=== PATIENT | female | born 1950 | race Caucasian/White ===

== ENCOUNTER → 2022-01-14 15:05 | Outpatient (BNVA) | payer MEDICARE, SELFPAY | PROVIDERS: PCP Pediatrics; Visit Provider Internal Medicine Pulmonary Disease | DX: J44.9 Chronic obstructive pulmonary disease, unspecified (principal); I10 Essential (primary) hypertension; J96.12 Chronic respiratory failure with hypercapnia; I50.89 Other heart failure; M06.9 Rheumatoid arthritis, unspecified; Z12.2 Encounter for screening for malignant neoplasm of respiratory organs; Z79.891 Long term (current) use of opiate analgesic; Z99.81 Dependence on supplemental oxygen; Z87.891 Personal history of nicotine dependence | CPT/HCPCS: 36415; 80053; 82103; 82785; 83735; 83880; 85025; 85651; 86003; 86140; 86200; 86225; 86235; 99204 ==

== ENCOUNTER → 2022-02-04 13:05 | Outpatient (BNVA) | payer MEDICARE, SELFPAY | PROVIDERS: PCP Pediatrics; Visit Provider Internal Medicine | DX: I50.9 Heart failure, unspecified (principal); R06.09 Other forms of dyspnea; Z87.891 Personal history of nicotine dependence | CPT/HCPCS: 99204 ==

== ENCOUNTER 2022-03-22 06:00 | Outpatient (RCR) | payer MEDICARE, OTHER, SELFPAY | END 2022-04-05 23:59 | disposition home or self-care (01) | LOC: TPT 06:00 | PROVIDERS: PCP Pediatrics; Visit Provider Internal Medicine Pulmonary Disease | DX: R53.1 Weakness (principal); R06.09 Other forms of dyspnea | CPT/HCPCS: 97110; 97163 ==

== ENCOUNTER 2022-04-20 12:24 | Outpatient (CLI) | payer MEDICARE, OTHER, SELFPAY | END 2022-04-20 12:25 | disposition home or self-care (01) | PROVIDERS: PCP Pediatrics; Visit Provider Internal Medicine Pulmonary Disease | DX: R53.1 Weakness (principal); R06.09 Other forms of dyspnea | CPT/HCPCS: 94060; 94618; 94726 ==

== ENCOUNTER 2022-04-20 12:30 | Outpatient (CLI) | payer MEDICARE, OTHER, SELFPAY ==
--- NOTE | 2022-04-20 14:15 | USCV_ITS ---
Mary Fitch Age: 71 Gender: F : 1950 Exam Date: 04/20/2022 14:17 Ordering Phys: Aaron Patrick M.D ([email or web address]) Technologist: Brigido Sandoval [place]am [place] [facility] [place] Indication: LV dysfunction BP: 120 / 64 HR: 74 Rhythm: Sinus Technical Quality: Adequate MEASUREMENTS (Male / Female) Normal Values 2D ECHO LV Diastolic Diameter PLAX 4.5 cm 4.2 - 5.9 / 3.9 - 5.3 cm LV Systolic Diameter PLAX 2.8 cm IVS Diastolic Thickness 0.8 cm 0.6 - 1.0 / 0.6 - 0.9 cm IVS Systolic Thickness 1.2 cm LVPW Diastolic Thickness 0.9 cm 0.6 - 1.0 / 0.6 - 0.9 cm LVPW Systolic Thickness 1.2 cm LVOT Diameter 2.0 cm LV Ejection Fraction 2D Teich 68.3 % LV Ejection Fraction MOD 2C 51.3 % LV Ejection Fraction 2C AL 51.3 % LA Diameter 3.0 cm LA Width 3.1 cm LA Height 4.1 cm RA Width 2.9 cm RA Height 4.4 cm Aorta at Sinotubular Diameter 2.3 cm IVC Diameter 1.8 cm M-MODE Aortic Annulus Diameter 2.8 cm LA Ao Ratio MM 1.1 MV E Point Septal Separation 1.1 cm DOPPLER AV Peak Velocity 149.7 cm/s LVOT Peak Velocity 101.0 cm/s AV Area Cont Eq vti 2.2 cm squared AV Area Cont Eq pk 2.1 cm squared MV Peak Velocity 108.0 cm/s MV Area PHT 5.1 cm squared Mitral E to A Ratio 0.7 MV E' Velocity 34.0 cm/s Mitral E to MV E' Ratio 7.6 Mitral E to LV E' Lateral Ratio 6.8 Mitral E to LV E' Septal Ratio 8.7 Right Atrial Pressure 3.0 mmHg PV Peak Velocity 114.0 cm/s RV Acceleration Time 0.1 s RV Ejection Time 0.3 s RV AcT/ET 0.2 FINDINGS Left Ventricle Left ventricle is normal in size. LV systolic function is mildly reduced with EF of 45 to 50%. Mild global hypokinesis is seen. Grade 1 diastolic dysfunction Right Ventricle Normal in size and function Right Atrium Normal in size Left Atrium Normal in size Mitral Valve Structurally normal mitral valve. Trace mitral regurgitation Aortic Valve Structurally normal aortic valve. No significant aortic stenosis. Tricuspid Valve Trace tricuspid regurgitation. Insufficient TR jet to calculate RVSP Pulmonic Valve Not well-visualized Pericardium Normal Aorta Normal in size IVC Appears to be normal CONCLUSIONS LV systolic function is mildly reduced with EF 45 to 50%. Mild global hypokinesis seen. Grade 1 diastolic dysfunction Trace mitral regurgitation Trace tricuspid regurgitation No comparison studies are available Aaron Patrick MD (Electronically Signed) Final Date: 29 April 2022 13:57 S
== END 2022-04-20 12:31 | disposition home or self-care (01) ==
PROVIDERS: PCP Pediatrics; Visit Provider Internal Medicine
DX: I08.1 Rheumatic disorders of both mitral and tricuspid valves (principal)
CPT/HCPCS: 93306

== ENCOUNTER 2022-08-18 09:44 | Outpatient (CLI) | payer MEDICARE, OTHER, SELFPAY ==
--- NOTE | 2022-08-18 10:00 | CT_ITS ---
WS: [id number] LDCT LUNG CANCER SCREENING TECHNIQUE: Noncontrast CT of the chest with coronal and sagittal reformatted images. CLINICAL INFORMATION: M06.9 - Rheumatoid arthritis, unspecified COMPARISON: None. DLP: 73.11 mGy.cm DIvol: Mean CTDIvol: 1.60 (mGy) All CT scans at [facility] use at least one of these dose optimization techniques: automat ed exposure control; mA and/or kV adjustment per patient size (includes targeted exams where dose is matched to clinical indication); or iterative reconstruction. FINDINGS: Advanced chronic emphysematous changes. No acute pulmonary infiltrates. No focal pneumonia or pleural fluid. No suspicious parenchymal abnormalities. Aortic calcification. No mediastinal or hilar lymphadenopathy. No axillary lymphadenopathy. Adrenal glands are normal. Normal GE junction. Hepatomegaly. Mild thoracic curve. Disc space narrowing in the mid thoracic spine. CT/CT lung screening [id number] IMPRESSION: LUNG-RADS: 1-Negative FOLLOW UP: 12 Month: Continue annual screening with LDCT
== END 2022-08-18 09:45 | disposition home or self-care (01) ==
LOC: RAD 09:47
PROVIDERS: PCP Pediatrics; Visit Provider Internal Medicine Pulmonary Disease
DX: M06.9 Rheumatoid arthritis, unspecified (principal)
CPT/HCPCS: 71271

== ENCOUNTER → 2022-12-02 12:24 | Outpatient (BNVA) | payer MEDICARE, OTHER, SELFPAY | PROVIDERS: PCP Pediatrics; Visit Provider Internal Medicine | DX: I50.9 Heart failure, unspecified (principal); R06.09 Other forms of dyspnea; Z87.891 Personal history of nicotine dependence | CPT/HCPCS: 99214 ==

== ENCOUNTER 2023-06-13 12:41 | Emergency (ER) | payer MEDICARE, OTHER, SELFPAY ==
--- NOTE | 2023-06-13 12:48 | ECG_ITS ---
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 Measurements Intervals [place] Rate: 80 P: 62 MT: 134 QRS: 48 QRSD: 90 T: 85 QT: 347 QTc: 400 Interpretive Statements SINUS RHYTHM No previous ECG available for comparison Electronically Signed On 06-13-2023 15:28:07 TELEGRAPH OFFICE ROUTE AIDE by Aaron Patrick M.D. [id number]
--- NOTE | 2023-06-13 12:49 | XRR_ITS ---
PROCEDURE INFORMATION: Exam: XR Chest Exam date and time: 06/13/2023 2:04 PM Age: 72 years old Clinical indication: Pain; Angina pectoris; Additional info: Cp TECHNIQUE: Imaging protocol: Radiologic exam of the chest. Views: 1 view. COMPARISON: CT lung screening [id number] 08/18/2022 10:24 AM FINDINGS: Lungs: There is no consolidation. Pleural spaces: There is no pleural effusion or pneumothorax. Heart/Mediastinum: Cardiomediastinal contours are unremarkable. Bones/joints: Bones are unremarkable. XR/XR chest 1V portable [id number] IMPRESSION: No acute findings.
[2023-06-13 12:51] VITALS: BP 142/82; PULSE 84; RESP 14; TEMP 36.7; O2SAT 95; BMI 32.3
[2023-06-13 13:29] LABS: Basophils % 0.3 %; Eosinophils # 0.1 10^3/uL (0.0-0.8); Eosinophils % 0.7 %; Hematocrit 44.3 % (36-47); Lymphocytes # 1.6 10^3/uL (0.8-4.8); Lymphocytes % 17.7 %; Mean Corpuscular HGB Conc 31.2 g/dL (30-55); Mean Corpuscular Hemoglobin 28.4 pg (27-33); Mean Corpuscular Volume 91.2 fl (85-98); Mean Platelet Volume 9.5 fL (7.4-10.4); Monocytes # 0.5 10^3/uL (0.2-0.9); Monocytes % 5.1 %; Neutrophils # 6.73 10^3/uL (1.8-7.7); Nucleated Red Blood Cells % 0 %; Platelet Count 311 10^3/cmm (157-399); Red Blood Count 4.86 10^6/uL (3.85-5.65); Red Cell Distribution Width 13.1 % (12.1-15.1); White Blood Count 8.86 10^3/uL (3.29-11.43)
[2023-06-13 13:38] LABS: INR 0.96 (0.8-1.2)
[2023-06-13 13:52] LABS: Troponin(5th) Baseline 7 ng/L (0-10)
[2023-06-13 14:01] LABS: Alanine Aminotransferase 51 U/L (0-33); Albumin Level 4.2 g/dL (3.5-5.2); Alkaline Phosphatase 182 U/L (35-105); Anion Gap 14.8 (5-19); Aspartate Amino Transferase 36 U/L (0-32); Blood Urea Nitrogen 13 mg/dL (8-23); Calcium 9.5 mg/dL (8.5-10.5); Carbon Dioxide 30 mmol/L (22-29); Chloride 100 mmol/L (98-107); Globulin 2.7 g/dL (1.3-4.6); Glucose 130 mg/dL (65-115); NT Pro B Type Natriuretic Pept < 36 pg/mL (0-125); Osmolality Calculated 292 mOsm/kg (285-295); Potassium 4.8 mmol/L (3.5-5.1); Sodium 140 mmol/L (136-145); Total Bilirubin 0.7 mg/dL (0.15-1.2); Total Protein 6.9 g/dL (6.6-8.7)
--- NOTE | 2023-06-13 14:10 | CTR_ITS ---
PROCEDURE INFORMATION: Exam: CT Abdomen And Pelvis With Contrast Exam date and time: 06/13/2023 3:09 PM Age: 72 years old Clinical indication: Abdominal pain; Epigastric; Additional info: Abd pain TECHNIQUE: Imaging protocol: Computed tomography of the abdomen and pelvis with contrast. Radiation optimization: All CT scans at this facility use at least one of these dose optimization techniques: automated exposure control; mA and/or kV adjustment per patient size (includes targeted exams where dose is matched to clinical indication); or iterative reconstruction. Contrast material: OMNI 350; Contrast volume: 100 ml; Contrast route: INTRAVENOUS (IV); COMPARISON: CT lung screening [id number] 08/18/2022 10:24 AM RADIATION DOSE METRICS: Total DLP (mGy-cm): 913 FINDINGS: Lungs: Imaged portions of the lung bases demonstrate minimal scarring and/or atelectasis. Liver: Unremarkable. Gallbladder and bile ducts: . A 6 x 9 mm soft tissue density is present at the gallbladder fundus, possibly representing a gallbladder polyp. There are no obvious calcified stones. The gallbladder is mildly distended but without obvious adjacent inflammatory changes. The extrahepatic bile duct measures 5 mm diameter. Pancreas: Unremarkable. Spleen: There are several small hypodensities associated with the spleen not fully characterized but potentially small cysts. The largest of these measures 1.2 cm in a subcapsular location. Adrenal glands: Not enlarged. Kidneys and ureters: No hydronephrosis. Stomach and bowel: No bowel obstruction identified. No bowel wall thickening noted, within the limits of the examination. Moderate diverticulosis involves the colon without secondary evidence of acute diverticulitis. Appendix: No acute inflammatory change of the appendix is identified. Intraperitoneal space: A minimal amount of free fluid is present in the lower pelvis. Vasculature: Circumaortic left renal vein noted as a developmental variant. atherosclerosis present in major vasculature without abdominal aortic aneurysm. Lymph nodes: No adenopathy noted. There are several ileocolic mesenteric nodes measuring up to 8 mm short axis. These are nonspecific. Urinary bladder: Unremarkable as visualized. Reproductive: Unremarkable as visualized. The uterus is atrophic as anticipated. Bones/joints: Unremarkable for age. Findings of degenerative disc disease noted at L3-L4 through L5-S1. Soft tissues: No acute subcutaneous abnormality identified. CT/CT abdomen pelvis w con* [id number] IMPRESSION: 1. Findings consistent with a polypoid 6 x 9 mm mass of the gallbladder fundus. Differential diagnosis would include a adherent gallstone, but typically not seen along the nondependent wall. Further evaluation is recommended initially with gallbladder ultrasound, and recommend Doppler assessment of this finding. 2. Scattered small splenic hypodensities too small to fully characterize but possibly small cysts. 3. Moderate diverticulosis without secondary evidence of acute diverticulitis. 4. Prominent ileocolic mesenteric nodes are nonspecific. These may relate to current or previous episode of adenitis. Other etiology of adenopathy not excluded. Would recommend a colonoscopy if the patient is not up-to-date on colonic screening.
--- NOTE | 2023-06-13 14:29 | W.ED.WEAKNES ---
HPI - Weakness General: Chief complaint: Weakness Stated complaint: CP Time Seen by Provider: 06/13/23 14:02 Source: patient Mode of arrival: ambulatory Limitations: no limitations History of Present Illness: 72-year-old female states that states over the last week she has been having chest pain along with severe epigastric abdominal pain that seems to radiate into her shoulder she is also having some back pain as well. States the pain is sharp in nature denies any worsening improving factors. Rates it an 8 out of 10 currently she has had vomiting denies any diarrhea denies any fevers. Associated symptoms: Reports chest pain, nausea and vomiting; Denies chills, dysuria, fever(s) or headache(s) Review of Systems Const: Denies: fever(s), chills, body aches or change in appetite Eyes: Denies: blurry vision or eye discomfort ENMT: Denies: throat pain or dental pain Card: Reports: chest pain Resp: Denies: dyspnea GI: Reports: abdominal pain, nausea and vomiting; Denies: diarrhea : Denies: dysuria Musc: Denies: neck pain or back pain Skin/Breast: Denies: rash Neuro: Denies: headache(s) PFSH ED PFSH: Medical History CHF (congestive heart failure) Family History Mother Cancer lung Heart disease Father Heart disease Hypertension Sister Diabetes Daughter Diabetes Hypertension High cholesterol Social History Smoking and tobacco/nicotine status: former use of tobacco/nicotine Physical Exam Const: COMMON NORMALS: no acute distress, patient oriented x3 and healthy appearing HENMT: COMMON NORMALS: normocephalic and atraumatic HEAD & SCALP: normocephalic and atraumatic Eye: COMMON NORMALS: Equal, round and reactive pupils present and EOMs intact bilaterally PUPIL: Yes Equal, round and reactive pupils present Neck/C-Spine: COMMON NORMALS: full ROM and supple Chest: COMMONS NORMALS: normal inspection of the chest and normal palpation of entire chest wall Resp: COMMON NORMALS: normal respiratory effort, No retractions, No use of accessory muscles and clear to auscultation bilaterally AUSCULTATION: clear to auscultation bilaterally Cardio: COMMON NORMALS: regular rate, regular rhythm and No murmurs present (Cardio) RATE: regular rate RHYTHM: regular rhythm GI: COMMON NORMALS: Normal to inspection, nondistended, normoactive bowel sounds present, Soft to palpation, non-tender and no masses PALPATION: Yes Soft to palpation Extremity: COMMON NORMALS: normal to inspection and full ROM Neuro: COMMON NORMALS: patient oriented x3, moves all extremities and no focal motor deficits Psych: COMMON NORMALS: mental status grossly normal, Normal thought process present and cooperative THOUGHT PROCESS: Normal thought process present Skin: COMMON NORMALS: no rashes or lesions noted and no wounds GENERAL SKIN EXAM: no rashes or lesions noted Course Vital Signs: Vital signs: Vital Signs Temperature 98.0 F 06/13/23 12:51 Pulse Rate 81 06/13/23 16:49 Respiratory Rate 16 06/13/23 16:49 Blood Pressure 105/59 06/13/23 16:49 Pulse Oximetry 100 06/13/23 16:49 Oxygen Delivery Me thod Nasal Cannula 06/13/23 12:51 Oxygen Flow Rate 3 06/13/23 12:51 MDM - Weakness Medical Decision Making Patient presents here with abdominal pain did have a a polyp on her gallbladder no signs of cholecystitis blood work is normal her pain is much improved I did speak to surgeon who she is to follow-up with Dr. Park return if worsening she understands agrees to plan. Medical Records I reviewed the patient's medical records. Lab Data I reviewed the patient's lab results. 06/13/23 13:04 06/13/23 13:04 Radiology Impressions Chest X-Ray 06/13/23 12:49 IMPRESSION: No acute findings. Abdomen/Pelvis CT 06/13/23 14:10 IMPRESSION: 1. Findings consistent with a polypoid 6 x 9 mm mass of the gallbladder fundus. Differential diagnosis would include a adherent gallstone, but typically not seen along the nondependent wall. Further evaluation is recommended initially with gallbladder ultrasound, and recommend Doppler assessment of this finding. 2. Scattered small splenic hypodensities too small to fully characterize but possibly small cysts. 3. Moderate diverticulosis without secondary evidence of acute diverticulitis. 4. Prominent ileocolic mesenteric nodes are nonspecific. These may relate to current or previous episode of adenitis. Other etiology of adenopathy not excluded. Would recommend a colonoscopy if the patient is not up-to-date on colonic screening. Gallbladder Ultrasound 06/13/23 15:45 IMPRESSION: The 6 x 9 mm polypoid mass suspected on CT was not identified by ultrasound. The CT appearance does remain concerning for a gallbladder polyp, and close follow-up evaluation is recommended. Recommend follow-up CT imaging in 6 months, sooner if warranted clinically. Laboratory Results WBC 8.86 10^3/uL (3.29-11.43) 06/13/23 13:04 RBC 4.86 10^6/uL (3.85-5.65) 06/13/23 13:04 Hgb 13.80 g/dL (11.27-16.99) 06/13/23 13:04 Hct 44.3 % (36-47) 06/13/23 13:04 MCV 91.2 fl (85-98) 06/13/23 13:04 MCH 28.4 pg (27-33) 06/13/23 13:04 MCHC 31.2 g/dL (30-55) 06/13/23 13:04 RDW 13.1 % (12.1-15.1) 06/13/23 13:04 Plt Count 311 10^3/cmm (157-399) 06/13/23 13:04 MPV 9.5 fL (7.4-10.4) 06/13/23 13:04 Neut % (Auto) 76.0 % 06/13/23 13:04 Lymph % (Auto) 17.7 % 06/13/23 13:04 [place] % (Auto) 5.1 % 06/13/23 13:04 Eos % (Auto) 0.7 % 06/13/23 13:04 Baso % (Auto) 0.3 % 06/13/23 13:04 Neut # (Auto) 6.73 10^3/uL (1.8-7.7) 06/13/23 13:04 Lymph # (Auto) 1.6 10^3/uL (0.8-4.8) 06/13/23 13:04 [place] # (Auto) 0.5 10^3/uL (0.2-0.9) 06/13/23 13:04 Eos # (Auto) 0.1 10^3/uL (0.0-0.8) 06/13/23 13:04 Baso # (Auto) 0.0 10^3/uL (0.0-0.1) 06/13/23 13:04 Nucleated RBC % (auto) 0 % 06/13/23 13:04 Nucleated RBCs # 0.0 /100WBC 06/13/23 13:04 PT 13.10 SECONDS (12.1-14.9) 06/13/23 13:04 INR 0.96 (0.8-1.2) 06/13/23 13:04 Sodium 140 mmol/L (136-145) 06/13/23 13:04 Potassium 4.8 mmol/L (3.5-5.1) 06/13/23 13:04 Chloride 100 mmol/L (98-107) 06/13/23 13:04 Carbon Dioxide 30 mmol/L (22-29) H 06/13/23 13:04 Anion Gap 14.8 (5-19) 06/13/23 13:04 BUN 13 mg/dL (8-23) 06/13/23 13:04 Creatinine 0.6 mg/dL (0.5-0.9) 06/13/23 13:04 GFR Calculation Not Reportable 06/13/23 13:04 Glucose 130 mg/dL (65-115) H 06/13/23 13:04 Calculated Osmolality 292 mOsm/kg (285-295) 06/13/23 13:04 Calcium 9.5 mg/dL (8.5-10.5) 06/13/23 13:04 Total Bilirubin 0.7 mg/dL (0.15-1.2) 06/13/23 13:04 AST 36 U/L (0-32) H 06/13/23 13:04 ALT 51 U/L (0-33) H 06/13/23 13:04 Alkaline Phosphatase 182 U/L (35-105) H 06/13/23 13:04 Troponin T Baseline 7 ng/L (0-10) 06/13/23 13:04 Troponin T 120 Minute 7.56 ng/L (0-10) 06/13/23 15:24 Delta Troponin T 0.56 ABS# (0-10) 06/13/23 15:24 NT-Pro-B Natriuret Pep < 36 pg/mL (0-125) 06/13/23 13:04 Total Protein 6.9 g/dL (6.6-8.7) 06/13/23 13:04 Albumin 4.2 g/dL (3.5-5.2) 06/13/23 13:04 Globulin 2.7 g/dL (1.3-4.6) 06/13/23 13:04 All radiology interpretation(s) finalized by discharge EKG Data EKG 1: I personally reviewed and interpreted this EKG as follows: EKG interpretation date: 06/13/23 EKG interpretation time: 12:48 Interpretation: nsr hr [address] or t wave abnormalities qrs 90 qtc 382 EKG 2: I personally reviewed and interpreted this EKG as follows: EKG interpretation date: 06/13/23 EKG interpretation time: 14:51 Interpretation: nsr hr [address] or twave abnormalities qrs 91 qtc 387 Discharge Plan Discharge Patient Disposition: Home Clinical Impression: Abdominal pain Qualifiers: Abdominal location: generalized Qualified Code(s): R10.84 - Generalized abdominal pain Condition: Stable Prescriptions: New hydrocodone-acetaminophen 5-325 mg tablet 1 tab PO Q6H PRN (Reason: pain) Qty: 14 0RF ondansetron 4 mg tablet,disintegrating 4 mg PO Q6H PRN (Reason: nausea and vomiting) Qty: 14 0RF No Action lisinopril 10 mg tablet 10 mg PO DAILY oxycodone-acetaminophen [Percocet] 10-325 mg tablet 1 tab PO Q6H PRN (Reason: Pain) pramipexole 0.75 mg tablet See Rx Instructions PO DAILY Rx Instructions: 1 tablet by mouth in AM, 2 tablets by mouth in PM budesonide 0.5 mg/2 mL suspension for nebulization 0.5 mg inhalation BID Qty: 60 11RF formoterol fumarate 20 mcg/2 mL solution for nebulization 2 ml inhalation BID Qty: 120 11RF albuterol sulfate 90 mcg/actuation HFA aerosol inhaler 2 puff inhalation Q6H PRN (Reason: shortness of breath or wheezing) Qty: 8.5 5RF ibuprofen 800 mg Tablet 800 mg PO Q6H PRN (Reason: Headache) Discharge Orders: Discharge ED (Routine); Ordered 06/13/23 Ordered By: Korby Sarah Beth Referrals: Elliott Park DO [Physician] - 1-3 days Bea ODOM,Ekaterina Díaz MD [Primary Care Provider] - Discharge Diet: Advance as tolerated Discharge Activity: Resume usual activity Patient Instructions: Abdominal Pain (ED), Opioid Safety, Pain Management Coding Level of Care Code ED Call Or Contact Centre Team Leader for Arnulfo Christopher
[2023-06-13] MEDS: ondansetron 2 mg/ML SDV 2 mL 4 MG IVP (14:35)
[2023-06-13] MEDS: morphine 4 mg/mL SDV 1 mL IVP (14:36)
--- NOTE | 2023-06-13 14:51 | ECG_ITS ---
[facility] Test Date: 2023-06-13 Pat Name: Mary Fitch Department: Room: Gender: Female Range Aide: : 1950 Requested By: Zeina Burleson Order Number: [id number] Santamaria MD: Aaron Patrick M.D. Measurements Intervals [place] Rate: 74 P: 66 [place]: 129 QRS: 59 QRSD: 91 T: 87 QT: 360 QTc: 400 Interpretive Statements SINUS RHYTHM Compared to ECG 06/13/2023 12:48:52 No significant changes Electronically Signed On 06-13-2023 15:28:55 OPERATING SYSTEM PROGRAMMER by Aaron Patrick M.D. [id number]
[2023-06-13] MEDS: iohexol 350 mg/mL 500 mL Btl (per mL) IV (15:12)
--- NOTE | 2023-06-13 15:45 | USR_ITS ---
PROCEDURE INFORMATION: Exam: US Abdomen, Limited; Right Upper Quadrant Exam date and time: 06/13/2023 3:55 PM Age: 72 years old Clinical indication: Abdominal pain; Additional info: Abd pain TECHNIQUE: Imaging protocol: Real time ultrasound of the abdomen with image documentation. Limited exam focused on the right upper quadrant. COMPARISON: CT abdomen pelvis w con* [id number] 06/13/2023 3:09 PM FINDINGS: Liver: The visualized liver is homogeneous. Gallbladder: The gallbladder is distended. The 6 x 9 mm polypoid mass suspected on CT was not demonstrated by ultrasound. There is no gallbladder wall thickening or pericholecystic fluid identified. Patient had reportedly received pain medication. Biliary ducts: The extrahepatic bile duct measures 3 mm diameter which is not significantly dilated where seen. Pancreas: Visualized pancreas is unremarkable. Right kidney: No hydronephrosis of the right kidney. Portal venous: Blood flow is directed appropriately towards the liver in the main portal vein. US/US gall bladder [id number] IMPRESSION: The 6 x 9 mm polypoid mass suspected on CT was not identified by ultrasound. The CT appearance does remain concerning for a gallbladder polyp, and close follow-up evaluation is recommended. Recommend follow-up CT imaging in 6 months, sooner if warranted clinically.
[2023-06-13 15:54] LABS: Troponin 5 2HR 7.56 ng/L (0-10); Troponin 5 2HR Delta 0.56 ABS# (0-10)
[2023-06-13 16:49] VITALS: BP 105/59; PULSE 81; RESP 16; O2SAT 100
--- NOTE | 2023-06-14 08:41 | DCPLANNER ---
Message sent to Gen Surg for follow up.
== END 2023-06-13 18:09 | disposition home or self-care (01) ==
PROVIDERS: Emergency Provider Emergency Medicine; PCP Pediatrics
DX: R10.84 Generalized abdominal pain (principal); K57.90 Diverticulosis of intestine, part unspecified, without perforation or abscess without bleeding; Z87.891 Personal history of nicotine dependence; I50.9 Heart failure, unspecified
CPT/HCPCS: 36415; 71045; 74177; 76705; 80053; 83880; 84484; 85025; 85610; 93005; 96374; 96375; 99285; J2270; J2405; Q9967

== ENCOUNTER → 2023-08-11 10:38 | Outpatient (BNVA) | payer MEDICARE, OTHER, SELFPAY | PROVIDERS: PCP Pediatrics; Visit Provider Internal Medicine | DX: I50.9 Heart failure, unspecified (principal); R06.09 Other forms of dyspnea; Z87.891 Personal history of nicotine dependence | CPT/HCPCS: 99214 ==

== ENCOUNTER 2023-08-22 10:10 | Outpatient (CLI) | payer MEDICARE, OTHER, SELFPAY ==
--- NOTE | 2023-08-22 11:00 | CT_ITS ---
WS: [id number] LDCT LUNG CANCER SCREENING HISTORY: Cancer Screen TECHNIQUE: Axial imaging performed from the apices to 1 cm below the costophrenic angles. Coronal and sagittal reformats are submitted with axial MIP series. All CT scans at [facility] use at least one of these dose optimization techniques: automated exposure control; mA and/or kV adjustment per patient size (includes targeted exams where dose is matched to clinical indication); or iterativ e reconstruction. DLP: 81.89 mGy.cm DIvol: Mean CTDIvol: 1.90 (mGy) COMPARISON: 08/18/2022 Diagnostic quality: Satisfactory Lungs: Moderate centrilobular and paraseptal emphysema. New irregular lesion in the anterior LEFT upp er lobe measures 2.1 x 0.9 cm. Additional groundglass and nodular consolidation in the LEFT upper lob e, image 114 of series 4. New 1.0 cm nodule with adjacent subsolid component posterior to the RIGHT m ain bronchus. Heart: Normal size heart with no pericardial effusion.. Other findings: Mild atherosclerosis aorta. Normal size pulmonary artery. Small hiatal hernia. No adr enal mass. IMPRESSION: CT/CT lung screening [id number] LUNG-RADS: 4A-Probably Suspicious FOLLOW UP: 3 Month LDCT OTHER FINDINGS (S MODIFIER): None. Bilateral upper lobe new opacifications. Suspect these are all related to pneum onitis or inflammatory lung disease. These are new since 08/18/2022. Recommend s hort-term chest CT follow-up. Alternatively PET/CT may be of benefit.
== END 2023-08-22 10:11 | disposition home or self-care (01) ==
LOC: RAD 10:11
PROVIDERS: PCP Pediatrics; Visit Provider Internal Medicine Pulmonary Disease
DX: Z12.2 Encounter for screening for malignant neoplasm of respiratory organs (principal); Z87.891 Personal history of nicotine dependence; J43.2 Centrilobular emphysema; R91.8 Other nonspecific abnormal finding of lung field
CPT/HCPCS: 71271

== ENCOUNTER 2023-09-20 08:11 | Outpatient (CLI) | payer MEDICARE, OTHER, SELFPAY ==
--- NOTE | 2023-09-20 09:00 | PETR_ITS ---
PROCEDURE INFORMATION: Exam: PET/CT Skull Base to Mid-thigh Exam date and time: 09/20/2023 9:22 AM Age: 72 years old Clinical indication: Abnormal findings; Bilateral upper lobe new opacifications. Suspect these are all related to pneumonitis or. Inflammatory lung disease. These are new since 08/18/2022. Recommend short-term chest CT follow-up. Alternatively pet/ct May be of benefit; Additional info: New 1.0 cm nodule LABS AND CLINICAL REPORTS: Glucose: 110 mg/dl Treatment strategy for malignancy (PET staging): Initial Staging (PI) TECHNIQUE: Imaging protocol: Following at least four-hour fasting and following the injection of radiopharmaceutical, low dose CT images were obtained. Then, PET images were obtained. Attenuation corrected images were constructed using the CT scan. Fused images of PET and CT were reviewed. The standardized uptake values (SUV) reported below are maximum values within a region of interest, expressed in gm/ml. Exam includes orbital meatal line to mid-thigh. Radiopharmaceutical: 12.43 mCi F-18 FDG (Fluorodeoxyglucose), IV. Time of imaging post radiopharmaceutical administration: 1 hour Injection site: Left AC COMPARISON: 1. CT abdomen pelvis w con* [id number] 06/13/2023 3:[address] lung screening [id number] 08/22/2023 10:58 AM FINDINGS: Brain: Visualized brain has normal physiologic uptake. Pharynx: No abnormal uptake. Larynx: No abnormal uptake. Lungs, pleura and trachea: Decreased conspicuity of previously noted pulmonary opacities. Heart: Normal physiologic uptake. Mediastinal space: No abnormal uptake. Liver: No abnormal uptake. Gallbladder and bile ducts: No abnormal uptake. Pancreas: No abnormal uptake. Spleen: No abnormal uptake. Adrenal glands: No abnormal uptake. Kidneys and ureters: Normal physiologic uptake. Stomach and bowel: Colonic diverticulosis without evidence of diverticulitis. No bowel obstruction. Intraperitoneal and retroperitoneal spaces: Trace free fluid in the pelvis. Vasculature: No abnormal uptake. Lymph nodes: No abnormal uptake. No lymphadenopathy in the head, neck, chest, abdomen, pelvis, and extremities. Bones/joints: No abnormal uptake in the visualized axial and appendicular skeleton. Soft tissues: No abnormal uptake in the visualized head, neck, chest, abdomen, pelvis, and extremities. PET/PET skulltothigh SUBSEQ [id number] IMPRESSION: No FDG avid disease is identified. Decreased conspicuity of previously noted pulmonary opacities.
== END 2023-09-20 08:12 | disposition home or self-care (01) ==
LOC: RAD 08:11
PROVIDERS: PCP Pediatrics; Visit Provider Internal Medicine Pulmonary Disease
DX: R91.1 Solitary pulmonary nodule (principal)
CPT/HCPCS: 78815; A9552

== ENCOUNTER 2023-11-21 10:45 | Emergency (ER) | payer OTHER, SELFPAY ==
[2023-11-21 10:48] VITALS: BP 111/53; PULSE 47; RESP 20; TEMP 36.4; O2SAT 98; BMI 32.3
--- NOTE | 2023-11-21 10:48 | ECG_ITS ---
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 Measurements Intervals [place] Rate: 41 P: 51 NM: 131 QRS: 41 QRSD: 89 T: 87 QT: 465 QTc: 384 Interpretive Statements SINUS BRADYCARDIA Compared to ECG 06/13/2023 14:51:51 Sinus rhythm no longer present Electronically Signed On 11-21-2023 12:53:31 CDT by Aaron Patrick M.D. [id number]
--- NOTE | 2023-11-21 10:54 | XRR_ITS ---
PROCEDURE INFORMATION: Exam: XR Chest Exam date and time: 11/21/2023 11:10 AM Age: 73 years old Clinical indication: Pain; Angina pectoris; Additional info: Chest pain TECHNIQUE: Imaging protocol: Radiologic exam of the chest. Views: 1 view. COMPARISON: CT lung screening [id number] 08/22/2023 10:58 AM FINDINGS: Lungs: The lung parenchyma is clear. Pleural spaces: No pneumothorax. No large pleural effusion. Heart/Mediastinum: The cardiomediastinal silhouette is within normal limits. Bones/joints: Unremarkable. XR/XR chest 1V portable [id number] IMPRESSION: No acute cardiopulmonary abnormality.
--- NOTE | 2023-11-21 11:14 | W.ED.CHESTPA ---
HPI - Chest Pain General: Chief Complaint: Chest Pain Stated Complaint: CP Time Seen by Provider: 11/21/23 11:11 History of Present Illness: 73-year-old female with chronic pain syndrome on chronic narcotic therapy, COPD and former tobacco dependence, and hypertension who presents to the emergency room with nausea vomiting and epigastric pain that started about 4 days ago. Has been worsening and so she finally came to the emergency room. She is doubled over in pain. She says she has been vomiting. No known fevers. No altered mental status. No focal motor deficits. No cough. She does think she has been having fevers at home. She is hypotensive initially on presentation. Review of Systems Narrative: Constitutional symptoms: Negative except as documented in HPI. Skin symptoms: Negative except as documented in HPI. Eye symptoms: Negative except as documented in HPI. ENMT symptoms: Negative except as documented in HPI. Respiratory symptoms: Negative except as documented in HPI. Cardiovascular symptoms: Negative except as documented in HPI. Gastrointestinal symptoms: Negative except as documented in HPI. Genitourinary symptoms: Negative except as documented in HPI. Musculoskeletal symptoms: Negative except as documented in HPI. Neurologic symptoms: Negative except as documented in HPI. Psychiatric symptoms: Negative except as documented in HPI. Endocrine symptoms: Negative except as documented in HPI. FORMERLY [facility] ED PFSH: Medical History CHF (congestive heart failure) Family History Mother Cancer lung Heart disease Father Heart disease Hypertension Sister Diabetes Daughter Diabetes Hypertension High cholesterol Social History Smoking and tobacco/nicotine status: former use of tobacco/nicotine Physical Exam Narrative: EXAM NARRATIVE: General: Alert, patient is writhing in pain in the bed Skin: Warm, dry. Head: Normocephalic, atraumatic. Neck: Supple, trachea midline. Eye: Extraocular movements are intact. Ears, nose, mouth and throat: Dry oral mucosa. Cardiovascular: Regular, Normal peripheral perfusion. Respiratory: Lungs are clear to auscultation, respirations are non-labored, breath sounds are equal, Symmetrical chest wall expansion. Gastrointestinal: Soft, patient is very tender in her epigastric region and guards., Non distended, Normal bowel sounds. Musculoskeletal: Normal ROM, no deformity. Neurological: Alert and oriented, No focal neurological deficit observed. Psychiatric: Cooperative, appropriate mood & affect. Course Vital Signs: Vital signs: Vital Signs Temperature 97.5 F L 11/21/23 10:48 Pulse Rate 88 11/21/23 13:04 Respiratory Rate 18 11/21/23 13:04 Blood Pressure 153/94 11/21/23 13:04 Pulse Oximetry 100 11/21/23 13:04 Oxygen Delivery Me thod Room Air 11/21/23 13:04 Oxygen Flow Rate 3 11/21/23 11:40 MDM - Chest Pain Medical Decision Making Differential diagnosis for patient presenting with right upper quadrant abdominal pain including but not limited to and based on the above HPI, review of systems and physical exam: Cholelithiasis or cholecystitis. Hepatitis. Diverticulitis. Constipation. Ureterolithiasis. Urinary tract infection. Appendicitis. colitis. small bowel obstruction. crohn's flare. pancreatitis. gastritis. peptic ulcer. Aortic disection. Workup including imaging and lab work replaced based on the above differential, history and exam to evaluate differential diagnosis EK:48 AM. Rate 41 sinus bradycardia, No ST-T changes, no ectopy, normal [place] & QRS intervals, This was reviewed and interpreted by myself the ER physician at 1050 Lab Review: Laboratory results were reviewed and interpreted by myself the emergency room physician. Patient has leukocytosis with a white count 15,000. Hemoglobin is stable at 13. BUN and creatinine are normal at 15 and 0.8. She has mild elevation in her bilirubin at 1.7. LFTs are slightly elevated as well. Ultrasound gallbladder: Hydropic gallbladder. No pericholecystic fluid. No stones. Bile duct is normal in size. This was reviewed and interpreted by myself the emergency room physician. I also reviewed the radiology report. I reviewed the patient's medical record. Reexamination: Patient was still having quite a bit of pain. She is been given more Dilaudid. No altered mental status. No focal motor deficits. No increased work of breathing. CT of the abdomen and pelvis: Ultrasound findings were not consistent with lab findings so I ordered a CT scan with contrast: CT scan shows dilated bile duct at 11 mm and dilated biliary tree. This was reviewed and interpreted by myself the emergency room physician. I also reviewed the radiology report. I spoke directly with the radiologist on-call about the findings. I consulted with hospitalist and general surgery here, but with the new findings of the CT I have canceled the admission here. Consultation: I spoke with Dr. Kumar Miller at [facility]. He agrees with transfer for direct admission. Assessment and plan: Ascending cholangitis Dehydration Chronic pain syndrome -IV Zosyn. Has required 4 mg morphine, 4 mg of Dilaudid so far. 2 L normal saline bolus. IV Zofran. ?Starting maintenance IV fluids. -I discussed the patient with the hospitalist on-call who is admitting the patient. - Discussed findings and plan with patient. Answered any questions. - All laboratory values were reviewed and interpreted personally by myself, the ER physician - All imaging was reviewed and interpreted personally by myself, the ER physician. - Evaluation and treatment of this problem were appropriate in the emergency setting -I spent a total of >35 minutes of critical care time managing the patient, independent of any other practitioner. -The time involved in the performance of separately reportable procedures was not counted towards critical care time. Lab Data 11/21/23 11:30 11/21/23 11:30 Radiology Impressions Chest X-Ray 11/21/23 10:54 IMPRESSION: No acute cardiopulmonary abnormality. Gallbladder Ultrasound 11/21/23 11:39 IMPRESSION: 1. Hydropic gallbladder with sludge. No stones. No pericholecystic fluid. Similar findings noted on the prior ultrasound from 06/13/2023. 2. No bile duct dilatation. Abdomen/Pelvis CT 11/21/23 12:58 IMPRESSION: 1. Since 06/13/2023 CT, interval intrahepatic and extrahepatic bile duct dilatation. 2. Dilated common bile duct has increased in diameter at the pancreatic head from 6 mm to 11 mm. There is wall enhancement and increased attenuation within the CBD lumen suggesting ascending cholangitis. No calcification identified. 3. Gallbladder is mildly hydropic but there is very minimal inflammation surrounding the gallbladder. The inflammation is predominately centered around the common bile duct and the second portion of the duodenum. Consider ascending cholangitis. Patient may benefit from MRCP or ERCP evaluation. 4. Moderate distal colon diverticular burden. No acute diverticulitis. Notified Ching Ramsey MD at 11/21/2023 1:52 PM. Laboratory Results WBC 15.52 10^3/uL (3.29-11.43) H 06/17/24 11:30 RBC 4.69 10^6/uL (3.85-5.65) 11/21/23 11:30 Hgb 13.00 g/dL (11.27-16.99) 11/21/23 11:30 Hct 43.1 % (36-47) 11/21/23 11:30 MCV 91.9 fl (85-98) 11/21/23 11:30 MCH 27.7 pg (27-33) 11/21/23 11:30 MCHC 30.2 g/dL (30-55) 11/21/23 11:30 RDW 13.3 % (12.1-15.1) 11/21/23 11:30 Plt Count 340 10^3/cmm (157-399) 11/21/23 11:30 MPV 9.6 fL (7.4-10.4) 11/21/23 11:30 Neut % (Auto) 82.8 % 11/21/23 11:30 Lymph % (Auto) 9.7 % 11/21/23 11:30 Johnson % (Auto) 6.5 % 11/21/23 11:30 Eos % (Auto) 0.4 % 11/21/23 11:30 Baso % (Auto) 0.3 % 11/21/23 11:30 Neut # (Auto) 12.85 10^3/uL (1.8-7.7) H 11/21/23 11:30 Lymph # (Auto) 1.5 10^3/uL (0.8-4.8) 11/21/23 11:30 Johnson # (Auto) 1.0 10^3/uL (0.2-0.9) H 11/21/23 11:30 Eos # (Auto) 0.1 10^3/uL (0.0-0.8) 11/21/23 11:30 Baso # (Auto) 0.0 10^3/uL (0.0-0.1) 11/21/23 11:30 Nucleated RBC % (auto) 0 % 11/21/23 11:30 Nucleated RBCs # 0.0 /100WBC 11/21/23 11:30 Sodium 143 mmol/L (136-145) 11/21/23 11:30 Potassium 4.2 mmol/L (3.5-5.1) 11/21/23 11:30 Chloride 103 mmol/L (98-107) 11/21/23 11:30 Carbon Dioxide 29 mmol/L (22-29) 11/21/23 11:30 Anion Gap 15.2 (5-19) 11/21/23 11:30 BUN 15 mg/dL (8-23) 11/21/23 11:30 Creatinine 0.8 mg/dL (0.5-0.9) 11/21/23 11:30 GFR Calculation Not Reportable 11/21/23 11:30 Glucose 129 mg/dL (65-115) H 11/21/23 11:30 Calculated Osmolality 299 mOsm/kg (285-295) H 11/21/23 11:30 Lactic Acid 1.8 mmol/L (0.5-2.2) 11/21/23 11:30 Calcium 9.4 mg/dL (8.5-10.5) 11/21/23 11:30 Total Bilirubin 1.7 mg/dL (0.15-1.2) H 11/21/23 11:30 AST 97 U/L (0-32) H 11/21/23 11:30 ALT 124 U/L (0-33) H 11/21/23 11:30 Alkaline Phosphatase 269 U/L (35-105) H 11/21/23 11:30 Troponin T Baseline 8 ng/L (0-10) 11/21/23 11:30 Troponin T 120 Minute 7.74 ng/L (0-10) 11/21/23 13:15 Delta Troponin T -0.26 ABS# (0-10) L 11/21/23 13:15 Troponin T Hi Sens 6Hr Cancelled 11/21/23 11:30 Troponin T Hi Sens 6Hr Delta Cancelled 11/21/23 11:30 C-Reactive Protein Cancelled 11/21/23 13:15 Total Protein 7.4 g/dL (6.6-8.7) 11/21/23 11:30 Albumin 4.0 g/dL (3.5-5.2) 11/21/23 11:30 Globulin 3.4 g/dL (1.3-4.6) 11/21/23 11:30 All radiology interpretation(s) finalized by discharge Discharge Plan Discharge Patient Disposition: Admitted As Inpatient Clinical Impression: Ascending cholangitis, Dehydration, Chronic pain syndrome Condition: Stable Coding Level of Care Code ED Siderographist for Arnulfo Christopher
[2023-11-21] MEDS: sodium chloride 0.9% 1,000 ML 999 ML IV ×2 (11:36→12:35)
[2023-11-21] MEDS: morphine 4 mg/mL SDV 1 mL IVP (11:37)
[2023-11-21] MEDS: ondansetron 2 mg/ML SDV 2 mL 8 MG IVP (11:37)
--- NOTE | 2023-11-21 11:39 | US_ITS ---
WS: [id number] RIGHT UPPER QUADRANT ULTRASOUND HISTORY: Right upper quadrant pain, concern for cholecystitis COMPARISON: 06/13/2023 Liver: 14.9 cm in length. Normal size liver with hepatic steatosis. The entire liver is poorly visual ized due to body habitus. It would be difficult to exclude a mass. Portal Vein: Normal hepatopetal flow with monophasic waveform. Gallbladder: Hydropic gallbladder with sludge. No stones identified or polyp. Transverse diameter of the gallbladder is 5.0 cm. No pericholecystic fluid. CBD: 0.5 cm Pancreas: Obscured by bowel gas. Right kidney: 9.7 cm in length. Limited visualization of the kidney. No obstruction. Aorta and IVC: Poorly visualized. No ascites. US/US gall bladder [id number] IMPRESSION: 1. Hydropic gallbladder with sludge. No stones. No pericholecystic fluid. Ashley lar findings noted on the prior ultrasound from 06/13/2023. 2. No bile duct dilatation.
[2023-11-21 11:40] VITALS: PULSE 81; RESP 18; O2SAT 96
[2023-11-21 11:47] LABS: Basophils % 0.3 %; Eosinophils # 0.1 10^3/uL (0.0-0.8); Eosinophils % 0.4 %; Hematocrit 43.1 % (36-47); Lymphocytes # 1.5 10^3/uL (0.8-4.8); Lymphocytes % 9.7 %; Mean Corpuscular HGB Conc 30.2 g/dL (30-55); Mean Corpuscular Hemoglobin 27.7 pg (27-33); Mean Corpuscular Volume 91.9 fl (85-98); Mean Platelet Volume 9.6 fL (7.4-10.4); Monocytes % 6.5 %; Neutrophils # 12.85 10^3/uL (1.8-7.7); Neutrophils % 82.8 %; Nucleated Red Blood Cells % 0 %; Platelet Count 340 10^3/cmm (157-399); Red Blood Count 4.69 10^6/uL (3.85-5.65); Red Cell Distribution Width 13.3 % (12.1-15.1); White Blood Count 15.52 10^3/uL (3.29-11.43)
[2023-11-21 12:04] LABS: Alanine Aminotransferase 124 U/L (0-33); Alkaline Phosphatase 269 U/L (35-105); Anion Gap 15.2 (5-19); Aspartate Amino Transferase 97 U/L (0-32); Blood Urea Nitrogen 15 mg/dL (8-23); C Reactive Protein 53.7 mg/L (0.0-4.9); Calcium 9.4 mg/dL (8.5-10.5); Carbon Dioxide 29 mmol/L (22-29); Chloride 103 mmol/L (98-107); Creatinine Clr Calc Pharmacy 69.9957; Globulin 3.4 g/dL (1.3-4.6); Glucose 129 mg/dL (65-115); Osmolality Calculated 299 mOsm/kg (285-295); Potassium 4.2 mmol/L (3.5-5.1); Sodium 143 mmol/L (136-145); Total Bilirubin 1.7 mg/dL (0.15-1.2); Total Protein 7.4 g/dL (6.6-8.7)
[2023-11-21 12:05] LABS: Lactic Sepsis W/Reflex 1.8 mmol/L (0.5-2.2)
[2023-11-21 12:06] LABS: Troponin(5th) Baseline 8 ng/L (0-10)
--- NOTE | 2023-11-21 12:54 | ECG_ITS ---
[facility] Test Date: 2023-11-21 Pat Name: Mary Fitch Department: Room: Gender: Female [employer]: : 1950 Requested By: Ching Walker Order Number: [id number] Santamaria MD: Aaron Patrick M.D. Measurements Intervals [place] Rate: 89 P: 66 TN: 131 QRS: 47 QRSD: 93 T: 73 QT: 308 QTc: 376 Interpretive Statements SINUS RHYTHM WITH MARKED SINUS ARRHYTHMIA Compared to ECG 11/21/2023 10:48:24 Sinus bradycardia no longer present Electronically Signed On 11-21-2023 13:12:36 CDT by Aaron Patrick M.D. [email or web address] [email or web address]/[id number]
[2023-11-21] MEDS: HYDROmorphone 1 mg/mL INJ 1 mL 2 MG IVP ×3 (12:57→17:28)
--- NOTE | 2023-11-21 12:58 | CT_ITS ---
WS: [id number] CT ABDOMEN AND PELVIS WITH CONTRAST HISTORY: Abdominal pain TECHNIQUE: Imaging performed of the abdomen and pelvis with IV contrast. Single phase imaging of the abdomen. Coronal and sagittal reformats are submitted. All CT scans at [facility] use at [address] one of these dose optimization techniques: automated exposure control; mA and/or kV adjustment per patient size (includes targeted exams where dose is matched to clinical indication); or iterative re construction. IV CONTRAST: Omnipaque 350; 100 mL IV. Oral contrast: No DLP: 1001.60 mGy.cm COMPARISON: 06/13/2023 Lower thorax: Lung bases are clear. Heart is normal size. Small hiatal hernia. Liver/biliary system: Normal size liver. New intrahepatic duct dilatation since 06/13/2023. No mass or abscess. Common bile duct is not dilated with wall thickening and enhancement. Common bile duct of pa ncreatic head is 11 mm as compared to 6 mm on 06/13/2023. No filling defect. There is increased debris attenuation within the common bile duct. Gallbladder: Gallbladder is distended. Reidentified is a small 6 mm nodule in the wall of the gallbla dder which is not definitely identified by ultrasound. Although the gallbladder is dilated there is n ot a lot of inflammation surrounding the gallbladder. The gallbladder wall is normal. Pancreas: Normal size pancreas. No pancreatic duct dilatation. Spleen: Normal spleen with a few scattered areas of decreased attenuation which may be cysts. Adrenal glands: Normal. Right kidney: Normal. Left kidney: Normal. Aorta: Atherosclerosis aorta. Circumaortic LEFT renal vein. Lymphadenopathy: None. Free fluid: None. GI tract: No obstruction. There is mild inflammation and hyperemia second portion of the duodenum wit h no obstruction. Moderate distal colonic diverticular burden. No obstruction or acute diverticulitis . Abdominal wall: Unremarkable abdominal wall. No hernia. Pelvis: No free fluid or adenopathy within the pelvis. Normal urinary bladder. Atrophic uterus. Bones: Unremarkable. CT/CT abdomen pelvis w con* [id number] IMPRESSION: 1. Since 06/13/2023 CT, interval intrahepatic and extrahepatic bile duct dilata tion. 2. Dilated common bile duct has increased in diameter at the pancreatic head f rom 6 mm to 11 mm. There is wall enhancement and increased attenuation within t he CBD lumen suggesting ascending cholangitis. No calcification identified. 3. Gallbladder is mildly hydropic but there is very minimal inflammation surro unding the gallbladder. The inflammation is predominately centered around the c ommon bile duct and the second portion of the duodenum. Consider ascending chol angitis. Patient may benefit from MRCP or ERCP evaluation. 4. Moderate distal colon diverticular burden. No acute diverticulitis. Notified Ching Ramsey MD at 11/21/2023 1:52 PM.
[2023-11-21] MEDS: piperacillin-tazobactam 4.5 GM in sodium chloride 0.9% (plus) 50 ML IV (13:01)
[2023-11-21 13:04] VITALS: BP 153/94; PULSE 88; RESP 18; O2SAT 100
[2023-11-21 13:41] LABS: Troponin 5 2HR 7.74 ng/L (0-10)
[2023-11-21 13:42] LABS: Troponin 5 2HR Delta -0.26 ABS# (0-10)
[2023-11-21] MEDS: sodium chloride 0.9% 1,000 ML 125 ML IV (14:37)
[2023-11-21 14:52] VITALS: BP 117/69; PULSE 97; RESP 11; O2SAT 94
[2023-11-21 15:10] LABS: Bilirubin Urine Neg (Negative); Blood Urine 2+ (Negative); Glucose Urine UA Norm (Normal); Ketones Urine 1+ (Negative); Leukocyte Esterase Urine Negative (Negative); Nitrate Urine Negative (Negative); Protein Urine Neg (Negative); Specific Gravity, Urine 1.005 (1.005-1.030); Urine Appearance Clear (CLEAR); Urine Color Yellow (Yellow); Urobilinogen Urine 4 mg/dL (Negative); pH Urine 5 (5-7)
[2023-11-21 15:11] LABS: Bacteria Urine 1+ /hpf; RBC Urine 0-4 /hpf (0-2); Squamous Epithelial Cell Urine 15-25 /hpf (0-5); WBC Urine 0-4 /hpf (0-5)
[2023-11-21 15:12] LABS: Add Urine Culture? No
[2023-11-21 15:13] LABS: Lipase 5289 U/L (13-60)
[2023-11-21] MEDS: morphine 4 mg/mL SDV 1 mL 10 MG IVP (16:03)
[2023-11-21 16:21] VITALS: PULSE 126; RESP 26; O2SAT 95
--- NOTE | 2023-11-21 16:56 | ECG_ITS ---
[facility] Test Date: 2023-11-21 Pat Name: Mary Fitch Department: Room: Gender: Female Eyeletter: : 1950 Requested By: Ching Walker Order Number: [id number] Santamaria MD: Michael Yu M.D. Measurements Intervals [place] Rate: 110 P: 64 NE: 120 QRS: 65 QRSD: 92 T: 83 QT: 291 QTc: 394 Interpretive Statements SINUS TACHYCARDIA ABNORMAL RHYTHM ECG Compared to ECG 11/21/2023 13:03:19 Sinus rhythm no longer present Sinus arrhythmia no longer present Electronically Signed On 11-25-2023 13:46:01 CDT by Michael Yu M.D. [id number]
--- NOTE | 2023-11-22 03:08 | PC.NURSE ---
Blood culture results communicated to RN at [facility]. RN verbalized understanding of results
[2023-11-22 04:29] LABS: Acinetobacter baumannii Not Detected (NOT DETECT); Bacteroides fragilis Not Detected (NOT DETECT); CTX-M Not Detected (NOT DETECT); Citrobacter Not Detected (NOT DETECT); Cronobacter sakazakii Not Detected (NOT DETECT); Enterobacter cloacae complex Not Detected (NOT DETECT); Enterobacter non cloacae Not Detected (NOT DETECT); Fusobacterium necrophorum Not Detected (NOT DETECT); Fusobacterium nucleatum Not Detected (NOT DETECT); Haemophilus influenzae Not Detected (NOT DETECT); IMP Resistance Gene Not Detected (NOT DETECT); KPC Resistance Gene Not Detected (NOT DETECT); Klebsiella pneumoniae group Not Detected (NOT DETECT); Morganella morganii Not Detected (NOT DETECT); NDM Resistance Gene Not Detected (NOT DETECT); Neisseria meningitidis Not Detected (NOT DETECT); OXA Resistance Gene Not Detected (NOT DETECT); Pan Candida Not Detected (NOT DETECT); Pan Gram-Positive Not Detected (NOT DETECT); Proteus mirabilis Not Detected (NOT DETECT); Pseudomonas aeruginosa Not Detected (NOT DETECT); Salmonella Not Detected (NOT DETECT); Serratia Not Detected (NOT DETECT); Serratia marcescens Not Detected (NOT DETECT); Stenotrophomonas maltophilia Not Detected (NOT DETECT); VIM Resistance Gene Not Detected (NOT DETECT)
== END 2023-11-21 17:52 | disposition admitted as inpatient to this hospital (09) ==
PROVIDERS: Emergency Provider Emergency Medicine; PCP Pediatrics
DX: G89.4 Chronic pain syndrome (principal); K83.09 Other cholangitis; E86.0 Dehydration; R00.1 Bradycardia, unspecified; Z87.891 Personal history of nicotine dependence; I11.0 Hypertensive heart disease with heart failure; I50.9 Heart failure, unspecified; J44.9 Chronic obstructive pulmonary disease, unspecified; J96.11 Chronic respiratory failure with hypoxia; Z99.81 Dependence on supplemental oxygen; K85.90 Acute pancreatitis without necrosis or infection, unspecified
CPT/HCPCS: 36415; 71045; 74177; 76705; 80053; 81001; 83605; 83690; 84484; 85025; 86140; 87040; 87077; 87150; 87186; 87205; 93005; 96365; 96366; 96375; 96376; 99285; J1170; J2270; J2405; J2543; J7030; Q9967

== ENCOUNTER 2024-01-11 15:58 | Outpatient (CLI) | payer MEDICARE, SELFPAY ==
[2024-01-11 16:23] LABS: Charge for UA Resulting for Rev
[2024-01-11 16:33] LABS: Bilirubin Urine Negative (Negative); Blood Urine Non-haemolysed trace (Negative); Glucose Urine UA Negative (Normal); Ketones Urine Negative (Negative); Leukocyte Esterase Urine 3+ (Negative); Nitrate Urine Positive (Negative); Protein Urine Trace (Negative); Specific Gravity, Urine 1.014 (1.005-1.030); Urine Appearance Turbid (CLEAR); Urine Color Yellow (Yellow); pH Urine 6.5 (5-7)
[2024-01-11 16:39] LABS: Bacteria Urine EXCEEDS /hpf; Hyaline Casts Urine 2.46 /lpf; RBC Urine 0-2 /hpf (0-2); WBC Urine >100 /hpf (0-5)
[2024-01-11 17:04] LABS: Transitional Epi Cells Urine 0-4 /hpf
[2024-01-11 17:05] LABS: Add Urine Culture? Yes
== END 2024-01-11 15:59 | disposition home or self-care (01) ==
LOC: LAB 16:21
PROVIDERS: PCP Pediatrics; Visit Provider Family Medicine
DX: K85.10 Biliary acute pancreatitis without necrosis or infection (principal)
CPT/HCPCS: 81003; 81015; 87077; 87086; 87186

== ENCOUNTER 2024-01-21 06:51 | Inpatient (IN) | payer MEDICARE, SELFPAY ==
[2024-01-21] VITALS (81 sets, daily range): BP systolic 75–151; BP diastolic 41–92; PULSE 49–133; RESP 12–34; TEMP 36.5–37.7; O2SAT 94–100; BMI 30.2; BMI 31.8
--- NOTE | 2024-01-21 07:10 | CTR_ITS ---
PROCEDURE INFORMATION: Exam: CT Abdomen And Pelvis With Contrast Exam date and time: 01/21/2024 8:21 AM Age: 73 years old Clinical indication: Nausea and vomiting; Abdominal pain; Generalized; Additional info: Abdomen pain, n/v, chills TECHNIQUE: Imaging protocol: Computed tomography of the abdomen and pelvis with contrast. Radiation optimization: All CT scans at this facility use at least one of these dose optimization techniques: automated exposure control; mA and/or kV adjustment per patient size (includes targeted exams where dose is matched to clinical indication); or iterative reconstruction. Contrast material: OMNIPAQUE 350; Contrast volume: 100 ml; Contrast route: INTRAVENOUS (IV); COMPARISON: CT abdomen pelvis w con* [id number] 11/21/2023 1:27 PM RADIATION DOSE METRICS: Total DLP (mGy-cm): 905 FINDINGS: Lungs: Lung bases are clear as visualized. Liver: There is mild fatty infiltration of the liver. There is mild ductal dilatation primarily involving the left lobe of the liver. Gallbladder and biliary ducts: No gallstones are seen within the gallbladder. There is a multi cystic type mass involving the fundus of the gallbladder measuring 14 mm in size. This appears to be larger on today's exam when compared to prior exam. The gallbladder is not particularly distended. No pericholecystic inflammatory changes noted. No dilatation of the common bile duct is appreciated. Pancreas: Normal. No ductal dilation. Spleen: Normal. No splenomegaly. Adrenal glands: Normal. No mass. Kidneys and ureters: Normal. No hydronephrosis. Stomach and bowel: There are scattered colonic diverticula. No large bowel wall thickening is appreciated. There are a few air-fluid levels involving nondilated loops of small bowel. No small bowel wall thickening is noted. Appendix: No evidence of appendicitis. Intraperitoneal space: Unremarkable. No free air. No significant fluid collection. Vasculature: The aorta is normal in caliber. There is calcified plaque involving the aorta and its branch vessels. Lymph nodes: There are multiple small mesenteric and periportal lymph nodes. No enlarged nodes are appreciated. Urinary bladder: Unremarkable as visualized. Reproductive: Unremarkable as visualized. Bones/joints: Unremarkable. No acute fracture. Soft tissues: Unremarkable. CT/CT abdomen pelvis w con* [id number] IMPRESSION: 1. Persistent ductal dilatation involving the bile ducts of the left lobe of the liver. The common bile duct has return to a more normal caliber. Exact etiology is uncertain. A biliary stricture involving the more proximal left hepatic duct is possible. ERCP/MRCP may add additional information if desired. 2. Enlarging mass involving the fundus of the gallbladder. Gallbladder malignancy cannot be excluded. 3. Diverticulosis. 4. Air-fluid levels involving nondilated loops of small bowel. This is a nonspecific finding but can be seen with an ileus.
--- NOTE | 2024-01-21 07:14 | ED_ITS ---
HPI - Abdominal Pain 2 General: Chief Complaint: Abdominal Pain Stated Complaint: Abd Pain Time Seen by Provider: 01/21/24 06:52 Source: patient Mode of arrival: ambulatory Limitations: no limitations History of Present Illness: 73-year-old female who had a history of ascending cholangitis in November she had an ERCP states that I will try to schedule to get her gallbladder out but has not yet states she has been having increasing diffuse abdominal pain starting last night. She has had some nausea along with generalized weakness she denies any fevers denies any diarrhea. Denies any worse improved factors Associated Symptoms: Reports nausea and vomiting; Denies chills, diarrhea, dysuria and fever(s) Related Data Home Medications Medication Instructions Recorded Confirmed lisinopril 10 mg tablet 10 mg PO DAILY 01/14/22 11/21/23 oxycodone-acetaminophen 10 mg-325 1 tab PO Q6H PRN Pain 01/14/22 11/21/23 mg tablet (Percocet) pramipexole 0.75 mg tablet See Rx Instructions PO DAILY 01/14/22 11/21/23 ibuprofen 800 mg tablet 800 mg PO Q6H PRN Headache 06/13/23 11/21/23 cetirizine 10 mg tablet 10 mg PO DAILY PRN Itching 11/21/23 11/21/23 Previous Rx's Medication Instructions Recorded budesonide 0.5 mg/2 mL suspension 0.5 mg (2 mL) inhalation BID #60 mL 01/14/22 for nebulization formoterol fumarate 20 mcg/2 mL 2 ml inhalation BID #120 mL 01/14/22 solution for nebulization albuterol sulfate 90 mcg/actuation 2 puff inhalation Q6H PRN 03/22/22 aerosol inhaler shortness of breath or wheezing #8.5 grams ondansetron 4 mg disintegrating 4 mg PO Q6H PRN nausea and 06/13/23 tablet vomiting #14 tabs azithromycin 250 mg tablet 250 mg PO .3 X WEEK #36 tabs 09/27/23 Allergies Allergy/AdvReac Type Severity Reaction Status Date / Time No Known Allergies Allergy Verified 01/21/24 07:18 Review of Systems 2 Const: Denies: fever(s), chills, body aches or change in appetite ENMT: Denies: throat pain or dental pain Card: Denies: chest pain Resp: Denies: dyspnea GI: Reports: abdominal pain, nausea and vomiting; Denies: diarrhea : Denies: dysuria Musc: Denies: neck pain or back pain Skin/Breast: Denies: rash Neuro: Denies: headache(s) PFSH ED 2 PFSH: Medical History CHF (congestive heart failure) Family History Mother Cancer lung Heart disease Father Heart disease Hypertension Sister Diabetes Daughter Diabetes Hypertension High cholesterol Social History Smoking and tobacco/nicotine status: former use of tobacco/nicotine Physical Exam 2 Const: COMMON NORMALS: patient oriented x3 HENMT: COMMON NORMALS: normocephalic and atraumatic HEAD & SCALP: n ormocephalic and atraumatic Eye: COMMON NORMALS: conjunctivae normal CONJUNCTIVA: Yes conjunctivae normal Neck/C-Spine: COMMON NORMALS: full ROM and supple Chest: COMMONS NORMALS: normal inspection of the chest Resp: COMMON NORMALS: normal respiratory effort, No retractions, No use of accessory muscles and clear to auscultation bilaterally AUSCULTATION: clear to auscultation bilaterally Cardio: COMMON NORMALS: regular rhythm and No murmurs present (Cardio) R ATE: tachycardic RHYTHM: regular rhythm GI: COMMON NORMALS: Normal to inspection, nondistended, normoactive bowel sounds present, Soft to palpation and no masses PALPATION: Yes Soft to palpation OTHER: diffuse tenderness Extremity: COMMON NORMALS: normal to inspection and full ROM Neuro: COMMON NORMALS: patient oriented x3, moves all extremities and no focal motor deficits Psych: COMMON NORMALS: mental status grossly normal, Normal thought process present and cooperative THOUGHT PROCESS: Normal thought process present Skin: COMMON NORMALS: no rashes or lesions noted and no wounds GENERAL SKIN EXAM: no rashes or lesions noted Procedures Central Line Placement Right IJ: Time Out Performed: Yes Patient Placed on Monitor/Pulse Ox: Yes Prep: mask, gown and gloves Central Line Prep: Chlorhexidine scrub Local Anesthetic: lidocaine 1% Amount of anesthesia used (mL): 3 Ultrasound Used for Placement: Yes Central Line Lumen Inserted: triple Post Procedure: sutured in place, good blood return, all ports aspirated, flushed, capped and sterile dressing applied Post Procedure X-Ray: tip of catheter in good position and no pneumothorax seen Patient Tolerated Procedure: well Complications: none Course 2 Vital Signs: Vital signs: Vital Signs Temperature 98.7 F 01/21/24 16:25 Pulse Rate 75 01/21/24 15:35 Respiratory Rate 15 01/21/24 15:35 Blood Pressure 127/74 01/21/24 15:35 Pulse Oximetry 100 01/21/24 15:35 Oxygen Delivery Me thod Room Air 01/21/24 07:06 MDM - Abdominal Pain Medical Decision Making Patient presents with abdominal pain she did have a low-grade fever developed hypotension that required Levophed she had a history of cholangitis in the past. Patient given 2 L of fluids here did not give her full sepsis bolus that she has a history of congestive heart failure did not want to fluid overload her. Her blood pressures responded well here. Did give her IV antibiotics patient been seen by the hospitalist along with surgeon patient's bili along with liver enzymes and white count were normal here along with a normal lactate. MRCP showed no choledocholithiasis or still some concerns about possible cholangitis and they had recommended that she need to be transferred to somewhere GI. I did attempt to transfer to [place] where she is previously been they do not have GI capabilities also called [facility] they do not have GI capabilities I did call [facility] as well they do not have any bed availability I spoke to patient and they do not want to go further than [facility] did not want a be transferred to [place] or [place] I spoke to the hospitalist here again Dr. Gentile will admit at this time on IV antibiotics and recheck labs in the morning. Medical Records I reviewed the patient's medical records. Lab Data I reviewed the patient's lab results. 01/21/24 07:39 01/21/24 07:39 Labs/Radiology: Radiology Impressions Abdomen/Pelvis CT 01/21/24 07:10 IMPRESSION: 1. Persistent ductal dilatation involving the bile ducts of the left lobe of the liver. The common bile duct has return to a more normal caliber. Exact etiology is uncertain. A biliary stricture involving the more proximal left hepatic duct is possible. ERCP/MRCP may add additional information if desired. 2. Enlarging mass involving the fundus of the gallbladder. Gallbladder malignancy cannot be excluded. 3. Diverticulosis. 4. Air-fluid levels involving nondilated loops of small bowel. This is a nonspecific finding but can be seen with an ileus. Gallbladder Ultrasound 01/21/24 08:31 IMPRESSION: 1. Small echogenic focus within the gallbladder which does not shadow. This could represent a small focus of tumefactive sludge or nonshadowing stone. 2. Focal gallbladder wall thickening may reflect lesion seen on CT. Please note however that the lesion is much more prominent on CT than on ultrasound. 3. Fatty infiltration of the liver with mild prominence of the bile ducts involving the left lobe of the liver. Again this is also more notable on CT than on ultrasound. Chest CTA 01/21/24 11:22 IMPRESSION: 1. Mild bilateral dependent atelectasis. No large focal consolidation to suggest overlying pneumonia. 2. No evidence of pulmonary artery thromboembolism. COMMENTS: The presence of pulmonary emphysema on CT is an independent risk factor for lung cancer. In the absence of a history or active diagnosis of lung cancer, it is recommended that this patient with emphysema be evaluated for enrollment in a low dose CT lung cancer screening program. Chest X-Ray 01/21/24 11:53 IMPRESSION: 1. Successful placement of central venous catheter on the right. 2. Minimal patchy infiltrate or atelectasis right lung base. Cholangiopancreatography MRI 01/21/24 13:28 IMPRESSION: 1. Nodular masslike thickening of the tip of the gallbladder fundus measuring up to 1.9 cm with internal cystic spaces. Imaging characteristics suggest focal fundal adenomyomatosis, although examination is limited due to lack of IV contrast. Please note, however, a gallbladder neoplasm may present similarly. Consider further assessment with contrast-enhanced MRI with diffusion weighted imaging. 2. Nonspecific enlarged precaval lymph node. 3. Mild left intrahepatic and extrahepatic biliary ductal dilatation. No evidence of choledocholithiasis or intra biliary lesion. Findings may be related to a periampullary duodenal diverticulum. Laboratory Results WBC 7.93 10^3/uL (3.29-11.43) 01/21/24 07:39 RBC 3.98 10^6/uL (3.85-5.65) 01/21/24 07:39 Hgb 11.30 g/dL (11.27-16.99) 01/21/24 07:39 Hct 36.3 % (36-47) 01/21/24 07:39 MCV 91.2 fl (85-98) 01/21/24 07:39 MCH 28.4 pg (27-33) 01/21/24 07:39 MCHC 31.1 g/dL (30-55) 01/21/24 07:39 RDW 13.9 % (12.1-15.1) 01/21/24 07:39 Plt Count 252 10^3/cmm (157-399) 01/21/24 07:39 MPV 9.0 fL (7.4-10.4) 01/21/24 07:39 Neut % (Auto) 90.9 % 01/21/24 07:39 Lymph % (Auto) 7.6 % 01/21/24 07:39 Amelia % (Auto) 1.0 % 01/21/24 07:39 Eos % (Auto) 0.1 % 01/21/24 07:39 Baso % (Auto) 0.1 % 01/21/24 07:39 Neut # (Auto) 7.21 10^3/uL (1.8-7.7) 01/21/24 07:39 Lymph # (Auto) 0.6 10^3/uL (0.8-4.8) L 01/21/24 07:39 Amelia # (Auto) 0.1 10^3/uL (0.2-0.9) L 01/21/24 07:39 Eos # (Auto) 0.0 10^3/uL (0.0-0.8) 01/21/24 07:39 Baso # (Auto) 0.0 10^3/uL (0.0-0.1) 01/21/24 07:39 Nucleated RBC % (auto) 0 % 01/21/24 07:39 Nucleated RBCs # 0.0 /100WBC 01/21/24 07:39 Sodium 138 mmol/L (136-145) 01/21/24 07:39 Potassium 4.8 mmol/L (3.5-5.1) 01/21/24 07:39 Chloride 99 mmol/L (98-107) 01/21/24 07:39 Carbon Dioxide 28 mmol/L (22-29) 01/21/24 07:39 Anion Gap 15.8 (5-19) 01/21/24 07:39 BUN 15 mg/dL (8-23) 01/21/24 07:39 Creatinine 0.9 mg/dL (0.5-0.9) 01/21/24 07:39 GFR Calculation Not Reportable 01/21/24 07:39 Glucose 145 mg/dL (65-115) H 01/21/24 07:39 Calculated Osmolality 289 mOsm/kg (285-295) 01/21/24 07:39 Lactic Acid 1.9 mmol/L (0.5-2.2) 01/21/24 07:39 Calcium 8.8 mg/dL (8.5-10.5) 01/21/24 07:39 Total Bilirubin 0.9 mg/dL (0.15-1.2) 01/21/24 07:39 AST 39 U/L (0-32) H 01/21/24 07:39 ALT 24 U/L (0-33) 01/21/24 07:39 Alkaline Phosphatase 225 U/L (35-105) H 01/21/24 07:39 Troponin T Baseline 34 ng/L (0-10) H 01/21/24 10:56 Troponin T 120 Minute 32.69 ng/L (0-10) H 01/21/24 12:46 Delta Troponin T -1.31 ABS# (0-10) L 01/21/24 12:46 Total Protein 6.9 g/dL (6.6-8.7) 01/21/24 07:39 Albumin 3.7 g/dL (3.5-5.2) 01/21/24 07:39 Globulin 3.2 g/dL (1.3-4.6) 01/21/24 07:39 Lipase 37 U/L (13-60) 01/21/24 07:39 Urine Color Yellow (Yellow) 01/21/24 07:51 Urine Appearance Clear (CLEAR) 01/21/24 07:51 Urine pH 6.0 (5-7) 01/21/24 07:51 Ur Specific [place] 1.013 (1.005-1.030) 01/21/24 07:51 Urine Protein Negative (Negative) 01/21/24 07:51 Urine Glucose (UA) Negative (Normal) 01/21/24 07:51 Urine Ketones Trace (Negative) 01/21/24 07:51 Urine Blood Negative (Negative) 01/21/24 07:51 Urine Nitrate Negative (Negative) 01/21/24 07:51 Urine Bilirubin Negative (Negative) 01/21/24 07:51 Urine Urobilinogen 1.0 mg/dL (Negative) 01/21/24 07:51 Ur Leukocyte Esterase Negative (Negative) 01/21/24 07:51 Urine RBC 0-2 /hpf (0-2) 01/21/24 07:51 Urine WBC 0-5 /hpf (0-5) 01/21/24 07:51 Ur Squamous Epith Cells 0-5 /hpf (0-5) 01/21/24 07:51 Amorphous Sediment Not Reportable 01/21/24 07:51 Urine Bacteria None seen /hpf (NONE) 01/21/24 07:51 Hyaline Casts 2.46 /lpf 01/21/24 07:51 All radiology interpretation(s) finalized by discharge EKG Data EKG 1: I personally reviewed and interpreted this EKG as follows: EKG interpretation date: 01/21/24 EKG interpretation time: 07:58 Interpretation: sinus tach hr [address] or t wave abnormalities qrs 88 qtc 377 Critical Care Time 2 Critical Care Time: Critical Care Time: Yes Total Critical Care Time: 55 Attestation: The high probability of a clinically significant, sudden or life threatening deterioration of the patient's gi system(s) required my full and direct attention, intervention and personal management. The critical care time is as shown. This time is in addition to time spent performing any reported procedures but includes the following: [x] Data and vital sign review and interpretation [x] Patient assessment, examination and intervention [x] Documentation [x] Medication orders and management Discharge Plan Discharge Patient Disposition: Admitted As Inpatient Clinical Impression: Abdominal pain, Hypotension Condition: Stable Prescriptions: No Action lisinopril 10 mg tablet 10 mg PO DAILY oxycodone-acetaminophen [Percocet] 10-325 mg tablet 1 tab PO Q6H PRN (Reason: Pain) pramipexole 0.75 mg tablet See Rx Instructions PO DAILY Rx Instructions: 1 tablet by mouth in AM, 2 tablets by mouth in PM budesonide 0.5 mg/2 mL suspension for nebulization 0.5 mg inhalation BID Qty: 60 11RF formoterol fumarate 20 mcg/2 mL solution for nebulization 2 ml inhalation BID Qty: 120 11RF azithromycin 250 mg tablet 250 mg PO .3 X WEEK Qty: 36 4RF Rx Instructions: 250 mg tab on Mondays, Wednesdays, and Fridays albuterol sulfate 90 mcg/actuation HFA aerosol inhaler 2 puff inhalation Q6H PRN (Reason: shortness of breath or wheezing) Qty: 8.5 5RF ibuprofen 800 mg Tablet 800 mg PO Q6H PRN (Reason: Headache) ondansetron 4 mg tablet,disintegrating 4 mg PO Q6H PRN (Reason: nausea and vomiting) Qty: 14 0RF cetirizine 10 mg tablet 10 mg PO DAILY PRN (Reason: Itching) Referrals: Ekaterina Roman MD [Primary Care Provider] - Coding Level of Care Code ED Block [facility]yer for Arnulfo Christopher
[2024-01-21] MEDS: sodium chloride 0.9% 1,000 ML 999 ML IV ×2 (07:42→10:50)
[2024-01-21 07:44] LABS: Basophils % 0.1 %; Eosinophils % 0.1 %; Hematocrit 36.3 % (36-47); Lymphocytes # 0.6 10^3/uL (0.8-4.8); Lymphocytes % 7.6 %; Mean Corpuscular HGB Conc 31.1 g/dL (30-55); Mean Corpuscular Hemoglobin 28.4 pg (27-33); Mean Corpuscular Volume 91.2 fl (85-98); Monocytes # 0.1 10^3/uL (0.2-0.9); Neutrophils # 7.21 10^3/uL (1.8-7.7); Neutrophils % 90.9 %; Nucleated Red Blood Cells % 0 %; Platelet Count 252 10^3/cmm (157-399); Red Blood Count 3.98 10^6/uL (3.85-5.65); Red Cell Distribution Width 13.9 % (12.1-15.1); White Blood Count 7.93 10^3/uL (3.29-11.43)
--- NOTE | 2024-01-21 07:58 | ECG_ITS ---
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
[2024-01-21 08:03] LABS: Lactic Sepsis W/Reflex 1.9 mmol/L (0.5-2.2)
[2024-01-21 08:04] LABS: Alanine Aminotransferase 24 U/L (0-33); Albumin Level 3.7 g/dL (3.5-5.2); Alkaline Phosphatase 225 U/L (35-105); Anion Gap 15.8 (5-19); Aspartate Amino Transferase 39 U/L (0-32); Blood Urea Nitrogen 15 mg/dL (8-23); Calcium 8.8 mg/dL (8.5-10.5); Carbon Dioxide 28 mmol/L (22-29); Chloride 99 mmol/L (98-107); Creatinine Clr Calc Pharmacy 60.1766; Globulin 3.2 g/dL (1.3-4.6); Glucose 145 mg/dL (65-115); Lipase 37 U/L (13-60); Osmolality Calculated 289 mOsm/kg (285-295); Potassium 4.8 mmol/L (3.5-5.1); Sodium 138 mmol/L (136-145); Total Bilirubin 0.9 mg/dL (0.15-1.2); Total Protein 6.9 g/dL (6.6-8.7)
[2024-01-21 08:10] LABS: Charge for UA Resulting for Rev
[2024-01-21 08:14] LABS: Bilirubin Urine Negative (Negative); Blood Urine Negative (Negative); Glucose Urine UA Negative (Normal); Ketones Urine Trace (Negative); Leukocyte Esterase Urine Negative (Negative); Nitrate Urine Negative (Negative); Protein Urine Negative (Negative); Specific Gravity, Urine 1.013 (1.005-1.030); Urine Appearance Clear (CLEAR); Urine Color Yellow (Yellow)
[2024-01-21 08:19] LABS: Bacteria Urine None Seen /hpf; Hyaline Casts Urine 2.46 /lpf; RBC Urine 0-2 /hpf (0-2); Squamous Epithelial Cell Urine 0-5 /hpf (0-5); WBC Urine 0-5 /hpf (0-5)
[2024-01-21] MEDS: iohexol 350 mg/mL 500 mL Btl (per mL) IV ×2 (08:25→12:38)
--- NOTE | 2024-01-21 08:31 | USR_ITS ---
PROCEDURE INFORMATION: Exam: US Abdomen, Limited; Right Upper Quadrant Exam date and time: 01/21/2024 8:49 AM Age: 73 years old Clinical indication: Abdominal pain; Localized; Right upper quadrant (ruq); Prior surgery; Surgery date: <1 month; Surgery type: Unsure of dates. Patient said she just had surgery to have stones removed from gb; Additional info: Ruq pain TECHNIQUE: Imaging protocol: Real time ultrasound of the abdomen with image documentation. Limited exam focused on the right upper quadrant. COMPARISON: US gall bladder [id number] 11/21/2023 11:55 AM FINDINGS: Liver: Mild prominence of the bile ducts of the left lobe of the liver are better seen on CT. The liver is slightly echogenic compatible with fatty infiltration. No focal liver masses identified. Gallbladder: Nonshadowing echogenic focus noted within the gallbladder may represent a stone or tumefactive sludge. There is focal wall thickening involving the wall of the gallbladder measuring up to 7 mm in size. This may represent partial imaging of the lesion seen on CT from same day. Please note that the lesion is better seen on CT than ultrasound. No pericholecystic fluid is identified. No wall thickening is otherwise noted involving the gallbladder. Biliary ducts: Normal. No stones. No dilation. The common bile duct measures 4 mm in size. Pancreas: Visualized pancreas is unremarkable. Right kidney: Normal. No mass. No hydronephrosis. The right kidney measures 9.9 cm in length and is normal in echotexture. US/US gall bladder [id number] IMPRESSION: 1. Small echogenic focus within the gallbladder which does not shadow. This could represent a small focus of tumefactive sludge or nonshadowing stone. 2. Focal gallbladder wall thickening may reflect lesion seen on CT. Please note however that the lesion is much more prominent on CT than on ultrasound. 3. Fatty infiltration of the liver with mild prominence of the bile ducts involving the left lobe of the liver. Again this is also more notable on CT than on ultrasound.
[2024-01-21] MEDS: acetaminophen 500 mg Tablet 1000 MG PO (09:23)
--- NOTE | 2024-01-21 10:40 | XRR_ITS ---
PROCEDURE INFORMATION: Exam: XR Chest Exam date and time: 01/21/2024 10:57 AM Age: 73 years old Clinical indication: Fever TECHNIQUE: Imaging protocol: Radiologic exam of the chest. Views: 1 view. COMPARISON: CR XR chest 1V portable [id number] 11/21/2023 11:10 AM FINDINGS: Lungs: Unremarkable. No consolidation. Pleural spaces: Unremarkable. No pleural effusion. No pneumothorax. Heart/Mediastinum: Unremarkable. No cardiomegaly. Bones/joints: Unremarkable. XR/XR chest 1V portable [id number] IMPRESSION: No acute findings.
[2024-01-21] MEDS: lidocaine 2% viscous 15 ML, aluminum-mag hydrox-simethicon 30 ML, sucralfate oral liq 1 GM PO (10:58)
[2024-01-21] MEDS: piperacillin-tazobactam 3.375 GM in sodium chloride 0.9% (plus) 50 ML IV ×2 (10:58→18:13)
[2024-01-21 11:22] LABS: Troponin(5th) Baseline 34 ng/L (0-10)
--- NOTE | 2024-01-21 11:22 | CTR_ITS ---
PROCEDURE INFORMATION: Exam: CTA Chest With Contrast Exam date and time: 01/21/2024 12:28 PM Age: 73 years old Clinical indication: Shortness of breath; Patient HX: SOB; Previously ip for sepsis TECHNIQUE: Imaging protocol: Computed tomographic angiography of the chest with contrast. Exam focused on the arteries. 3D rendering (Not supervised by radiologist): MIP and/or 3D reconstructed images were created by the technologist. Radiation optimization: All CT scans at this facility use at least one of these dose optimization techniques: automated exposure control; mA and/or kV adjustment per patient size (includes targeted exams where dose is matched to clinical indication); or iterative reconstruction. Contrast material: OMNIPAQUE 350; Contrast volume: 70 ml; Contrast route: INTRAVENOUS (IV); COMPARISON: PT PET skull to thigh SUBS [id number] 09/20/2023 9:22 AM RADIATION DOSE METRICS: Total DLP (mGy-cm): 361.8 FINDINGS: Tubes, catheters and devices: Right IJ approach central venous catheter terminates within the SVC. Pulmonary arteries: No evidence of pulmonary artery thromboembolism. Aorta: Mild scattered calcific disease of the thoracic aorta. No evidence of aortic aneurysm. Lungs: Mild bilateral dependent atelectasis. Centrilobular emphysematous changes of the upper lungs. No large focal consolidation to suggest overlying pneumonia. Pleural spaces: No significant pleural effusion. No pneumothorax. Heart: Heart is normal in size. No pericardial effusion. Lymph nodes: No distinct pathologically enlarged lymphadenopathy. Bones/joints: No acute osseous findings. Soft tissues: Visualized superficial soft tissues are within normal limits. CT/CT angio chest PE protcl [id number] IMPRESSION: 1. Mild bilateral dependent atelectasis. No large focal consolidation to suggest overlying pneumonia. 2. No evidence of pulmonary artery thromboembolism. COMMENTS: The presence of pulmonary emphysema on CT is an independent risk factor for lung cancer. In the absence of a history or active diagnosis of lung cancer, it is recommended that this patient with emphysema be evaluated for enrollment in a low dose CT lung cancer screening program.
[2024-01-21] MEDS: norepinephrine 4 MG/250 ML BAG 30 MG IV (11:34)
--- NOTE | 2024-01-21 11:53 | XRR_ITS ---
PROCEDURE INFORMATION: Exam: XR Chest Exam date and time: 01/21/2024 11:54 AM Age: 73 years old Clinical indication: Other vascular access device placement or adjustment; Central line, non-tunnelled; Patient HX: Central line placement; Hypotension TECHNIQUE: Imaging protocol: Radiologic exam of the chest. Views: 1 view. COMPARISON: CR (CHEST, ) 01/21/2024 10:57 AM FINDINGS: Tubes, catheters and devices: Central venous catheter seen on the right with its tip overlying the SVC. Lungs: There may be minimal patchy infiltrate or atelectasis at the right lung base. This was not definitely present on prior exam. Lungs are otherwise clear. Pleural spaces: Unremarkable. No pleural effusion. No pneumothorax. Heart/Mediastinum: Unremarkable. No cardiomegaly. Bones/joints: Unremarkable. XR/XR chest 1V portable [id number] IMPRESSION: 1. Successful placement of central venous catheter on the right. 2. Minimal patchy infiltrate or atelectasis right lung base.
--- NOTE | 2024-01-21 12:14 | ECG_ITS ---
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
[2024-01-21] MEDS: morphine 4 mg/mL SDV 1 mL IVP (12:50)
[2024-01-21] MEDS: ondansetron 2 mg/ML SDV 2 mL 4 MG IVP (12:50)
--- NOTE | 2024-01-21 12:50 | ECG_ITS ---
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
[2024-01-21] MEDS: vancomycin 1,000 MG in sodium chloride 0.9% 250 ML 250 MG IV (12:51)
[2024-01-21 13:07] LABS: Troponin 5 2HR 32.69 ng/L (0-10)
--- NOTE | 2024-01-21 13:28 | MRR_ITS ---
PROCEDURE INFORMATION: Exam: MR Abdomen Without Contrast, Biliary System Exam date and time: 01/21/2024 2:02 PM Age: 73 years old Clinical indication: Abdominal pain; Localized; Right upper quadrant (ruq); Additional info: Abd pain TECHNIQUE: Imaging protocol: MR of the abdomen without contrast. Exam focused on the biliary system and pancreatic ducts. Routine 3D-MRCP images were acquired and processed without radiologist supervision. COMPARISON: CT abdomen pelvis w con* [id number] 01/21/2024 8:21 AM FINDINGS: Lungs: The visualized portions of the lungs are normal. Liver: The liver is normal. Gallbladder and biliary ducts: There is a 1.3 x 1.9 x 1.7 cm masslike nodular thickening of the tip of the gallbladder fundus which exhibits heterogeneous high T2 signal with multiple peripheral cystic spaces (series 401, image 26). Mildly dilated common bile duct, measuring up to 8 mm in caliber. Mild intrahepatic biliary ductal dilatation, most pronounced centrally and within the left hepatic lobe. No evidence of filling defect within the common bile duct. Pancreas: The pancreas is normal. Spleen: multiple splenic cysts measuring up to 1.5 cm. Kidneys and ureters: The kidneys are normal. Stomach and bowel: Colonic diverticulosis without evidence of diverticulitis. 2.1 cm periampullary duodenal diverticulum. Intraperitoneal space: No fluid collection. Lymph nodes: Nonspecific prominent precaval lymph node measuring 1.2 cm in short axis. Otherwise scattered prominent, but nonenlarged mesenteric lymph nodes. Soft tissues: Soft tissues are unremarkable as visualized. MR/MR MRCP [id number] IMPRESSION: 1. Nodular masslike thickening of the tip of the gallbladder fundus measuring up to 1.9 cm with internal cystic spaces. Imaging characteristics suggest focal fundal adenomyomatosis, although examination is limited due to lack of IV contrast. Please note, however, a gallbladder neoplasm may present similarly. Consider further assessment with contrast-enhanced MRI with diffusion weighted imaging. 2. Nonspecific enlarged precaval lymph node. 3. Mild left intrahepatic and extrahepatic biliary ductal dilatation. No evidence of choledocholithiasis or intra biliary lesion. Findings may be related to a periampullary duodenal diverticulum.
[2024-01-21 13:36] LABS: Troponin 5 2HR Delta -1.31 ABS# (0-10)
[2024-01-21] MEDS: ketorolac 30 mg/mL INJ 15 MG IVP (15:01)
--- NOTE | 2024-01-21 16:45 | ECG_ITS ---
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
--- NOTE | 2024-01-21 16:55 | PM.HP ---
Providers/Chief Complaint Primary Care Provider: Ekaterina ODOM MD Chief Complaint: Abd Pain History of Present Illness Mary Fitch is a 73 year old female with past medical history of ascending cholangitis diagnosed recently in November status post ERCP with removal of 3 stones and pus from biliary tree at [facility] who was recommended a cholecystectomy after clearance from cardiology and pulmonology presented to the hospital today with abdominal pain that has been going on for the last 1 week and has acutely worsened this morning. Associated with nausea and vomiting since last night. Patient states she is unable to keep anything down. Denies a fever. Denies chest pain, shortness of breath. Does carry a history of end-stage COPD, rheumatoid arthritis, hypertension, chronic back pain for which she takes opioids. Patient on Pulmicort, lisinopril, Percocet, pramipexole at home. Apparently also has a diagnosis of systolic heart failure and states she had a MUGA scan done recently however does not have the results of it at this time. She saw cardiology in August and EF previously was 45 to 50%. Patient is accompanied by 2 family members. She is on 3 L nasal cannula at home. She states that when she had ascending cholangitis episode in November she had similar presentation without a fever however the pain was much more intense. Says she may be constipated and last bowel movement was 3 days ago. She normally goes every 3 to 4 days. Recently was diagnosed with UTI and took Macrobid x 1 week with last dose yesterday. Workup in ER as follows today. CBC: Unremarkable CMP: Glucose 145, creatinine 0.9, AST 39, alkalized phosphatase 225 previously 289 Troponin: 34, 32.69, 6-hour Trope pending Urinalysis: Unremarkable, not suggestive of infection. Imaging studies: Abdomen/pelvis CT:1. Persistent ductal dilatation involving the bile ducts of the left lobe of the liver. The common bile duct has return to a more normal caliber. Exact etiology is uncertain. A biliary stricture involving the more proximal left hepatic duct is possible. ERCP/MRCP may add additional information if desired. 2. Enlarging mass involving the fundus of the gallbladder. Gallbladder malignancy cannot be excluded. 3. Diverticulosis. 4. Air-fluid levels involving nondilated loops of small bowel. This is a nonspecific finding but can be seen with an ileus. Gallbladder ultrasound:1. Small echogenic focus within the gallbladder which does not shadow. This could represent a small focus of tumefactive sludge or nonshadowing stone. 2. Focal gallbladder wall thickening may reflect lesion seen on CT. Please note however that the lesion is much more prominent on CT than on ultrasound. 3. Fatty infiltration of the liver with mild prominence of the bile ducts involving the left lobe of the liver. Again this is also more notable on CT than on ultrasound. CTA chest 1. Mild bilateral dependent atelectasis. No large focal consolidation to suggest overlying pneumonia. 2. No evidence of pulmonary artery thromboembolism. MRCP:1. Nodular masslike thickening of the tip of the gallbladder fundus measuring up to 1.9 cm with internal cystic spaces. Imaging characteristics suggest focal fundal adenomyomatosis, although examination is limited due to lack of IV contrast. Please note, however, a gallbladder neoplasm may present similarly. Consider further assessment with contrast-enhanced MRI with diffusion weighted imaging. 2. Nonspecific enlarged precaval lymph node. 3. Mild left intrahepatic and extrahepatic biliary ductal dilatation. No evidence of choledocholithiasis or intra biliary lesion. Findings may be related to a periampullary duodenal diverticulum. General surgery was consulted in ER. Dr. Vazquez evaluated the patient at bedside. Dr. Vazquez has recommended patient transfer for potential ERCP secondary to possibility of a stricture that was on CT abdomen pelvis versus percutaneous drain for gallbladder via IR. Discussed this with family in detail. They have considered getting transferred to [facility] however gastroenterology services are not available there at this time. [facility] and [facility] have been called as well however no beds are available at [facility] and there is no GI specialist available at [facility]. Family is not interested in getting transferred past to [place] to [place] or other [facility] at this time. They have decided to stay and see how patient does in the next 24 to 48 hours. At this time patient's liver enzymes are normal and white count is normal, if patient worsens clinically or liver enzymes started to trend up patient will need transfer to higher level of care. Patient will be admitted to for IV antibiotics at this time and repeat labs will be done in the morning. Medications/Allergies Home Medications Medication Instructions Recorded Confirmed Last Taken Type budesonide 0.5 mg/2 mL suspension 0.5 mg (2 mL) inhalation BID #60 mL 01/14/22 11/21/23 06/13/23 Rx for nebulization formoterol fumarate 20 mcg/2 mL 2 ml inhalation BID #120 mL 01/14/22 11/21/23 06/13/23 Rx solution for nebulization lisinopril 10 mg tablet 10 mg PO DAILY 01/14/22 11/21/23 11/21/23 History oxycodone-acetaminophen 10 mg-325 1 tab PO Q6H PRN Pain 01/14/22 11/21/23 06/13/23 History mg tablet (Percocet) pramipexole 0.75 mg tablet See Rx Instructions PO DAILY 01/14/22 11/21/23 11/21/23 History albuterol sulfate 90 mcg/actuation 2 puff inhalation Q6H PRN 03/22/22 11/21/23 Unknown Rx aerosol inhaler shortness of breath or wheezing #8.5 grams ibuprofen 800 mg tablet 800 mg PO Q6H PRN Headache 06/13/23 11/21/23 Unknown History ondansetron 4 mg disintegrating 4 mg PO Q6H PRN nausea and 06/13/23 11/21/23 Unknown Rx tablet vomiting #14 tabs azithromycin 250 mg tablet 250 mg PO .3 X WEEK #36 tabs 09/27/23 11/21/23 Unknown Rx cetirizine 10 mg tablet 10 mg PO DAILY PRN Itching 11/21/23 11/21/23 Unknown History Allergies Allergy/AdvReac Type Severity Reaction Status Date / Time No Known Allergies Allergy Verified 01/21/24 07:18 PFSH Acute PFSH: Medical History CHF (congestive heart failure) Family History Mother Cancer lung Heart disease Father Heart disease Hypertension Sister Diabetes Daughter Diabetes Hypertension High cholesterol Social History Smoking and tobacco/nicotine status: former use of tobacco/nicotine Vitals/I&O/Wt Last Vital Signs Temp 98.7 F 01/21/24 16:25 Pulse 75 01/21/24 15:35 Resp 15 01/21/24 15:35 BP 127/74 01/21/24 15:35 Pulse Ox 100 01/21/24 15:35 O2 Del Method Room Air 01/21/24 07:06 01/21/24 01/21/24 01/21/24 06:59 14:59 22:59 Intake Total 1845.8 / 1845.8 113.125 / 1957.925 Balance 1845.8 / 1845.8 113.125 / 1957.925 Weight last 48 hrs Weight 84.822 kg Physical Exam Narrative: General: Alert oriented x3, patient seen laying in bed appearing comfortable at this time. No acute distress. HEENT: Normocephalic, atraumatic, EOMI, breathing room air laying flat in bed. Cardio: Regular rate rhythm, normal S1-S2 Respiratory: Good bilateral air entry, no wheezes no rhonchi appreciated GI: Abdomen soft, very mild tenderness to palpation in epigastric area and slight right upper quadrant, bowel sounds positive Behavior: Appropriate and cooperative Extremities: No edema bilateral lower extremities Data 01/21/24 07:39 01/21/24 07:39 Micro: Microbiology 01/21/24 10:56 Blood Culture - Preliminary Blood SPECIMEN COLLECTED 01/21/24 10:53 Blood Culture - Preliminary Blood SPECIMEN COLLECTED A&P Assessment and plan (1) Hypotension: (2) CHF (congestive heart failure): (3) Abdominal pain: (4) Asthma-COPD overlap syndrome: (5) Biliary stricture: (6) Sludge in gallbladder: (7) Shock: (8) Ileus: (9) COPD (chronic obstructive pulmonary disease): Plan #Nausea vomiting abdominal pain #Shock #Possible biliary stricture #History of ascending cholangitis #COPD, on 3 L nasal cannula [id number] #Chronic systolic heart failure EF 45 to 50% #Possible ileus ? CT scan reveals possibility of stricture and hepatic duct, CBD is 4 mm. MRCP completed please see results above. General surgery has recommended transfer to higher level of care for potential of ERCP versus percutaneous drain in gallbladder via IR however no beds are available at this time. Family would like to go to [facility] or [place] however they do not have GI capability at this time or no beds are available. We will admit patient here for now for IV antibiotics. ? Check blood cultures, urine culture, ?Await 6-hour troponin ? EKG not suggestive of any acute ischemia at this time ? Placed on vancomycin and Zosyn. Previous ERCP revealed pus in biliary tree ? Eventually patient needs to have a cholecystectomy. She is already scheduled for that at [facility] after cardiac and pulmonary clearance. ? Monitor clinically in the hospital and wean off Levophed as able ? Should patient clinically worsen or labs worsen she will need transfer to a facility with GI, family aware and understands. ? I would keep patient n.p.o. at this time except ice chips secondary to possibility of ileus as well. ? Check echo ? Patient requiring Levophed at this time, wean off as able. Full code dvt prophylaxis: Heparin SQ twice daily Attestations Medical Necessity Statement*: Observation status at this time for repeat labs and clinical monitoring. Patient may require transfer to higher level of care. Diagnoses Hypotension I95.9 CHF (congestive heart failure) I50.9 Abdominal pain R10.9 Asthma-COPD overlap syndrome J44.9 Biliary stricture K83.1 Sludge in gallbladder K82.8 Shock R57.9 Ileus K56.7 COPD (chronic obstructive pulmonary disease) J44.9
[2024-01-21 17:10] LABS: Troponin 5 6HR 27.37 ng/L (0-10)
[2024-01-21 17:13] LABS: Troponin 5 6HR Delta -6.63 ng/L (0-12)
[2024-01-21 17:31] LABS: C Reactive Protein 71.7 mg/L (0.0-4.9)
[2024-01-21 17:38] LABS: Procalcitonin 63.42 ng/mL (0-0.5)
[2024-01-21] MEDS: heparin 5,000 unit/mL INJ 1 mL 5000 UNIT SUBCUT (18:12)
[2024-01-21] MEDS: sodium chloride 0.9% 1,000 ML 100 ML IV (18:14)
[2024-01-21] MEDS: morphine 4 mg/mL SDV 1 mL 2 MG IVP (18:43)
--- NOTE | 2024-01-21 19:12 | PC.NURSE ---
Patient arrived to ICU 7 at 1758, 3L NC, AOX4. See charted vitals. See MAR for Levophed titration. Patient complains of 7/10 pain, See MAR for morphine admin.
--- NOTE | 2024-01-21 20:54 | P.CONIM_ITS ---
Providers/Reason For Consult 2 Consulting Physician/Specialty*: Curt Phelan MD general surgery Reason for Consult*: Evaluate abdominal pain Requesting Physician: MD Ami hospitalist Attending Physician: Tran Mueller MD Primary Care Provider: Ekaterina ODOM MD History of Present Illness History of Present Illness Mary Fitch is a 73 year old female who about a month ago had ascending cholangitis with elevated bilirubin to 1.7 and elevated alk phos in 200 rangeand elevated lipase She was hypotensive requiring vasopressors and abmoninal pain in RUQ and epigastric area with nausea. SHe had ERCP and sphincterotomy with extraction of at least two CBD stones and purulence in CBD. No apparent stent was place. Plan was for local general surgeon to removed gallbladder after he lungs were cleared because of history of COPD and also her heart but no history of KS or CVA in past. She now comes in with about a day history of similar pain and symptoms when she had cholangitis. Her WBC is normal and alk phos in [address] of abdomen shows possible dilated intrahepatic ducts and possible stricture of distal CBD. MRCP shows no definite stone in CBD and possible adnenomyosis of gallbladder and no definite mention of stricture in CBD which is about 8 mm in size. Her crm architect is not available and other nearby hospitals do not have GI available until Tuesday. Family does not want to travel to [place]. She recently finished antibiotics for UTI and UA here was negative. Review of Systems 2 Narrative: Constitutional: denies rigors, singnificant weight gain, increased appetite HEENT: denies chronic cough, blurry vision, excessive tearing, eye pain, flashing lights, odynophagia, painful mastication, change in voice, change in taste, chronic sore throat, hypersalivation Heart: denies racing heart, palpitations, othropnea, PND Lungs: denies hemoptysis, pain with deep inspiration, chronic bronchitis GI: denies hematemesis, hematochezia, dysphagia, tenesmus : denies polyuria, hematuria, painful micturation Musculoskeletal: denies hemarthrosis, Muscle wasting, change in amubation Neuro: denies new onset syncope, dysesthesia, dysequilibrium, ptosis eyelid or face SKin: denies new onset hyperalgia, new rash new cyanosis Endocrine: denies new polyuria, polydipsia, polyphagia, heat intolerance, excessive energy Hem/Onc: denies new petechiae, swollen glands, new excessive epstaxis Psych: denies racing thought Medications/Allergies Home Medications Medication Instructions Recorded Confirmed Last Taken Type budesonide 0.5 mg/2 mL suspension 0.5 mg (2 mL) inhalation BID #60 mL 01/14/22 01/21/24 06/13/23 Rx for nebulization formoterol fumarate 20 mcg/2 mL 2 ml inhalation BID #120 mL 01/14/22 01/21/24 06/13/23 Rx solution for nebulization lisinopril 10 mg tablet 10 mg PO DAILY 01/14/22 01/21/24 11/21/23 History oxycodone-acetaminophen 10 mg-325 1 tab PO Q6H PRN Pain 01/14/22 01/21/24 06/13/23 History mg tablet (Percocet) pramipexole 0.75 mg tablet See Rx Instructions PO DAILY 01/14/22 01/21/24 11/21/23 History albuterol sulfate 90 mcg/actuation 2 puff inhalation Q6H PRN 03/22/22 01/21/24 Unknown Rx aerosol inhaler shortness of breath or wheezing #8.5 grams ibuprofen 800 mg tablet 800 mg PO Q6H PRN Headache 06/13/23 01/21/24 Unknown History ondansetron 4 mg disintegrating 4 mg PO Q6H PRN nausea and 06/13/23 01/21/24 Unknown Rx tablet vomiting #14 tabs azithromycin 250 mg tablet 250 mg PO .3 X WEEK #36 tabs 09/27/23 01/21/24 Unknown Rx cetirizine 10 mg tablet 10 mg PO DAILY PRN Itching 11/21/23 01/21/24 Unknown History apixaban 5 mg tablet (Eliquis) mg 01/21/24 Unknown History famotidine 20 mg tablet mg 01/21/24 Unknown History ferrous sulfate 325 mg (65 mg mg 01/21/24 Unknown History iron) tablet Allergies Allergy/AdvReac Type Severity Reaction Status Date / Time No Known Allergies Allergy Verified 01/21/24 07:18 Current Medications Generic Name Dose Route Start Last Admin Trade Name Freq PRN Reason Stop Dose Admin Heparin Sodium (Porcine) 5,000 unit 01/21/24 17:15 01/21/24 18:12 Heparin 5,000 Unit/Ml Inj 1 Ml SUBCUT 5,000 unit Q12H LORRAINE Administration Norepinephrine Bitartrate 4 mg in 250 mls @ 0 mls/hr 01/21/24 11:30 01/21/24 19:39 Levophed IV 2 mcg/min .Q0M LORRAINE 7.5 mls/hr Titration Protocol Per Protocol Piperacillin Sod/Tazobactam 50 mls @ 12.5 mls/hr 01/21/24 19:00 01/21/24 18:13 Sod 3.375 gm/ Sodium Chloride IV 12.5 mls/hr Q8H LORRAINE Administration Protocol Sodium Chloride 1,000 mls @ 100 mls/hr 01/21/24 17:15 01/21/24 18:14 Sodium Chloride 0.9% IV 100 mls/hr .Q10H LORRAINE Administration Morphine Sulfate 2 mg 01/21/24 17:06 01/21/24 18:43 Morphine 4 Mg/Ml Sdv 1 Ml IVP 2 mg Q4H PRN Administration SEVERE PAIN PFSH Acute 2 PFSH: Medical History CHF (congestive heart failure) Family History Mother Cancer lung Heart disease Father Heart disease Hypertension Sister Diabetes Daughter Diabetes Hypertension High cholesterol Social History Smoking and tobacco/nicotine status: former use of tobacco/nicotine Vitals/I&O/Wt Last Vital Signs Temp 98.7 F 01/21/24 18:20 Pulse 65 01/21/24 19:54 Resp 20 H 01/21/24 19:54 BP 92/48 01/21/24 18:15 Pulse Ox 99 01/21/24 19:54 O2 Del Method Nasal Cannula 01/21/24 19:54 O2 Flow Rate 3 01/21/24 19:54 01/21/24 01/21/24 01/21/24 06:59 14:59 22:59 Intake Total 1845.8 / 1845.8 228.875 / 2074.675 Balance 1845.8 / 1845.8 228.875 / 2074.675 Weight last 48 hrs Weight 197 lb 3 oz Weight 187 lb Physical Exam 2 Narrative: Patient is a well developed well nourished and in NAD and is afebrile with vitals stable and is answering questions appropriately with a normal affect and is alert and oriented x3 HEENT: normocephalic with normal external ears and nonicteric, oral mucosa moist and dentition normal for age, trachea midline with no large masses visualized Heart: RRR, no gallops murmurs or rubs, normal PMI with no thrills Lungs: normal excursions, no loud audible wheezing, no subcutaneous emphysema Abdomen: nondistended, no gross hepatosplenomegaly, no masses, no rigidity or rebound, no loud borborygmi, slightly tender in RUQ Neuro: nonfocal, WICK, grossly normal sensation Musculoskeletal: good muscle tone, no fasciculations, normal gait Skin: pink warm and dry with no rashes or ecchymosis Vascular: good radial pulses, no ulceration, less than 2 second capillary refill in hand : deferred Urinary Catheter Management: [place]: Cath Placed During This Visit: yes Reason for Continuing Indwelling Catheter: Accurate Measurement of Urinary Output in Critically Ill Patients Urinary Catheter Date of Insertion: 01/21/24 Urinary Catheter Time of Insertion: 18:18 Data 01/21/24 07:39 01/21/24 07:39 Micro: Microbiology 01/21/24 10:56 Blood Culture - Preliminary Blood SPECIMEN COLLECTED 01/21/24 10:53 Blood Culture - Preliminary Blood SPECIMEN COLLECTED A&P Assessment and plan (1) Abdominal pain: Plan Patient with possible early ascending cholangitis. I doubt acute cholecystitis. Her GI doctor who did ERCP for cholangitis and removal of CBD stones in not available and no nearby GI doctors are application operations engineer. Plan to start on antibiotics. If patient becomes septic would plan on transfer for possible ERCP and treatment of possible CBD stone, ascending cholangitis and possible stricture. HIDA scan is not available here until tuesday to rule out acute cholecystitis. She will be on antibiotics for ascending cholangitis which should cover her for acute cholecystitis. No definite stone seen in GB but possible sludge. Consider US to look for gallstones. Other close hospitals should have GI coverage this Tuesday. Coding Level of Care Code 30203 Diagnoses Abdominal pain R10.9
[2024-01-21 21:06] LABS: Alanine Aminotransferase 24 U/L (0-33); Alkaline Phosphatase 170 U/L (35-105); Anion Gap 12.7 (5-19); Aspartate Amino Transferase 33 U/L (0-32); Blood Urea Nitrogen 15 mg/dL (8-23); Calcium 7.7 mg/dL (8.5-10.5); Carbon Dioxide 26 mmol/L (22-29); Chloride 103 mmol/L (98-107); Creatinine Clr Calc Pharmacy 61.7768; Globulin 2.4 g/dL (1.3-4.6); Glucose 113 mg/dL (65-115); Osmolality Calculated 286 mOsm/kg (285-295); Potassium 4.7 mmol/L (3.5-5.1); Sodium 137 mmol/L (136-145); Total Bilirubin 0.5 mg/dL (0.15-1.2); Total Protein 5.4 g/dL (6.6-8.7)
[2024-01-21] MEDS: norepinephrine 4 MG/250 ML BAG 7.5 MG IV (21:17)
[2024-01-22] VITALS (108 sets, daily range): BP systolic 81–146; BP diastolic 42–75; PULSE 49–72; RESP 10–23; TEMP 36.4–37; O2SAT 97–100
[2024-01-22] MEDS: vancomycin 1,250 MG/250 ML PIGGYBACK 166.67 MG IV (00:55)
[2024-01-22] MEDS: morphine 4 mg/mL SDV 1 mL 2 MG IVP ×5 (01:04→21:23)
[2024-01-22 02:42] LABS: Acinetobacter baumannii Not Detected (NOT DETECT); Bacteroides fragilis Not Detected (NOT DETECT); CTX-M Not Detected (NOT DETECT); Citrobacter Not Detected (NOT DETECT); Cronobacter sakazakii Not Detected (NOT DETECT); Enterobacter cloacae complex Not Detected (NOT DETECT); Enterobacter non cloacae Not Detected (NOT DETECT); Fusobacterium necrophorum Not Detected (NOT DETECT); Fusobacterium nucleatum Not Detected (NOT DETECT); Haemophilus influenzae Not Detected (NOT DETECT); IMP Resistance Gene Not Detected (NOT DETECT); KPC Resistance Gene Not Detected (NOT DETECT); Klebsiella pneumoniae group Not Detected (NOT DETECT); Morganella morganii Not Detected (NOT DETECT); NDM Resistance Gene Not Detected (NOT DETECT); Neisseria meningitidis Not Detected (NOT DETECT); OXA Resistance Gene Not Detected (NOT DETECT); Pan Candida Not Detected (NOT DETECT); Pan Gram-Positive Not Detected (NOT DETECT); Proteus mirabilis Not Detected (NOT DETECT); Pseudomonas aeruginosa Not Detected (NOT DETECT); Salmonella Not Detected (NOT DETECT); Serratia Not Detected (NOT DETECT); Serratia marcescens Not Detected (NOT DETECT); Stenotrophomonas maltophilia Not Detected (NOT DETECT); VIM Resistance Gene Not Detected (NOT DETECT)
[2024-01-22] MEDS: piperacillin-tazobactam 3.375 GM in sodium chloride 0.9% (plus) 50 ML IV ×3 (03:11→18:05)
[2024-01-22] MEDS: sodium chloride 0.9% 1,000 ML 100 ML IV ×2 (03:16→13:13)
[2024-01-22 04:05] LABS: Basophils # 0.1 10^3/uL (0.0-0.1); Basophils % 0.3 %; Eosinophils # 0.1 10^3/uL (0.0-0.8); Eosinophils % 0.4 %; Hematocrit 30.7 % (36-47); Lymphocytes # 1.5 10^3/uL (0.8-4.8); Lymphocytes % 8.1 %; Mean Corpuscular Hemoglobin 28.5 pg (27-33); Mean Platelet Volume 9.9 fL (7.4-10.4); Monocytes % 5.4 %; Neutrophils % 85.2 %; Nucleated Red Blood Cells % 0 %; Platelet Count 251 10^3/cmm (157-399); Red Blood Count 3.23 10^6/uL (3.85-5.65); Red Cell Distribution Width 14.4 % (12.1-15.1); White Blood Count 18.07 10^3/uL (3.29-11.43)
[2024-01-22] MEDS: ketorolac 30 mg/mL INJ 15 MG IVP (04:07)
[2024-01-22 04:15] LABS: INR 1.47 (0.8-1.2)
[2024-01-22] MEDS: heparin 5,000 unit/mL INJ 1 mL 5000 UNIT SUBCUT ×2 (04:15→17:07)
[2024-01-22 04:28] LABS: Alanine Aminotransferase 22 U/L (0-33); Albumin Level 2.9 g/dL (3.5-5.2); Alkaline Phosphatase 183 U/L (35-105); Anion Gap 12.6 (5-19); Aspartate Amino Transferase 32 U/L (0-32); Blood Urea Nitrogen 16 mg/dL (8-23); Carbon Dioxide 26 mmol/L (22-29); Chloride 106 mmol/L (98-107); Creatinine Clr Calc Pharmacy 69.4989; Globulin 2.5 g/dL (1.3-4.6); Glucose 93 mg/dL (65-115); Osmolality Calculated 291 mOsm/kg (285-295); Potassium 4.6 mmol/L (3.5-5.1); Sodium 140 mmol/L (136-145); Total Bilirubin 0.5 mg/dL (0.15-1.2); Total Protein 5.4 g/dL (6.6-8.7)
--- NOTE | 2024-01-22 06:00 | USCV_ITS ---
Mary Fitch Age: 73 Gender: F : 1950 Exam Date: 01/22/2024 06:29 Ordering Phys: Tran Mueller MD Technologist: Brigido Sandoval Exam Location: [facility] [place] Indication: shock BP: 130 / 77 HR: 57 Rhythm: Sinus Technical Quality: Adequate MEASUREMENTS (Male / Female) Normal Values 2D ECHO LV Diastolic Diameter PLAX 3.8 cm 4.2 - 5.9 / 3.9 - 5.3 cm IVS Diastolic Thickness 1.4 cm 0.6 - 1.0 / 0.6 - 0.9 cm IVS Systolic Thickness 1.5 cm LVPW Diastolic Thickness 2.1 cm 0.6 - 1.0 / 0.6 - 0.9 cm LVPW Systolic Thickness 2.4 cm LVOT Diameter 2.0 cm LV Ejection Fraction 2D Teich 67.3 % LV Ejection Fraction MOD 4C 65.6 % LV Ejection Fraction MOD 2C 64.4 % LV Ejection Fraction 2C AL 64.7 % LA Diameter 3.5 cm RA Systolic Volume 4C AL 41.1 ml RA Systolic Volume 4C MOD 40.9 ml LA Sys Volume AL 56.1 cm cubed LA Sys Volume Index AL 27.9 cm cubed/m squared Aorta at Sinotubular Diameter 2.3 cm IVC Diameter 2.0 cm M-MODE LA Ao Ratio MM 1.8 AV Cusp Separation MM 1.7 cm DOPPLER AV Peak Velocity 159.0 cm/s LVOT Peak Velocity 96.0 cm/s AV Area Cont Eq vti 2.4 cm squared AV Area Cont Eq pk 1.9 cm squared MV Peak Velocity 127.0 cm/s MV Area PHT 3.9 cm squared Mitral E to A Ratio 1.0 TV Peak Velocity 273.7 cm/s TR Peak Velocity 406.0 cm/s TR Peak Gradient 65.9 mmHg TR Mean Velocity 293.0 cm/s TR Mean Gradient 39.4 mmHg TR Velocity Time Integral 111.5 cm PV Peak Velocity 104.0 cm/s RV Ejection Time 0.3 s FINDINGS Left Ventricle Normal left ventricular size and systolic function, EF 64%.mild left ventricular hypertrophy. Grade I/IV diastolic dysfunction (abnormal relaxation filling pattern), normal to mildly elevated filling pressures. Right Ventricle The right ventricle is normal in size and function. Right Atrium The right atrium is normal in size. Left Atrium The left atrium is normal in size. Mitral Valve Trace mitral valve regurgitation. Aortic Valve No gross abnormalities Tricuspid Valve Trace to mild tricuspid valve regurgitation. Pulmonic Valve No gross abnormalities Pericardium Normal pericardium without effusion. Aorta Normal ascending aorta dimension. IVC Normal inferior vena cava. CONCLUSIONS Normal left ventricular size and systolic function, EF 64%.mild left ventricular hypertrophy. Grade I/IV diastolic dysfunction (abnormal relaxation filling pattern), normal to mildly elevated filling pressures. Trace mitral valve regurgitation. Trace to mild tricuspid valve regurgitation. There is no pericardial effusion. There are no intracardiac masses. Compared to the study from 04/20/2022, there is significant improvement of the LV ejection fraction Dr Obed Segal MD FACC (Electronically Signed) Final Date: 31 January 2024 22:35 S
[2024-01-22] MEDS: calcium gluconate 0.9% NaCL 1 GM/50 ML PREMIX IV (07:11)
[2024-01-22] MEDS: hydrocortisone 100 mg/2 mL SDV IVP ×2 (07:12→18:04)
[2024-01-22] MEDS: pantoprazole 40 mg SDV IVP (08:19)
--- NOTE | 2024-01-22 09:33 | P.PN_ITS ---
Subjective 2 Subjective: Patient has been off Levophed since 5 Wanting to eat I will start clear liquid diet Mild epigastric pain No active nausea vomiting No fever Liver enzymes are normal Alkaline phosphatase 183 1. Nodular masslike thickening of the tip of the gallbladder fundus measuring up to 1.9 cm with internal cystic spaces. Imaging characteristics suggest focal fundal adenomyomatosis, although examination is limited due to lack of IV contrast. Please note, however, a gallbladder neoplasm may present similarly. Consider further assessment with contrast-enhanced MRI with diffusion weighted imaging. 2. Nonspecific enlarged precaval lymph node. 3. Mild left intrahepatic and extrahep atic biliary ductal dilatation. No evidence of choledocholithiasis or intra biliary lesion. Findings may be related to a periampullary duodenal diverticulum. Vitals/I&O/Wt Last Vital Signs Temp 97.6 F 01/22/24 08:15 Pulse 61 01/22/24 08:23 Resp 18 01/22/24 08:23 BP 121/56 01/22/24 08:15 Pulse Ox 98 01/22/24 08:23 O2 Del Method Nasal Cannula 01/22/24 08:23 O2 Flow Rate 3 01/22/24 08:23 01/21/24 01/22/24 01/22/24 22:59 06:59 14:59 Intake Total 287.000 / 2132.800 1211.208 / 3344.008 220 / 220 Output Total 450 / 450 Balance 287.000 / 2132.800 761.208 / 2894.008 220 / 220 Weight last 48 hrs Weight 90.991 kg Weight 90.991 kg Weight 89.443 kg Weight 84.822 kg Physical Exam 2 Narrative: Patient is awake and alert Confusion Mild epigastric pain Right upper quadrant pain as well Pleasant and cooperative Nonfocal neuroexam Clinically dehydrated S1, S2 Blood pressure stable Currently on 3 L nasal cannula Urinary Catheter Management: [place]: Cath Placed During This Visit: yes Reason for Continuing Indwelling Catheter: Accurate Measurement of Urinary Output in Critically Ill Patients Urinary Catheter Date of Insertion: 01/21/24 Urinary Catheter Time of Insertion: 18:18 Data 01/22/24 03:12 01/22/24 03:12 Micro: Microbiology 01/22/24 04:32 Blood Culture - Preliminary Blood SPECIMEN COLLECTED 01/22/24 04:16 Blood Culture - Preliminary Blood SPECIMEN COLLECTED 01/21/24 10:56 Blood Culture - Preliminary Blood 01/21/24 10:53 Blood Culture - Preliminary Blood SPECIMEN COLLECTED A&P Assessment and plan (1) Biliary stricture: (2) Sludge in gallbladder: (3) Abdominal pain: (4) COPD (chronic obstructive pulmonary disease): (5) Encounter for screening for lung cancer: (6) Hypotension: (7) CHF (congestive heart failure): (8) Shock: (9) Exertional dyspnea: (10) Septic shock: Plan Will touch base with [facility] taker down tomorrow Patient is not spiking fever Off Levophed this morning However she met sepsis criteria with tachypnea tachycardia leukocytosis, she is bacteremic with gram-negative kristie Continue vancomycin and Zosyn This is most likely related to recent GI intervention Appreciate general surgery recommendations Start clear liquid diet No active nausea vomiting Off Levophed this morning Continue IV fluids DVT prophylaxis heparin Chronic hypoxia required 3 L no significant exacerbation Attestations 2 Medical Necessity Statement*: Likely transfer to [place] by tomorrow Diagnoses Biliary stricture K83.1 Sludge in gallbladder K82.8 Abdominal pain R10.9 COPD (chronic obstructive pulmonary disease) J44.9 Encounter for screening for lung cancer Z12.2 Hypotension I95.9 CHF (congestive heart failure) I50.9 Shock R57.9 Exertional dyspnea R06.09 Septic shock A41.9; R65.21
--- NOTE | 2024-01-22 10:32 | PM.PN ---
Subjective Subjective: Still having abdominal pain Vitals/I&O/Wt Last Vital Signs Temp 97.6 F 01/22/24 08:15 Pulse 59 L 01/22/24 10:00 Resp 16 01/22/24 10:00 BP 130/65 01/22/24 10:00 Pulse Ox 100 01/22/24 10:00 O2 Del Method Nasal Cannula 01/22/24 10:00 O2 Flow Rate 3 01/22/24 10:00 01/21/24 01/22/24 01/22/24 22:59 06:59 14:59 Intake Total 287.000 / 2132.800 1211.208 / 3344.008 220 / 220 Output Total 450 / 450 Balance 287.000 / 2132.800 761.208 / 2894.008 220 / 220 Weight last 48 hrs Weight 200 lb 9.6 oz Weight 200 lb 9.6 oz Weight 197 lb 3 oz Weight 187 lb Physical Exam Narrative: Patient is a well developed well nourished and in NAD and is afebrile with vitals stable and is answering questions appropriately with a normal affect and is alert and oriented x3 HEENT: normocephalic with normal external ears and nonicteric, oral mucosa moist and dentition normal for age, trachea midline with no large masses visualized Heart: RRR, no gallops murmurs or rubs, normal PMI with no thrills Lungs: normal excursions, no loud audible wheezing, no subcutaneous emphysema Abdomen: nondistended, no gross hepatosplenomegaly, no masses, no rigidity or rebound, no loud borborygmi, slight tenderness RUQ Neuro: nonfocal, WICK, grossly normal sensation Musculoskeletal: good muscle tone, no fasciculations, normal gait Skin: pink warm and dry with no rashes or ecchymosis Vascular: good radial pulses, no ulceration, less than 2 second capillary refill in hand : deferred Urinary Catheter Management: [place]: Cath Placed During This Visit: yes Reason for Continuing Indwelling Catheter: Accurate Measurement of Urinary Output in Critically Ill Patients Urinary Catheter Date of Insertion: 01/21/24 Urinary Catheter Time of Insertion: 18:18 Data 01/22/24 03:12 01/22/24 03:12 Micro: Microbiology 01/22/24 04:32 Blood Culture - Preliminary Blood SPECIMEN COLLECTED 01/22/24 04:16 Blood Culture - Preliminary Blood SPECIMEN COLLECTED 01/21/24 10:56 Blood Culture - Preliminary Blood 01/21/24 10:53 Blood Culture - Preliminary Blood SPECIMEN COLLECTED A&P Assessment and plan (1) Biliary stricture: Plan Patient has GNR in blood culture. She likely has biliary stricture with sludge or possible small stone in CBD with recurrent ascending cholangitis. We could not find nearby GI specialist and the one who did her last ERCP is not available. There may be GI specialist head strength and conditioning coach this tuesday willing to take patient. Her WBC is up now to 18k but weaning her off levophed. I talked to Dr. Valadez and he is aware of trying to transfer patient on Tuesday. I will not be here on Tuesday and general surgery will be aware of patient but not much our service can offer at this point. Attestations Medical Necessity Statement*: See attendings note Coding Level of Care Code 77489 Diagnoses Biliary stricture K83.1
[2024-01-22] MEDS: oxyCODONE-APAP 10-325 mg Tablet 1 TAB PO ×2 (11:58→18:14)
--- OUTSIDE RECORDS SUMMARY | 2024-01-22 14:43 | XMS_ITS ---
Author Name Vasyl Parker Address [address] [place] [id number] Organization Unknown Address [address] [place] [id number] ALLERGIES AND ADVERSE REACTIONS No information ASSESSMENT No information CHIEF COMPLAINT No information MEDICATIONS No information OBJECTIVE DATA No information PHYSICAL EXAMINATION No information TREATMENT PLAN Planned Care Start Date Provider Encounter for Check-up [id number] [facility] PROBLEMS No information RESULTS No information REVIEW OF SYSTEMS No information SUBJECTIVE DATA No information VITAL SIGNS No information
--- OUTSIDE RECORDS SUMMARY | 2024-01-22 14:43 | XMS_ITS ---
Author Name Unknown Organization [facility] ALLERGIES AND ADVERSE REACTIONS No information ASSESSMENT No information CHIEF COMPLAINT No information Medications Date Medication Startdate Stopdate Stopreason Active Dosequantit y Refills Ndccode Drugcode Pharmacyid Isprescription Srcstatus 03/16 13:33 :47 Mirapex 0.75 mg tablet null 16:43:27 Changed 0 null null [id number] 190 [id number] 90 null False Inactive 06/07 08:35 :56 lisinopril 10 mg tablet null 00:00:00 Other 0 null null [id number] 701 673318726 01 null False Inactive 03/16 16:43 :26 Mirapex 0.75 mg tablet null null null 1 90 tablets 5 [id number] 190 [id number] 90 317 False Active 08/09 09:03 :34 ondansetron 4 mg disintegrat ing tablet null null null 1 null null 18000345 293 116801845 93 null False Active 06/07 08:35 :55 lisinopril 10 mg tablet 06/07/2023 00:00:00 null null 1 90 tablet 3 80266572 701 812515649 01 317 False Active 12/08 00:00 :00 cetirizine 10 mg tablet 12/08/2022 00:00:00 3 00:00:00 Other 0 null null [id number] 301 328283274 01 null False Inactive 12/08 08:31 :13 cetirizine 10 mg tablet 12/08/2022 00:00:00 3 00:00:00 Removed 0 30 tablet 3 [id number] 301 697414134 01 317 False Inactive 12/08 08:30 :35 triamcinolo ne acetonide 0.5% cream 12/08/2022 00:00:00 null null 1 15 gram 1 [id number] 535 470432942 35 317 False Active 12/30 08:45 :53 cetirizine 10 mg tablet 12/30/2022 00:00:00 00:00:00 Removed 0 90 tablet 2 [id number] 301 976071050 01 317 False Inactive 12/30 00:00 :00 cetirizine 10 mg tablet 12/30/2022 00:00:00 00:00:00 Other 0 null null [id number] 301 [id number] 01 null False Inactive 03/30 10:40 :34 cetirizine 10 mg tablet 03/30/2023 00:00:00 null null 1 90 tablet 3 57612375 301 457244064 01 317 False Active OBJECTIVE DATA No information PHYSICAL EXAMINATION No information TREATMENT PLAN No information PROBLEMS No information RESULTS No information REVIEW OF SYSTEMS No information SUBJECTIVE DATA No information VITAL SIGNS No information
--- NOTE | 2024-01-22 17:34 | PHA.VACGOAL ---
Vancomycin Goal - Goal Vancomycin Goal:: 10-15 mg/L Vancomycin Indication:: Other - Therapy Current therapy:: Pip/Tazo Day of therpy:: Day [1]of [] . Actual body weight (kg): 200 lb 9.6 oz - Data Labs: WBC 18.07 10^3/uL (3.29-11.43) H 01/22/24 03:12 RBC 3.23 10^6/uL (3.85-5.65) L 01/22/24 03:12 Hgb 9.20 g/dL (11.27-16.99) L 01/22/24 03:12 Hct 30.7 % (36-47) L 01/22/24 03:12 MCV 95.0 fl (85-98) 01/22/24 03:12 MCH 28.5 pg (27-33) 01/22/24 03:12 MCHC 30.0 g/dL (30-55) 01/22/24 03:12 RDW 14.4 % (12.1-15.1) 01/22/24 03:12 Sodium 140 mmol/L (136-145) 01/22/24 03:12 Potassium 4.6 mmol/L (3.5-5.1) 01/22/24 03:12 Chloride 106 mmol/L (98-107) 01/22/24 03:12 Carbon Dioxide 26 mmol/L (22-29) 01/22/24 03:12 Anion Gap 12.6 (5-19) 01/22/24 03:12 BUN 16 mg/dL (8-23) 01/22/24 03:12 Creatinine 0.8 mg/dL (0.5-0.9) 01/22/24 03:12 GFR Calculation Not Reportable 01/22/24 03:12 Last dialysis session:: N/A Treatment plan:: new consult Regimen:: 1250 MG Q 18H Pharmacokinetic dosing service Objective: Patient: Floor: Age: 73 yo Serum creatinine: 0.9 mg/dL Height: 66.1 Inches Weight (kg): 91 Assessment: IBW (kg): 59.53 Dosing wt(kg): 91 Estimated Creatinine clearance (ml/min): 62.4 CRCL method: Cockcroft and Gault using adjusted body weight Drug selected: Vancomycin Loading dose (mg): Vd (liters): 63.7 (factor used: 0.7 L/kg) Paul (hr-1): 0.056 Half life (hrs): 12.38 CLvanco=?? 3.567 L/hr Recommended dose: 1250 mg Interval: 18 hrs Infusion time (hrs): 1 Predicted peak (mcg/mL): 30.1 Predicted trough (mcg/mL): 11.62 Total body weight is being used for vancomycin dosing. Recommendations: Give Vancomycin 1250 mg q 18 hrs with an expected Cpeak of 30.1 mcg/ml and an expected Ctrough of 11.62 mcg/ml AUC 0-24 /THAD Data: THAD 0.5 mcg/mL:?? AUC/THAD:? 934.5 THAD 1.0 mcg/mL:?? AUC/THAD:? 467.2 --------- THAD 1.5 mcg/mL:?? AUC/THAD:? 311.5 THAD 2.0 mcg/mL:?? AUC/THAD:? 233.6 Thank you for the consult, will continue to follow.
[2024-01-22] MEDS: vancomycin 1,250 MG/250 ML PIGGYBACK 166 MG IV (18:05)
--- NOTE | 2024-01-22 18:52 | PC.NURSE ---
Over all uneventful shift, See documented vitals, See MAR for administrations. Pain management priority this shift. Pending transfer.
--- NOTE | 2024-01-22 20:08 | ECG_ITS ---
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 Measurements Intervals [place] Rate: 52 P: -74 VA: 130 QRS: 268 QRSD: 101 T: -88 QT: 471 QTc: 441 Interpretive Statements SINUS BRADYCARDIA BRADYCARDIA RIGHT AXIS DEVIATION [QRS AXIS > 100] LOW QRS VOLTAGE IN EXTREMITY LEADS [QRS DEFLECTION < 0.5 mV IN LIMB LEADS] ST DEVIATION AND MODERATE T-WAVE ABNORMALITY, CONSIDER INFERIOR ISCHEMIA [-0.1+ mV T-WAVE IN II/aVF] Compared to ECG 01/21/2024 17:20:28 Right-axis deviation now present Low QRS voltage now present T-wave abnormality now present Possible ischemia now present Electronically Signed On 01-22-2024 20:09:36 CDT by Aaron Patrick M.D. [id number]
--- NOTE | 2024-01-22 20:22 | PC.NURSE ---
CP: Pt hit call light to notify RN of chest pain, reporting 03/15 pain. Pt began crying, red faced, clutching chest. EKG obtained, image sent to Dr. Lara via [employer]. CP began to resolve, pt now reporting 08/13 CP @2012. Dr. Lara called @2013 and updated on current vital signs and situation, new order for PRN sub lingual nitro, to give if CP returns. Pt reports 0/10 CP @2022.
[2024-01-22] MEDS: efferdent effervescent 1 EACH DENTAL (21:50)
[2024-01-23] VITALS (39 sets, daily range): BP systolic 109–163; BP diastolic 51–76; PULSE 43–63; RESP 9–21; TEMP 36.3–36.6; O2SAT 97–100
[2024-01-23] MEDS: oxyCODONE-APAP 10-325 mg Tablet 1 TAB PO ×4 (00:04→19:32)
[2024-01-23] MEDS: sodium chloride 0.9% 1,000 ML 100 ML IV ×2 (00:08→11:54)
[2024-01-23] MEDS: ipratropium-albuterol 3 mL Neb INHALATION ×2 (00:47→22:28)
[2024-01-23] MEDS: morphine 4 mg/mL SDV 1 mL 2 MG IVP ×6 (01:24→22:22)
[2024-01-23] MEDS: piperacillin-tazobactam 3.375 GM in sodium chloride 0.9% (plus) 50 ML IV ×2 (02:46→18:17)
--- NOTE | 2024-01-23 03:21 | PC.NURSE ---
Addendum entered by Shonda Noble RN 01/23/24 03:28: New order to draw morning labs now and to check magnesium level. Original Note: Low HR: HR in the low to mid 40's, occasionally dropping to high 30's. Pt denies CP and states she is restless. Current vitals: HR 45, BP 127/64 , SpO2 100% 3L NC, RR 12. Dr. Lara notified @0320, no new orders at this time.
[2024-01-23 04:25] LABS: Basophils % 0.1 %; Hematocrit 30.5 % (36-47); Lymphocytes % 8.7 %; Mean Corpuscular HGB Conc 29.8 g/dL (30-55); Mean Corpuscular Hemoglobin 28.1 pg (27-33); Mean Corpuscular Volume 94.1 fl (85-98); Mean Platelet Volume 10.1 fL (7.4-10.4); Monocytes # 0.3 10^3/uL (0.2-0.9); Monocytes % 2.9 %; Neutrophils # 9.85 10^3/uL (1.8-7.7); Neutrophils % 87.9 %; Nucleated Red Blood Cells % 0 %; Platelet Count 227 10^3/cmm (157-399); Red Blood Count 3.24 10^6/uL (3.85-5.65); White Blood Count 11.21 10^3/uL (3.29-11.43)
[2024-01-23 04:50] LABS: Alanine Aminotransferase 24 U/L (0-33); Albumin Level 2.9 g/dL (3.5-5.2); Alkaline Phosphatase 152 U/L (35-105); Anion Gap 13.6 (5-19); Aspartate Amino Transferase 28 U/L (0-32); Blood Urea Nitrogen 13 mg/dL (8-23); Calcium 8.3 mg/dL (8.5-10.5); Carbon Dioxide 24 mmol/L (22-29); Chloride 109 mmol/L (98-107); Globulin 2.6 g/dL (1.3-4.6); Glucose 149 mg/dL (65-115); Magnesium 2.1 mg/dL (1.7-2.3); Osmolality Calculated 297 mOsm/kg (285-295); Potassium 4.6 mmol/L (3.5-5.1); Sodium 142 mmol/L (136-145); Total Bilirubin 0.3 mg/dL (0.15-1.2); Total Protein 5.5 g/dL (6.6-8.7)
[2024-01-23] MEDS: heparin 5,000 unit/mL INJ 1 mL 5000 UNIT SUBCUT (05:11)
[2024-01-23] MEDS: hydrocortisone 100 mg/2 mL SDV IVP (06:05)
[2024-01-23] MEDS: pantoprazole 40 mg SDV IVP (08:46)
--- NOTE | 2024-01-23 10:30 | PC.SOCIAL ---
IMM Updated Updated pt on IMM. No questions voiced. Provided pt a copy. Initialed, dated, & timed a copy & placed in chart.
--- NOTE | 2024-01-23 12:02 | P.PN_ITS ---
Subjective 2 Subjective: No fever or jaundice, patient still having right upper quadrant pain All liquid diet Leukocytosis improved Liver enzymes are normal Alkaline phosphatase getting better Vitals/I&O/Wt Last Vital Signs Temp 97.6 F 01/23/24 03:39 Pulse 55 L 01/23/24 08:10 Resp 16 01/23/24 08:10 BP 129/60 01/23/24 08:00 Pulse Ox 97 01/23/24 08:10 O2 Del Method Nasal Cannula 01/23/24 08:10 O2 Flow Rate 3 01/23/24 08:10 01/22/24 01/23/24 01/23/24 22:59 06:59 14:59 Intake Total 1735.0 / 3350.0 1318.333 / 4668.333 726.667 / 726.667 Output Total 750 / 750 750 / 1500 Balance 985.0 / 2600.0 568.333 / 3168.333 726.667 / 726.667 Weight last 48 hrs Weight 93.44 kg Weight 93.576 kg Weight 90.991 kg Weight 90.991 kg Weight 89.443 kg Physical Exam 2 Narrative: Patient is awake and alert Euvolemic Right upper quadrant pain Hemodynamically stable Bradycardia Currently on 3 L Signs of dehydration improving Family at the bedside Awake and alert Nonfocal neuroexam Urinary Catheter Management: [place]: Cath Placed During This Visit: yes Reason for Continuing Indwelling Catheter: Accurate Measurement of Urinary Output in Critically Ill Patients Urinary Catheter Date of Insertion: 01/21/24 Urinary Catheter Time of Insertion: 18:18 Data 01/23/24 03:46 01/23/24 03:46 Micro: Microbiology 01/21/24 10:56 Blood Culture - Preliminary Blood Escherichia coli 01/21/24 18:53 Urine Culture - Final Urine Catheterized 01/22/24 04:32 Blood Culture - Preliminary Blood NEGATIVE TO DATE 01/22/24 04:16 Blood Culture - Preliminary Blood NEGATIVE TO DATE 01/21/24 10:53 Blood Culture - Preliminary Blood NEGATIVE TO DATE A&P Assessment and plan (1) Hypotension: (2) Shock: (3) Sludge in gallbladder: (4) Abdominal pain: (5) Septic shock: (6) Asthma-COPD overlap syndrome: (7) COPD (chronic obstructive pulmonary disease): Plan Septic shock Off stress dose steroids Leukocytosis improved No fever Cultures pending Prelim report showing gram-negative kristie Likely source is previous ERCP Gallbladder mass Patient will need cholecystectomy Dr. Park will evaluate the patient today to devise further plan Patient is stating that she was intubated for about 7 days and it was hard to extubate she is stating that she has advanced COPD and uses 3 L at baseline, echo report is still pending, patient will need cardiac clearance Continue IV antibiotics Clear liquid diet n.p.o. after midnight Hold off on heparin tonight Off Levophed No signs of cholangitis at this point Patient is agreeable to stay if her surgeon is able to operate on her Full code Spoke with the surgeon, previously there was no plan to intervene because of recent ERCP, Dr. Park might be able to operate as per my conversation with him, we will follow-up with general surgery recommendations Spoke with the family Patient was examined multiple times today Attestations 2 Medical Necessity Statement*: Continue medical management Diagnoses Hypotension I95.9 Shock R57.9 Sludge in gallbladder K82.8 Abdominal pain R10.9 Septic shock A41.9; R65.21 Asthma-COPD overlap syndrome J44.9 COPD (chronic obstructive pulmonary disease) J44.9
--- NOTE | 2024-01-23 12:11 | ECG_ITS ---
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 Interpretive Statements NAME OF STUDY: DOBUTAMINE SESTAMIBI STRESS TEST INDICATION: PRE OP CLEARANCE, PROCEDURE: At the baseline, the blood pressure was with a heart rate of. The electrocardiogram showed sinus bradycardia with a rate of 54 bpm.. The dobutamine was infused over a period of 7 minutes and 52 seconds.. The maximum heart rate obtained was 140 (95% of the maximum predicted heart rate). The blood pressure at that time was 132/71 mmHg. The patient did not have any chest pain or any significant electrocardiogram changes with the dobutamine infusion. No significant changes the physical examination remained unchanged. No arrhythmias were seen on the monitor. The sestamibi was gated to the peak heart rate. During the recovery phase, the patient did not have any specific symptoms. The blood pressure at the end of the recovery phase was 84 with a heart rate of 130 89/85 per minute. CONCLUSION: 1. Normal EKG response to dobutamine fusion. 2. No dobutamine induced chest pain or cardiac arrhythmia. 3. Normal heart rate and blood pressure response to the dobutamine fusion 4. Sestamibi/Sestamibi perfusion scan pending; see separate report. Electronically Signed On 01-27-2024 8:53:22 CDT by Obed Segal M.D. [id number]
[2024-01-23 12:22] LABS: Vancomycin Trough 11.9 ug/mL (10-15)
--- NOTE | 2024-01-23 12:45 | P.CONIM_ITS ---
Providers/Reason For Consult 2 Consulting Physician/Specialty*: Dr. Elliott Park, DO/General Surgery Reason for Consult*: History of acute calculus cholecystitis with choledocholithiasis and ascending cholangitis status post ERCP with sphincterotomy and stone extraction Attending Physician: Carl Valadez MD Primary Care Provider: Ekaterina ODOM MD History of Present Illness History of Present Illness Mary Fitch is a 73 year old female who presented to the hospital in septic shock. She was found to have E. coli bacteremia. She recently underwent sphincterotomy and stone extraction for choledocholithiasis with ascending cholangitis at an outside hospital. Her postprocedure course was somewhat complicated by a prolonged of 1 week. The had difficulty getting her off of the ventilator. Due to her severe illness at that time, they elected to hold off on cholecystectomy to our hospital with right upper quadrant abdominal pain lower back along with nausea. She is found to have E. coli bacteremia for which she has been treated with Zosyn and vancomycin. Gallbladder ultrasound shows adenomyomatosis of the fundus of the gallbladder. Review of Systems 2 General: Reports: 10 or more systems reviewed and unremarkable except in HPI and below Medications/Allergies Home Medications Medication Instructions Recorded Confirmed Last Taken Type budesonide 0.5 mg/2 mL suspension 0.5 mg (2 mL) inhalation BID #60 mL 01/14/22 01/21/24 06/13/23 Rx for nebulization formoterol fumarate 20 mcg/2 mL 2 ml inhalation BID #120 mL 01/14/22 01/21/24 06/13/23 Rx solution for nebulization lisinopril 10 mg tablet 10 mg PO DAILY 01/14/22 01/21/24 11/21/23 History oxycodone-acetaminophen 10 mg-325 1 tab PO Q6H PRN Pain 01/14/22 01/21/24 06/13/23 History mg tablet (Percocet) pramipexole 0.75 mg tablet See Rx Instructions PO DAILY 01/14/22 01/21/24 11/21/23 History ibuprofen 800 mg tablet 800 mg PO Q6H PRN Headache 06/13/23 01/21/24 Unknown History ondansetron 4 mg disintegrating 4 mg PO Q6H PRN nausea and 06/13/23 01/21/24 Unknown Rx tablet vomiting #14 tabs azithromycin 250 mg tablet 250 mg PO .3 X WEEK #36 tabs 09/27/23 01/21/24 Unknown Rx cetirizine 10 mg tablet 10 mg PO DAILY PRN Itching 11/21/23 01/21/24 Unknown History apixaban 5 mg tablet (Eliquis) 5 mg PO BID 01/21/24 01/23/24 01/20/24 History famotidine 20 mg tablet 40 mg PO BID 01/21/24 01/23/24 Unknown History ferrous sulfate 325 mg (65 mg 325 mg PO DAILY 01/21/24 01/23/24 01/20/24 History iron) tablet Allergies Allergy/AdvReac Type Severity Reaction Status Date / Time No Known Allergies Allergy Verified 01/21/24 07:18 Current Medications Generic Name Dose Route Start Last Admin Trade Name Freq PRN Reason Stop Dose Admin Albuterol/Ipratropium 3 ml 01/21/24 17:06 01/23/24 22:28 Ipratropium-Albuterol 3 Ml Neb INHALATION 3 ml Q6H PRN Administration SHORTNESS OF BREATH Atropine Sulfate 0.5 mg 01/24/24 06:23 01/24/24 07:41 Atropine 0.1 Mg/Ml Syr 10 Ml IVP 01/25/24 06:22 0.5 mg PRN PRN Administration SEE BELOW Denture Adhesive 1 each 01/22/24 21:35 01/22/24 21:50 Efferdent Effervescent DENTAL 1 each PRN PRN Administration Dentures Heparin Sodium (Porcine) 5,000 unit 01/21/24 17:15 01/23/24 05:11 Heparin 5,000 Unit/Ml Inj 1 Ml SUBCUT 5,000 unit Q12H LORRAINE Administration Norepinephrine Bitartrate 4 mg in 250 mls @ 0 mls/hr 01/21/24 11:30 01/23/24 19:00 Levophed IV Infused .Q0M LORRAINE Titration Protocol Per Protocol Piperacillin Sod/Tazobactam 50 mls @ 12.5 mls/hr 01/21/24 19:00 01/24/24 06:33 Sod 3.375 gm/ Sodium Chloride IV 0 mls/hr Q8H LORRAINE Infusion Protocol Vancomycin HCl 1,250 mg in 250 mls @ 166.667 mls/hr 01/22/24 01:00 01/24/24 06:33 Vancocin IV 0 mls/hr Q18H LORRAINE Infusion Dobutamine HCl 200 mg/ Sodium 50 mls @ 0 mls/hr 01/24/24 06:23 01/24/24 07:36 Chloride IV 30 mcg/kg/min .Q0M PRN 43.65 mls/hr per protocol Titration Protocol Per Protocol Metoprolol Tartrate 5 mg 01/24/24 06:23 01/24/24 07:43 Metoprolol Tartrate 1 Mg/1 Ml Sdv 5 Ml IV 5 mg PRN PRN Administration SEE BELOW Morphine Sulfate 2 mg 01/21/24 17:06 01/24/24 06:02 Morphine 4 Mg/Ml Sdv 1 Ml IVP 2 mg Q4H PRN Administration SEVERE PAIN Oxycodone/Acetaminophen 1 tab 01/22/24 07:30 01/24/24 01:28 Oxycodone-Apap 10-325 Mg Tablet PO 1 tab Q6H PRN Administration MODERATE PAIN Pantoprazole Sodium 40 mg 01/22/24 09:00 01/23/24 08:46 Pantoprazole 40 Mg Sdv IVP 40 mg DAILY LORRAINE Administration PFSH Acute 2 PFSH: Medical History CHF (congestive heart failure) Family History Mother Cancer lung Heart disease Father Heart disease Hypertension Sister Diabetes Daughter Diabetes Hypertension High cholesterol Social History Smoking and tobacco/nicotine status: former use of tobacco/nicotine Vitals/I&O/Wt Last Vital Signs Temp 97.6 F 01/24/24 05:04 Pulse 85 01/24/24 08:02 Resp 14 01/24/24 06:00 BP 139/85 01/24/24 08:02 Pulse Ox 100 01/24/24 06:00 O2 Del Method Nasal Cannula 01/24/24 06:00 O2 Flow Rate 3 01/24/24 06:00 01/23/24 01/24/24 01/24/24 22:59 06:59 14:59 Intake Total 1130 / 2548.334 359.862 / 2908.196 2.183 / 2.183 Output Total 900 / 900 700 / 1600 Balance 230 / 1648.334 -340.138 / 1308.196 2.183 / 2.183 Weight last 48 hrs Weight 213 lb 13.574 oz Weight 206 lb Weight 206 lb 4.8 oz Physical Exam 2 Narrative: General : Patient is well developed , no acute distress, oriented x3 Head : Normal cephalic, a-traumatic. Ears : Pinnae and external canal are normal. Hearing is normal. Eyes : PERRLA, Sclera and injection are normal. No conjunctival discharge. Nose : Mucous membranes are without erythema. Throat : buccal mucosa is normal, gums are without significant recession or hypertrophy. Lungs : Equal chest rise bilaterally, no use of accessory muscles, trachea is midline. Cor : Rate and rhythm are normal. Abdomen : Soft, ND, tender to palpation right upper quadrant, positive Gómez's, no g/r/m Extremities : No edema, no cyanosis or clubbing, dorsalis pedis pulses are present bilaterally, non-tender to palpation of calves. Upper extremities are normal bilaterally. Back : non-tender to palpation, no CVA tenderness. Neuro : CN II - XII intact, Upper and lower extremities have equal and full strength Urinary Catheter Management: [place]: Cath Placed During This Visit: yes Reason for Continuing Indwelling Catheter: Accurate Measurement of Urinary Output in Critically Ill Patients Urinary Catheter Date of Insertion: 01/21/24 Urinary Catheter Time of Insertion: 18:18 Data 01/24/24 03:44 01/24/24 03:44 Micro: Microbiology 01/21/24 10:56 Blood Culture - Preliminary Blood Escherichia coli 01/21/24 18:53 Urine Culture - Final Urine Catheterized 01/22/24 04:32 Blood Culture - Preliminary Blood NEGATIVE TO DATE 01/22/24 04:16 Blood Culture - Preliminary Blood NEGATIVE TO DATE A&P Assessment and plan (1) Cholecystitis: (2) Abdominal pain: Qualifiers: Abdominal location: right upper quadrant Qualified Code(s): R10.11 - Right upper quadrant pain (3) Sludge in gallbladder: (4) Bacteremia: Plan Most recent blood cultures negative Getting cardiac clearance for Laparoscopic cholecystectomy with intraoperative cholangiogram The risks and benefits of the procedure, including but not limited to, bleeding, infection, scar, numbness, pain, damage to surrounding structures, damage to common bile duct requiring additional surgery, conversion to an open procedure, were explained to the patient. He is understanding of the risks and wishes to proceed. Medical management per hospitalist Coding Level of Care Code 98753 Diagnoses Cholecystitis K81.9 Right upper quadrant abdominal pain R10.11 Abdominal location: right upper quadrant Sludge in gallbladder K82.8 Bacteremia R78.81
[2024-01-23] MEDS: vancomycin 1,250 MG/250 ML PIGGYBACK 166 MG IV (13:21)
--- NOTE | 2024-01-23 19:25 | P.CONIM_ITS ---
Providers/Reason For Consult 2 Consulting Physician/Specialty*: DAYANA Segal MD/cardiology Reason for Consult*: Patient with history of congestive heart failure/LV dysfunction, presenting with hypotension and features of sepsis Requesting Physician: Dr. Valadez Attending Physician: Carl Valadez MD Primary Care Provider: Ekaterina ODOM MD History of Present Illness History of Present Illness Mayr Fitch is a 73 year old female, is admitted to the hospital with features of possible ascending cholangitis and hypotension. History of congestive heart failure and LV dysfunction by echocardiogram. Cardiology consult is requested for a preop cardiac evaluation and recommendations. This patient apparently had a recent prolonged hospital stay at the [facility] in [place] where she presented with a features of acute cholecystitis. She had biliary stones removed. She is admitted to hospital currently with abdominal pain. She has features of possible ascending cholangitis. Symptomatically she is slowly improving. Last night the patient had an episode of chest pain lasting for 10 minutes or so. The pain was pressure-like in nature, lower substernal, radiating across the chest. No other associated symptoms. No radiation of pain. Intensity was moderate to severe. Patient is known to have severe COPD/reactive airway disease. She was found to have LV systolic dysfunction while being in [place]. Apparently she had a Myocardial perfusion imaging in 2020 and was found to have no evidence of ischemia at that time. She never had a cardiac catheterization. She has no significant family history for atherosclerotic heart disease. She had a episodes of asymptomatic bradycardia on telemetry. No history for any high degree AV block. Her current EKG showed T inversions in the inferior leads suggesting inferior wall ischemia. This seems to be a new finding Review of Systems 2 Narrative: CONSTITUTIONAL: Has been having low-grade fever. EYES: No blurring of vision or other visual disturbances lately. ENT: No hoarseness of voice, auditory disturbances or sore throat. CARDIOVASCULAR: As mentioned above. Also had hypotension initially at the time of admission. RESPIRATORY: Severe COPD/reactive airway disease GASTROINTESTINAL: Abdominal pain/nausea. GENITOURINARY: No dysuria or hematuria. INTEGUMENTARY: No skin rashes or history of skin cancer. NEURO: No transient ischemic attacks or amaurosis. PSYCHIATRIC: No history of psychosis or major depression. HEMATOLOGIC: No bleeding disorders or significant anemia. ENDOCRINE: No history of polyuria or polydipsia. MUSCULOSKELETAL: No recent joint pain or swelling. ALLERGY/IMMUNOLOGY: As mentioned above. Medications/Allergies Home Medications Medication Instructions Recorded Confirmed Last Taken Type budesonide 0.5 mg/2 mL suspension 0.5 mg (2 mL) inhalation BID #60 mL 01/14/22 01/21/24 06/13/23 Rx for nebulization formoterol fumarate 20 mcg/2 mL 2 ml inhalation BID #120 mL 01/14/22 01/21/24 06/13/23 Rx solution for nebulization lisinopril 10 mg tablet 10 mg PO DAILY 01/14/22 01/21/24 11/21/23 History oxycodone-acetaminophen 10 mg-325 1 tab PO Q6H PRN Pain 01/14/22 01/21/24 06/13/23 History mg tablet (Percocet) pramipexole 0.75 mg tablet See Rx Instructions PO DAILY 01/14/22 01/21/24 11/21/23 History ibuprofen 800 mg tablet 800 mg PO Q6H PRN Headache 06/13/23 01/21/24 Unknown History ondansetron 4 mg disintegrating 4 mg PO Q6H PRN nausea and 06/13/23 01/21/24 Unknown Rx tablet vomiting #14 tabs azithromycin 250 mg tablet 250 mg PO .3 X WEEK #36 tabs 09/27/23 01/21/24 Unknown Rx cetirizine 10 mg tablet 10 mg PO DAILY PRN Itching 11/21/23 01/21/24 Unknown History apixaban 5 mg tablet (Eliquis) 5 mg PO BID 01/21/24 01/23/24 01/20/24 History famotidine 20 mg tablet 40 mg PO BID 01/21/24 01/23/24 Unknown History ferrous sulfate 325 mg (65 mg 325 mg PO DAILY 01/21/24 01/23/24 01/20/24 History iron) tablet Allergies Allergy/AdvReac Type Severity Reaction Status Date / Time No Known Allergies Allergy Verified 01/21/24 07:18 Current Medications Generic Name Dose Route Start Last Admin Trade Name Freq PRN Reason Stop Dose Admin Albuterol/Ipratropium 3 ml 01/21/24 17:06 01/23/24 00:47 Ipratropium-Albuterol 3 Ml Neb INHALATION 3 ml Q6H PRN Administration SHORTNESS OF BREATH Denture Adhesive 1 each 01/22/24 21:35 01/22/24 21:50 Efferdent Effervescent DENTAL 1 each PRN PRN Administration Dentures Heparin Sodium (Porcine) 5,000 unit 01/21/24 17:15 01/23/24 05:11 Heparin 5,000 Unit/Ml Inj 1 Ml SUBCUT 5,000 unit Q12H LORRAINE Administration Norepinephrine Bitartrate 4 mg in 250 mls @ 0 mls/hr 01/21/24 11:30 01/22/24 05:00 Levophed IV 0 mcg/min .Q0M LORRAINE 0 mls/hr Titration Protocol Per Protocol Piperacillin Sod/Tazobactam 50 mls @ 12.5 mls/hr 01/21/24 19:00 01/23/24 18:17 Sod 3.375 gm/ Sodium Chloride IV 12.5 mls/hr Q8H LORRAINE Administration Protocol Vancomycin HCl 1,250 mg in 250 mls @ 166.667 mls/hr 01/22/24 01:00 01/23/24 14:57 Vancocin IV Infused Q18H LORRAINE Infusion Morphine Sulfate 2 mg 01/21/24 17:06 01/23/24 18:30 Morphine 4 Mg/Ml Sdv 1 Ml IVP 2 mg Q4H PRN Administration SEVERE PAIN Oxycodone/Acetaminophen 1 tab 01/22/24 07:30 01/23/24 13:34 Oxycodone-Apap 10-325 Mg Tablet PO 1 tab Q6H PRN Administration MODERATE PAIN Pantoprazole Sodium 40 mg 01/22/24 09:00 01/23/24 08:46 Pantoprazole 40 Mg Sdv IVP 40 mg DAILY LORRAINE Administration PFSH Acute 2 PFSH: Medical History CHF (congestive heart failure) Family History Mother Cancer lung Heart disease Father Heart disease Hypertension Sister Diabetes Daughter Diabetes Hypertension High cholesterol Social History Smoking and tobacco/nicotine status: former use of tobacco/nicotine Vitals/I&O/Wt Last Vital Signs Temp 97.6 F 01/23/24 03:39 Pulse 53 L 01/23/24 18:00 Resp 15 01/23/24 18:00 BP 163/74 01/23/24 18:00 Pulse Ox 100 01/23/24 18:00 O2 Del Method Nasal Cannula 01/23/24 08:10 O2 Flow Rate 3 01/23/24 08:10 01/23/24 01/23/24 01/23/24 06:59 14:59 22:59 Intake Total 1318.333 / 4668.333 1418.334 / 1418.334 360 / 1778.334 Output Total 750 / 1500 900 / 900 Balance 568.333 / 3168.333 1418.334 / 1418.334 -540 / 878.334 Weight last 48 hrs Weight 206 lb Weight 206 lb 4.8 oz Weight 200 lb 9.6 oz Weight 200 lb 9.6 oz Physical Exam 2 Narrative: GENERAL: The patient is alert and oriented times three. Not in any acute distress. HEENT: No significant pallor, icterus or lymphadenopathy.Oral cavity: There are no mucous membrane lesions. NECK: Trachea appears to be central. No masses noted. No JVD or thyromegaly appreciated. RESPIRATORY: Chest is symmetrical. No intercostals muscle retraction or any accessory muscle activation. There is no chest wall tenderness. Breath sounds are heard bilaterally. Diminished intensity of breath sounds at the bases. Scattered expiratory wheezing. BREASTS: Deferred. HEART: The heart sounds are normal. No S3 or S4. No significant murmurs. No pericardial rub ABDOMEN: Minimal to moderate tenderness in the epigastric region. Bowel sounds are normally heard. : Deferred. RECTAL: Deferred. LYMPHATIC: No lymphadenopathy noted in the neck. EXTREMITIES: No edema or cyanosis. No clubbing. MUSCULOSKELETAL: No acute joint deformities or swelling SKIN: There are no significant rashes or ecchymosis NEUROPSYCHIATRIC: The patient is alert and oriented x3. Appears to be in a good mood. No tremors or rigidity noted. Urinary Catheter Management: [place]: Cath Placed During This Visit: yes Reason for Continuing Indwelling Catheter: Accurate Measurement of Urinary Output in Critically Ill Patients Urinary Catheter Date of Insertion: 01/21/24 Urinary Catheter Time of Insertion: 18:18 Data 01/23/24 03:46 01/23/24 03:46 Other Labs: Laboratory Last Values WBC 11.21 10^3/uL (3.29-11.43) 01/23/24 03:46 Corrected WBC Cancelled 01/23/24 03:33 RBC 3.24 10^6/uL (3.85-5.65) L 01/23/24 03:46 Hgb 9.10 g/dL (11.27-16.99) L 01/23/24 03:46 Hct 30.5 % (36-47) L 01/23/24 03:46 MCV 94.1 fl (85-98) 01/23/24 03:46 MCH 28.1 pg (27-33) 01/23/24 03:46 MCHC 29.8 g/dL (30-55) L 01/23/24 03:46 RDW 14.0 % (12.1-15.1) 01/23/24 03:46 Plt Count 227 10^3/cmm (157-399) 01/23/24 03:46 MPV 10.1 fL (7.4-10.4) 01/23/24 03:46 Gran % Cancelled 01/23/24 03:33 Neut % (Auto) 87.9 % 01/23/24 03:46 Lymph % (Auto) 8.7 % 01/23/24 03:46 [place] % (Auto) 2.9 % 01/23/24 03:46 Eos % (Auto) 0.0 % 01/23/24 03:46 Baso % (Auto) 0.1 % 01/23/24 03:46 Neut # (Auto) 9.85 10^3/uL (1.8-7.7) H 01/23/24 03:46 Lymph # (Auto) 1.0 10^3/uL (0.8-4.8) 01/23/24 03:46 [place] # (Auto) 0.3 10^3/uL (0.2-0.9) 01/23/24 03:46 Eos # (Auto) 0.0 10^3/uL (0.0-0.8) 01/23/24 03:46 Baso # (Auto) 0.0 10^3/uL (0.0-0.1) 01/23/24 03:46 Absolute Gran (auto) Cancelled 01/23/24 03:33 Nucleated RBC % (auto) 0 % 01/23/24 03:46 Nucleated RBCs # 0.0 /100WBC 01/23/24 03:46 PT 18.40 SECONDS (12.1-14.9) H 01/22/24 03:12 INR 1.47 (0.8-1.2) H 01/22/24 03:12 Sodium 142 mmol/L (136-145) 01/23/24 03:46 Potassium 4.6 mmol/L (3.5-5.1) 01/23/24 03:46 Chloride 109 mmol/L (98-107) H 01/23/24 03:46 Carbon Dioxide 24 mmol/L (22-29) 01/23/24 03:46 Anion Gap 13.6 (5-19) 01/23/24 03:46 BUN 13 mg/dL (8-23) 01/23/24 03:46 Creatinine 0.8 mg/dL (0.5-0.9) 01/23/24 03:46 GFR Calculation Not Reportable 01/23/24 03:46 Glucose 149 mg/dL (65-115) H 01/23/24 03:46 Calculated Osmolality 297 mOsm/kg (285-295) H 01/23/24 03:46 Lactic Acid 1.9 mmol/L (0.5-2.2) 01/21/24 07:39 Calcium 8.3 mg/dL (8.5-10.5) L 01/23/24 03:46 Magnesium 2.1 mg/dL (1.7-2.3) 01/23/24 03:46 Total Bilirubin 0.3 mg/dL (0.15-1.2) 01/23/24 03:46 AST 28 U/L (0-32) 01/23/24 03:46 ALT 24 U/L (0-33) 01/23/24 03:46 Alkaline Phosphatase 152 U/L (35-105) H 01/23/24 03:46 Troponin T Baseline 34 ng/L (0-10) H 01/21/24 10:56 Troponin T 120 Minute 32.69 ng/L (0-10) H 01/21/24 12:46 Delta Troponin T -1.31 ABS# (0-10) L 01/21/24 12:46 Troponin T Hi Sens 6Hr 27.37 ng/L (0-10) H 01/21/24 16:46 Troponin T Hi Sens 6Hr Delta -6.63 ng/L (0-12) L 01/21/24 16:46 C-Reactive Protein 71.7 mg/L (0.0-4.9) H 01/21/24 16:46 Total Protein 5.5 g/dL (6.6-8.7) L 01/23/24 03:46 Albumin 2.9 g/dL (3.5-5.2) L 01/23/24 03:46 Globulin 2.6 g/dL (1.3-4.6) 01/23/24 03:46 Lipase 37 U/L (13-60) 01/21/24 07:39 Procalcitonin 63.42 ng/mL (0-0.5) H 01/21/24 16:46 Urine Color Yellow (Yellow) 01/21/24 07:51 Urine Appearance Clear (CLEAR) 01/21/24 07:51 Urine pH 6.0 (5-7) 01/21/24 07:51 Ur Specific [place] 1.013 (1.005-1.030) 01/21/24 07:51 Urine Protein Negative (Negative) 01/21/24 07:51 Urine Glucose (UA) Negative (Normal) 01/21/24 07:51 Urine Ketones Trace (Negative) 01/21/24 07:51 Urine Blood Negative (Negative) 01/21/24 07:51 Urine Nitrate Negative (Negative) 01/21/24 07:51 Urine Bilirubin Negative (Negative) 01/21/24 07:51 Urine Urobilinogen 1.0 mg/dL (Negative) 01/21/24 07:51 Ur Leukocyte Esterase Negative (Negative) 01/21/24 07:51 Urine RBC 0-2 /hpf (0-2) 01/21/24 07:51 Urine WBC 0-5 /hpf (0-5) 01/21/24 07:51 Ur Squamous Epith Cells 0-5 /hpf (0-5) 01/21/24 07:51 Amorphous Sediment Not Reportable 01/21/24 07:51 Urine Bacteria None seen /hpf (NONE) 01/21/24 07:51 Hyaline Casts 2.46 /lpf 01/21/24 07:51 Vancomycin Trough 11.9 ug/mL (10-15) 01/23/24 11:56 Micro: Microbiology 01/21/24 10:56 Blood Culture - Preliminary Blood Escherichia coli 01/21/24 18:53 Urine Culture - Final Urine Catheterized 01/22/24 04:32 Blood Culture - Preliminary Blood NEGATIVE TO DATE 01/22/24 04:16 Blood Culture - Preliminary Blood NEGATIVE TO DATE EKG 1: My Interpretation: The EKG from 01/22/2024 revealed sinus bradycardia with a rate of 52 bpm. Right axis deviation. T inversions in the inferior leads suggesting inferior wall ischemia. Other data: Chest CTA IMPRESSION: 1. Mild bilateral dependent atelectasis. No large focal consolidation to suggest overlying pneumonia. 2. No evidence of pulmonary artery thromboembolism. A&P Assessment and plan (1) Chest pain: The patient is episode of chest pain associated with new EKG changes, may suggest underlying coronary ischemia. Currently she is pain-free. This needs to be further evaluated. Qualifiers: Chest pain type: precordial pain Qualified Code(s): R07.2 - Precordial pain (2) CHF (congestive heart failure): Clinically there is no evidence of cardiac decompensation. I may go ahead and do a BNP to further evaluate. Qualifiers: Heart failure type: systolic Heart failure chronicity: unspecified Qualified Code(s): I50.20 - Unspecified systolic (congestive) heart failure (3) Hypotension: History of hypertension, currently normotensive . Could have been from the sepsis. Currently she is seems to be stable hemodynamically. Qualifiers: Hypotension type: other hypotension type Qualified Code(s): I95.89 - Other hypotension (4) Exertional dyspnea: This could be from the COPD/reactive airway disease. (5) Abdominal pain: Possibly from the cholangitis. Patient is currently undergoing treatment. Qualifiers: Abdominal location: right upper quadrant Qualified Code(s): R10.11 - Right upper quadrant pain (6) Asthma-COPD overlap syndrome: Patient has expiratory wheezing. Getting bronchodilator treatment. Plan In view of the patient's reactive airway disease and history of bradycardia, I may change the stress testing to dobutamine/sestamibi/sestamibi stress test. She may be kept on the current medication for the time being. Based on the results of the test, further recommendations will be made. Thank you for the opportunity eval this patient and make these recommendations Consult Attestations 2 Medical Necessity Statement: Patient requires continued hospital stay for close monitoring and further management Coding Level of Care Code Acute Code for Chg Fwd Diagnoses Precordial pain R07.2 Chest pain type: precordial pain Systolic congestive heart failure, unspecified HF chronicity I50.20 Heart failure type: systolic Heart failure chronicity: unspecified Other specified hypotension I95.89 Hypotension type: other hypotension type Exertional dyspnea R06.09 Right upper quadrant abdominal pain R10.11 Abdominal location: right upper quadrant Asthma-COPD overlap syndrome J44.9
--- NOTE | 2024-01-23 19:33 | USCV_ITS ---
Mary Fitch Age: 73 Gender: F : 1950 Exam Date: 01/23/2024 19:48 Ordering Phys: Obed Segal MD ([email or web address]) Technologist: WEST Exam Location: [facility] [place] Indication: hypotension, abnormal EKG, history of cardiomyopathy. No history of cardiac intervention. BP: 163 / 74 HR: 54 Rhythm: Sinus bradycardia Technical Quality: Adequate MEASUREMENTS (Male / Female) Normal Values 2D ECHO LV Diastolic Diameter PLAX 4.9 cm 4.2 - 5.9 / 3.9 - 5.3 cm IVS Diastolic Thickness 1.1 cm 0.6 - 1.0 / 0.6 - 0.9 cm IVS Systolic Thickness 1.5 cm LVPW Diastolic Thickness 1.2 cm 0.6 - 1.0 / 0.6 - 0.9 cm LVPW Systolic Thickness 1.4 cm LVOT Diameter 1.6 cm LV Ejection Fraction 2D Teich 47.2 % LV Ejection Fraction MOD 4C 59.1 % LV Ejection Fraction MOD 2C 51.9 % LV Ejection Fraction 2C AL 51.3 % LA Diameter 3.8 cm LA Sys Volume AL 51.3 cm cubed LA Sys Volume Index AL 19.1 cm cubed/m squared Aorta at Sinotubular Diameter 2.5 cm IVC Diameter 2.0 cm M-MODE LA Ao Ratio MM 1.4 AV Cusp Separation MM 1.6 cm DOPPLER AV Peak Velocity 133.0 cm/s LVOT Peak Velocity 76.0 cm/s AV Area Cont Eq vti 1.2 cm squared AV Area Cont Eq pk 1.2 cm squared MV Peak Velocity 136.0 cm/s MV Area PHT 2.6 cm squared Mitral E to A Ratio 1.9 TR Peak Velocity 286.0 cm/s TR Peak Gradient 32.7 mmHg TV Peak E Velocity 46.0 cm/s Right Atrial Pressure 3.0 mmHg Pulmonary Artery Systolic Pressu 35.7 mmHg PV Peak Velocity 81.0 cm/s FINDINGS Left Ventricle Diffuse hypokinesia of the left ventricular with an ejection fraction of 40 to 45%, visual.Grade III/IV diastolic dysfunction (restrictive filling pattern), severely elevated filling pressures. Right Ventricle Normal right ventricular size and systolic function. Right Atrium Mildly increased right atrial size. Left Atrium Mildly increased left atrial size. Mitral Valve Moderate mitral valve regurgitation. Aortic Valve Thickened aortic valve. Tricuspid Valve Trace tricuspid valve regurgitation. Estimated pulmonary artery peak systolic pressure 43 mmHg Pulmonic Valve No gross abnormalities noted Pericardium No pericardial effusion. Aorta Normal aortic annulus size. IVC Normal IVC dimension with <50% respiratory change of the inferior vena cava. CONCLUSIONS Diffuse hypokinesia of the left ventricular with an ejection fraction of 40 to 45%, visual.Grade III/IV diastolic dysfunction (restrictive filling pattern), severely elevated filling pressures. Mild biatrial enlargement. Moderate mitral valve regurgitation. Trace tricuspid valve regurgitation. Estimated pulmonary artery peak systolic pressure 43 mmHg. There is no pericardial effusion. There are no intracardiac masses. Compared to the study from 04/20/2022, there is slight drop in the LV ejection fraction Dr Obed Segal MD FACC (Electronically Signed) Final Date: 24 January 2024 18:20 S
--- NOTE | 2024-01-23 20:49 | PC.NURSE ---
Notified evelyn Mayberryovernight houseperson of orders for stress test per Dr. Segal.
[2024-01-23 21:17] LABS: NT Pro B Type Natriuretic Pept 5633 pg/mL (0-125)
[2024-01-24] VITALS (52 sets, daily range): BP systolic 115–158; BP diastolic 59–85; PULSE 42–85; RESP 8–24; TEMP 36.2–36.4; O2SAT 89–100; BMI 34.4
[2024-01-24] MEDS: oxyCODONE-APAP 10-325 mg Tablet 1 TAB PO ×4 (01:28→21:03)
[2024-01-24] MEDS: piperacillin-tazobactam 3.375 GM in sodium chloride 0.9% (plus) 50 ML IV ×3 (03:11→18:01)
[2024-01-24 04:06] LABS: Basophils % 0.2 %; Eosinophils # 0.1 10^3/uL (0.0-0.8); Eosinophils % 0.5 %; Hematocrit 29.4 % (36-47); Lymphocytes # 1.8 10^3/uL (0.8-4.8); Lymphocytes % 19.1 %; Mean Corpuscular HGB Conc 29.9 g/dL (30-55); Mean Corpuscular Hemoglobin 28.5 pg (27-33); Mean Corpuscular Volume 95.1 fl (85-98); Mean Platelet Volume 9.7 fL (7.4-10.4); Monocytes # 0.5 10^3/uL (0.2-0.9); Monocytes % 5.5 %; Neutrophils # 6.94 10^3/uL (1.8-7.7); Neutrophils % 74.3 %; Nucleated Red Blood Cells % 0 %; Platelet Count 260 10^3/cmm (157-399); Red Blood Count 3.09 10^6/uL (3.85-5.65); Red Cell Distribution Width 14.3 % (12.1-15.1); White Blood Count 9.34 10^3/uL (3.29-11.43)
[2024-01-24 04:29] LABS: Alanine Aminotransferase 22 U/L (0-33); Albumin Level 2.7 g/dL (3.5-5.2); Alkaline Phosphatase 133 U/L (35-105); Anion Gap 12.1 (5-19); Aspartate Amino Transferase 20 U/L (0-32); Blood Urea Nitrogen 11 mg/dL (8-23); Calcium 7.7 mg/dL (8.5-10.5); Carbon Dioxide 22 mmol/L (22-29); Chloride 115 mmol/L (98-107); Creatinine Clr Calc Pharmacy 71.0561; Globulin 2.4 g/dL (1.3-4.6); Glucose 81 mg/dL (65-115); Osmolality Calculated 298 mOsm/kg (285-295); Potassium 4.1 mmol/L (3.5-5.1); Sodium 145 mmol/L (136-145); Total Bilirubin 0.2 mg/dL (0.15-1.2); Total Protein 5.1 g/dL (6.6-8.7)
[2024-01-24] MEDS: morphine 4 mg/mL SDV 1 mL 2 MG IVP ×5 (06:02→23:45)
[2024-01-24] MEDS: vancomycin 1,250 MG/250 ML PIGGYBACK 166.67 MG IV (06:05)
--- NOTE | 2024-01-24 06:34 | PC.NURSE ---
Abx Paused: Dio paused for stress test @2555.
[2024-01-24] MEDS: DOBUTtamine 200 MG in sodium chloride 0.9% 34 ML 14.55 MG IV (07:30)
[2024-01-24] MEDS: atropine 0.1 mg/mL Syr 10 mL 0.5 MG IVP (07:41)
[2024-01-24] MEDS: metoprolol tartrate 1 mg/1 mL SDV 5 mL 5 MG IV (07:43)
--- NOTE | 2024-01-24 08:16 | PM.PN ---
Subjective Subjective: Patient denies chest pain. Planned for stress test today. Vitals/I&O/Wt Last Vital Signs Temp 97.6 F 01/24/24 05:04 Pulse 85 01/24/24 08:02 Resp 14 01/24/24 06:00 BP 139/85 01/24/24 08:02 Pulse Ox 100 01/24/24 06:00 O2 Del Method Nasal Cannula 01/24/24 06:00 O2 Flow Rate 3 01/24/24 06:00 01/23/24 01/24/24 01/24/24 22:59 06:59 14:59 Intake Total 1130 / 2548.334 359.862 / 2908.196 2.183 / 2.183 Output Total 900 / 900 700 / 1600 Balance 230 / 1648.334 -340.138 / 1308.196 2.183 / 2.183 Weight last 48 hrs Weight 213 lb 13.574 oz Weight 206 lb Weight 206 lb 4.8 oz Physical Exam Narrative: GENERAL: Patient is alert, awake and oriented x3. [] NECK: No jugular vein distension. [] HEENT: No cyanosis. No icterus. No pallor. [] HEART: Regular S1 and S2. No murmur, rub or gallop. [] LUNGS: Clear to auscultate bilaterally. [] CENTRAL NERVOUS SYSTEM: Grossly nonfocal. [] EXTREMITIES: Lower extremities with 1+ edema bilaterally. Pulses palpable in the lower extremities, both dorsalis pedis and posterior tibial. [] Urinary Catheter Management: Seg[place]: Cath Placed During This Visit: yes Reason for Continuing Indwelling Catheter: Accurate Measurement of Urinary Output in Critically Ill Patients Urinary Catheter Date of Insertion: 01/21/24 Urinary Catheter Time of Insertion: 18:18 Data 01/25/24 04:56 01/25/24 04:56 Micro: Microbiology 01/21/24 10:56 Blood Culture - Preliminary Blood Escherichia coli 01/21/24 18:53 Urine Culture - Final Urine Catheterized 01/22/24 04:32 Blood Culture - Preliminary Blood NEGATIVE TO DATE 01/22/24 04:16 Blood Culture - Preliminary Blood NEGATIVE TO DATE A&P Assessment and plan (1) Chest pain: Qualifiers: Chest pain type: precordial pain Qualified Code(s): R07.2 - Precordial pain (2) CHF (congestive heart failure): Qualifiers: Heart failure type: systolic Heart failure chronicity: unspecified Qualified Code(s): I50.20 - Unspecified systolic (congestive) heart failure (3) Hypotension: Qualifiers: Hypotension type: other hypotension type Qualified Code(s): I95.89 - Other hypotension (4) Exertional dyspnea: (5) Abdominal pain: Qualifiers: Abdominal location: right upper quadrant Qualified Code(s): R10.11 - Right upper quadrant pain (6) Asthma-COPD overlap syndrome: Plan Patient planned to have stress test today. If it does not show significant ischemia, can proceed with surgery. Continue current medications. Thank you for involving us with care of this patient. Will continue to follow. Please call with questions. Attestations Medical Necessity Statement*: Care expected to cross 2 midnights. Coding Level of Care Code Acute Code for [facility] Fwd Diagnoses Precordial pain R07.2 Chest pain type: precordial pain Systolic congestive heart failure, unspecified HF chronicity I50.20 Heart failure type: systolic Heart failure chronicity: unspecified Other specified hypotension I95.89 Hypotension type: other hypotension type Exertional dyspnea R06.09 Right upper quadrant abdominal pain R10.11 Abdominal location: right upper quadrant Asthma-COPD overlap syndrome J44.9
[2024-01-24] MEDS: ipratropium-albuterol 3 mL Neb INHALATION (08:29)
[2024-01-24] MEDS: pantoprazole 40 mg SDV IVP (08:37)
--- NOTE | 2024-01-24 09:15 | P.PN_ITS ---
Subjective 2 Subjective: No significant overnight events Patient went for stress test today Her hypoxia has not worsened on 3 L nasal cannula Blood pressure remained stable After we obtain cardiac clearance will notify general surgery Vitals/I&O/Wt Last Vital Signs Temp 97.6 F 01/24/24 05:04 Pulse 60 01/24/24 08:29 Resp 16 01/24/24 08:29 BP 139/85 01/24/24 08:02 Pulse Ox 98 01/24/24 08:29 O2 Del Method Nasal Cannula 01/24/24 08:29 O2 Flow Rate 3 01/24/24 08:29 01/23/24 01/24/24 01/24/24 22:59 06:59 14:59 Intake Total 1130 / 2548.334 359.862 / 2908.196 80.000 / 80.000 Output Total 900 / 900 700 / 1600 Balance 230 / 1648.334 -340.138 / 1308.196 80.000 / 80.000 Weight last 48 hrs Weight 97 kg Weight 93.44 kg Weight 93.576 kg Physical Exam 2 Narrative: Hemodynamically stable Currently on 3 L Right upper quadrant pain Awake and alert No sign of fluid overload Pleasant cooperative Segovia catheter in place GCS 15 Nonfocal neuroexam S1, S2 Urinary Catheter Management: [place]: Cath Placed During This Visit: yes Reason for Continuing Indwelling Catheter: Accurate Measurement of Urinary Output in Critically Ill Patients Urinary Catheter Date of Insertion: 01/21/24 Urinary Catheter Time of Insertion: 18:18 Data 01/24/24 03:44 01/24/24 03:44 Micro: Microbiology 01/21/24 10:56 Blood Culture - Preliminary Blood Escherichia coli 01/21/24 18:53 Urine Culture - Final Urine Catheterized 01/22/24 04:32 Blood Culture - Preliminary Blood NEGATIVE TO DATE 01/22/24 04:16 Blood Culture - Preliminary Blood NEGATIVE TO DATE A&P Assessment and plan (1) Chest pain: Qualifiers: Chest pain type: precordial pain Qualified Code(s): R07.2 - Precordial pain (2) Exertional dyspnea: (3) Shock: (4) Biliary stricture: (5) Sludge in gallbladder: (6) Cholecystitis: (7) Abdominal pain: Qualifiers: Abdominal location: right upper quadrant Qualified Code(s): R10.11 - Right upper quadrant pain (8) Septic shock: (9) Bacteremia: (10) Asthma-COPD overlap syndrome: (11) COPD (chronic obstructive pulmonary disease): Plan Today we are obtaining cardiac clearance with stress test Appreciate cardiology recommendations Patient is n.p.o. Will notify general surgery once we obtain report of cardiac stress test No overnight events Hemodynamic stable Doing well on 3 L nasal cannula Patient will need cholecystectomy Blood culture negative done on 01/21 Blood culture done on 01/20 showed E. coli 01/10 urine culture also positive for E. coli Patient may be able to go home on oral antibiotics if repeat cultures stay negative and we do not see any signs of ESBL Discontinue vancomycin Will like to monitor her in ICU for now She is full code, n.p.o. Patient is stating that she carries history of end-stage COPD requires 3 L of oxygen and last time required prolonged intubation at [facility] ?Revised Cardiac Index = 2 Interpretation:?This score belongs to?Class III?of risk for perioperative cardiac events with a?risk percentage of 6.6%. Attestations 2 Medical Necessity Statement*: Continue ICU management Diagnoses Precordial pain R07.2 Chest pain type: precordial pain Exertional dyspnea R06.09 Shock R57.9 Biliary stricture K83.1 Sludge in gallbladder K82.8 Cholecystitis K81.9 Right upper quadrant abdominal pain R10.11 Abdominal location: right upper quadrant Septic shock A41.9; R65.21 Bacteremia R78.81 Asthma-COPD overlap syndrome J44.9 COPD (chronic obstructive pulmonary disease) J44.9
[2024-01-24] MEDS: dextrose 5%-lactated ringers 1,000 ML 30 ML IV (10:37)
--- NOTE | 2024-01-24 10:37 | P.PN_ITS ---
Vitals/I&O/Wt Last Vital Signs Temp 97.1 F L 01/24/24 09:00 Pulse 60 01/24/24 10:00 Resp 15 01/24/24 10:00 BP 144/77 01/24/24 10:00 Pulse Ox 95 01/24/24 10:00 O2 Del Method Nasal Cannula 01/24/24 08:29 O2 Flow Rate 3 01/24/24 08:29 01/23/24 01/24/24 01/24/24 22:59 06:59 14:59 Intake Total 1130 / 2548.334 359.862 / 2908.196 80.000 / 80.000 Output Total 900 / 900 700 / 1600 Balance 230 / 1648.334 -340.138 / 1308.196 80.000 / 80.000 Weight last 48 hrs Weight 213 lb 13.574 oz Weight 206 lb Weight 206 lb 4.8 oz Physical Exam 2 Urinary Catheter Management: [place]: Cath Placed During This Visit: yes Reason for Continuing Indwelling Catheter: Accurate Measurement of Urinary Output in Critically Ill Patients Urinary Catheter Date of Insertion: 01/21/24 Urinary Catheter Time of Insertion: 18:18 Data 01/24/24 03:44 01/24/24 03:44 Micro: Microbiology 01/21/24 10:56 Blood Culture - Preliminary Blood Escherichia coli 01/21/24 18:53 Urine Culture - Final Urine Catheterized A&P Assessment and plan (1) Cholecystitis: (2) Abdominal pain: Qualifiers: Abdominal location: right upper quadrant Qualified Code(s): R10.11 - Right upper quadrant pain (3) Sludge in gallbladder: (4) Bacteremia: Plan Most recent blood cultures negative Cardiac clearance was obtained Laparoscopic cholecystectomy with intraoperative cholangiogram The risks and benefits of the procedure, including but not limited to, bleeding, infection, scar, numbness, pain, damage to surrounding structures, damage to common bile duct requiring additional surgery, conversion to an open procedure, were explained to the patient. He is understanding of the risks and wishes to proceed. Medical management per hospitalist Attestations 2 Medical Necessity Statement*: PER PRIMARY Coding Level of Care Code Acute Code for [facility] Diagnoses Cholecystitis K81.9 Right upper quadrant abdominal pain R10.11 Abdominal location: right upper quadrant Sludge in gallbladder K82.8 Bacteremia R78.81
--- NOTE | 2024-01-24 10:59 | P.ANESASSM_ITS ---
Pre-Anesthetic Assessment Height/Weight: Height 1.68 m Weight 97 kg Temp Pulse Resp BP Pulse Ox O2 Del Method O2 Flow Rate 97.1 F L 60 15 144/77 95 Nasal Cannula 3 01/24/24 09:00 01/24/24 10:00 01/24/24 10:00 01/24/24 10:00 01/24/24 10:00 01/24/24 08:29 01/24/24 08:29 Operation Date: 01/24/24 12:15 Proposed Procedures p Laparoscopic Cholecystectomy with IOC(Not Applicable) - Elliott Park DO Familial anesthetic complications: None Was Beta Erinn taken within 24 hours: N/A Was Clonidine taken within 24 hours: N/A Last intake: Spoonful of icechips 10:45 Social Tobacco and No alcohol Exam alert, oriented x 3, clear to auscultation bilaterally and regular rate & rhythm Airway Mallampati: Class II Dentition: false Pulmonary Chronic Obstructive Pulmonary Disease (endstage; 3 L NC) CV/HEM Arrythmia, Congestive Heart Failure and Hypertension [facility] Rheumatoid Arthritis Anesthetic Plan ASA status: 4 Anesthesia: General Risk of > 500 ml blood loss (7ml/kg in children): No Medications/Allergies Home Medications Medication Instructions Recorded Confirmed Last Taken Type budesonide 0.5 mg/2 mL suspension 0.5 mg (2 mL) inhalation BID #60 mL 01/14/22 01/21/24 06/13/23 Rx for nebulization formoterol fumarate 20 mcg/2 mL 2 ml inhalation BID #120 mL 01/14/22 01/21/24 06/13/23 Rx solution for nebulization lisinopril 10 mg tablet 10 mg PO DAILY 01/14/22 01/21/24 11/21/23 History oxycodone-acetaminophen 10 mg-325 1 tab PO Q6H PRN Pain 01/14/22 01/21/24 06/13/23 History mg tablet (Percocet) pramipexole 0.75 mg tablet See Rx Instructions PO DAILY 01/14/22 01/21/24 11/21/23 History ibuprofen 800 mg tablet 800 mg PO Q6H PRN Headache 06/13/23 01/21/24 Unknown History ondansetron 4 mg disintegrating 4 mg PO Q6H PRN nausea and 06/13/23 01/21/24 Unknown Rx tablet vomiting #14 tabs azithromycin 250 mg tablet 250 mg PO .3 X WEEK #36 tabs 09/27/23 01/21/24 Unknown Rx cetirizine 10 mg tablet 10 mg PO DAILY PRN Itching 11/21/23 01/21/24 Unknown History apixaban 5 mg tablet (Eliquis) 5 mg PO BID 01/21/24 01/23/24 01/20/24 History famotidine 20 mg tablet 40 mg PO BID 01/21/24 01/23/24 Unknown History ferrous sulfate 325 mg (65 mg 325 mg PO DAILY 01/21/24 01/23/24 01/20/24 History iron) tablet Allergies Allergy/AdvReac Type Severity Reaction Status Date / Time No Known Allergies Allergy Verified 01/21/24 07:18 Current Medications Generic Name Dose Route Start Last Admin Trade Name Freq PRN Reason Stop Dose Admin Albuterol/Ipratropium 3 ml 01/21/24 17:06 01/24/24 08:29 Ipratropium-Albuterol 3 Ml Neb INHALATION 3 ml Q6H PRN Administration SHORTNESS OF BREATH Atropine Sulfate 0.5 mg 01/24/24 06:23 01/24/24 07:41 Atropine 0.1 Mg/Ml Syr 10 Ml IVP 01/25/24 06:22 0.5 mg PRN PRN Administration SEE BELOW Denture Adhesive 1 each 01/22/24 21:35 01/22/24 21:50 Efferdent Effervescent DENTAL 1 each PRN PRN Administration Dentures Heparin Sodium (Porcine) 5,000 unit 01/21/24 17:15 01/23/24 05:11 Heparin 5,000 Unit/Ml Inj 1 Ml SUBCUT 5,000 unit Q12H LORRAINE Administration Norepinephrine Bitartrate 4 mg in 250 mls @ 0 mls/hr 01/21/24 11:30 01/23/24 19:00 Levophed IV Infused .Q0M LORRAINE Titration Protocol Per Protocol Piperacillin Sod/Tazobactam 50 mls @ 12.5 mls/hr 01/21/24 19:00 01/24/24 10:35 Sod 3.375 gm/ Sodium Chloride IV 12.5 mls/hr Q8H LORRAINE Administration Protocol Dobutamine HCl 200 mg/ Sodium 50 mls @ 0 mls/hr 01/24/24 06:23 01/24/24 08:45 Chloride IV Infused .Q0M PRN Titration per protocol Protocol Per Protocol Dextrose/Lactated Ringer's 1,000 mls @ 30 mls/hr 01/24/24 09:30 01/24/24 10:37 Dextrose 5%-Lactated Ringers IV 30 mls/hr .Q24H LORRAINE Administration Metoprolol Tartrate 5 mg 01/24/24 06:23 01/24/24 07:43 Metoprolol Tartrate 1 Mg/1 Ml Sdv 5 Ml IV 5 mg PRN PRN Administration SEE BELOW Morphine Sulfate 2 mg 01/21/24 17:06 01/24/24 10:42 Morphine 4 Mg/Ml Sdv 1 Ml IVP 2 mg Q4H PRN Administration SEVERE PAIN Oxycodone/Acetaminophen 1 tab 01/22/24 07:30 01/24/24 08:37 Oxycodone-Apap 10-325 Mg Tablet PO 1 tab Q6H PRN Administration MODERATE PAIN Pantoprazole Sodium 40 mg 01/22/24 09:00 01/24/24 08:37 Pantoprazole 40 Mg Sdv IVP 40 mg DAILY LORRAINE Administration PFSH Anesthesia Medical History CHF (congestive heart failure) Family History Mother Cancer lung Heart disease Father Heart disease Hypertension Sister Diabetes Daughter Diabetes Hypertension High cholesterol Social History Smoking and tobacco/nicotine status: former use of tobacco/nicotine Data Anesthesia 01/24/24 03:44 01/24/24 03:44 Short CBC 01/23/24 01/23/24 01/24/24 Range/Units 03:33 03:46 03:44 WBC Cancelled 11.21 9.34 Hgb Cancelled 9.10 L 8.80 L Hct Cancelled 30.5 L 29.4 L MCV Cancelled 94.1 95.1 Plt Count Cancelled 227 260 Neut % (Auto) Cancelled 87.9 74.3 Neut # (Auto) Cancelled 9.85 H 6.94 BMP 01/23/24 01/23/24 01/24/24 03:33 03:46 03:44 Sodium Cancelled 142 145 Potassium Cancelled 4.6 4.1 Chloride Cancelled 109 H 115 H Carbon Dioxide Cancelled 24 22 BUN Cancelled 13 11 Creatinine Cancelled 0.8 0.8 Glucose Cancelled 149 H 81 Calcium Cancelled 8.3 L 7.7 L Cardiac Enzymes 01/23/24 Range/Units 11:56 NT-Pro-B Natriuret Pep 5633 H (0-125) pg/mL Liver Function 01/23/24 01/23/24 01/24/24 Range/Units 03:33 03:46 03:44 Total Bilirubin Cancelled 0.3 0.2 AST Cancelled 28 20 ALT Cancelled 24 22 Alkaline Phosphatase Cancelled 152 H 133 H Albumin Cancelled 2.9 L 2.7 L Microbiology 01/21/24 10:56 Blood Culture - Preliminary Blood Escherichia coli 01/21/24 18:53 Urine Culture - Final Urine Catheterized Cardiac Studies: 2 Echocardiogram 04/20/22 Sestamibi Stress Test (Cardiology) 01/22
--- NOTE | 2024-01-24 12:11 | NMCV_ITS ---
NM bo perf SPECT r/s* [id number] Mary Fitch Age: 73 Gender: F : 1950 Exam Date: 01/24/2024 12:11 Ordering Phys: Carl Valadez MD Technologist: JED Mccall Exam Location: [facility] Indications: Pre-op clearance STRESS TEST Please see separate stress test report in [facility] for full findings IMAGE PROTOCOL Rest/Stress 1 Lexiscan Day Radiopharmaceutical Dose (mCi) Administration Site Administered by Rest: Tc-99m 10.5 IV JED Mccall Sestamibi Stress:Tc-99m 32.7 IV JED Mccall Sestamibi Rest: 24-Jan-2024 60 Discovery 630 Stress: 24-Jan-2024 30 Discovery 630 0.4mg Lexiscan. Supine position only as patient was unable to lay prone. SPECT RESULTS Technical Quality: Good Raw Data Analysis: Breast attenuation Image Corrections: No attenuation or motion correction applied Summed Stress Score: 0 Summed Rest Score: 5 Summed Difference Score: 0 PERFUSION FINDINGS Small areas of slightly decreased tracer uptake in the apical inferior and apical septal regions with no significant reversibility. FUNCTIONAL RESULTS (calculated via Gated SPECT) Stress Image LV EF (%): 68 Stress EDV (mL):97 TID: 1.09 Stress ESV (mL):31 FUNCTIONAL FINDINGS: Segmental wall motion analysis revealing no gross wall motion abnormalities IMPRESSIONS 1. Small area of slightly decreased persistent tracer uptake in the apical region, suggesting myocardial scarring versus aspiration artifact. 2. Normal LV ejection fraction of 68%. 3. LV wall motion analysis revealing no gross wall motion abnormalities. 4. Normal LV volume Low probability for coronary ischemia, based on the above findings Dr Obed Segal MD FACC (Electronically Signed) Final Date: 24 January 2024 10:14 S
--- NOTE | 2024-01-24 12:17 | PC.NURSE ---
Pt to Surgery.
[2024-01-24] MEDS: lidocaine-epi 2% PF 1:200,000 20 mL SDV (12:40)
[2024-01-24] MEDS: iohexol 300 mg/mL 50 mL Btl 10 ML XX (13:08)
--- NOTE | 2024-01-24 13:16 | XR_ITS ---
WS: [id number] INTRAOPERATIVE TECHNIQUE: Cine Spot fluoroscopic images for intraoperative purposes. FLUOROSCOPY TIME:? Seconds CLINICAL INFORMATION: PAIN COMPARISON: MRCP FINDINGS: Cholecystectomy with intraoperative cholangiogram. Injection into the common bile duct demonstrates r apid filling of the common bile duct and duodenum. No filling defects in the common bile duct. No aarti ling defects in the ampulla. No significant reflux into the intrahepatic ducts likely due to sequelae of recent cholangitis with u pstream biliary inflammation/strictures. No visualized radiopaque calculi. Also, recent sphincterotom y likely contributes to rapid emptying of the common bile duct with decreased back pressure available for reflux. Regardless, no visualized filling defects in the common bile duct or ampulla. Recommend interval postoperative follow-up of the dilated LEFT intrahepatic ducts presumably due to c holangitis with MRCP or contrast-enhanced CT abdomen pelvis XR/XR cholangio operative [id number] IMPRESSION: Images obtained for intraoperative purposes. Discussed with Elliott Park DO at 01/24/2024 1:35 PM.
--- NOTE | 2024-01-24 13:41 | P.OP_ITS ---
Operative Report Date of procedure: January 24, 2024 Surgeon: Elliott Park DO Brief History: This is a very pleasant 73-year-old female who recently underwent ERCP with sphincterotomy and common bile duct stone extraction choledocholithiasis with ascending cholangitis. She then later presented to our hospital again with abdominal pain and was diagnosed with cholecystitis. She also had adenomyomatosis of the gallbladder versus mass and bacteremia. Laparoscopic cholecystectomy was indicated. The risks and benefits were explained and documented Procedure: Preoperative diagnosis: Acute cholecystitis, adenomyomatosis, recent choledocholithiasis with ascending cholangitis status post ERCP with sphincterotomy Postoperative diagnosis: Same Procedure performed: Laparoscopic cholecystectomy, intraoperative cholangiogram, intraoperative interpretation of cholangiogram/fluoroscopy Surgeon: Dr. Elliott Park DO Estimated blood loss: 5 mL Specimens: Gallbladder to pathology Complications: None apparent Description of procedure: Patient was wheeled into the operative room and placed on the OR table in a supine position. Abdomen was inspected prepped and draped in usual sterile fashion. Time-out was performed and all present were in agreement. A 15 blade scalp was used to make a stab incision in the left upper quadrant and intra- abdominal insufflation was achieved using a Veress needle. After localizing the tissue incisions were made and a 5 millimeter trocar was placed into the umbilicus as well as 2 in the right upper quadrant. A 12 millimeter trocar was placed in the epigastrium. Gallbladder was grasped and elevated. There were dense adhesions of omentum and stomach to the gallbladder which were taken down carefully using blunt dissection and electrocautery. The triangle of Calot was carefully dissected using blunt dissection and electrocautery until the triangle of Calot clearly identified. The cystic duct was clipped proximally and then p artially transected just distal to the clip. The cholangiocatheter was then placed into the cystic duct and clipped into place. There was no leakage of saline upon testing. A cholangiogram was then performed. Contrast readily dumped into the duodenum. There was dilatation of the more proximal ducts and no significant filling. This is likely due to the duct dilatation and the sphincterotomy the patient had. No obvious filling defect was identified. There was then removed and the cystic duct was triply clipped distally. The duct was then ligated proximally. The cystic artery was doubly clipped and ligated. The gallbladder was then removed from the liver bed using electrocautery. The gallbladder was somewhat intrahepatic. The gallbladder was removed from the abdomen using an Endo-Catch bag through the epigastric incision. The liver bed was inspected and no bleeding was seen. The abdomen was irrigated and suctioned. All ports removed. Skin was washed and dried. Incisions were closed with 4-0 Monocryl in a subcuticular interrupted fashion. Skin glue was applied. Patient tolerated the procedure well.
--- NOTE | 2024-01-24 14:10 | ANE.PACU2 ---
Inpatient post-anesthesia follow up: Airway intact: Yes Vital signs: Temperature 97.1 F Pulse Rate 72 Respiratory Rate 15 Blood Pressure 131/80 Pulse Oximetry 100 Oxygen Delivery Me thod Nasal Cannula Oxygen Flow Rate 3 Fraction of Inspir ed Oxygen Hydration adequate: Yes Nausea and vomiting: No Pain level: 1 Mental status: Baseline
--- NOTE | 2024-01-24 14:13 | PC.NURSE ---
Patient arrived back to ICU from surgery around 1400
[2024-01-24] MEDS: albuterol 2.5 mg/3 mL Neb (14:14)
[2024-01-24] MEDS: efferdent effervescent 1 EACH DENTAL (19:15)
[2024-01-25] VITALS (11 sets, daily range): BP systolic 127–144; BP diastolic 69–81; PULSE 51–109; RESP 18–19; TEMP 36.3–36.6; O2SAT 93–100
[2024-01-25] MEDS: piperacillin-tazobactam 3.375 GM in sodium chloride 0.9% (plus) 50 ML IV (02:10)
[2024-01-25] MEDS: oxyCODONE-APAP 10-325 mg Tablet 1 TAB PO ×2 (03:44→09:43)
[2024-01-25 05:22] LABS: Hematocrit 30.7 % (36-47); Lymphocytes # 0.8 10^3/uL (0.8-4.8); Lymphocytes % 10.4 %; Mean Corpuscular Hemoglobin 27.8 pg (27-33); Mean Corpuscular Volume 92.7 fl (85-98); Mean Platelet Volume 9.8 fL (7.4-10.4); Monocytes # 0.3 10^3/uL (0.2-0.9); Monocytes % 4.3 %; Neutrophils # 6.33 10^3/uL (1.8-7.7); Neutrophils % 84.8 %; Nucleated Red Blood Cells % 0 %; Platelet Count 271 10^3/cmm (157-399); Red Blood Count 3.31 10^6/uL (3.85-5.65); White Blood Count 7.47 10^3/uL (3.29-11.43)
[2024-01-25] MEDS: morphine 4 mg/mL SDV 1 mL 2 MG IVP ×2 (05:35→09:42)
[2024-01-25 05:50] LABS: Alanine Aminotransferase 29 U/L (0-33); Albumin Level 2.9 g/dL (3.5-5.2); Alkaline Phosphatase 142 U/L (35-105); Anion Gap 12.3 (5-19); Aspartate Amino Transferase 33 U/L (0-32); Blood Urea Nitrogen 9 mg/dL (8-23); Calcium 7.8 mg/dL (8.5-10.5); Carbon Dioxide 24 mmol/L (22-29); Chloride 110 mmol/L (98-107); Globulin 2.5 g/dL (1.3-4.6); Glucose 138 mg/dL (65-115); Osmolality Calculated 295 mOsm/kg (285-295); Potassium 4.3 mmol/L (3.5-5.1); Sodium 142 mmol/L (136-145); Total Bilirubin 0.3 mg/dL (0.15-1.2); Total Protein 5.4 g/dL (6.6-8.7)
--- NOTE | 2024-01-25 08:57 | P.PN_ITS ---
Subjective 2 Subjective: Patient is doing well. No chest pain. Vitals/I&O/Wt Last Vital Signs Temp 97.6 F 01/25/24 08:00 Pulse 58 L 01/25/24 08:04 Resp 18 01/25/24 08:04 BP 140/69 01/25/24 08:00 Pulse Ox 93 01/25/24 08:04 O2 Del Method Nasal Cannula 01/25/24 08:04 O2 Flow Rate 3 01/25/24 08:04 01/24/24 01/25/24 01/25/24 22:59 06:59 14:59 Intake Total 1780.5 / 1910.500 290 / 2200.500 Output Total 900 / 1550 900 / 2450 Balance 880.5 / 360.500 -610 / -249.500 Weight last 48 hrs Weight 222 lb 3.2 oz Weight 213 lb 13.574 oz Physical Exam 2 Narrative: GENERAL: Patient is alert, awake and oriented x3. [] NECK: No jugular vein distension. [] HEENT: No cyanosis. No icterus. No pallor. [] HEART: Regular S1 and S2. No murmur, rub or gallop. [] LUNGS: Clear to auscultate bilaterally. [] CENTRAL NERVOUS SYSTEM: Grossly nonfocal. [] EXTREMITIES: Lower extremities with 1+ edema bilaterally. Urinary Catheter Management: [place]: Cath Placed During This Visit: yes Reason for Continuing Indwelling Catheter: Other Urinary Catheter Date of Insertion: 01/21/24 Urinary Catheter Time of Insertion: 18:18 Data 01/25/24 04:56 01/25/24 04:56 Micro: Microbiology 01/21/24 10:56 Blood Culture - Preliminary Blood Escherichia coli A&P Assessment and plan (1) Chest pain: Qualifiers: Chest pain type: precordial pain Qualified Code(s): R07.2 - Precordial pain (2) CHF (congestive heart failure): Qualifiers: Heart failure type: systolic Heart failure chronicity: unspecified Qualified Code(s): I50.20 - Unspecified systolic (congestive) heart failure (3) Hypotension: Qualifiers: Hypotension type: other hypotension type Qualified Code(s): I95.89 - Other hypotension (4) Exertional dyspnea: (5) Abdominal pain: Qualifiers: Abdominal location: right upper quadrant Qualified Code(s): R10.11 - Right upper quadrant pain (6) Asthma-COPD overlap syndrome: Plan Patient's stress test did not show significant ischemia. Surgery performed. Continue medical therapy. Thank you for involving us with care of this patient. Please call with questions. Attestations 2 Medical Necessity Statement*: Care expected to cross 2 midnights. Coding Level of Care Code Acute Code for [facility] Fwd Diagnoses Precordial pain R07.2 Chest pain type: precordial pain Systolic congestive heart failure, unspecified HF chronicity I50.20 Heart failure type: systolic Heart failure chronicity: unspecified Other specified hypotension I95.89 Hypotension type: other hypotension type Exertional dyspnea R06.09 Right upper quadrant abdominal pain R10.11 Abdominal location: right upper quadrant Asthma-COPD overlap syndrome J44.9
[2024-01-25] MEDS: pantoprazole 40 mg SDV IVP (08:58)
[2024-01-25] MEDS: lisinopril 10 mg Tablet PO (08:58)
[2024-01-25] MEDS: apixaban 5 mg Tablet PO (08:58)
--- NOTE | 2024-01-25 08:59 | P.DS_ITS ---
Discharge Providers Date of Admission: 01/21/24 16:49 Date of Discharge: January 25, 2024 Attending Provider at Admission: Tran Mueller MD Attending Provider at Discharge: Carl Valadez MD Primary Care Provider: Ekaterina ODOM MD Diagnoses at Discharge Discharge Diagnosis (1) Chest pain: Status: Acute Qualifiers: Chest pain type: precordial pain Qualified Code(s): R07.2 - Precordial pain (2) CHF (congestive heart failure): Status: Acute Qualifiers: Heart failure type: systolic Heart failure chronicity: unspecified Qualified Code(s): I50.20 - Unspecified systolic (congestive) heart failure (3) Hypotension: Status: Acute Qualifiers: Hypotension type: other hypotension type Qualified Code(s): I95.89 - Other hypotension (4) Exertional dyspnea: Status: Acute (5) Abdominal pain: Status: Acute Qualifiers: Abdominal location: right upper quadrant Qualified Code(s): R10.11 - Right upper quadrant pain (6) Asthma-COPD overlap syndrome: Status: Acute Reason for Visit Reason for Visit: Abd Pain Hospital Course Hospital Course 73-year-old female who had a prolonged hospitalization at [facility] for management of ascending cholangitis status post ERCP, 3 stones were removed along pus from biliary tree, patient is stating that she remained intubated for 7 days she has history of advanced COPD, she present to the [facility] for recurrent nausea vomiting, MRCP was done at admission which did not show any significant biliary tree abnormality but showed mass in gallbladder, patient remained afebrile, blood culture showed E. coli which is pansensitive repeat cultures were negative please note her previous blood and urine culture were positive for E. coli 11/20 as well. Repeat cultures 01/21 negative to date. Patient's leukocytosis improved she did not experience any nausea or vomiting after hospitalization, patient was slowly weaned off vasopressors in the ICU septic shock resolved. [facility] surgeon recommended transfer to [facility], [facility] had no beds available, Dr. Park when came back on Tuesday requested cardiac clearance for cholecystectomy. Patient's dobutamine stress test was recommended by Dr. Segal because of her bradycardia, stress test was unremarkable for coronary ischemia, status post laparoscopic cholecystectomy intraoperative cholangiogram, Contrast readily dumped into the duodenum. There was dilatation of the more proximal ducts and no significant filling. This is likely due to the duct dilatation and the sphincterotomy the patient had. No obvious filling defect was identified Dr. Martin radiologist recommended another CT scan because contrast was still present and biliary ducts, we did tell the patient that we need to rule out cholangiocarcinoma and she needs to follow-up with Dr. Park and her regional cra Dr. Nichols at [place]. Postop day 1 no complications, CBC BMP unremarkable, patient tolerating clear liquid diet. Hemodynamically stable, afebrile, patient has chronic bradycardia, uses 3 L of oxygen. Physical Exam Narrative: Awake and alert GCS 15 Laparoscopic scar without any complications Pleasant cooperative Tolerating diet Hemodynamic stable on 3 L nasal cannula Urinary Catheter Management: [place]: Cath Placed During This Visit: yes Reason for Continuing Indwelling Catheter: Other Urinary Catheter Date of Insertion: 01/21/24 Urinary Catheter Time of Insertion: 18:18 Discharge Data Studies Completed and Pending Completed Studies During Hospitalization Category Date Time Status CT abdomen pelvis w con* [id number] Stat Cat Scan 01/21/24 07:10 Completed CTA chest [CT angio chest PE protcl [id number]] Stat Cat Scan 01/21/24 11:22 Completed CXRP [XR chest 1V portable [id number]] Stat Exams 01/21/24 10:40 Completed CXRP [XR chest 1V portable [id number]] Stat Exams 01/21/24 11:53 Completed Sestamibi Stress Test Request Routine Exams 01/23/24 12:11 Draft XR cholangio operative [id number] Routine Exams 01/24/24 13:16 Completed MR MRCP [id number] Stat MRI 01/21/24 13:28 Completed NM bo perf SPECT r/s* [id number] Routine Nuc Med 01/24/24 12:11 Completed CV. echo complete* [id number] Routine Ultrasound 01/23/24 19:33 Completed US gall bladder [id number] Stat Ultrasound 01/21/24 08:31 Completed Pending at discharge Category Date Time Status Sestamibi Stress Test Request Routine Exams 01/23/24 12:11 Ordered Blood Culture Stat Lab 01/21/24 10:56 Results Blood Culture Stat Lab 01/22/24 04:32 Results CMP [Comprehensive Metabolic Panel] AM LABS Lab 01/26/24 04:00 Ordered CMP [Comprehensive Metabolic Panel] AM LABS Lab 01/27/24 04:00 Ordered Pathology: Surgical [PTH] Routine Pth 01/24/24 12:59 Received CV. echo complete* [id number] Routine Ultrasound 01/22/24 06:00 Taken Radiology Impressions Abdomen/Pelvis CT 01/21/24 07:10 IMPRESSION: 1. Persistent ductal dilatation involving the bile ducts of the left lobe of the liver. The common bile duct has return to a more normal caliber. Exact etiology is uncertain. A biliary stricture involving the more proximal left hepatic duct is possible. ERCP/MRCP may add additional information if desired. 2. Enlarging mass involving the fundus of the gallbladder. Gallbladder malignancy cannot be excluded. 3. Diverticulosis. 4. Air-fluid levels involving nondilated loops of small bowel. This is a nonspecific finding but can be seen with an ileus. Gallbladder Ultrasound 01/21/24 08:31 IMPRESSION: 1. Small echogenic focus within the gallbladder which does not shadow. This could represent a small focus of tumefactive sludge or nonshadowing stone. 2. Focal gallbladder wall thickening may reflect lesion seen on CT. Please note however that the lesion is much more prominent on CT than on ultrasound. 3. Fatty infiltration of the liver with mild prominence of the bile ducts involving the left lobe of the liver. Again this is also more notable on CT than on ultrasound. Chest CTA 01/21/24 11:22 IMPRESSION: 1. Mild bilateral dependent atelectasis. No large focal consolidation to suggest overlying pneumonia. 2. No evidence of pulmonary artery thromboembolism. COMMENTS: The presence of pulmonary emphysema on CT is an independent risk factor for lung cancer. In the absence of a history or active diagnosis of lung cancer, it is recommended that this patient with emphysema be evaluated for enrollment in a low dose CT lung cancer screening program. Chest X-Ray 01/21/24 11:53 IMPRESSION: 1. Successful placement of central venous catheter on the right. 2. Minimal patchy infiltrate or atelectasis right lung base. Cholangiopancreatography MRI 01/21/24 13:28 IMPRESSION: 1. Nodular masslike thickening of the tip of the gallbladder fundus measuring up to 1.9 cm with internal cystic spaces. Imaging characteristics suggest focal fundal adenomyomatosis, although examination is limited due to lack of IV contrast. Please note, however, a gallbladder neoplasm may present similarly. Consider further assessment with contrast-enhanced MRI with diffusion weighted imaging. 2. Nonspecific enlarged precaval lymph node. 3. Mild left intrahepatic and extrahepatic biliary ductal dilatation. No evidence of choledocholithiasis or intra biliary lesion. Findings may be related to a periampullary duodenal diverticulum. Cholangiogram,Operative 01/24/24 13:16 IMPRESSION: Images obtained for intraoperative purposes. Discussed with Elliott Park DO at 01/24/2024 1:35 PM. Laboratory Results WBC 7.47 10^3/uL (3.29-11.43) 01/25/24 04:56 Corrected WBC Cancelled 01/23/24 03:33 RBC 3.31 10^6/uL (3.85-5.65) L 01/25/24 04:56 Hgb 9.20 g/dL (11.27-16.99) L 01/25/24 04:56 Hct 30.7 % (36-47) L 01/25/24 04:56 MCV 92.7 fl (85-98) 01/25/24 04:56 MCH 27.8 pg (27-33) 01/25/24 04:56 MCHC 30.0 g/dL (30-55) 01/25/24 04:56 RDW 14.0 % (12.1-15.1) 01/25/24 04:56 Plt Count 271 10^3/cmm (157-399) 01/25/24 04:56 MPV 9.8 fL (7.4-10.4) 01/25/24 04:56 Gran % Cancelled 01/23/24 03:33 Neut % (Auto) 84.8 % 01/25/24 04:56 Lymph % (Auto) 10.4 % 01/25/24 04:56 [place] % (Auto) 4.3 % 01/25/24 04:56 Eos % (Auto) 0.0 % 01/25/24 04:56 Baso % (Auto) 0.0 % 01/25/24 04:56 Neut # (Auto) 6.33 10^3/uL (1.8-7.7) 01/25/24 04:56 Lymph # (Auto) 0.8 10^3/uL (0.8-4.8) 01/25/24 04:56 [place] # (Auto) 0.3 10^3/uL (0.2-0.9) 01/25/24 04:56 Eos # (Auto) 0.0 10^3/uL (0.0-0.8) 01/25/24 04:56 Baso # (Auto) 0.0 10^3/uL (0.0-0.1) 01/25/24 04:56 Absolute Gran (auto) Cancelled 01/23/24 03:33 Nucleated RBC % (auto) 0 % 01/25/24 04:56 Nucleated RBCs # 0.0 /100WBC 01/25/24 04:56 PT 18.40 SECONDS (12.1-14.9) H 01/22/24 03:12 INR 1.47 (0.8-1.2) H 01/22/24 03:12 Sodium 142 mmol/L (136-145) 01/25/24 04:56 Potassium 4.3 mmol/L (3.5-5.1) 01/25/24 04:56 Chloride 110 mmol/L (98-107) H 01/25/24 04:56 Carbon Dioxide 24 mmol/L (22-29) 01/25/24 04:56 Anion Gap 12.3 (5-19) 01/25/24 04:56 BUN 9 mg/dL (8-23) 01/25/24 04:56 Creatinine 0.8 mg/dL (0.5-0.9) 01/25/24 04:56 GFR Calculation Not Reportable 01/25/24 04:56 Glucose 138 mg/dL (65-115) H 01/25/24 04:56 Calculated Osmolality 295 mOsm/kg (285-295) 01/25/24 04:56 Lactic Acid 1.9 mmol/L (0.5-2.2) 01/21/24 07:39 Calcium 7.8 mg/dL (8.5-10.5) L 01/25/24 04:56 Magnesium 2.1 mg/dL (1.7-2.3) 01/23/24 03:46 Total Bilirubin 0.3 mg/dL (0.15-1.2) 01/25/24 04:56 AST 33 U/L (0-32) H 01/25/24 04:56 ALT 29 U/L (0-33) 01/25/24 04:56 Alkaline Phosphatase 142 U/L (35-105) H 01/25/24 04:56 Troponin T Baseline 34 ng/L (0-10) H 01/21/24 10:56 Troponin T 120 Minute 32.69 ng/L (0-10) H 01/21/24 12:46 Delta Troponin T -1.31 ABS# (0-10) L 01/21/24 12:46 Troponin T Hi Sens 6Hr 27.37 ng/L (0-10) H 01/21/24 16:46 Troponin T Hi Sens 6Hr Delta -6.63 ng/L (0-12) L 01/21/24 16:46 C-Reactive Protein 71.7 mg/L (0.0-4.9) H 01/21/24 16:46 NT-Pro-B Natriuret Pep 5633 pg/mL (0-125) H 01/23/24 11:56 Total Protein 5.4 g/dL (6.6-8.7) L 01/25/24 04:56 Albumin 2.9 g/dL (3.5-5.2) L 01/25/24 04:56 Globulin 2.5 g/dL (1.3-4.6) 01/25/24 04:56 Lipase 37 U/L (13-60) 01/21/24 07:39 Procalcitonin 63.42 ng/mL (0-0.5) H 01/21/24 16:46 Urine Color Yellow (Yellow) 01/21/24 07:51 Urine Appearance Clear (CLEAR) 01/21/24 07:51 Urine pH 6.0 (5-7) 01/21/24 07:51 Ur Specific [place] 1.013 (1.005-1.030) 01/21/24 07:51 Urine Protein Negative (Negative) 01/21/24 07:51 Urine Glucose (UA) Negative (Normal) 01/21/24 07:51 Urine Ketones Trace (Negative) 01/21/24 07:51 Urine Blood Negative (Negative) 01/21/24 07:51 Urine Nitrate Negative (Negative) 01/21/24 07:51 Urine Bilirubin Negative (Negative) 01/21/24 07:51 Urine Urobilinogen 1.0 mg/dL (Negative) 01/21/24 07:51 Ur Leukocyte Esterase Negative (Negative) 01/21/24 07:51 Urine RBC 0-2 /hpf (0-2) 01/21/24 07:51 Urine WBC 0-5 /hpf (0-5) 01/21/24 07:51 Ur Squamous Epith Cells 0-5 /hpf (0-5) 01/21/24 07:51 Amorphous Sediment Not Reportable 01/21/24 07:51 Urine Bacteria None seen /hpf (NONE) 01/21/24 07:51 Hyaline Casts 2.46 /lpf 01/21/24 07:51 Vancomycin Trough 11.9 ug/mL (10-15) 01/23/24 11:56 Vitals Last Vital Signs Temp 97.6 F 01/25/24 08:00 Pulse 58 L 01/25/24 08:04 Resp 18 01/25/24 08:04 BP 140/69 01/25/24 08:00 Pulse Ox 93 01/25/24 08:04 O2 Del Method Nasal Cannula 01/25/24 08:04 O2 Flow Rate 3 01/25/24 08:04 Discharge Plan Discharge Patient Disposition: Home Condition: Stable Prescriptions: New cefpodoxime 200 mg tablet 200 mg PO BID Qty: 20 0RF Rx Instructions: must administer with a meal/food Trelegy Ellipta 100-62.5-25 mcg blister with device 1 inh inhalation DAILY Qty: 60 6RF ipratropium-albuterol 0.5 mg-3 mg(2.5 mg base)/3 mL solution for nebulization 3 ml inhalation Q6H PRN (Reason: shortness of breath or wheezing) Qty: 180 4RF sennosides-docusate sodium [Senna-S] 8.6-50 mg tablet 1 tab-cap PO DAILY Qty: 30 0RF lactulose 10 gram/15 mL solution 10 g PO DAILY PRN (Reason: constipation) Qty: 473 0RF Continued lisinopril 10 mg tablet 10 mg PO DAILY oxycodone-acetaminophen [Percocet] 10-325 mg tablet 1 tab PO Q6H PRN (Reason: Pain) pramipexole 0.75 mg tablet See Rx Instructions PO DAILY Rx Instructions: 1 tablet by mouth in AM, 2 tablets by mouth in PM budesonide 0.5 mg/2 mL suspension for nebulization 0.5 mg inhalation BID Qty: 60 11RF formoterol fumarate 20 mcg/2 mL solution for nebulization 2 ml inhalation BID Qty: 120 11RF azithromycin 250 mg tablet 250 mg PO .3 X WEEK Qty: 36 4RF Rx Instructions: 250 mg tab on Mondays, Wednesdays, and Fridays Eliquis 5 mg tablet 5 mg PO BID famotidine 20 mg tablet 40 mg PO BID ferrous sulfate 325 mg (65 mg iron) tablet 325 mg PO DAILY ondansetron 4 mg tablet,disintegrating 4 mg PO Q6H PRN (Reason: nausea and vomiting) Qty: 14 0RF cetirizine 10 mg tablet 10 mg PO DAILY PRN (Reason: Itching) Discontinued ibuprofen 800 mg Tablet 800 mg PO Q6H PRN (Reason: Headache) Discharge Orders: Discharge Order (Routine); Ordered 01/25/24 Ordered By: Carl Valadez Other Ambulatory Orders: CT abdomen pelvis w con* [id number] (Routine) Timeframe: 2 Weeks Facility: [facility] - Location: [facility] Ordered By: Carl Valadez Referrals: Willi Hanson MD [Referring] - 4-7 days (SENT REFERRAL FOR APPOINTMENT) Ekaterina Peterson DO [Physician] - 02/01/24 10:45 am Patient Instructions: Cefpodoxime Proxetil (By mouth), Acute Wound Care (DC), Bacteremia (DC), Laparoscopic Cholecystectomy (DC), Opioid Safety, Post Anesthesia Care Discharge Attestations Time Spent in Discharge Care*: greater than 30 min Quality Metrics Clinical Quality Measures [ No reported AMI, CVA or VTE this stay] Coding Level of Care Code Acute Code for [facility] Fwd Diagnoses Precordial pain R07.2 Chest pain type: precordial pain Systolic congestive heart failure, unspecified HF chronicity I50.20 Heart failure type: systolic Heart failure chronicity: unspecified Other specified hypotension I95.89 Hypotension type: other hypotension type Exertional dyspnea R06.09 Right upper quadrant abdominal pain R10.11 Abdominal location: right upper quadrant Asthma-COPD overlap syndrome J44.9
--- NOTE | 2024-01-25 09:07 | PC.CHAP ---
Pastoral Care Encounter/Spiritual Assessment Type of Contact [] Declined shoe repair cobbler visit [] Patient/Family/Request visit [] Outpatient visit [] Follow-up visit [] Physician referral [] Code/Alert [x] Routine visit [] Staff referral [] Actively dying [] Patient sleeping [] Family support [] [] Out of room [] Palliative care [] [] Receiving care in room [] Pre-surgical visit [] Trauma [] Long length of stay [] ICU visit [] Other: Relational/Emotional Strength [x] Patient feels connected with others/family/visitors/staff [] Distress [] Loneliness/isolation [] Abandonment Spirituality of Patient [x] Person of [place] [] Attends Pentecostalism of their [place] [x] Believes in Prayer [] Reads Bible or Orthodoxy materials [] There are Spiritual issues to be addressed General Partner Interventions [x] Prayer [x] Active listening [] Non-anxious presence [x] Spiritual/emotional support [] Crisis/trauma care [] Spiritual counseling [] Bereavement support [] Provided bereavement packet [] Provided Bible/devotional materials [] Provided toy/stuffed animal, coloring book to patient or family member [] Provided Communion [] Anointing/[place] [] Salvation [x] Completed spiritual assessment [] Other: Impact on Illness or Injury [] Angry [] Fearful [] Anxious [] Often cries [] Exhaustion [] Unable to work [] Unable to attend church [] Unable to walk/stand [] Unable to read [] Unable to drive [] Unable to eat/drink [] Unable to sleep [] Unable to be with family [] Patient intubated [] Other: Summary Time spent with patient 5 min
--- NOTE | 2024-01-25 15:31 | PC.SOCIAL ---
IMM Updated IMM initialed and dated. Copy given to patient and copy placed in chart.
== END 2024-01-25 13:53 | disposition home health service (06) | DRG 853 ==
LOC: ER 16:54 → ICU 19:27 → MEDSURG 01-24 22:35
PROVIDERS: Internal Medicine Cardiovascular Disease; Surgery; Admitting Provider Internal Medicine; Emergency Provider Emergency Medicine; PCP Pediatrics; Visit Provider Internal Medicine
PROC: 0FT44ZZ Resection of Gallbladder, Percutaneous Endoscopic Approach (ICD-10-PCS; CPT 47562; principal; 2024-01-24 12:05)
DX: A41.9 Sepsis, unspecified organism (principal); R65.21 Severe sepsis with septic shock; I50.22 Chronic systolic (congestive) heart failure; K56.7 Ileus, unspecified; J44.9 Chronic obstructive pulmonary disease, unspecified; M06.9 Rheumatoid arthritis, unspecified; I11.0 Hypertensive heart disease with heart failure; G89.29 Other chronic pain; M54.9 Dorsalgia, unspecified; K59.00 Constipation, unspecified; B96.20 Unspecified Escherichia coli [E. coli] as the cause of diseases classified elsewhere; K81.1 Chronic cholecystitis; Z79.01 Long term (current) use of anticoagulants; Z99.81 Dependence on supplemental oxygen; Z87.440 Personal history of urinary (tract) infections
CPT/HCPCS: 36415; 36556; 36592; 51702; 71045; 71275; 74177; 74181; 74300; 76000; 76705; 78452; 80053; 80202; 81003; 81015; 83605; 83690; 83735; 83880; 84145; 84484; 85025; 85610; 86140; 87040; 87077; 87086; 87150; 87186; 87205; 88304; 93005; 93017; 93306; 94640; 96365; 96366; 96367; 96372; 96374; 96375; 96376; 99291; 99292; A9500; C1751; J0461; J0612; J1100; J1250; J1644; J1720; J1885; J2250; J2270; J2405; J2470; J2543; J2704; J3010; J3370; J3490; J3535; J7030; J7050; J7121; J7613; Q9967

== ENCOUNTER 2024-02-09 07:14 | Outpatient (CLI) | payer MEDICARE, OTHER, SELFPAY ==
--- NOTE | 2024-02-09 07:30 | CT_ITS ---
WS: [id number] CT ABDOMEN AND PELVIS WITH CONTRAST HISTORY: BILIARY DILATION, recent cholecystectomy. TECHNIQUE: Imaging performed of the abdomen and pelvis with IV contrast. Single phase imaging of the abdomen. Coronal and sagittal reformats are submitted. All CT scans at [facility] use at [address] one of these dose optimization techniques: automated exposure control; mA and/or kV adjustment per patient size (includes targeted exams where dose is matched to clinical indication); or iterative re construction. IV CONTRAST: Omnipaque 350; 100 mL IV. Oral contrast: No DLP: 657.24 mGy.cm COMPARISON: 01/21/2024, 11/21/2023 Lower thorax: Lung bases are clear. Mild cardiomegaly. Small hiatal hernia. Liver/biliary system: Liver is normal size. There is a new area of decreased attenuation measuring 1. 5 x 2.9 cm in the subcapsular location of the gallbladder fossa. I suspect this probably is related t o the recent cholecystectomy and may have been a small amount of subcapsular bleeding which is resolv ing. This was not present on 01/21/2024. There is no significant mass effect or active bleeding. Gallbladder: Recent cholecystectomy. No mass in the gallbladder bed. Pancreas: Normal size pancreas and pancreatic duct. No adjacent inflammation. Spleen: Normal size spleen. There are a few scattered low-attenuation masses within the spleen which have been present since 06/13/2023. The largest 1.2 cm. Adrenal glands: Normal. Right kidney: Normal. Left kidney: Normal. Aorta: Mild atherosclerosis with no aneurysm. No mesenteric artery stenosis. Aortocaval LEFT renal ve in. Lymphadenopathy: There are small mesenteric lymph nodes which have been present since 06/13/2023 with n o increase in size. Free fluid: None. GI tract: Nondistended stomach. No small bowel obstruction. Diffuse rios diverticulosis without eviden ce for acute diverticulitis. No pericolonic fat stranding. Prominence of submucosal fat in the cecum is more likely related to chronic colitis. Normal appendix. Abdominal wall: Supraumbilical ventral abdominal wall defect is probably from the recent cholecystect claudette. Pelvis: No free fluid or adenopathy. Mildly atrophic uterus as expected. Bones: Unremarkable. CT/CT abdomen pelvis w con* [id number] IMPRESSION: 1. Status post recent cholecystectomy. No fluid collection or mass at the gall bladder bed. 2. New area of decreased attenuation subcapsular liver adjacent to the gallbla dder fossa. Area of decreased attenuation measures 1.5 x 2.9 cm. This was not p resent on the recent preoperative CT examinations. Suspect this is probably a p osttraumatic injury from the cholecystectomy. It may have been difficult removi ng the gallbladder with a small amount of bleeding. There is no active bleeding at this time and I suspect this will continue to improve. Alternatively this m ay be a small hepatic infarct. 3. Pandiverticulosis without acute diverticulitis. 4. No free fluid or free air.
[2024-02-09] MEDS: iohexol 350 mg/mL 500 mL Btl (per mL) IV (08:38)
== END 2024-02-09 07:15 | disposition home or self-care (01) ==
LOC: RAD 07:14
PROVIDERS: PCP Pediatrics; Visit Provider Internal Medicine
DX: I50.20 Unspecified systolic (congestive) heart failure (principal); K83.1 Obstruction of bile duct; K82.8 Other specified diseases of gallbladder; R06.09 Other forms of dyspnea
CPT/HCPCS: 74177; 99214

== ENCOUNTER 2024-02-22 15:27 | Outpatient (CLI) | payer MEDICARE, OTHER, SELFPAY ==
[2024-02-22 16:41] LABS: Anion Gap 14.8 (5-19); Blood Urea Nitrogen 15 mg/dL (8-23); Calcium 8.8 mg/dL (8.5-10.5); Carbon Dioxide 26 mmol/L (22-29); Chloride 105 mmol/L (98-107); Glucose 99 mg/dL (65-115); NT Pro B Type Natriuretic Pept 207 pg/mL (0-125); Osmolality Calculated 295 mOsm/kg (285-295); Potassium 3.8 mmol/L (3.5-5.1); Sodium 142 mmol/L (136-145)
[2024-02-22 17:51] LABS: Bilirubin Urine Neg (Negative); Blood Urine Neg (Negative); Glucose Urine UA Norm (Normal); Ketones Urine Negative (Negative); Leukocyte Esterase Urine Negative (Negative); Nitrate Urine Negative (Negative); Protein Urine Neg (Negative); Specific Gravity, Urine 1.015 (1.005-1.030); Urine Appearance Slightly Cloudy (CLEAR); Urine Color Yellow (Yellow); Urobilinogen Urine Norm (Negative); pH Urine 6 (5-7)
[2024-02-22 17:52] LABS: Add Urine Microscopic? YES; RBC Urine 0-4 /hpf (0-2)
[2024-02-22 18:36] LABS: Bacteria Urine 3+ /hpf; Squamous Epithelial Cell Urine 0-4 /hpf (0-5); WBC Urine 15-25 /hpf (0-5)
== END 2024-02-22 15:28 | disposition home or self-care (01) ==
LOC: LAB 15:32
PROVIDERS: PCP Pediatrics; Visit Provider Internal Medicine
DX: I50.22 Chronic systolic (congestive) heart failure (principal); N39.0 Urinary tract infection, site not specified; I11.0 Hypertensive heart disease with heart failure; J96.21 Acute and chronic respiratory failure with hypoxia; J96.12 Chronic respiratory failure with hypercapnia; A41.9 Sepsis, unspecified organism
CPT/HCPCS: 80048; 81001; 83880; 87086

== ENCOUNTER 2024-03-20 16:12 | Outpatient (CLI) | payer MEDICARE, OTHER, SELFPAY ==
[2024-03-20 17:27] LABS: Anion Gap 14.7 (5-19); Blood Urea Nitrogen 15 mg/dL (8-23); Calcium 8.9 mg/dL (8.5-10.5); Carbon Dioxide 29 mmol/L (22-29); Chloride 102 mmol/L (98-107); Glucose 93 mg/dL (65-115); NT Pro B Type Natriuretic Pept 86 pg/mL (0-125); Osmolality Calculated 291 mOsm/kg (285-295); Potassium 5.7 mmol/L (3.5-5.1); Sodium 140 mmol/L (136-145)
== END 2024-03-20 16:13 | disposition home or self-care (01) ==
LOC: LAB 16:14
PROVIDERS: PCP Family Medicine; Visit Provider Internal Medicine
DX: I11.0 Hypertensive heart disease with heart failure (principal)
CPT/HCPCS: 80048; 83880

== ENCOUNTER 2024-05-12 21:26 | Emergency (ER) | payer MEDICARE, SELFPAY ==
[2024-05-12 21:31] VITALS: BP 143/72; PULSE 112; RESP 22; TEMP 39.5; O2SAT 99; BMI 31.4
--- NOTE | 2024-05-12 22:02 | CTR_ITS ---
PROCEDURE INFORMATION: Exam: CT Abdomen And Pelvis With Contrast Exam date and time: 05/12/2024 11:07 PM Age: 73 years old Clinical indication: Nausea and vomiting; Abdominal pain; Prior surgery; Surgery date: 6+ months; Surgery type: Gb; Patient HX: Epigastric pain with n/v; Additional info: Abd pain, vomiting TECHNIQUE: Imaging protocol: Computed tomography of the abdomen and pelvis with contrast. Radiation optimization: All CT scans at this facility use at least one of these dose optimization techniques: automated exposure control; mA and/or kV adjustment per patient size (includes targeted exams where dose is matched to clinical indication); or iterative reconstruction. Contrast material: OMNI 350; Contrast volume: 100 ml; Contrast route: INTRAVENOUS (IV); COMPARISON: CT abdomen pelvis w con* [id number] 02/09/2024 8:02 AM RADIATION DOSE METRICS: Total DLP (mGy-cm): 1002.62 FINDINGS: Lungs: Mild bibasilar atelectasis. Liver: See Gallbladder and biliary ducts finding. Gallbladder and biliary ducts: Status post cholecystectomy. No ductal dilatation. Previously seen hypodensity along the gallbladder fossa in the liver is no longer visualized. Pancreas: Normal. No ductal dilation. Spleen: Stable cystic foci in the spleen measuring up to 1.2 cm. Adrenal glands: Normal. No mass. Kidneys and ureters: Normal. No hydronephrosis. Stomach and bowel: Small duodenal diverticulum is into Appendix: No evidence of appendicitis. Intraperitoneal space: Unremarkable. No free air. No significant fluid collection. Vasculature: Moderate atherosclerotic aortoiliac calcifications. No aortic aneurysm. Pancolonic diverticulosis without evidence of acute diverticulitis. Circumaortic left renal vein. Lymph nodes: Unremarkable. No enlarged lymph nodes. Urinary bladder: Unremarkable as visualized. Reproductive: Unremarkable as visualized. Bones/joints: Lumbar spondylosis. No acute fracture. Soft tissues: Similar small supraumbilical fat containing ventral hernia. CT/CT abdomen pelvis w con* [id number] IMPRESSION: 1. No acute findings in the abdomen/pelvis. 2. Pancolonic diverticulosis without evidence of ileus
[2024-05-12 22:11] VITALS: BP 143/72; PULSE 112; RESP 16; O2SAT 97
[2024-05-12 22:18] LABS: Bilirubin Urine Negative (Negative); Blood Urine 1+ (Negative); Glucose Urine UA Negative (Normal); Ketones Urine Negative (Negative); Leukocyte Esterase Urine Negative (Negative); Nitrate Urine Negative (Negative); Protein Urine Negative (Negative); Specific Gravity, Urine 1.013 (1.005-1.030); Urine Appearance Clear (CLEAR); Urine Color Yellow (Yellow); pH Urine 6.5 (5-7)
--- NOTE | 2024-05-12 22:32 | W.ED.ABDPA2 ---
HPI - Abdominal Pain General: Chief Complaint: Abdominal Pain Stated Complaint: abdomen pain Time Seen by Provider: 05/12/24 21:35 History of Present Illness: 73-year-old female with a history of cholecystectomy back in January. She presents with abdominal pain, vomiting. She has a fever. She says she hurts in her epigastrium, with some vomiting here. This started earlier today, she believes around 5 PM. She says that she felt pretty well yesterday. Related Data Home Medications Medication Instructions Recorded Confirmed oxycodone-acetaminophen 10 mg-325 1 tab PO Q6H PRN Pain 01/14/22 02/09/24 mg tablet (Percocet) pramipexole 0.75 mg tablet See Rx Instructions PO DAILY 01/14/22 02/09/24 cetirizine 10 mg tablet 10 mg PO DAILY PRN Itching 11/21/23 02/09/24 apixaban 5 mg tablet (Eliquis) 5 mg PO BID 01/21/24 02/09/24 famotidine 20 mg tablet 40 mg PO BID 01/21/24 02/09/24 ferrous sulfate 325 mg (65 mg 325 mg PO DAILY 01/21/24 02/09/24 iron) tablet Previous Rx's Medication Instructions Recorded azithromycin 250 mg tablet 250 mg PO .3 X WEEK #36 tabs 09/27/23 fluticasone fur. 100 mcg-umeclid 1 inh inhalation DAILY #60 ea 01/25/24 62.5 mcg-vilant 25 mcg inhalat.powder (Trelegy Ellipta) lactulose 10 gram/15 mL oral 10 g (15 mL) PO DAILY PRN 01/25/24 solution constipation #473 mL sennosides 8.6 mg-docusate sodium 1 tab-cap PO DAILY #30 tabs 01/25/24 50 mg tablet (Senna-S) furosemide 20 mg tablet (Lasix) 20 mg PO DAILY #90 tabs 02/09/24 lisinopril 20 mg tablet 20 mg PO DAILY #90 tabs 02/17/24 ondansetron 4 mg disintegrating 4 mg PO Q6H PRN nausea and 05/13/24 tablet vomiting #14 tabs Allergies Allergy/AdvReac Type Severity Reaction Status Date / Time dust mites Allergy Unknown Unknown Uncoded 02/09/24 12:35 PFSH ED PFSH: Medical History Bacteremia Cholecystitis Chest pain Septic shock COPD (chronic obstructive pulmonary disease) Ileus Shock Sludge in gallbladder Biliary stricture Hypotension Abdominal pain Asthma-COPD overlap syndrome Exertional dyspnea Encounter for screening for lung cancer CHF (congestive heart failure) Family History Mother Cancer lung Heart disease Father Heart disease Hypertension Sister Diabetes Daughter Diabetes Hypertension High cholesterol Social History Smoking and tobacco/nicotine status: former use of tobacco/nicotine Physical Exam Const: COMMON NORMALS: no acute distress GENERAL APPEARANCE: cooperative and ill appearing (Mildly); not frail appearing HENMT: COMMON NORMALS: normocephalic, atraumatic and Normal external nose present HEAD & SCALP: normocephalic and atraumatic FACE & SINUS: normal facial exam and face symmetric NOSE: Normal external nose present Eye: COMMON NORMALS: Equal, round and reactive pupils present and EOMs intact bilaterally PUPIL: Yes Equal, round and reactive pupils present Neck/C-Spine: GENERAL: Yes trachea midline Chest: CHEST: Yes Symmetrical chest wall rise Resp: COMMON NORMALS: normal respiratory effort, No retractions, No use of accessory muscles and clear to auscultation bilaterally AUSCULTATION: clear to auscultation bilaterally Cardio: COMMON NORMALS: regular rhythm RATE: tachycardic RHYTHM: regular rhythm GI: COMMON NORMALS: Normal to inspection, nondistended, normoactive bowel sounds present PALPATION: Yes Tenderness to palpation present (GI) (Epigastric) Extremity: COMMON NORMALS: no pedal edema Neuro: MICHELE COMA SCALE: document GCS findings [place] coma scale eye opening: Spontaneous [place] coma scale verbal response: Orientated [place] coma scale motor response: Obey commands Michele coma scale total score: 15 SENSORY EXAM: Yes extremities (intact) Psych: COMMON NORMALS: speech normal SPEECH: Yes normal speech Skin: COMMON NORMALS: no rashes or lesions noted GENERAL SKIN EXAM: no rashes or lesions noted Course Vital Signs: Vital signs: Vital Signs Temperature 103.1 F H 05/12/24 21:31 Pulse Rate 78 05/13/24 01:38 Respiratory Rate 15 05/13/24 01:38 Blood Pressure 101/67 05/13/24 01:38 Pulse Oximetry 97 05/13/24 01:38 Oxygen Delivery Me thod Nasal Cannula 05/13/24 00:38 Oxygen Flow Rate 4 05/12/24 23:21 MDM - Abdominal Pain Medical Decision Making Temperature is improved. 98.5. Heart rate is normalized. Hemoglobin is 11. White blood cell count is 9. Creatinine is 1.1. Lactic acid is 1.3. Lipase is normal. Liver enzymes show bilirubin of 0.6. CT scan shows no acute findings. Pain improved with GI cocktail. She will be allowed home. Symptomatic treatment. Return for worsening symptoms. Outpatient follow-up Lab Data 05/12/24 22:24 05/12/24 22:24 Labs/Radiology: Radiology Impressions Abdomen/Pelvis CT 05/12/24 22:02 IMPRESSION: 1. No acute findings in the abdomen/pelvis. 2. Pancolonic diverticulosis without evidence of ileus Laboratory Results WBC 9.19 10^3/uL (3.29-11.43) 05/12/24 22:24 RBC 3.94 10^6/uL (3.85-5.65) 05/12/24 22:24 Hgb 11.10 g/dL (11.27-16.99) L 05/12/24 22:24 Hct 36.4 % (36-47) 05/12/24 22:24 MCV 92.4 fl (85-98) 05/12/24 22:24 MCH 28.2 pg (27-33) 05/12/24 22:24 MCHC 30.5 g/dL (30-55) 05/12/24 22:24 RDW 12.5 % (12.1-15.1) 05/12/24 22:24 Plt Count 234 10^3/cmm (157-399) 05/12/24 22:24 MPV 9.6 fL (7.4-10.4) 05/12/24 22:24 Neut % (Auto) 90.9 % 05/12/24 22:24 Lymph % (Auto) 4.4 % 05/12/24 22:24 B[place] % (Auto) 4.1 % 05/12/24 22:24 Eos % (Auto) 0.2 % 05/12/24 22:24 Baso % (Auto) 0.1 % 05/12/24 22:24 Neut # (Auto) 8.35 10^3/uL (1.8-7.7) H 05/12/24 22:24 Lymph # (Auto) 0.4 10^3/uL (0.8-4.8) L 05/12/24 22:24 Bland # (Auto) 0.4 10^3/uL (0.2-0.9) 05/12/24 22:24 Eos # (Auto) 0.0 10^3/uL (0.0-0.8) 05/12/24 22:24 Baso # (Auto) 0.0 10^3/uL (0.0-0.1) 05/12/24 22:24 Nucleated RBC % (auto) 0 % 05/12/24 22:24 Nucleated RBCs # 0.0 /100WBC 05/12/24 22:24 PT 17.80 SECONDS (12.1-14.9) H 05/12/24 22:24 INR 1.41 (0.8-1.2) H 05/12/24 22:24 Sodium 139 mmol/L (136-145) 05/12/24 22:24 Potassium 4.5 mmol/L (3.5-5.1) 05/12/24 22:24 Chloride 103 mmol/L (98-107) 05/12/24 22:24 Carbon Dioxide 27 mmol/L (22-29) 05/12/24 22:24 Anion Gap 13.5 (5-19) 05/12/24 22:24 BUN 15 mg/dL (8-23) 05/12/24 22:24 Creatinine 1.1 mg/dL (0.5-0.9) H 05/12/24 22:24 GFR Calculation Not Reportable 05/12/24 22:24 Glucose 134 mg/dL (65-115) H 05/12/24 22:24 Calculated Osmolality 291 mOsm/kg (285-295) 05/12/24 22:24 Lactic Acid 1.3 mmol/L (0.5-2.2) 05/12/24 22:24 Calcium 9.1 mg/dL (8.5-10.5) 05/12/24 22:24 Total Bilirubin 0.6 mg/dL (0.15-1.2) 05/12/24 22:24 AST 97 U/L (0-32) H 05/12/24 22:24 ALT 66 U/L (0-33) H 05/12/24 22:24 Alkaline Phosphatase 245 U/L (35-105) H 05/12/24 22:24 C-Reactive Protein 14.3 mg/L (0.0-4.9) H 05/12/24 22:24 Total Protein 6.6 g/dL (6.6-8.7) 05/12/24 22:24 Albumin 3.8 g/dL (3.5-5.2) 05/12/24 22:24 Globulin 2.8 g/dL (1.3-4.6) 05/12/24 22: Lipase 34 U/L (13-60) 05/12/24 22:24 Procalcitonin 0.42 ng/mL (0-0.5) 05/12/24 22:24 Urine Color Yellow (Yellow) 05/12/24 22:00 Urine Appearance Clear (CLEAR) 05/12/24 22:00 Urine pH 6.5 (5-7) 05/12/24 22:00 Ur Specific [place] 1.013 (1.005-1.030) 05/12/24 22:00 Urine Protein Negative (Negative) 05/12/24 22:00 Urine Glucose (UA) Negative (Normal) 05/12/24 22:00 Urine Ketones Negative (Negative) 05/12/24 22:00 Urine Blood 1+ (Negative) A 05/12/24 22:00 Urine Nitrate Negative (Negative) 05/12/24 22:00 Urine Bilirubin Negative (Negative) 05/12/24 22:00 Urine Urobilinogen 1.0 mg/dL (Negative) 05/12/24 22:00 Ur Leukocyte Esterase Negative (Negative) 05/12/24 22:00 Urine RBC 0-4 /hpf (0-2) H 05/12/24 22:00 Urine WBC 0-4 /hpf (0-5) H 05/12/24 22:00 Ur Squamous Epith Cells 0-4 /hpf (0-5) H 05/12/24 22:00 Amorphous Sediment Not Reportable 05/12/24 22:00 Urine Bacteria Trace /hpf (NONE) 05/12/24 22:00 Coronavirus (PCR) Negative (Negative) 05/12/24 23:49 Influenza A (PCR) Negative (Negative) 05/12/24 23:49 Influenza Type B (PCR) Negative (Negative) 05/12/24 23:49 RSV (PCR) Negative (Negative) 05/12/24 23:49 All radiology interpretation(s) finalized by discharge Discharge Plan Discharge Patient Disposition: Home Clinical Impression: Gastroenteritis Condition: Stable Prescriptions: Continued ondansetron 4 mg tablet,disintegrating 4 mg PO Q6H PRN (Reason: nausea and vomiting) Qty: 14 0RF No Action oxycodone-acetaminophen [Percocet] 10-325 mg tablet 1 tab PO Q6H PRN (Reason: Pain) pramipexole 0.75 mg tablet See Rx Instructions PO DAILY Rx Instructions: 1 tablet by mouth in AM, 2 tablets by mouth in PM azithromycin 250 mg tablet 250 mg PO .3 X WEEK Qty: 36 4RF Rx Instructions: 250 mg tab on Mondays, Wednesdays, and Fridays furosemide [Lasix] 20 mg tablet 20 mg PO DAILY Qty: 90 3RF lisinopril 20 mg tablet 20 mg PO DAILY Qty: 90 3RF Eliquis 5 mg tablet 5 mg PO BID famotidine 20 mg tablet 40 mg PO BID ferrous sulfate 325 mg (65 mg iron) tablet 325 mg PO DAILY Trelegy Ellipta 100-62.5-25 mcg blister with device 1 inh inhalation DAILY Qty: 60 6RF Senna-S 8.6-50 mg tablet 1 tab-cap PO DAILY Qty: 30 0RF lactulose 10 gram/15 mL solution 10 g PO DAILY PRN (Reason: constipation) Qty: 473 0RF cetirizine 10 mg tablet 10 mg PO DAILY PRN (Reason: Itching) Discharge Orders: Discharge ED (Routine); Ordered 05/13/24 Ordered By: Aayush Alberto Referrals: Ekaterina Peterson DO [Primary Care Provider] - 1-3 days Patient Instructions: Gastroenteritis (ED), Opioid Safety, Pain Management Activity Restrictions/Additional Instructions: Return for worsening abdominal pain, vomiting liquids or medications, blood in the stool or vomitus, worsening fever, other concerning symptoms. Follow a liquid diet for the next 24 hours and advance as tolerated. Monitor for fever, and treat accordingly. See your doctor next week. Coding Level of Care Code ED Superintendent [employer] for Arnulfo Christopher
[2024-05-12 22:45] LABS: Add Urine Culture? No; Add Urine Microscopic? YES; Bacteria Urine TRACE /hpf; RBC Urine 0-4 /hpf (0-2); Squamous Epithelial Cell Urine 0-4 /hpf (0-5); WBC Urine 0-4 /hpf (0-5)
[2024-05-12 22:46] VITALS: RESP 18; O2SAT 98
[2024-05-12 22:46] LABS: Basophils % 0.1 %; Eosinophils % 0.2 %; Hematocrit 36.4 % (36-47); Lymphocytes # 0.4 10^3/uL (0.8-4.8); Lymphocytes % 4.4 %; Mean Corpuscular HGB Conc 30.5 g/dL (30-55); Mean Corpuscular Hemoglobin 28.2 pg (27-33); Mean Corpuscular Volume 92.4 fl (85-98); Mean Platelet Volume 9.6 fL (7.4-10.4); Monocytes # 0.4 10^3/uL (0.2-0.9); Monocytes % 4.1 %; Neutrophils # 8.35 10^3/uL (1.8-7.7); Neutrophils % 90.9 %; Nucleated Red Blood Cells % 0 %; Platelet Count 234 10^3/cmm (157-399); Red Blood Count 3.94 10^6/uL (3.85-5.65); Red Cell Distribution Width 12.5 % (12.1-15.1); White Blood Count 9.19 10^3/uL (3.29-11.43)
[2024-05-12] MEDS: ketorolac 30 mg/mL INJ 15 MG IVP (22:46)
[2024-05-12] MEDS: morphine 4 mg/mL SDV 1 mL IVP (22:46)
[2024-05-12] MEDS: lidocaine 2% viscous 15 ML, aluminum-mag hydrox-simethicon 30 ML, sucralfate oral liq 1 GM PO (22:46)
[2024-05-12] MEDS: ondansetron 2 mg/ML SDV 2 mL 4 MG IVP (22:46)
[2024-05-12 22:53] VITALS: BP 95/59; PULSE 101; RESP 16; O2SAT 98
[2024-05-12 22:54] LABS: INR 1.41 (0.8-1.2)
[2024-05-12 23:00] LABS: Alanine Aminotransferase 66 U/L (0-33); Albumin Level 3.8 g/dL (3.5-5.2); Alkaline Phosphatase 245 U/L (35-105); Anion Gap 13.5 (5-19); Aspartate Amino Transferase 97 U/L (0-32); Blood Urea Nitrogen 15 mg/dL (8-23); C Reactive Protein 14.3 mg/L (0.0-4.9); Calcium 9.1 mg/dL (8.5-10.5); Carbon Dioxide 27 mmol/L (22-29); Chloride 103 mmol/L (98-107); Creatinine Clr Calc Pharmacy 50.2636; Globulin 2.8 g/dL (1.3-4.6); Glucose 134 mg/dL (65-115); Lipase 34 U/L (13-60); Osmolality Calculated 291 mOsm/kg (285-295); Potassium 4.5 mmol/L (3.5-5.1); Sodium 139 mmol/L (136-145); Total Bilirubin 0.6 mg/dL (0.15-1.2); Total Protein 6.6 g/dL (6.6-8.7)
[2024-05-12 23:01] LABS: Lactic Sepsis W/Reflex 1.3 mmol/L (0.5-2.2)
[2024-05-12 23:07] LABS: Procalcitonin 0.42 ng/mL (0-0.5)
[2024-05-12] MEDS: iohexol 350 mg/mL 500 mL Btl (per mL) IV (23:12)
--- NOTE | 2024-05-12 23:20 | PC.NURSE ---
NURSE KWONG ASSUMED CARE AT 2300
[2024-05-12 23:21] VITALS: BP 109/55; PULSE 96; RESP 19; O2SAT 97
[2024-05-12 23:51] VITALS: BP 111/50; PULSE 90; RESP 16; O2SAT 96
[2024-05-13 00:36] LABS: Covid PCR NEGATIVE (Negative); Influenza A NEGATIVE (Negative); Influenza B NEGATIVE (Negative); Respiratory Syncytial Virus Ce NEGATIVE (Negative)
[2024-05-13 00:38] VITALS: BP 105/55; PULSE 91; RESP 21; O2SAT 100
[2024-05-13 01:37] VITALS: RESP 15
[2024-05-13] MEDS: morphine 4 mg/mL SDV 1 mL 2 MG IVP (01:37)
[2024-05-13 01:38] VITALS: BP 101/67; PULSE 78; RESP 15; O2SAT 97
--- NOTE | 2024-05-13 17:35 | PC.NURSE ---
THIS NURSE WAS NOTIFIED BY DR. VELEZ TO CALL PATIENT REGARDING POSITIVE BLOOD CULTURE RESULTS AND TO COME BACK AND BE SEEN. PT VERBALIZED UNDERSTANDING.
== END 2024-05-13 01:42 | disposition home or self-care (01) ==
PROVIDERS: Emergency Provider Emergency Medicine; PCP Family Medicine
DX: K52.9 Noninfective gastroenteritis and colitis, unspecified (principal); Z11.52 Encounter for screening for COVID-19; Z79.01 Long term (current) use of anticoagulants; Z87.891 Personal history of nicotine dependence; J44.9 Chronic obstructive pulmonary disease, unspecified; I50.9 Heart failure, unspecified
CPT/HCPCS: 0241U; 36415; 74177; 80053; 81001; 83605; 83690; 84145; 85025; 85610; 86140; 87040; 87077; 87150; 87186; 87205; 96374; 96375; 96376; 99285; J1885; J2270; J2405

== ENCOUNTER 2024-05-13 18:46 | Inpatient (IN) | payer MEDICARE, SELFPAY ==
[2024-05-13] VITALS (10 sets, daily range): BP systolic 110–173; BP diastolic 52–80; PULSE 73–80; RESP 17–20; TEMP 36.8–37.2; O2SAT 98–100; BMI 30.7; BMI 32.3
[2024-05-13 19:19] LABS: Basophils % 0.1 %; Eosinophils # 0.1 10^3/uL (0.0-0.8); Eosinophils % 0.7 %; Hematocrit 34.3 % (36-47); Lymphocytes # 0.9 10^3/uL (0.8-4.8); Lymphocytes % 10.5 %; Mean Corpuscular HGB Conc 29.7 g/dL (30-55); Mean Corpuscular Hemoglobin 27.9 pg (27-33); Mean Corpuscular Volume 93.7 fl (85-98); Mean Platelet Volume 9.7 fL (7.4-10.4); Monocytes # 0.4 10^3/uL (0.2-0.9); Monocytes % 4.3 %; Neutrophils # 7.37 10^3/uL (1.8-7.7); Neutrophils % 83.9 %; Nucleated Red Blood Cells % 0 %; Platelet Count 231 10^3/cmm (157-399); Red Blood Count 3.66 10^6/uL (3.85-5.65); Red Cell Distribution Width 12.9 % (12.1-15.1); White Blood Count 8.78 10^3/uL (3.29-11.43)
[2024-05-13 19:43] LABS: Alanine Aminotransferase 53 U/L (0-33); Albumin Level 3.4 g/dL (3.5-5.2); Alkaline Phosphatase 208 U/L (35-105); Anion Gap 13.3 (5-19); Aspartate Amino Transferase 55 U/L (0-32); Blood Urea Nitrogen 17 mg/dL (8-23); Calcium 8.7 mg/dL (8.5-10.5); Carbon Dioxide 28 mmol/L (22-29); Chloride 103 mmol/L (98-107); Globulin 2.9 g/dL (1.3-4.6); Glucose 126 mg/dL (65-115); Lipase 25 U/L (13-60); Osmolality Calculated 293 mOsm/kg (285-295); Potassium 4.3 mmol/L (3.5-5.1); Sodium 140 mmol/L (136-145); Total Bilirubin 0.6 mg/dL (0.15-1.2); Total Protein 6.3 g/dL (6.6-8.7)
--- NOTE | 2024-05-13 20:01 | XRR_ITS ---
PROCEDURE INFORMATION: Exam: XR Chest Exam date and time: 05/13/2024 8:35 PM Age: 73 years old Clinical indication: Patient HX: SOB; Epigastric pain; N/v TECHNIQUE: Imaging protocol: Radiologic exam of the chest. Views: 1 view. COMPARISON: CT angio chest PE protcl [id number] 01/21/2024 12:28 PM FINDINGS: Lungs: No focal consolidation. Pleural spaces: No evidence of pneumothorax. No evidence of pleural effusion. Heart/Mediastinum: Cardiomediastinal silhouette is within normal limits. Bones/joints: No evidence of acute osseous abnormality. XR/XR chest 1V portable [id number] IMPRESSION: 1. No acute cardiopulmonary abnormality.
[2024-05-13 20:03] LABS: C Reactive Protein 124.9 mg/L (0.0-4.9)
[2024-05-13] MEDS: ondansetron 2 mg/ML SDV 2 mL 4 MG IVP (20:20)
[2024-05-13] MEDS: morphine 4 mg/mL SDV 1 mL IVP (20:20)
[2024-05-13] MEDS: piperacillin-tazobactam 4.5 GM in sodium chloride 0.9% (plus) 50 ML IV (20:20)
--- NOTE | 2024-05-13 21:15 | W.ED.RECABL ---
HPI - Recheck/Abnormal Lab/Rx General: Chief Complaint: Recheck/Abnormal Lab/Rx Stated Complaint: abnormal labs Time Seen by Provider: 05/13/24 19:42 History of Present Illness: 73-year-old lady whom I saw last night. At that point, she was experiencing abdominal pain, vomiting. She had a temperature up to 103. This was resolved after IV Toradol, and fluid. Her laboratory was not terribly remarkable. Her CRP was only minimally elevated she had no leukocytosis. With improvement in her symptoms, and no significant findings on CAT scan she was allowed to go home. The patient's blood cultures turn positive for E. coli earlier today and we contacted the patient to return. She returns because of this. She notes that her vomiting is resolved. Her belly pain is improved, but not gone. She is experiencing back pain which is chronic for her. She has had no more fever. Related Data Home Medications Medication Instructions Recorded Confirmed oxycodone-acetaminophen 10 mg-325 1 tab PO Q6H PRN Pain 01/14/22 02/09/24 mg tablet (Percocet) pramipexole 0.75 mg tablet See Rx Instructions PO DAILY 01/14/22 02/09/24 cetirizine 10 mg tablet 10 mg PO DAILY PRN Itching 11/21/23 02/09/24 apixaban 5 mg tablet (Eliquis) 5 mg PO BID 01/21/24 02/09/24 famotidine 20 mg tablet 40 mg PO BID 01/21/24 02/09/24 ferrous sulfate 325 mg (65 mg 325 mg PO DAILY 01/21/24 02/09/24 iron) tablet Previous Rx's Medication Instructions Recorded azithromycin 250 mg tablet 250 mg PO .3 X WEEK #36 tabs 09/27/23 fluticasone fur. 100 mcg-umeclid 1 inh inhalation DAILY #60 ea 01/25/24 62.5 mcg-vilant 25 mcg inhalat.powder (Trelegy Ellipta) lactulose 10 gram/15 mL oral 10 g (15 mL) PO DAILY PRN 01/25/24 solution constipation #473 mL sennosides 8.6 mg-docusate sodium 1 tab-cap PO DAILY #30 tabs 01/25/24 50 mg tablet (Senna-S) furosemide 20 mg tablet (Lasix) 20 mg PO DAILY #90 tabs 02/09/24 lisinopril 20 mg tablet 20 mg PO DAILY #90 tabs 02/17/24 ondansetron 4 mg disintegrating 4 mg PO Q6H PRN nausea and 05/13/24 tablet vomiting #14 tabs Allergies Allergy/AdvReac Type Severity Reaction Status Date / Time dust mites Allergy Unknown Unknown Uncoded 02/09/24 12:35 PFSH ED PFSH: Medical History Bacteremia Cholecystitis Chest pain Septic shock COPD (chronic obstructive pulmonary disease) Ileus Shock Sludge in gallbladder Biliary stricture Hypotension Abdominal pain Asthma-COPD overlap syndrome Exertional dyspnea Encounter for screening for lung cancer CHF (congestive heart failure) Family History Mother Cancer lung Heart disease Father Heart disease Hypertension Sister Diabetes Daughter Diabetes Hypertension High cholesterol Social History Smoking and tobacco/nicotine status: former use of tobacco/nicotine Physical Exam Const: GENERAL APPEARANCE: cooperative and ill appearing (Mildly); not frail appearing HENMT: COMMON NORMALS: normocephalic, atraumatic and Normal external nose present HEAD & SCALP: normocephalic and atraumatic FACE & SINUS: normal facial exam and face symmetric NOSE: Normal external nose present Eye: COMMON NORMALS: Equal, round and reactive pupils present and EOMs intact bilaterally PUPIL: Yes Equal, round and reactive pupils present Neck/C-Spine: GENERAL: Yes trachea midline Chest: CHEST: Yes Symmetrical chest wall rise Resp: COMMON NORMALS: normal respiratory effort, No retractions, No use of accessory muscles and clear to auscultation bilaterally AUSCULTATION: clear to auscultation bilaterally Cardio: COMMON NORMALS: regular rate and regular rhythm RATE: regular rate RHYTHM: regular rhythm GI: INSPECTION: Yes abdominal distension (Mild) PALPATION: Yes Tenderness to palpation present (GI) (Diffusely) Extremity: COMMON NORMALS: no pedal edema Neuro: MICHELE COMA SCALE: document GCS findings Michele coma scale eye opening: Spontaneous [place] coma scale verbal response: Orientated [place] coma scale motor response: Obey commands [place] coma scale total score: 15 SENSORY EXAM: Yes extremities (intact) Psych: COMMON NORMALS: speech normal SPEECH: Yes normal speech Skin: COMMON NORMALS: no rashes or lesions noted GENERAL SKIN EXAM: no rashes or lesions noted Course Vital Signs: Vital signs: Vital Signs Temperature 98.3 F 05/13/24 18:49 Pulse Rate 80 05/13/24 20:25 Respiratory Rate 20 H 05/13/24 20:20 Blood Pressure 123/70 05/13/24 20:25 Pulse Oximetry 100 05/13/24 20:25 Oxygen Delivery Me thod Room Air 05/13/24 20:25 Oxygen Flow Rate 3 05/13/24 18:49 MDM - Recheck/Abnormal Lab/Rx Medical Decision Making Patient is afebrile. Vitals are stable here. She does not have a leukocytosis. However, her CRP has increased from 12-125 and 24 hours. Her lipase is normal. Liver enzymes are not remarkable. Chest x-ray is not remarkable. She is growing E. coli in her blood from blood cultures drawn yesterday. She is given IV Zosyn here, pain medication for chronic back pain. She will require admission for bacteremia and continued search for a cause. Hospitalist is seeing the patient. Lab Data 05/13/24 19:13 05/13/24 19:13 Laboratory Results WBC 8.78 10^3/uL (3.29-11.43) 05/13/24 19:13 RBC 3.66 10^6/uL (3.85-5.65) L 05/13/24 19:13 Hgb 10.20 g/dL (11.27-16.99) L 05/13/24 19:13 Hct 34.3 % (36-47) L 05/13/24 19:13 MCV 93.7 fl (85-98) 05/13/24 19:13 MCH 27.9 pg (27-33) 05/13/24 19:13 MCHC 29.7 g/dL (30-55) L 05/13/24 19:13 RDW 12.9 % (12.1-15.1) 05/13/24 19:13 Plt Count 231 10^3/cmm (157-399) 05/13/24 19:13 MPV 9.7 fL (7.4-10.4) 05/13/24 19:13 Neut % (Auto) 83.9 % 05/13/24 19:13 Lymph % (Auto) 10.5 % 05/13/24 19:13 [place] % (Auto) 4.3 % 05/13/24 19:13 Eos % (Auto) 0.7 % 05/13/24 19:13 Baso % (Auto) 0.1 % 05/13/24 19:13 Neut # (Auto) 7.37 10^3/uL (1.8-7.7) 05/13/24 19:13 Lymph # (Auto) 0.9 10^3/uL (0.8-4.8) 05/13/24 19:13 [place] # (Auto) 0.4 10^3/uL (0.2-0.9) 05/13/24 19:13 Eos # (Auto) 0.1 10^3/uL (0.0-0.8) 05/13/24 19:13 Baso # (Auto) 0.0 10^3/uL (0.0-0.1) 05/13/24 19:13 Nucleated RBC % (auto) 0 % 05/13/24 19:13 Nucleated RBCs # 0.0 /100WBC 05/13/24 19:13 Sodium 140 mmol/L (136-145) 05/13/24 19:13 Potassium 4.3 mmol/L (3.5-5.1) 05/13/24 19:13 Chloride 103 mmol/L (98-107) 05/13/24 19:13 Carbon Dioxide 28 mmol/L (22-29) 05/13/24 19:13 Anion Gap 13.3 (5-19) 05/13/24 19:13 BUN 17 mg/dL (8-23) 05/13/24 19:13 Creatinine 1.1 mg/dL (0.5-0.9) H 05/13/24 19:13 GFR Calculation Not Reportable 05/13/24 19:13 Glucose 126 mg/dL (65-115) H 05/13/24 19:13 Calculated Osmolality 293 mOsm/kg (285-295) 05/13/24 19:13 Calcium 8.7 mg/dL (8.5-10.5) 05/13/24 19:13 Total Bilirubin 0.6 mg/dL (0.15-1.2) 05/13/24 19:13 AST 55 U/L (0-32) H 05/13/24 19:13 ALT 53 U/L (0-33) H 05/13/24 19:13 Alkaline Phosphatase 208 U/L (35-105) H 05/13/24 19:13 C-Reactive Protein 124.9 mg/L (0.0-4.9) H 05/13/24 19:13 Total Protein 6.3 g/dL (6.6-8.7) L 05/13/24 19:13 Albumin 3.4 g/dL (3.5-5.2) L 05/13/24 19:13 Globulin 2.9 g/dL (1.3-4.6) 05/13/24 19:13 Lipase 25 U/L (13-60) 05/13/24 19:13 XR interpretation done by ED provider, pending radiology final review Discharge Plan Discharge Patient Disposition: Admitted As Inpatient Admit Provider: Carl Valadez Clinical Impression: Bacteremia Condition: Fair Coding Level of Care Code ED Parole Board Member for Arnulfo Christopher
[2024-05-13 21:27] LABS: Bilirubin Urine Negative (Negative); Blood Urine Trace (Negative); Glucose Urine UA Negative (Normal); Ketones Urine Negative (Negative); Leukocyte Esterase Urine Trace (Negative); Nitrate Urine Negative (Negative); Protein Urine 1+ (Negative); Specific Gravity, Urine 1.027 (1.005-1.030); Urine Appearance Clear (CLEAR); Urine Color Yellow (Yellow); pH Urine 8.5 (5-7)
--- NOTE | 2024-05-13 21:33 | P.HP_ITS ---
Providers/Chief Complaint 2 Admitting Physician: Carl Valadez MD Primary Care Provider: Ekaterina Peterson DO Chief Complaint: abnormal labs History of Present Illness Mary Fitch is a 73 year old female with history of chronic hypoxia requires 3 L of oxygen at baseline, previous history of E. coli bacteremia and UTI, had cholecystectomy done in January this year by Dr. Park, there was concern for mass in the gallbladder however pathology is not showing any sign emergency, at that time patient had positive blood cultures as well with E. coli was called in because her blood cultures turn positive. She was seen in the ER yesterday for her subjective fever Reiger chills and abdominal pain. Patient is stating that she has not noted down her temperature but she was extremely fatigued lethargic with extreme chills with rigors. She is not endorsing dysuria but stating that she is incontinent. No recent diarrhea. Patient was playing cards with her family yesterday had hot cocoa, 2 hours after that she started experiencing extreme Renan pain that prompted her visit to the ER, she was discharged from the ER after GI cocktail which improved her symptoms. We are still waiting on urine cultures, patient will get antibiotics after we obtain urine culture Patient does have a chicken coop at home, no one else is sick in her house CT abdomen pelvis was unremarkable Patient is complaining of epigastric pain which is not radiating, no active nausea or vomiting, she is doing well on 2 L nasal cannula asking for juice. Patient had a PET scan done this year as well which did not show any sign malignancy it was done with concerns related to pulmonary nodules Review of Systems 2 Const: Reports: fever(s) and chills Eyes: Denies: change in vision ENMT: Denies: throat pain Card: Denies: chest pain Resp: Reports: dyspnea GI: Reports: abdominal pain and nausea : Denies: flank pain Musc: Denies: neck pain Medications/Allergies Home Medications Medication Instructions Recorded Confirmed Last Taken Type oxycodone-acetaminophen 10 mg-325 1 tab PO Q6H PRN Pain 01/14/22 02/09/24 06/13/23 History mg tablet (Percocet) pramipexole 0.75 mg tablet See Rx Instructions PO DAILY 01/14/22 02/09/24 11/21/23 History azithromycin 250 mg tablet 250 mg PO .3 X WEEK #36 tabs 09/27/23 02/09/24 Unknown Rx cetirizine 10 mg tablet 10 mg PO DAILY PRN Itching 11/21/23 02/09/24 Unknown History apixaban 5 mg tablet (Eliquis) 5 mg PO BID 01/21/24 02/09/24 01/20/24 History famotidine 20 mg tablet 40 mg PO BID 01/21/24 02/09/24 Unknown History ferrous sulfate 325 mg (65 mg 325 mg PO DAILY 01/21/24 02/09/24 01/20/24 History iron) tablet fluticasone fur. 100 mcg-umeclid 1 inh inhalation DAILY #60 ea 01/25/24 02/09/24 Unknown Rx 62.5 mcg-vilant 25 mcg inhalat.powder (Trelegy Ellipta) lactulose 10 gram/15 mL oral 10 g (15 mL) PO DAILY PRN 01/25/24 02/09/24 Unknown Rx solution constipation #473 mL sennosides 8.6 mg-docusate sodium 1 tab-cap PO DAILY #30 tabs 01/25/24 02/09/24 Unknown Rx 50 mg tablet (Senna-S) furosemide 20 mg tablet (Lasix) 20 mg PO DAILY #90 tabs 02/09/24 02/09/24 Unknown Rx lisinopril 20 mg tablet 20 mg PO DAILY #90 tabs 02/17/24 Unknown Rx ondansetron 4 mg disintegrating 4 mg PO Q6H PRN nausea and 05/13/24 Unknown Rx tablet vomiting #14 tabs Allergies Allergy/AdvReac Type Severity Reaction Status Date / Time dust mites Allergy Unknown Unknown Uncoded 02/09/24 12:35 PFSH Acute 2 PFSH: Medical History Bacteremia Cholecystitis Chest pain Septic shock COPD (chronic obstructive pulmonary disease) Ileus Shock Sludge in gallbladder Biliary stricture Hypotension Abdominal pain Asthma-COPD overlap syndrome Exertional dyspnea Encounter for screening for lung cancer CHF (congestive heart failure) Family History Mother Cancer lung Heart disease Father Heart disease Hypertension Sister Diabetes Daughter Diabetes Hypertension High cholesterol Social History Smoking and tobacco/nicotine status: former use of tobacco/nicotine Vitals/I&O/Wt Last Vital Signs Temp 98.3 F 05/13/24 18:49 Pulse 77 05/13/24 21:00 Resp 20 H 05/13/24 20:20 BP 141/61 05/13/24 21:00 Pulse Ox 100 05/13/24 21:00 O2 Del Method Nasal Cannula 05/13/24 21:00 O2 Flow Rate 3 05/13/24 21:00 Weight last 48 hrs Weight 86.183 kg Physical Exam 2 Narrative: Patient is awake and alert Mild signs of dehydration Abdomen soft No sign of peritonitis S1, S2 Currently on 3 L Saturating 100% Afebrile hemodynamic stable Daughter at the bedside GCS 15 Not in any active distress Nonfocal neuroexam Data 05/13/24 19:13 05/13/24 19:13 A&P Assessment and plan (1) Gastroenteritis: (2) Bacteremia: Plan Recurrent positive bacteremia with E. coli Patient had UTI in the past with E. coli Sensitivity report is showing pansensitive ED hence ceftriaxone will be used At this point source is unidentified GI versus but suspicion is likely related to UTI I am not sure at this point why she becomes bacteremic the E. coli recurrently, probably will benefit from an ID consultation I will start patient on ceftriaxone considering previous signs to be reported UA results are pending Patient is not showing sign of sepsis Patient is not showing any signs of cholangitis at this point, no leukocytosis, fever, she has objective fevers at home, liver enzymes slightly abnormal with high alkaline phosphatase however CBD dilation not present on CT abdomen pelvis she does have high CRP which goes with her bacteremia For concerns related to recurrent bacteremia, transesophageal echo might be needed At this point I am not seeing any active source of kidney stones Chronic hypoxia uses 3 L at baseline Restless legs: Takes pramipexole 2 in the nighttime and 1 in the day Hypertension: Takes lisinopril Thromboembolic disease: Continue Eliquis Full code Cardiac diet Attestations 2 Medical Necessity Statement*: Anticipating more than 2 midnights Diagnoses Gastroenteritis K52.9 Bacteremia R78.81
[2024-05-13 21:44] LABS: Add Urine Microscopic? YES; Bacteria Urine TRACE /hpf; RBC Urine 0-4 /hpf (0-2); Squamous Epithelial Cell Urine 0-4 /hpf (0-5); WBC Urine 0-4 /hpf (0-5)
[2024-05-13] MEDS: oxyCODONE-APAP 10-325 mg Tablet 1 TAB PO (23:27)
[2024-05-13] MEDS: morphine IR 15 mg Tablet PO (23:59)
[2024-05-13] MEDS: pramipexole 0.25 mg Tablet 1.5 MG PO (23:59)
[2024-05-14] VITALS (10 sets, daily range): BP systolic 96–125; BP diastolic 59–75; PULSE 60–82; RESP 16–20; TEMP 36.6–36.8; O2SAT 96–100
[2024-05-14 03:35] LABS: Basophils % 0.1 %; Eosinophils # 0.1 10^3/uL (0.0-0.8); Eosinophils % 1.5 %; Hematocrit 32.9 % (36-47); Lymphocytes % 13.4 %; Mean Corpuscular HGB Conc 30.1 g/dL (30-55); Mean Corpuscular Volume 93.2 fl (85-98); Mean Platelet Volume 10.4 fL (7.4-10.4); Monocytes # 0.6 10^3/uL (0.2-0.9); Monocytes % 7.3 %; Neutrophils # 5.83 10^3/uL (1.8-7.7); Neutrophils % 77.6 %; Nucleated Red Blood Cells % 0 %; Platelet Count 219 10^3/cmm (157-399); Red Blood Count 3.53 10^6/uL (3.85-5.65); Red Cell Distribution Width 13.1 % (12.1-15.1); White Blood Count 7.52 10^3/uL (3.29-11.43)
[2024-05-14 04:02] LABS: Procalcitonin 3.97 ng/mL (0-0.5)
[2024-05-14 04:09] LABS: Alanine Aminotransferase 51 U/L (0-33); Albumin Level 3.4 g/dL (3.5-5.2); Alkaline Phosphatase 199 U/L (35-105); Anion Gap 13.5 (5-19); Aspartate Amino Transferase 52 U/L (0-32); Blood Urea Nitrogen 14 mg/dL (8-23); C Reactive Protein 113.9 mg/L (0.0-4.9); Calcium 8.6 mg/dL (8.5-10.5); Carbon Dioxide 27 mmol/L (22-29); Chloride 103 mmol/L (98-107); Creatinine Clr Calc Pharmacy 62.2578; Globulin 1.9 g/dL (1.3-4.6); Glucose 96 mg/dL (65-115); Magnesium 2.2 mg/dL (1.7-2.3); Osmolality Calculated 288 mOsm/kg (285-295); Potassium 4.5 mmol/L (3.5-5.1); Sodium 139 mmol/L (136-145); Total Bilirubin 0.6 mg/dL (0.15-1.2); Total Protein 5.3 g/dL (6.6-8.7)
[2024-05-14] MEDS: oxyCODONE-APAP 10-325 mg Tablet 1 TAB PO ×3 (06:39→19:52)
[2024-05-14] MEDS: cefTRIAXone 1,000 MG in sodium chloride 0.9% (plus) 50 ML 100 MG IV (08:40)
[2024-05-14] MEDS: lisinopril 20 mg Tablet PO (08:41)
[2024-05-14] MEDS: pramipexole 0.25 mg Tablet 0.75 MG PO (08:41)
[2024-05-14] MEDS: apixaban 5 mg Tablet PO ×2 (08:41→18:22)
[2024-05-14] MEDS: morphine IR 15 mg Tablet PO ×2 (08:41→18:22)
--- NOTE | 2024-05-14 09:50 | PC.CHAP ---
Pastoral Care Encounter/Spiritual Assessment Type of Contact [] Declined assistant tennis professional visit [] Patient/Family/Request visit [] Outpatient visit [] Follow-up visit [] Physician referral [] Code/Alert [x] Routine visit [] Staff referral [] Actively dying [] Patient sleeping [] Family support [] [] Out of room [] Palliative care [] [] Receiving care in room [] Pre-surgical visit [] Trauma [] Long length of stay [] ICU visit [] Other: Relational/Emotional Strength [] Patient feels connected with others/family/visitors/staff [] Distress [] Loneliness/isolation [] Abandonment Spirituality of Patient [x] Person of Zahira [] Attends Religion of their Zahira [x] Believes in Prayer [] Reads Bible or Adventism materials [] There are Spiritual issues to be addressed Elastic Cutter Interventions [x] Prayer [x] Active listening [] Non-anxious presence [] Spiritual/emotional support [] Crisis/trauma care [] Spiritual counseling [] Bereavement support [] Provided bereavement packet [x] Provided Bible/devotional materials [] Provided toy/stuffed animal, coloring book to patient or family member [] Provided Communion [] Anointing/Currie [] Salvation [x Completed spiritual assessment [] Other: Impact on Illness or Injury [] Angry [] Fearful [] Anxious [] Often cries [] Exhaustion [] Unable to work [] Unable to attend cheondoism [] Unable to walk/stand [] Unable to read [] Unable to drive [] Unable to eat/drink [] Unable to sleep [] Unable to be with family [] Patient intubated [] Other: Summary Time spent with patient 5 min
--- NOTE | 2024-05-14 13:10 | P.PN_ITS ---
Subjective 2 Subjective: seen this am blood cultures positive at admission, urine culture positive seen sitting up in bed, appearing comfortable Vitals/I&O/Wt Last Vital Signs Temp 98.3 F 05/14/24 12:36 Pulse 60 05/14/24 12:36 Resp 17 05/14/24 12:36 BP 121/73 05/14/24 12:36 Pulse Ox 100 05/14/24 12:36 O2 Del Method Nasal Cannula 05/14/24 12:36 O2 Flow Rate 2 05/14/24 10:28 05/13/24 05/14/24 05/14/24 22:59 06:59 14:59 Intake Total 50 / 50 360 / 410 530 / 530 Balance 50 / 50 360 / 410 530 / 530 Weight last 48 hrs Weight 92.624 kg Weight 90.832 kg Weight 86.183 kg Physical Exam 2 Narrative: Patient is awake and alert Abdomen soft No sign of peritonitis S1, S2 Currently on 3 L Saturating 100% Afebrile hemodynamic stable GCS 15 Not in any active distress Nonfocal neuroexam lungs clear to auscultation b/l Data 05/14/24 02:11 05/14/24 02:11 A&P Assessment and plan (1) Gastroenteritis: (2) Bacteremia: Plan Recurrent positive bacteremia with E. coli Patient had UTI in the past with E. coli Sensitivity report is showing pansensitive ED hence ceftriaxone will be used At this point source is unidentified GI versus but suspicion is likely related to UTI I am not sure at this point why she becomes bacteremic the E. coli recurrently, probably will benefit from an ID consultation I will start patient on ceftriaxone considering previous signs to be reported UA results are pending Patient is not showing sign of sepsis Patient is not showing any signs of cholangitis at this point, no leukocytosis, fever, she has objective fevers at home, liver enzymes slightly abnormal with high alkaline phosphatase however CBD dilation not present on CT abdomen pelvis she does have high CRP which goes with her bacteremia For concerns related to recurrent bacteremia, transesophageal echo might be needed At this point I am not seeing any active source of kidney stones Chronic hypoxia uses 3 L at baseline Restless legs: Takes pramipexole 2 in the nighttime and 1 in the day Hypertension: Takes lisinopril Thromboembolic disease: Continue Eliquis Full code Cardiac diet 05/14/2024 - continue mgmt as per Hnp, Will consult ID for inpatient regarding antibiotics repeat blood cultures Attestations 2 Medical Necessity Statement*: Anticipating more than 2 midnights Diagnoses Gastroenteritis K52.9 Bacteremia R78.81
[2024-05-14] MEDS: piperacillin-tazobactam 3.375 GM in sodium chloride 0.9% (plus) 50 ML IV (18:22)
[2024-05-14] MEDS: famotidine 20 mg Tablet 40 MG PO (19:52)
[2024-05-14] MEDS: PRAMIPEXOLE 0.75 MG PO (19:53)
[2024-05-15] VITALS (16 sets, daily range): BP systolic 90–153; BP diastolic 56–76; PULSE 61–79; RESP 16–18; TEMP 36.3–36.8; O2SAT 95–100
[2024-05-15] MEDS: morphine IR 15 mg Tablet PO ×2 (00:44→20:47)
[2024-05-15] MEDS: piperacillin-tazobactam 3.375 GM in sodium chloride 0.9% (plus) 50 ML IV ×3 (03:01→16:59)
[2024-05-15] MEDS: oxyCODONE-APAP 10-325 mg Tablet 1 TAB PO ×4 (03:01→22:00)
[2024-05-15 05:37] LABS: Basophils % 0.5 %; Eosinophils # 0.2 10^3/uL (0.0-0.8); Eosinophils % 3.7 %; Hematocrit 34.9 % (36-47); Lymphocytes # 1.1 10^3/uL (0.8-4.8); Lymphocytes % 18.8 %; Mean Corpuscular HGB Conc 28.7 g/dL (30-55); Mean Corpuscular Hemoglobin 27.6 pg (27-33); Mean Corpuscular Volume 96.4 fl (85-98); Monocytes # 0.6 10^3/uL (0.2-0.9); Monocytes % 9.6 %; Neutrophils # 3.83 10^3/uL (1.8-7.7); Neutrophils % 67.2 %; Nucleated Red Blood Cells % 0 %; Platelet Count 209 10^3/cmm (157-399); Red Blood Count 3.62 10^6/uL (3.85-5.65); Red Cell Distribution Width 12.8 % (12.1-15.1)
[2024-05-15 06:02] LABS: Anion Gap 11.7 (5-19); Blood Urea Nitrogen 12 mg/dL (8-23); Calcium 8.9 mg/dL (8.5-10.5); Carbon Dioxide 27 mmol/L (22-29); Chloride 104 mmol/L (98-107); Creatinine Clr Calc Pharmacy 56.3927; Glucose 102 mg/dL (65-115); Magnesium 2.6 mg/dL (1.7-2.3); Osmolality Calculated 286 mOsm/kg (285-295); Potassium 4.7 mmol/L (3.5-5.1); Sodium 138 mmol/L (136-145)
[2024-05-15] MEDS: apixaban 5 mg Tablet PO ×2 (09:43→16:59)
[2024-05-15] MEDS: famotidine 20 mg Tablet 40 MG PO ×2 (09:44→16:59)
[2024-05-15] MEDS: PRAMIPEXOLE 0.75 MG PO ×2 (09:45→20:48)
--- NOTE | 2024-05-15 11:59 | P.PN_ITS ---
Subjective 2 Subjective: Seen today. Repeat blood cultures negative to date. Patient on Zosyn at this time. States she has back pain and has been taking Percocet. Other than back pain she feels okay today. Vitals/I&O/Wt Last Vital Signs Temp 97.8 F 05/15/24 11:32 Pulse 64 05/15/24 11:32 Resp 18 05/15/24 11:32 BP 105/72 05/15/24 11:32 Pulse Ox 98 05/15/24 11:32 O2 Del Method Nasal Cannula 05/15/24 11:32 O2 Flow Rate 2 05/15/24 09:40 05/14/24 05/15/24 05/15/24 22:59 06:59 14:59 Intake Total 530 / 1540 50 / 1590 120 / 120 Output Total 300 / 300 Balance 230 / 1240 50 / 1290 120 / 120 Weight last 48 hrs Weight 91.989 kg Weight 92.624 kg Weight 90.832 kg Weight 86.183 kg Physical Exam 2 Narrative: Patient is awake and alert Abdomen soft, nontender. S1, S2 Currently on 3 L Saturating 100% Afebrile hemodynamic stable GCS 15 Not in any active distress Nonfocal neuroexam lungs clear to auscultation b/l Data 05/15/24 05:13 05/15/24 05:13 Micro: Microbiology 05/14/24 19:29 Gram Stain - Final Sputum - Expectorated Sputum Sputum Culture - Preliminary 05/15/24 05:13 Blood Culture - Preliminary Blood SPECIMEN COLLECTED 05/15/24 05:13 Blood Culture - Preliminary Blood SPECIMEN COLLECTED A&P Assessment and plan (1) Gastroenteritis: (2) Bacteremia: Plan Recurrent positive bacteremia with E. coli Patient had UTI in the past with E. coli Sensitivity report is showing pansensitive ED hence ceftriaxone will be used At this point source is unidentified GI versus but suspicion is likely related to UTI I am not sure at this point why she becomes bacteremic the E. coli recurrently, probably will benefit from an ID consultation I will start patient on ceftriaxone considering previous signs to be reported UA results are pending Patient is not showing sign of sepsis Patient is not showing any signs of cholangitis at this point, no leukocytosis, fever, she has objective fevers at home, liver enzymes slightly abnormal with high alkaline phosphatase however CBD dilation not present on CT abdomen pelvis she does have high CRP which goes with her bacteremia For concerns related to recurrent bacteremia, transesophageal echo might be needed At this point I am not seeing any active source of kidney stones Chronic hypoxia uses 3 L at baseline Restless legs: Takes pramipexole 2 in the nighttime and 1 in the day Hypertension: Takes lisinopril Thromboembolic disease: Continue Eliquis Full code Cardiac diet 05/14/2024 - continue mgmt as per Hnp, Will consult ID for inpatient regarding antibiotics repeat blood cultures negative to date Continue Percocet as home dose. continue zosyn tid Patient will need IV antibiotics at discharge. Attestations 2 Medical Necessity Statement*: Patient has gram-negative bacteremia, awaiting ID consult. Diagnoses Gastroenteritis K52.9 Bacteremia R78.81
[2024-05-16] VITALS (11 sets, daily range): BP systolic 108–135; BP diastolic 55–70; PULSE 56–69; RESP 16–18; TEMP 36.4–36.7; O2SAT 91–99; BMI 32.3
[2024-05-16] MEDS: piperacillin-tazobactam 3.375 GM in sodium chloride 0.9% (plus) 50 ML IV ×3 (02:27→17:01)
[2024-05-16] MEDS: morphine IR 15 mg Tablet PO ×2 (02:52→10:21)
[2024-05-16 06:30] LABS: Basophils % 0.3 %; Eosinophils # 0.2 10^3/uL (0.0-0.8); Eosinophils % 3.3 %; Hematocrit 35.9 % (36-47); Lymphocytes # 1.4 10^3/uL (0.8-4.8); Lymphocytes % 22.9 %; Mean Corpuscular HGB Conc 29.8 g/dL (30-55); Mean Platelet Volume 9.6 fL (7.4-10.4); Monocytes # 0.6 10^3/uL (0.2-0.9); Monocytes % 9.2 %; Neutrophils # 3.87 10^3/uL (1.8-7.7); Nucleated Red Blood Cells % 0 %; Platelet Count 242 10^3/cmm (157-399); Red Blood Count 3.82 10^6/uL (3.85-5.65); Red Cell Distribution Width 12.7 % (12.1-15.1); White Blood Count 6.06 10^3/uL (3.29-11.43)
[2024-05-16] MEDS: oxyCODONE-APAP 10-325 mg Tablet 1 TAB PO ×3 (06:32→23:05)
[2024-05-16 06:50] LABS: Anion Gap 10.4 (5-19); Blood Urea Nitrogen 9 mg/dL (8-23); Carbon Dioxide 33 mmol/L (22-29); Chloride 104 mmol/L (98-107); Creatinine Clr Calc Pharmacy 56.0673; Glucose 99 mg/dL (65-115); Magnesium 2.6 mg/dL (1.7-2.3); Osmolality Calculated 293 mOsm/kg (285-295); Potassium 5.4 mmol/L (3.5-5.1); Sodium 142 mmol/L (136-145)
[2024-05-16] MEDS: famotidine 20 mg Tablet 40 MG PO ×2 (08:34→17:01)
[2024-05-16] MEDS: PRAMIPEXOLE 0.75 MG PO ×2 (08:35→20:49)
[2024-05-16] MEDS: apixaban 5 mg Tablet PO ×2 (08:35→17:01)
--- NOTE | 2024-05-16 12:03 | PC.SOCIAL ---
IMM Update Pg. 2 of IMM updated. Initialed, dated, and timed, copy provided at bedside.
--- NOTE | 2024-05-16 13:19 | P.PN_ITS ---
Subjective 2 Subjective: seen this am pt upset on why her o2 was turned down she was saturating 100% on 3L, has severe copd counseled her regarding o2 sats with copd awaiting ID consult cultures pending Vitals/I&O/Wt Last Vital Signs Temp 97.9 F 05/16/24 11:43 Pulse 67 05/16/24 11:43 Resp 18 05/16/24 11:43 BP 124/64 05/16/24 11:43 Pulse Ox 97 05/16/24 11:43 O2 Del Method Nasal Cannula 05/16/24 11:43 O2 Flow Rate 2 05/16/24 09:00 05/15/24 05/16/24 05/16/24 22:59 06:59 14:59 Intake Total 840 / 1200 290 / 1490 120 / 120 Output Total 1300 / 1300 Balance -460 / -100 290 / 190 120 / 120 Weight last 48 hrs Weight 90.945 kg Weight 90.945 kg Weight 91.989 kg Physical Exam 2 Narrative: Patient is awake and alert Abdomen soft, nontender. S1, S2 Currently on 3 L on 2L NC Afebrile hemodynamic stable GCS 15 Not in any active distress Nonfocal neuroexam lungs clear to auscultation b/l Data 05/16/24 06:09 05/16/24 06:09 Micro: Microbiology 05/14/24 19:29 Gram Stain - Final Sputum - Expectorated Sputum Sputum Culture - Final 05/15/24 05:13 Blood Culture - Preliminary Blood NEGATIVE TO DATE 05/15/24 05:13 Blood Culture - Preliminary Blood NEGATIVE TO DATE A&P Assessment and plan (1) Gastroenteritis: (2) Bacteremia: Plan Recurrent positive bacteremia with E. coli Patient had UTI in the past with E. coli Sensitivity report is showing pansensitive ED hence ceftriaxone will be used At this point source is unidentified GI versus but suspicion is likely related to UTI I am not sure at this point why she becomes bacteremic the E. coli recurrently, probably will benefit from an ID consultation I will start patient on ceftriaxone considering previous signs to be reported UA results are pending Patient is not showing sign of sepsis Patient is not showing any signs of cholangitis at this point, no leukocytosis, fever, she has objective fevers at home, liver enzymes slightly abnormal with high alkaline phosphatase however CBD dilation not present on CT abdomen pelvis she does have high CRP which goes with her bacteremia For concerns related to recurrent bacteremia, transesophageal echo might be needed At this point I am not seeing any active source of kidney stones Chronic hypoxia uses 3 L at baseline Restless legs: Takes pramipexole 2 in the nighttime and 1 in the day Hypertension: Takes lisinopril Thromboembolic disease: Continue Eliquis Full code Cardiac diet 05/14/2024 - continue mgmt as per Hnp, Will consult ID for inpatient regarding antibiotics repeat blood cultures negative to date Continue Percocet as home dose. continue zosyn tid Patient will need IV antibiotics at discharge. cultures pending Attestations 2 Medical Necessity Statement*: Patient has gram-negative bacteremia, awaiting ID consult. Diagnoses Gastroenteritis K52.9 Bacteremia R78.81
--- NOTE | 2024-05-16 14:47 | PM.CONSULT ---
Providers/Reason For Consult Consulting Physician/Specialty*: Bhumika Carlson MD / Infectious disease Reason for Consult*: recurrent E.coli bacteremia Requesting Physician: Tran Mueller MD Attending Physician: Tran Mueller MD Primary Care Provider: Ekaterina Peterson DO History of Present Illness History of Present Illness Mary Fitch is a 73 year old female with past medical history of COPD, rheumatoid arthritis,CHF. In November 2023 she had presented here with nausea vomiting and was found to have Cholangitis with CBD dilatation pancreatitis. It appears she was transferred from here to [facility] to the care of Dr. Kumar Miller where she subsequently underwent an ERCP, sphincterotomy with extraction of three CBD stones and purulence in CBD. No apparent stent was place. She was bacteremic with E. coli at the time. She was subsequently recommended to undergo cholecystectomy. She presented to [facility] on January 21, [address] now showed persistent ductal dilatation involving the bile ducts of the left lobe of the liver. There was an enlarging mass involving the fundus of the gallbladder, perhaps gallbladder malignancy. MRCP showed intra and extrahepatic biliary dilatation. GB cystic changes. It was recommended to transfer the patient for ERCP to assess for CBD stricture. Family refused transfer to [facility] at that time. She was admitted at [facility]. Blood culture was positive for E.coli. General surgery evaluated her and thought she may have biliary stricture with sludge or possible small stone in the CBD with recurrent ascending cholangitis, though no conclusive evidence of the same. On February 01, 2024 she underwent laparoscopic cholecystectomy and intraoperative cholangiogram. Cholangiogram showed dumping of contrast into the duodenum. There was dilatation of the more proximal ducts thought to be related to recent dilatation and sphincterotomy the patient had. No obvious filling defect was identified. The gallbladder was somewhat intrahepatic. She was recommended to undergo serial repeat imaging as cholangiocarcinoma could not be ruled out. She followed with Dr. Hanson at [facility]. She has not had an ERCP yet. per patient, she is being monitored with serial LFTs with plan for ERCP only if liver enzymes (?ALP) deranged. On 02/08, f/up CT showed New area of decreased attenuation subcapsular liver adjacent to the gallbladder fossa. probably a posttraumatic change from the cholecystectomy. Alternatively this may be a small hepatic infarct. She is most recently admitted here since 05/13 after p/w fever 103F, elevated AST/ALT /ALP. Normal T bili. Ct of the abdomen and pelvis showing no ductal dilatation, s/p cholecystectomy. Hypodenisty seen in February had resolved. Blood cx from 05/12 again showing E. coli bacteremia. Per patient, there is no Pathology from ERCP in November - will request records from [facility]. from : Gall bladder path with active chronic cholecytsitis. During 2 of these episodes patient has had a urine cx + for E. coli, only one with correlating + UA. Denies any symptoms of UTI during her admissions. No dysuria, frequency or other issues. CT abdomen/pelvis with normal anatomy Review of Systems General: Reports: 10 or more systems reviewed and unremarkable except in HPI and below Const: Denies: fever(s), chills or body aches Eyes: Denies: change in vision, blurry vision or photophobia ENMT: Reports: hoarseness; Denies: throat pain, enlarged tonsils, odynophagia or nasal congestion Card: Denies: chest pain, palpitations, irregular heart rhythm, edema, swelling of feet/ankles, lightheadedness, pre-syncope, dyspnea on exertion or orthopnea Resp: Denies: dyspnea, productive cough, non-productive cough, wheezing, stridor, pain on inspiration, change in phlegm color, hemoptysis or chest congestion GI: Denies: abdominal pain, nausea, vomiting, hematemesis, coffee ground emesis, dysphagia, heartburn, diarrhea, constipation, GI cramping, change in stool character, hematochezia or melena : Denies: flank pain, difficulty voiding, dysuria, urinary frequency, urinary urgency, urinary hesitancy or hematuria Musc: Denies: neck pain, back pain, extremity pain, joint swelling, joint warmth or deformity Neuro: Denies: headache(s), numbness in extremities, weakness in extremities, sensory changes, difficulty walking, frequent falls, dizziness, vertigo, behavioral changes, Slurred speech present or seizure-like activity Psych: Denies: anxiety, depression, suicidal ideation or homicidal ideation Endo: Denies: polyuria, polydipsia, tired all the time, cold intolerance or hot flashes Arturo/Lymph: Denies: easy bruising or easy bleeding Medications/Allergies Home Medications Medication Instructions Recorded Confirmed Last Taken Type oxycodone-acetaminophen 10 mg-325 1 tab PO Q6H PRN Pain 01/14/22 05/13/24 05/13/24 History mg tablet (Percocet) pramipexole 0.75 mg tablet See Rx Instructions PO DAILY 01/14/22 05/13/24 05/13/24 History azithromycin 250 mg tablet 250 mg PO .3 X WEEK #36 tabs 09/27/23 05/13/24 05/11/24 Rx cetirizine 10 mg tablet 10 mg PO DAILY PRN Itching 11/21/23 05/13/24 Unknown History apixaban 5 mg tablet (Eliquis) 5 mg PO BID 01/21/24 05/13/24 05/13/24 History famotidine 20 mg tablet 40 mg PO BID 01/21/24 05/13/24 05/13/24 History ferrous sulfate 325 mg (65 mg 325 mg PO DAILY 01/21/24 05/13/24 05/13/24 History iron) tablet fluticasone fur. 100 mcg-umeclid 1 inh inhalation DAILY #60 ea 01/25/24 05/13/24 05/13/24 Rx 62.5 mcg-vilant 25 mcg inhalat.powder (Trelegy Ellipta) furosemide 20 mg tablet (Lasix) 20 mg PO DAILY #90 tabs 02/09/24 05/13/24 05/13/24 Rx lisinopril 20 mg tablet 20 mg PO DAILY #90 tabs 02/17/24 05/13/24 05/13/24 Rx ondansetron 4 mg disintegrating 4 mg PO Q6H PRN nausea and 05/13/24 05/13/24 Unknown Rx tablet vomiting #14 tabs Allergies Allergy/AdvReac Type Severity Reaction Status Date / Time dust mites Allergy Unknown Unknown Uncoded 02/09/24 12:35 Current Medications Generic Name Dose Route Start Last Admin Trade Name Freq PRN Reason Stop Dose Admin Apixaban 5 mg 05/14/24 09:00 05/16/24 08:35 Apixaban 5 Mg Tablet PO 5 mg BID LORRAINE Administration Famotidine 40 mg 05/14/24 21:00 05/16/24 08:34 Famotidine 20 Mg Tablet PO 40 mg BID LORRAINE Administration Piperacillin Sod/Tazobactam 50 mls @ 12.5 mls/hr 05/14/24 13:30 05/16/24 10:23 Sod 3.375 gm/ Sodium Chloride IV 12.5 mls/hr Q8H LORRAINE Administration Protocol Lisinopril 20 mg 05/14/24 09:00 05/16/24 08:37 Lisinopril 20 Mg Tablet PO Not Given DAILY LORRAINE Morphine Sulfate 15 mg 05/13/24 21:47 05/16/24 10:21 Morphine Ir 15 Mg Tablet PO 15 mg Q6H PRN Administration MODERATE PAIN Pramipexole 0.75 Mg 1 - 2 each 05/14/24 21:00 05/16/24 08:35 Tablet PO 1 each Q12H LORRAINE Administration Oxycodone/Acetaminophen 1 tab 05/13/24 21:50 05/16/24 06:32 Oxycodone-Apap 10-325 Mg Tablet PO 1 tab Q6H PRN Administration Pain PFSH Acute PFSH: Medical History (Updated 05/17/24 @ 06:25 by Bhumika Carlson MD) Biliary stricture Bacteremia Cholecystitis Chest pain Septic shock COPD (chronic obstructive pulmonary disease) Ileus Shock Sludge in gallbladder Hypotension Abdominal pain Asthma-COPD overlap syndrome Exertional dyspnea Encounter for screening for lung cancer CHF (congestive heart failure) Family History Mother Cancer lung Heart disease Father Heart disease Hypertension Sister Diabetes Daughter Diabetes Hypertension High cholesterol Social History Smoking and tobacco/nicotine status: former use of tobacco/nicotine Vitals/I&O/Wt Last Vital Signs Temp 97.9 F 05/16/24 11:43 Pulse 67 05/16/24 11:43 Resp 18 05/16/24 11:43 BP 124/64 05/16/24 11:43 Pulse Ox 97 05/16/24 11:43 O2 Del Method Nasal Cannula 05/16/24 11:43 O2 Flow Rate 2 05/16/24 09:00 05/15/24 05/16/24 05/16/24 22:59 06:59 14:59 Intake Total 840 / 1200 290 / 1490 120 / 120 Output Total 1300 / 1300 Balance -460 / -100 290 / 190 120 / 120 Weight last 48 hrs Weight 90.945 kg Weight 90.945 kg Weight 91.989 kg Physical Exam Narrative: General: No acute distress, AO x3 HEENT: PERRLA, pupils bilaterally equal and reactive, pallors not present Chest: Normal vesicular breath sounds, no added sounds, equal good air entry bilaterally CVS: S1-S2 regular, no murmurs, no tachycardia, no gallops, no rubs Abdomen: Soft, nontender, no organomegaly, bowel sounds present Neuro: No focal deficits, no facial deformity, AO x3, power 5/5 in all limbs Data 05/16/24 06:09 05/16/24 06:09 Micro: Microbiology 05/14/24 19:29 Gram Stain - Final Sputum - Expectorated Sputum Sputum Culture - Final 05/15/24 05:13 Blood Culture - Preliminary Blood NEGATIVE TO DATE 05/15/24 05:13 Blood Culture - Preliminary Blood NEGATIVE TO DATE NAME: Mary Fitch LOC: U #: [id number] AGE/SX: 73/F ROOM: RE05/12/[address]: Aayush Alberto DO : 1950 BED: DIS: FAX #: STATUS: [facility] TLOC: Spec #: [id number] Janine: 05/12/24 Status: RES Req #: [id number] Recd: 05/12/24-[address]: Aayush Alberto DO Src: Blood SpDesc: Ordered: Bcult Procedure Result Verified Site Blood Culture Preliminary 05/15/24-1209 2 OF 2 BOTTLES POSITIVE DIRECT GRAM STAIN: GRAM POSITIVE COCCI IN CLUSTERS IDENTIFICATION BY DIRECT PCR Organism 1 Staphylococcus epidermidis Growth 1 BOTTLE Organism 2 Escherichia coli Growth 1 BOTTLE, OTHER SET Gram Stain Charge Charge for Gram Stain S epidermi M.I.C. RX --------- ------ * Ciprofloxacin <=1 S * Clindamycin <=0.5 S * Erythromycin >4 R * Levofloxacin <=1 S * Linezolid 2 S * Moxifloxacin <=0.5 S * Oxacillin <=0.25 S * Penicillin 2 R * Rifampin <=1 S * Tetracycline <=4 S * Trimethoprim/Sulfamethoxazole >2/38 R Vancomycin 2 S Daptomycin <=0.5 S Blood Culture Preliminary (changed) 05/13/24 2 OF 2 BOTTLES POSITIVE DIRECT GRAM STAIN: GRAM POSITIVE COCCI IN CLUSTERS IDENTIFICATION BY DIRECT PCR Organism 1 Staphylococcus epidermidis Growth 1 BOTTLE Organism 2 Escherichia coli Growth 1 BOTTLE, OTHER SET Gram Stain Charge Charge for Gram Stain NAME: Mary Fitch LOC: U #: [id number] AGE/SX: 73/F ROOM: RE05/12/[address]: Aayush Alberto DO : 1950 BED: DIS: FAX #: STATUS: [facility] TLOC: Spec #: [id number] Janine: 05/12/24 Status: RES Req #: [id number] Recd: 05/12/[address]: Aayush Alberto DO Src: Blood SpDesc: Ordered: Bcult Procedure Result Verified Site Blood Culture Preliminary 05/15/24 2 OF 2 BOTTLES POSITIVE DIRECT GRAM STAIN: GRAM NEGATIVE RODS IDENTIFICATION BY DIRECT PCR RESULTS TO FOLLOW Organism 1 Escherichia coli Growth 1 BOTTLE Organism 2 Staphylococcus epidermidis Growth 1 BOTTLE, OTHER SET Gram Stain Charge Charge for Gram Stain CRITICAL RESULT YES/NO: YES CRITICAL CALLED BY: RENEE TO AND READ BACK BY: PATRIZIA DATE: 05/13/24 TIME: 1454 E coli M.I.C. RX --------- ------ * Amikacin <=16 S * Amoxicillin/Clavulanate <=8/4 S * Ampicillin <=8 S * Ampicillin/Sulbactam <=8/4 S * Aztreonam <=4 S * Cefepime <=8 S * Ceftriaxone <=1 S * Cefuroxime <=4 S * Ciprofloxacin <=1 S * Gentamicin <=2 S * Imipenem <=1 S * Levofloxacin <=2 S * Tetracycline <=4 S * Trimethoprim/Sulfamethoxazole >2/38 R * Piperacillin/Tazobactam <=16 S Blood Culture Preliminary (changed) 05/13/24 2 OF 2 BOTTLES POSITIVE DIRECT GRAM STAIN: GRAM NEGATIVE RODS IDENTIFICATION BY DIRECT PCR RESULTS TO FOLLOW Organism 1 Escherichia coli Growth 1 BOTTLE Organism 2 Staphylococcus epidermidis Growth 1 BOTTLE, OTHER SET Gram Stain Charge Charge for Gram Stain CRITICAL RESULT YES/NO: YES CRITICAL CALLED BY: RENEE TO AND READ BACK BY: PATRIZIA DATE: 05/13/24 TIME: 1453 Blood Culture Preliminary (changed) 05/13/24-1453 1 OF 2 BOTTLES POSITIVE DIRECT GRAM STAIN: GRAM NEGATIVE RODS IDENTIFICATION BY DIRECT PCR RESULTS TO FOLLOW Organism 1 Escherichia coli Growth 1 BOTTLE Gram Stain Charge Charge for Gram Stain CRITICAL RESULT YES/NO: YES CRITICAL CALLED BY: RENEE TO AND READ BACK BY: PATRIZIA DATE: 05/13/24 TIME: 1453 Blood Culture Preliminary (changed) 05/12/24-2236 SPECIMEN COLLECTED NAME: Mary Fitch LOC: LAB U #: [id number] AGE/SX: 73/F ROOM: RE02/22/[address]: Aaron Patrick MD : 1950 BED: DIS: FAX #: STATUS: DEP CLI TLOC: Spec #: [id number] Janine: 02/22/24-1508 Status: COMP Req #: [id number] Recd: 02/22/24-[address]: Aaron Patrick MD Src: URINE,VOID SpDesc: Ordered: Procedure Result Verified Site Urine Culture Final 03/05/24-548 Organism 1 Escherichia coli Rose Count >100,000 CFU/ml DAY 2 E coli M.I.C. RX --------- ------ * Amikacin <=16 S * Amoxicillin/Clavulanate <=8/4 S * Ampicillin <=8 S * Ampicillin/Sulbactam <=8/4 S * Aztreonam <=4 S * Cefepime <=8 S * Ceftriaxone <=1 S * Cefuroxime <=4 S * Ciprofloxacin <=1 S * Gentamicin <=2 S * Imipenem <=1 S * Levofloxacin <=2 S * Nitrofurantoin <=32 S * Tetracycline <=4 S * Tobramycin <=4 S * Trimethoprim/Sulfamethoxazole >2/38 R * Piperacillin/Tazobactam <=16 S Urine Culture Preliminary (changed) 02/25/24-821 Organism 1 Escherichia coli Rose Count >100,000 CFU/ml DAY 2 E coli M.I.C. RX --------- ------ * Amikacin <=16 S * Amoxicillin/Clavulanate <=8/4 S * Ampicillin <=8 S * Ampicillin/Sulbactam <=8/4 S * Aztreonam <=4 S * Cefepime <=8 S * Ceftriaxone <=1 S * Cefuroxime <=4 S * Ciprofloxacin <=1 S * Gentamicin <=2 S * Imipenem <=1 S * Levofloxacin <=2 S * Nitrofurantoin <=32 S * Tetracycline <=4 S * Tobramycin <=4 S * Trimethoprim/Sulfamethoxazole >2/38 R * Piperacillin/Tazobactam <=16 S NAME: Mary Fitch LOC: SHARAD #: [id number] AGE/SX: 73/F ROOM: [facility] RE01/21/[address]: Carl Valadez MD : 1950 BED: 2 DIS: 01/25/24 FAX #: STATUS: DIS IN TLOC: Spec #: [id number] Janine: 01/21/24 Status: COMP Req #: [id number] Recd: 01/21/[address]: Zeina Burleson MD Src: Blood SpDesc: Ordered: Bcult Procedure Result Verified Site Blood Culture Final 01/26/24-1212 1 OF 2 BOTTLES POSITIVE GRAM STAIN: GRAM NEGATIVE RODS SEEN IDENTIFICATION BY PCR Organism 1 Escherichia coli Growth 1 BOTTLE Gram Stain Charge Charge for Gram Stain CRITICAL RESULT YES/NO: YES CRITICAL CALLED BY: Milad NGUYEN AND READ BACK BY: YANIRA DATE: 01/22/24 TIME: 024 E coli M.I.C. RX --------- ------ * Amikacin <=16 S * Amoxicillin/Clavulanate <=8/4 S * Ampicillin <=8 S * Ampicillin/Sulbactam <=8/4 S * Aztreonam <=4 S * Cefepime <=8 S * Ceftriaxone <=1 S * Cefuroxime <=4 S * Ciprofloxacin <=1 S * Gentamicin <=2 S * Imipenem <=1 S * Levofloxacin <=2 S * Tetracycline <=4 S * Trimethoprim/Sulfamethoxazole >2/38 R * Piperacillin/Tazobactam <=16 S Blood Culture Preliminary (changed) 01/24/24-1250 1 OF 2 BOTTLES POSITIVE GRAM STAIN: GRAM NEGATIVE RODS SEEN IDENTIFICATION BY PCR Organism 1 Escherichia coli Growth 1 BOTTLE Gram Stain Charge Charge for Gram Stain CRITICAL RESULT YES/NO: YES CRITICAL CALLED BY: Milad TO AND READ BACK BY: YANIRA DATE: 01/22/24 TIME: 240 E coli M.I.C. RX --------- ------ * Amikacin <=16 S * Amoxicillin/Clavulanate <=8/4 S * Ampicillin <=8 S * Ampicillin/Sulbactam <=8/4 S * Aztreonam <=4 S * Cefepime <=8 S * Ceftriaxone <=1 S * Cefuroxime <=4 S * Ciprofloxacin <=1 S * Gentamicin <=2 S * Imipenem <=1 S * Levofloxacin <=2 S * Tetracycline <=4 S * Trimethoprim/Sulfamethoxazole >2/38 R * Piperacillin/Tazobactam <=16 S Blood Culture Preliminary (changed) 01/23/24-1033 1 OF 2 BOTTLES POSITIVE GRAM STAIN: GRAM NEGATIVE RODS SEEN IDENTIFICATION BY PCR RESULTS TO FOLLOW Organism 1 Escherichia coli Growth 1 BOTTLE Gram Stain Charge Charge for Gram Stain CRITICAL RESULT YES/NO: YES CRITICAL CALLED BY: Milad TO AND READ BACK BY: YANIRA DATE: 01/22/24 TIME: 240 Blood Culture Preliminary (changed) 01/22/24-240 1 OF 2 BOTTLES POSITIVE GRAM STAIN: GRAM NEG RODS SEEN RESULTS TO FOLLOW CRITICAL RESULT YES/NO: YES CRITICAL CALLED BY: Milad TO AND READ BACK BY: YANIRA DATE: 01/22/24 TIME: 240 NAME: Mary Fitch LOC: LAB U #: [id number] AGE/SX: 73/F ROOM: RE01/11/[address]: Ekaterina Peterson DO : 1950 BED: DIS: FAX #: STATUS: DEP CLI TLOC: Spec #: [id number] Janine: 01/11/24 Status: COMP Req #: [id number] Recd: 01/11/24-[address]: Ekaterina Peterson DO Src: Urine CC SpDesc: Ordered: UC Procedure Result Verified Site Urine Culture Final 01/14/24-907 Organism 1 Escherichia coli Rose Count >100,000 CFU/ml DAY 2 E coli M.I.C. RX --------- ------ * Amikacin <=16 S * Amoxicillin/Clavulanate <=8/4 S * Ampicillin <=8 S * Ampicillin/Sulbactam <=8/4 S * Aztreonam <=4 S * Cefepime <=8 S * Ceftriaxone <=1 S * Cefuroxime <=4 S * Ciprofloxacin <=1 S * Gentamicin <=2 S * Imipenem <=1 S * Levofloxacin <=2 S * Nitrofurantoin <=32 S * Tetracycline <=4 S * Tobramycin <=4 S * Trimethoprim/Sulfamethoxazole >2/38 R * Piperacillin/Tazobactam <=16 S Urine Culture Preliminary (changed) 01/13/24-854 Organism 1 Gram Negative Rods Rose Count >100,000 CFU/ml DAY 1, RESULTS TO FOLLOW NAME: Mary Fitch LOC: ER U #: [id number] AGE/SX: 73/F ROOM: RE11/21/[address]: Ching Ramsey MD : 1950 BED: DIS: FAX #: STATUS: [facility] TLOC: Spec #: [id number] Janine: 11/21/23115 Status: COMP Req #: [id number] Recd: 11/21/23-[address]: Ching Ramsey MD Src: Blood SpDesc: Ordered: Bcult Procedure Result Verified Site Blood Culture Final 11/26/23-1229 2 OF 3 BOTTLES POSITIVE DIRECT GRAM STAIN: GRAM NEGATIVE RODS RESULTS TO FOLLOW Organism 1 Escherichia coli Growth 2 BOTTLES Gram Stain Charge Charge for Gram Stain CRITICAL RESULT YES/NO: YES CRITICAL CALLED BY: TAZ TO AND READ BACK BY: TONIE DATE: 11/22/23 TIME: 248 E coli M.I.C. RX --------- ------ * Amikacin <=16 S * Amoxicillin/Clavulanate <=8/4 S * Ampicillin <=8 S * Ampicillin/Sulbactam <=8/4 S * Aztreonam <=4 S * Cefepime <=8 S * Ceftriaxone <=1 S * Cefuroxime <=4 S * Ciprofloxacin <=1 S * Gentamicin <=2 S * Imipenem <=1 S * Levofloxacin <=2 S * Tetracycline <=4 S * Trimethoprim/Sulfamethoxazole <=2/38 S * Piperacillin/Tazobactam <=16 S Blood Culture Preliminary (changed) 11/24/23-1056 2 OF 3 BOTTLES POSITIVE DIRECT GRAM STAIN: GRAM NEGATIVE RODS RESULTS TO FOLLOW Organism 1 Escherichia coli Growth 2 BOTTLES Gram Stain Charge Charge for Gram Stain CRITICAL RESULT YES/NO: YES CRITICAL CALLED BY: TAZ TO AND READ BACK BY: TONIE DATE: 11/22/23 TIME: 248 E coli M.I.C. RX --------- ------ * Amikacin <=16 S * Amoxicillin/Clavulanate <=8/4 S * Ampicillin <=8 S * Ampicillin/Sulbactam <=8/4 S * Aztreonam <=4 S * Cefepime <=8 S * Ceftriaxone <=1 S * Cefuroxime <=4 S * Ciprofloxacin <=1 S * Gentamicin <=2 S * Imipenem <=1 S * Levofloxacin <=2 S * Tetracycline <=4 S * Trimethoprim/Sulfamethoxazole <=2/38 S * Piperacillin/Tazobactam <=16 S Blood cx : 11/21/23: + E. coli 01/20: blood c x: + E. coli ; UA negative 05/12: blood cx : + E. coli; staph epi: contaminant ; 11/20: UA negative 01/10: Urine cx + E. coli ; UA + 02/21: urine cx : + E.coli ; UA negative 05/12: urine cx pending Other data: MR/MR MRCP [id number] IMPRESSION: 1. Nodular masslike thickening of the tip of the gallbladder fundus measuring up to 1.9 cm with internal cystic spaces. Imaging characteristics suggest focal fundal adenomyomatosis, although examination is limited due to lack of IV contrast. Please note, however, a gallbladder neoplasm may present similarly. Consider further assessment with contrast-enhanced MRI with diffusion weighted imaging. 2. Nonspecific enlarged precaval lymph node. 3. Mild left intrahepatic and extrahepatic biliary ductal dilatation. No evidence of choledocholithiasis or intra biliary lesion. Findings may be related to a periampullary duodenal diverticulum. A&P Assessment and plan (1) Gram-negative bacteremia: (2) Biliary stricture: (3) Bacteriuria: Plan 73 year odl lady with PMH as lsited above admitted with recurrent E. coli bacteremia. HPI details as above. Overall concern for source of recurrent bacteremia to be from the biliary tree. Since november and then in January, patient had had normalized LFTs but currently again with uptrending AST/ALT. ALP persistent elevation, mildly elevated over previous at 199. s/p ERCP in November 2023 for cholangitis with removal of stones; MRCP 01/2024 with IHBD and EHBD without gross obstruction, non specific. symptomatically each episode presenting with epigastric pain, fever and chills. Urine cx revealing E. coli , however no urinary symptoms during episodes. Only one episode post discharge corelating with + UA. CT abd/ pelvis without renal stones, hydronephrosis or other anatomic abnirmalities. Less likely for urinary tract to the source of recurrent bacteremia with normal anatomy, no obstruction, lack of symptoms. Patient likely has asymptomatic bacteriuria vs colonization. Plan: Can narrow abx coverage from Zosyn to Ceftriaxone 1gm iv every 24 hrs given susceptible isolate may be discharged on po ciprofloxacin 500mg bid to complete 14 days from clearance of bacteremia recommend Mrcp to evaluate for serial change, highly suspect persistent/ residual biliary obstruction based on clinical presentation depending on mrcp findings, may need follow up ERCP check hepatitis B, C and HIV serologies will follow Consult Attestations Medical Necessity Statement: per admitting Coding Level of Care Code Acute Code for Chg Fwd High MDM includes number and complexity of problems actively addressed during encounter, amount and/or complexity of data reviewed/ordered and described risk of complication, morbidity or mortality of management as documented Diagnoses Gram-negative bacteremia R78.81 Biliary stricture K83.1 Bacteriuria R82.71
[2024-05-17] VITALS (12 sets, daily range): BP systolic 108–130; BP diastolic 56–65; PULSE 59–67; RESP 16–18; TEMP 36.4–36.8; O2SAT 97–100
[2024-05-17] MEDS: piperacillin-tazobactam 3.375 GM in sodium chloride 0.9% (plus) 50 ML IV (02:47)
[2024-05-17] MEDS: oxyCODONE-APAP 10-325 mg Tablet 1 TAB PO ×4 (05:10→23:21)
[2024-05-17 08:02] LABS: Basophils % 0.4 %; Eosinophils # 0.2 10^3/uL (0.0-0.8); Eosinophils % 3.1 %; Hematocrit 38.9 % (36-47); Lymphocytes # 1.6 10^3/uL (0.8-4.8); Lymphocytes % 28.6 %; Mean Corpuscular HGB Conc 30.3 g/dL (30-55); Mean Corpuscular Hemoglobin 28.7 pg (27-33); Mean Corpuscular Volume 94.6 fl (85-98); Mean Platelet Volume 9.7 fL (7.4-10.4); Monocytes # 0.4 10^3/uL (0.2-0.9); Monocytes % 7.7 %; Neutrophils # 3.27 10^3/uL (1.8-7.7); Nucleated Red Blood Cells % 0 %; Platelet Count 285 10^3/cmm (157-399); Red Blood Count 4.11 10^6/uL (3.85-5.65); Red Cell Distribution Width 12.6 % (12.1-15.1); White Blood Count 5.45 10^3/uL (3.29-11.43)
[2024-05-17 08:23] LABS: Anion Gap 12.8 (5-19); Blood Urea Nitrogen 9 mg/dL (8-23); Calcium 9.1 mg/dL (8.5-10.5); Carbon Dioxide 29 mmol/L (22-29); Chloride 102 mmol/L (98-107); Creatinine Clr Calc Pharmacy 56.0673; Glucose 98 mg/dL (65-115); Magnesium 2.6 mg/dL (1.7-2.3); Osmolality Calculated 287 mOsm/kg (285-295); Potassium 4.8 mmol/L (3.5-5.1); Sodium 139 mmol/L (136-145)
[2024-05-17] MEDS: ondansetron 2 mg/ML SDV 2 mL 4 MG IVP (08:29)
[2024-05-17] MEDS: cefTRIAXone 1,000 mg SDV 1000 MG IVP (08:34)
[2024-05-17 08:50] LABS: HIV 1 & 2 Antibody Non-Reactive (Non-Reactiv); HIV 1 & 2 Antigen Non-Reactive (Non-Reactiv)
[2024-05-17 08:57] LABS: Hepatitis A Antibody IgM Non-Reactive (Nonreactive); Hepatitis B Core AB, Total Non-Reactive (Nonreactive); Hepatitis B Surface AB < 3.5 (11.5-1000); Hepatitis B Surface Antigen Non-Reactive (Nonreactive); Hepatitis C Virus Antibody Non-Reactive (Nonreactive)
[2024-05-17] MEDS: PRAMIPEXOLE 0.75 MG PO ×2 (08:57→20:22)
[2024-05-17] MEDS: apixaban 5 mg Tablet PO ×2 (08:58→17:04)
[2024-05-17] MEDS: famotidine 20 mg Tablet 40 MG PO ×2 (08:58→17:04)
--- NOTE | 2024-05-17 09:00 | PC.NURSE ---
Pt refused morning lisinopril stating she didn't feel comfortable taking it with her BP low. BP is 130/64.
--- NOTE | 2024-05-17 09:30 | MRR_ITS ---
PROCEDURE INFORMATION: Exam: MR Abdomen Without Contrast Exam date and time: 05/17/2024 9:39 AM Age: 73 years old Clinical indication: Abdominal pain; Generalized; Additional info: E. Coli bacteremia, previous biliary source TECHNIQUE: Imaging protocol: Magnetic resonance imaging of the abdomen without contrast. COMPARISON: 1. CT angio chest PE protcl [id number] 01/21/2024 12:[address] abdomen pelvis w con* [id number] 05/12/2024 11:07 PM FINDINGS: Liver: No mass. Gallbladder and biliary ducts: The gallbladder is surgically absent. No significant intra or extrahepatic biliary ductal dilatation. There is a tiny filling defect within the distal common bile duct measuring approximate 3 mm on series 701, image 25. In retrospective correlation with the prior CT there is a tiny hyperdense area in this location. Pancreas: Unremarkable. No ductal dilation. Spleen: There are small benign-appearing cysts within the anterior and posterior aspects of the spleen. Adrenal glands: Unremarkable. No mass. Kidneys: Unremarkable. No solid mass. No hydronephrosis. Stomach and bowel: There is a small diverticulum arising at the junction of the 2nd and 3rd portions of the duodenum. Intraperitoneal space: No free fluid. Vasculature: No abdominal aortic aneurysm. Lymph nodes: There has been interval decrease in size in a precaval lymph node which now measures 6 mm in short axis dimension compared with 1.2 cm previously.. Bones/joints: Unremarkable. No suspicious lesions. Soft tissues: Unremarkable. MR/MR MRCP [id number] IMPRESSION: 1. Postoperative changes of cholecystectomy 2. Possible 3 mm distal common bile duct calculus versus artifact without significant biliary ductal dilatation 3. Simple splenic cysts 4. Interval improvement in precaval lymphadenopathy
--- NOTE | 2024-05-17 12:15 | P.PN_ITS ---
Subjective 2 Subjective: c/o nausea and epigatsric discomfort. MRCP completed, revealing possible 3mm CBD calculus vs artifact Medications: Reviewed: Yes Vitals/I&O/Wt Last Vital Signs Temp 97.9 F 05/17/24 20:00 Pulse 65 05/17/24 20:00 Resp 18 05/17/24 20:30 BP 108/63 05/17/24 20:00 Pulse Ox 99 05/17/24 20:30 O2 Del Method Nasal Cannula 05/17/24 20:00 O2 Flow Rate 4 05/17/24 20:00 05/17/24 05/17/24 05/17/24 06:59 14:59 22:59 Intake Total 50 / 990 118 / 118 480 / 598 Balance 50 / 990 118 / 118 480 / 598 Weight last 48 hrs Weight 90.945 kg Weight 90.945 kg Weight 90.945 kg Physical Exam 2 Narrative: General: No acute distress, AO x3 HEENT: PERRLA, pupils bilaterally equal and reactive, pallors not present Chest: Normal vesicular breath sounds, no added sounds, equal good air entry bilaterally CVS: S1-S2 regular, no murmurs, no tachycardia, no gallops, no rubs Abdomen: Soft, nontender, no organomegaly, bowel sounds present Neuro: No focal deficits, no facial deformity, AO x3, power 5/5 in all limbs Data 05/17/24 07:43 05/17/24 07:43 Other Labs: MR/MR MRCP [id number] IMPRESSION: 1. Postoperative changes of cholecystectomy 2. Possible 3 mm distal common bile duct calculus versus artifact without significant biliary ductal dilatation 3. Simple splenic cysts 4. Interval improvement in precaval lymphadenopathy Micro: Microbiology 05/15/24 15:12 Urine Culture - Preliminary Urine,Clean Catch Other data: MR/MR MRCP [id number] IMPRESSION: 1. Nodular masslike thickening of the tip of the gallbladder fundus measuring up to 1.9 cm with internal cystic spaces. Imaging characteristics suggest focal fundal adenomyomatosis, although examination is limited due to lack of IV contrast. Please note, however, a gallbladder neoplasm may present similarly. Consider further assessment with contrast-enhanced MRI with diffusion weighted imaging. 2. Nonspecific enlarged precaval lymph node. 3. Mild left intrahepatic and extrahepatic biliary ductal dilatation. No evidence of choledocholithiasis or intra biliary lesion. Findings may be related to a periampullary duodenal diverticulum. A&P Assessment and plan (1) Gram-negative bacteremia: (2) Biliary stricture: (3) Bacteriuria: Plan 73 year old lady with PMH per HPI admitted with recurrent E. coli bacteremia. Overall concern for source of recurrent bacteremia to be from the biliary tree. Since november and then in January, patient had had normalized LFTs but currently again with uptrending AST/ALT. ALP persistent elevation, mildly elevated over previous at 199. s/p ERCP in November 2023 for cholangitis with removal of stones; MRCP 01/2024 with IHBD and EHBD without gross obstruction, non specific. symptomatically each episode presenting with epigastric pain, fever and chills. Urine cx revealing E. coli , however no urinary symptoms during episodes. Only one episode post discharge corelating with + UA. CT abd/ pelvis without renal stones, hydronephrosis or other anatomic abnormalities. Less likely for urinary tract to the source of recurrent bacteremia with normal anatomy, no obstruction, lack of symptoms. Patient likely has asymptomatic bacteriuria vs colonization. staphylococcus epidermidis 1/4 cx likely contaminant Plan: Can narrow abx coverage from Zosyn to Ceftriaxone 1gm iv every 24 hrs given susceptible isolate may be discharged on po ciprofloxacin 500mg bid to complete 14 days from clearance of bacteremia recommend Mrcp to evaluate for serial change, highly suspect persistent/ residual biliary obstruction based on clinical presentation depending on mrcp findings, may need follow up ERCP check hepatitis B, C and HIV serologies 05/17/24 Continue ceftriaxone 1 g danny every 24 hrs while inpatient. Blood cx currently clear. MRCP completed today- possible 3mm CBD obstruction - etiology ? Patient will need ERCP for further diagnostics. With clinical picture, highly suspect obstruction along the biliary tree. LFT not available today- added on to am labs. Hep BsAg, hep B core AB negative, Hep C ab: negative, HIv 1/2 Ag/Ab: negative. Recommend GI opinion for ERCP. Attestations 2 Medical Necessity Statement*: per admitting Coding Level of Care Code Acute Code for Chg Fwd Diagnoses Gram-negative bacteremia R78.81 Biliary stricture K83.1 Bacteriuria R82.71
[2024-05-17 13:08] LABS: Alanine Aminotransferase 39 U/L (0-33); Albumin Level 3.8 g/dL (3.5-5.2); Alkaline Phosphatase 224 U/L (35-105); Aspartate Amino Transferase 34 U/L (0-32); Globulin 2.6 g/dL (1.3-4.6); Total Bilirubin 0.5 mg/dL (0.15-1.2); Total Protein 6.4 g/dL (6.6-8.7)
--- NOTE | 2024-05-17 13:53 | P.PN_ITS ---
Subjective 2 Subjective: MRCP results are back there is a question of a common bile duct stone versus artifact. Reviewed LFTs. Reached out to patient's field professional Dr. Hanson at [facility]. Images have been shared. He will review images discussed with Dr. Milner he will get back to me with further management decision. Patient may potentially need to be transferred to [facility] versus to be seen as an outpatient. I will wait for GIs phone call before making further decisions Patient did have an episode of vomiting this morning and she reported nausea.. Alkaline phosphatase has increased to 224. Discussed with ID physician as well. Vitals/I&O/Wt Last Vital Signs Temp 97.8 F 05/17/24 11:06 Pulse 67 05/17/24 11:06 Resp 18 05/17/24 11:10 BP 129/65 05/17/24 11:06 Pulse Ox 97 05/17/24 11:10 O2 Del Method Nasal Cannula 05/17/24 11:06 O2 Flow Rate 3 05/17/24 11:06 05/16/24 05/17/24 05/17/24 22:59 06:59 14:59 Intake Total 820 / 940 50 / 990 118 / 118 Balance 820 / 940 50 / 990 118 / 118 Weight last 48 hrs Weight 90.945 kg Weight 90.945 kg Weight 90.945 kg Physical Exam 2 Narrative: General: No acute distress, AO x3 HEENT: PERRLA, pupils bilaterally equal and reactive, pallors not present Chest: Normal vesicular breath sounds, no added sounds, equal good air entry bilaterally CVS: S1-S2 regular, no murmurs, no tachycardia, no gallops, no rubs Abdomen: Soft, nontender, no organomegaly, bowel sounds present Neuro: No focal deficits, no facial deformity, AO x3, power 5/5 in all limbs Data 05/17/24 07:43 05/17/24 07:43 Micro: Microbiology 05/15/24 15:12 Urine Culture - Preliminary Urine,Clean Catch 05/14/24 19:29 Gram Stain - Final Sputum - Expectorated Sputum Sputum Culture - Final A&P Assessment and plan (1) Gastroenteritis: (2) Bacteremia: Plan Recurrent positive bacteremia with E. coli Patient had UTI in the past with E. coli Sensitivity report is showing pansensitive ED hence ceftriaxone will be used At this point source is unidentified GI versus but suspicion is likely related to UTI I am not sure at this point why she becomes bacteremic the E. coli recurrently, probably will benefit from an ID consultation I will start patient on ceftriaxone considering previous signs to be reported UA results are pending Patient is not showing sign of sepsis Patient is not showing any signs of cholangitis at this point, no leukocytosis, fever, she has objective fevers at home, liver enzymes slightly abnormal with high alkaline phosphatase however CBD dilation not present on CT abdomen pelvis she does have high CRP which goes with her bacteremia For concerns related to recurrent bacteremia, transesophageal echo might be needed At this point I am not seeing any active source of kidney stones Chronic hypoxia uses 3 L at baseline Restless legs: Takes pramipexole 2 in the nighttime and 1 in the day Hypertension: Takes lisinopril Thromboembolic disease: Continue Eliquis Full code Cardiac diet 05/17/2024 -ID consult appreciated Repeat blood cultures negative to date ? LFTs reviewed this morning. Alkaline phosphatase [address] Hanson over the phone. He will review images and get back to me regarding further management decision. Patient may potentially need transfer to [facility] today for potential ERCP inpatient versus outpatient. Continue GI soft diet as tolerated. Continue ceftriaxone 1 g daily as per ID recommendations. If GI does not plan on inpatient procedure we will discharge patient home on oral ciprofloxacin as recommended by ID. Attestations 2 Medical Necessity Statement*: Potential discharge home today versus transfer for ERCP to a different facility with GI services. Diagnoses Gastroenteritis K52.9 Bacteremia R78.81
[2024-05-17] MEDS: morphine IR 15 mg Tablet PO (20:30)
[2024-05-18] VITALS (9 sets, daily range): BP systolic 95–118; BP diastolic 56–77; PULSE 61–70; RESP 14–18; TEMP 36.4–36.9; O2SAT 97–100
[2024-05-18] MEDS: oxyCODONE-APAP 10-325 mg Tablet 1 TAB PO ×2 (05:26→13:54)
[2024-05-18 05:31] LABS: Basophils % 0.5 %; Eosinophils # 0.2 10^3/uL (0.0-0.8); Eosinophils % 3.1 %; Hematocrit 40.7 % (36-47); Lymphocytes # 1.8 10^3/uL (0.8-4.8); Lymphocytes % 28.8 %; Mean Corpuscular HGB Conc 29.5 g/dL (30-55); Mean Corpuscular Hemoglobin 27.6 pg (27-33); Mean Corpuscular Volume 93.6 fl (85-98); Mean Platelet Volume 9.4 fL (7.4-10.4); Monocytes # 0.5 10^3/uL (0.2-0.9); Monocytes % 8.5 %; Neutrophils # 3.66 10^3/uL (1.8-7.7); Neutrophils % 58.8 %; Nucleated Red Blood Cells % 0 %; Platelet Count 298 10^3/cmm (157-399); Red Blood Count 4.35 10^6/uL (3.85-5.65); Red Cell Distribution Width 12.5 % (12.1-15.1); White Blood Count 6.22 10^3/uL (3.29-11.43)
[2024-05-18 06:00] LABS: Anion Gap 10.7 (5-19); Blood Urea Nitrogen 10 mg/dL (8-23); Calcium 9.1 mg/dL (8.5-10.5); Carbon Dioxide 32 mmol/L (22-29); Chloride 101 mmol/L (98-107); Creatinine Clr Calc Pharmacy 51.3156; Glucose 103 mg/dL (65-115); Magnesium 2.5 mg/dL (1.7-2.3); Osmolality Calculated 287 mOsm/kg (285-295); Potassium 4.7 mmol/L (3.5-5.1); Sodium 139 mmol/L (136-145)
[2024-05-18] MEDS: ondansetron 2 mg/ML SDV 2 mL 4 MG IVP (06:02)
[2024-05-18] MEDS: cefTRIAXone 1,000 mg SDV 1000 MG IVP (06:02)
--- NOTE | 2024-05-18 08:14 | P.TS_ITS ---
Transfer Summary Providers Date of Admission: 05/13/24 21:09 Date of Discharge/Transfer: 05/18/24 Attending Provider at Admission: Carl Valadez MD Attending Provider at Transfer: Tran Mueller MD Primary Care Provider: Ekaterina Peterson DO Transfer Plans: Anticipated date of transfer: 05/18/24 . Receiving Facility: [facility] . Receiving Provider: Dr. Jack . Diagnoses at Discharge Discharge Diagnosis (1) Gastroenteritis: Status: Acute (2) Bacteremia: Status: Acute Reason for Visit Reason for Visit abnormal labs Brief History: Mary Fitch is a 73 year old female with history of chronic hypoxia requires 3 L of oxygen at baseline, previous history of E. coli bacteremia and UTI, had cholecystectomy done in January this year by Dr. Park, there was concern for mass in the gallbladder however pathology is not showing any sign emergency, at that time patient had positive blood cultures as well with E. coli was called in because her blood cultures turn positive. She was seen in the ER yesterday for her subjective fever Reiger chills and abdominal pain. Patient is stating that she has not noted down her temperature but she was extremely fatigued lethargic with extreme chills with rigors. She is not endorsing dysuria but stating that she is incontinent. No recent diarrhea. Patient was playing cards with her family yesterday had hot cocoa, 2 hours after that she started experiencing extreme Renan pain that prompted her visit to the ER, she was discharged from the ER after GI cocktail which improved her symptoms. We are still waiting on urine cultures, patient will get antibiotics after we obtain urine culture Patient does have a chicken coop at home, no one else is sick in her house CT abdomen pelvis was unremarkable Patient is complaining of epigastric pain which is not radiating, no active nausea or vomiting, she is doing well on 2 L nasal cannula asking for juice. Patient had a PET scan done this year as well which did not show any sign malignancy it was done with concerns related to pulmonary nodules Hospital Course Hospital Course Mary Fitch is a 73 year old female with past medical history of COPD, rheumatoid arthritis,CHF. In November 2023 she had presented here with nausea vomiting and was found to have Cholangitis with CBD dilatation pancreatitis. It appears she was transferred from here to [facility] to the care of Dr. Kumar Miller where she subsequently underwent an ERCP, sphincterotomy with extraction of three CBD stones and purulence in CBD. No apparent stent was place. She was bacteremic with E. coli at the time. She was subsequently recommended to undergo cholecystectomy. She presented to [facility] on January 21, [address] now showed persistent ductal dilatation involving the bile ducts of the left lobe of the liver. There was an enlarging mass involving the fundus of the gallbladder, perhaps gallbladder malignancy. MRCP showed intra and extrahepatic biliary dilatation. GB cystic changes. It was recommended to transfer the patient for ERCP to assess for CBD stricture. Family refused transfer to higher center at that time. She was admitted at [facility]. Blood culture was positive for E.coli. General surgery evaluated her and thought she may have biliary stricture with sludge or possible small stone in the CBD with recurrent ascending cholangitis, though no conclusive evidence of the same. On February 01, 2024 she underwent laparoscopic cholecystectomy and intraoperative cholangiogram. Cholangiogram showed dumping of contrast into the duodenum. There was dilatation of the more proximal ducts thought to be related to recent dilatation and sphincterotomy the patient had. No obvious filling defect was identified. The gallbladder was somewhat intrahepatic. She was recommended to undergo serial repeat imaging as cholangiocarcinoma could not be ruled out. She followed with Dr. Hnason at [facility]. She has not had an ERCP yet. per patient, she is being monitored with serial LFTs with plan for ERCP only if liver enzymes (?ALP) deranged. On 02/08, f/up CT showed New area of decreased attenuation subcapsular liver adjacent to the gallbladder fossa. probably a posttraumatic change from the cho lecystectomy. Alternatively this may be a small hepatic infarct. She is most recently admitted here since 05/13 after p/w fever 103F, elevated AST/ALT /ALP. Normal T bili. Ct of the abdomen and pelvis showing no ductal dilatation, s/p cholecystectomy. Hypodenisty seen in February had resolved. Blood cx from 05/12 again showing E. coli bacteremia. Per patient, there is no Pathology from ERCP in November - will request records from [facility]. from : Gall bladder path with active chronic cholecytsitis. During 2 of these episodes patient has had a urine cx + for E. coli, only one wi th correlating + UA. Denies any symptoms of UTI during her admissions. No dysuria, frequency or other issues. CT abdomen/pelvis with normal anatomy ID consultation was requested secondary to recurrent E. coli bacteremia. MRCP was recommended. MRCP showed:1. Postoperative changes of cholecystectomy 2. Possible 3 mm distal common bile duct calculus versus artifact without significant biliary ductal dilatation 3. Simple splenic cysts 4. Interval improvement in precaval lymphadenopathy I called Dr. Hanson patient's program manager rn at [facility] and discussed her care. I also updated him of her liver enzymes. He discussed with Dr. Cuellar who will be the on-call GI physician over the weekend and reviewed her imaging which we shared with [facility]. He recommends an ERCP. He has accepted patient for transfer. GI team coordinated transfer with their hospitalist group and patient was accepted by Dr. Garcia for transfer to [facility] for ERCP. Physical Exam Narrative: General: No acute distress, AO x3 HEENT: PERRLA, pupils bilaterally equal and reactive, pallors not present Chest: Normal vesicular breath sounds, no added sounds, equal good air entry bilaterally, on 3L NC CVS: S1-S2 regular, no murmurs, no tachycardia, no gallops, no rubs Abdomen: Soft, nontender, no organomegaly, bowel sounds present Neuro: No focal deficits, no facial deformity, AO x3, power 5/5 in all limbs TS Data Studies Completed and Pending Pending at discharge Category Date Time Status Basic Metabolic Panel AM LABS Lab 05/18/24 04:00 Ordered Blood Culture Timed Lab 05/15/24 05:13 Results Complete Blood Count w/Auto AM LABS Lab 05/18/24 04:00 Ordered Magnesium AM LABS Lab 05/18/24 04:00 Ordered Urine Culture Stat Lab 05/15/24 15:12 Results Completed Studies During Hospitalization Category Date Time Status XR chest 1V portable [id number] Stat Exams 05/13/24 20:01 Completed MR MRCP [id number] Urgent MRI 05/17/24 09:30 Completed Laboratory Last Values WBC 5.45 10^3/uL (3.29-11.43) 05/17/24 07:43 RBC 4.11 10^6/uL (3.85-5.65) 05/17/24 07:43 Hgb 11.80 g/dL (11.27-16.99) 05/17/24 07:43 Hct 38.9 % (36-47) 05/17/24 07:43 MCV 94.6 fl (85-98) 05/17/24 07:43 MCH 28.7 pg (27-33) 05/17/24 07:43 MCHC 30.3 g/dL (30-55) 05/17/24 07:43 RDW 12.6 % (12.1-15.1) 05/17/24 07:43 Plt Count 285 10^3/cmm (157-399) 05/17/24 07:43 MPV 9.7 fL (7.4-10.4) 05/17/24 07:43 Neut % (Auto) 60.0 % 05/17/24 07:43 Lymph % (Auto) 28.6 % 05/17/24 07:43 [place] % (Auto) 7.7 % 05/17/24 07:43 Eos % (Auto) 3.1 % 05/17/24 07:43 Baso % (Auto) 0.4 % 05/17/24 07:43 Neut # (Auto) 3.27 10^3/uL (1.8-7.7) 05/17/24 07:43 Lymph # (Auto) 1.6 10^3/uL (0.8-4.8) 05/17/24 07:43 [place] # (Auto) 0.4 10^3/uL (0.2-0.9) 05/17/24 07:43 Eos # (Auto) 0.2 10^3/uL (0.0-0.8) 05/17/24 07:43 Baso # (Auto) 0.0 10^3/uL (0.0-0.1) 05/17/24 07:43 Nucleated RBC % (auto) 0 % 05/17/24 07:43 Nucleated RBCs # 0.0 /100WBC 05/17/24 07:43 Sodium 139 mmol/L (136-145) 05/17/24 07:43 Potassium 4.8 mmol/L (3.5-5.1) 05/17/24 07:43 Chloride 102 mmol/L (98-107) 05/17/24 07:43 Carbon Dioxide 29 mmol/L (22-29) 05/17/24 07:43 Anion Gap 12.8 (5-19) 05/17/24 07:43 BUN 9 mg/dL (8-23) 05/17/24 07:43 Creatinine 1.0 mg/dL (0.5-0.9) H 05/17/24 07:43 GFR Calculation Not Reportable 05/17/24 07:43 Glucose 98 mg/dL (65-115) 05/17/24 07:43 Calculated Osmolality 287 mOsm/kg (285-295) 05/17/24 07:43 Calcium 9.1 mg/dL (8.5-10.5) 05/17/24 07:43 Magnesium 2.6 mg/dL (1.7-2.3) H 05/17/24 07:43 Total Bilirubin 0.5 mg/dL (0.15-1.2) 05/17/24 07:43 Direct Bilirubin 0.20 mg/dL (0.00-0.30) 05/17/24 07:43 AST 34 U/L (0-32) H 05/17/24 07:43 ALT 39 U/L (0-33) H 05/17/24 07:43 Alkaline Phosphatase 224 U/L (35-105) H 05/17/24 07:43 C-Reactive Protein 113.9 mg/L (0.0-4.9) H 05/14/24 02:11 Total Protein 6.4 g/dL (6.6-8.7) L 05/17/24 07:43 Albumin 3.8 g/dL (3.5-5.2) 05/17/24 07:43 Globulin 2.6 g/dL (1.3-4.6) 05/17/24 07:43 Lipase 25 U/L (13-60) 05/13/24 19:13 Procalcitonin 3.97 ng/mL (0-0.5) H 05/14/24 02:11 Urine Color Yellow (Yellow) 05/13/24 21:07 Urine Appearance Clear (CLEAR) 05/13/24 21:07 Urine pH 8.5 (5-7) A 05/13/24 21:07 Ur Specific [place] 1.027 (1.005-1.030) 05/13/24 21:07 Urine Protein 1+ (Negative) A 05/13/24 21:07 Urine Glucose (UA) Negative (Normal) 05/13/24 21:07 Urine Ketones Negative (Negative) 05/13/24 21:07 Urine Blood Trace (Negative) A 05/13/24 21:07 Urine Nitrate Negative (Negative) 05/13/24 21:07 Urine Bilirubin Negative (Negative) 05/13/24 21:07 Urine Urobilinogen 1.0 mg/dL (Negative) 05/13/24 21:07 Ur Leukocyte Esterase Trace (Negative) A 05/13/24 21:07 Urine RBC 0-4 /hpf (0-2) H 05/13/24 21:07 Urine WBC 0-4 /hpf (0-5) H 05/13/24 21:07 Ur Squamous Epith Cells 0-4 /hpf (0-5) H 05/13/24 21:07 Amorphous Sediment Not Reportable 05/13/24 21:07 Urine Bacteria Trace /hpf (NONE) 05/13/24 21:07 Hepatitis A IgM Ab Non-reactive (Nonreactive) 05/17/24 07:43 Hep Bs Antigen Non-reactive (Nonreactive) 05/17/24 07:43 Hep Bs Antibody < 3.5 (11.5-1000) L 05/17/24 07:43 Hep B Core Total Ab Non-reactive (Nonreactive) 05/17/24 07:43 Hepatitis C Antibody Non-reactive (Nonreactive) 05/17/24 07:43 HIV 1&2 Ab & HIV 1 Ag Non-reactive (Non-Reactiv) 05/17/24 07:43 HIV 1&2 Antibody Non-reactive (Non-Reactiv) 05/17/24 07:43 Radiology Impressions Chest X-Ray 05/13/24 20:01 IMPRESSION: 1. No acute cardiopulmonary abnormality. Cholangiopancreatography MRI 05/17/24 09:30 IMPRESSION: 1. Postoperative changes of cholecystectomy 2. Possible 3 mm distal common bile duct calculus versus artifact without significant biliary ductal dilatation 3. Simple splenic cysts 4. Interval improvement in precaval lymphadenopathy Recent Clincial Data Last Vital Signs Temp 97.8 F 05/17/24 11:06 Pulse 67 05/17/24 11:06 Resp 18 05/17/24 11:10 BP 129/65 05/17/24 11:06 Pulse Ox 97 05/17/24 11:10 O2 Del Method Nasal Cannula 05/17/24 11:06 O2 Flow Rate 3 05/17/24 11:06 Vital Signs Temp Pulse Resp BP Pulse Ox O2 Del Method O2 Flow Rate 12/12/24 11:10 18 97 05/17/24 11:06 97.8 F 67 16 129/65 100 Nasal Cannula 3 05/17/24 09:37 67 16 99 Nasal Cannula 2 05/17/24 08:00 2 05/17/24 07:25 97.5 F L 66 16 130/64 97 Nasal Cannula 2 05/17/24 05:10 18 100 05/17/24 04:00 97.8 F 59 L 18 121/62 100 Nasal Cannula 2 Intake & Output/Weight 05/15/24 05/16/24 05/17/24 05/18/24 06:59 06:59 06:59 06:59 Intake Total 1590 / 1590 1490 / 1490 990 / 990 118 / 118 Output Total 300 / 300 1300 / 1300 Balance 1290 / 1290 190 / 190 990 / 990 118 / 118 Weight 91.989 kg 90.945 kg 90.945 kg Vitals Last Vital Signs Temp 97.8 F 05/17/24 11:06 Pulse 67 05/17/24 11:06 Resp 18 05/17/24 11:10 BP 129/65 05/17/24 11:06 Pulse Ox 97 05/17/24 11:10 O2 Del Method Nasal Cannula 05/17/24 11:06 O2 Flow Rate 3 05/17/24 11:06 TS Medications Medications Acetaminophen (Acetaminophen 500 Mg Tablet) 500 mg PO Q4H PRN PRN Reason: fever Albuterol/Ipratropium (Ipratropium-Albuterol 3 Ml Neb) 3 ml INHALATION Q6H PRN PRN Reason: SHORTNESS OF BREATH Apixaban (Apixaban 5 Mg Tablet) 5 mg PO BID [facility] Last Admin: 05/17/24 08:58 Dose: 5 mg Ceftriaxone Sodium (Ceftriaxone 1,000 Mg Sdv) 1,000 mg IVP Q24H [facility]; Protocol Last Admin: 05/17/24 08:34 Dose: 1,000 mg Famotidine (Famotidine 20 Mg Tablet) 40 mg PO BID [facility] Last Admin: 05/17/24 08:58 Dose: 40 mg Lisinopril (Lisinopril 20 Mg Tablet) 20 mg PO DAILY [facility] Last Admin: 05/17/24 08:58 Dose: Not Given Morphine Sulfate (Morphine Ir 15 Mg Tablet) 15 mg PO Q6H PRN PRN Reason: MODERATE PAIN Last Admin: 05/16/24 10:21 Dose: 15 mg Pramipexole 0.75 Mg (Tablet) 1 - 2 each PO Q12H [facility] Last Admin: 05/17/24 08:57 Dose: 1 each Ondansetron HCl (Ondansetron 2 Mg/Ml Sdv 2 Ml) 4 mg IVP Q6H PRN PRN Reason: NAUSEA AND VOMITING Last Admin: 05/17/24 08:29 Dose: 4 mg Oxycodone/Acetaminophen (Oxycodone-Apap 10-325 Mg Tablet) 1 tab PO Q6H PRN PRN Reason: Pain Last Admin: 05/17/24 11:10 Dose: 1 tab Discontinued Medications Famotidine (Famotidine 20 Mg Tablet) 40 mg PO BID [facility] Last Admin: 05/15/24 04:05 Dose: Not Given Piperacillin Sod/Tazobactam (Sod 4.5 gm/ Sodium Chloride) 50 mls @ 100 mls/hr IV ONCE ONE; Protocol Stop: 05/13/24 20:17 Last Infusion: 05/13/24 21:34 Dose: Infused Ceftriaxone Sodium 1,000 mg/ (Sodium Chloride) 50 mls @ 100 mls/hr IV DAILY [facility]; Protocol Last Infusion: 05/14/24 09:27 Dose: Infused Piperacillin Sod/Tazobactam (Sod 3.375 gm/ Sodium Chloride) 50 mls @ 12.5 mls/hr IV Q8H [facility]; Protocol Last Infusion: 05/17/24 06:59 Dose: Infused Morphine Sulfate (Morphine 4 Mg/Ml Sdv 1 Ml) 4 mg IVP ONCE ONE Stop: 05/13/24 20:02 Last Admin: 05/13/24 20:20 Dose: 4 mg Non-Formulary Medication (Pramipexole) 0 mg PO DAILY [facility] Last Admin: 05/13/24 23:59 Dose: Not Given Ondansetron HCl (Ondansetron 2 Mg/Ml Sdv 2 Ml) 4 mg IVP ONCE ONE Stop: 05/13/24 20:02 Last Admin: 05/13/24 20:20 Dose: 4 mg Pramipexole Dihydrochloride (Pramipexole 0.25 Mg Tablet) 0.75 mg PO DAILY [facility] Last Admin: 05/14/24 08:41 Dose: 0.75 mg Pramipexole Dihydrochloride (Pramipexole 0.25 Mg Tablet) 1.5 mg PO BEDTIME [facility] Last Admin: 05/13/24 23:59 Dose: 1.5 mg Allergies dust mites Allergy (Unknown, Uncoded 02/09/24 12:35) Unknown Home Medications oxycodone-acetaminophen 10 mg-325 mg tablet (Percocet) 1 tab PO Q6H PRN Pain 01/14/22 [History Confirmed 05/13/24] pramipexole 0.75 mg tablet See Rx Instructions PO DAILY 01/14/22 [History Confirmed 05/13/24] azithromycin 250 mg tablet 250 mg PO .3 X WEEK #36 tabs 09/27/23 [Rx Confirmed 05/13/24] cetirizine 10 mg tablet 10 mg PO DAILY PRN Itching 11/21/23 [History Confirmed 05/13/24] apixaban 5 mg tablet (Eliquis) 5 mg PO BID 01/21/24 [History Confirmed 05/13/24] famotidine 20 mg tablet 40 mg PO BID 01/21/24 [History Confirmed 05/13/24] ferrous sulfate 325 mg (65 mg iron) tablet 325 mg PO DAILY 01/21/24 [History Confirmed 05/13/24] fluticasone fur. 100 mcg-umeclid 62.5 mcg-vilant 25 mcg inhalat.powder (Trelegy Ellipta) 1 inh inhalation DAILY #60 ea 01/25/24 [Rx Confirmed 05/13/24] furosemide 20 mg tablet (Lasix) 20 mg PO DAILY #90 tabs 02/09/24 [Rx Confirmed 05/13/24] lisinopril 20 mg tablet 20 mg PO DAILY #90 tabs 02/17/24 [Rx Confirmed 05/13/24] ondansetron 4 mg disintegrating tablet 4 mg PO Q6H PRN nausea and vomiting #14 tabs 05/13/24 [Rx Confirmed 05/13/24] Discharge Plan Discharge Patient Disposition: Xfer Other Condition: Fair Prescriptions: No Action oxycodone-acetaminophen [Percocet] 10-325 mg tablet 1 tab PO Q6H PRN (Reason: Pain) pramipexole 0.75 mg tablet See Rx Instructions PO DAILY Rx Instructions: 1 tablet by mouth in AM, 2 tablets by mouth in PM azithromycin 250 mg tablet 250 mg PO .3 X WEEK Qty: 36 4RF Rx Instructions: 250 mg tab on Mondays, Wednesdays, and Fridays furosemide [Lasix] 20 mg tablet 20 mg PO DAILY Qty: 90 3RF lisinopril 20 mg tablet 20 mg PO DAILY Qty: 90 3RF Eliquis 5 mg tablet 5 mg PO BID famotidine 20 mg tablet 40 mg PO BID ferrous sulfate 325 mg (65 mg iron) tablet 325 mg PO DAILY Trelegy Ellipta 100-62.5-25 mcg blister with device 1 inh inhalation DAILY Qty: 60 6RF ondansetron 4 mg tablet,disintegrating 4 mg PO Q6H PRN (Reason: nausea and vomiting) Qty: 14 0RF cetirizine 10 mg tablet 10 mg PO DAILY PRN (Reason: Itching) Referrals: [facility] [Outside] Transfer Attestations Time Spent in Transfer Care: greater than 30 min Quality Metrics Clinical Quality Measures [ No reported AMI, CVA or VTE this stay] Coding Level of Care Code 39353 Total time (in minutes) for Discharge: 65 Diagnoses Gastroenteritis K52.9 Bacteremia R78.81
[2024-05-18] MEDS: famotidine 20 mg Tablet 40 MG PO ×2 (09:00→17:53)
[2024-05-18] MEDS: apixaban 5 mg Tablet PO (09:00)
[2024-05-18] MEDS: PRAMIPEXOLE 0.75 MG PO (09:02)
--- NOTE | 2024-05-18 11:30 | PC.NURSE ---
Spoke to the tank house operator at [facility] and there are no beds available there at this time. Patient updated and nurse Rosalie updated.
[2024-05-18] MEDS: sennosides-docusate Tablet 2 TAB PO (11:43)
--- NOTE | 2024-05-18 12:32 | PC.SOCIAL ---
IMM Updated Updated pt on IMM. No questions voiced. Provided pt a copy. Initialed, dated, & timed copy in chart.
--- NOTE | 2024-05-18 15:39 | PM.PN ---
Subjective Subjective: No acute interim events. Patient planned to be transferred today to [facility] for ERCP. Medications: Reviewed: Yes Vitals/I&O/Wt Last Vital Signs Temp 97.6 F 05/18/24 11:42 Pulse 65 05/18/24 11:42 Resp 16 05/18/24 13:54 BP 118/77 05/18/24 11:42 Pulse Ox 98 05/18/24 11:42 O2 Del Method Nasal Cannula 05/18/24 11:42 O2 Flow Rate 3 05/18/24 08:17 05/18/24 05/18/24 05/18/24 06:59 14:59 22:59 Intake Total 360 / 360 Balance 360 / 360 Weight last 48 hrs Weight 92.164 kg Weight 90.945 kg Physical Exam Narrative: General: No acute distress, AO x3 HEENT: PERRLA, pupils bilaterally equal and reactive, pallors not present Chest: Normal vesicular breath sounds, no added sounds, equal good air entry bilaterally CVS: S1-S2 regular, no murmurs, no tachycardia, no gallops, no rubs Abdomen: Soft, nontender, no organomegaly, bowel sounds present Neuro: No focal deficits, no facial deformity, AO x3, power 5/5 in all limbs Data 05/18/24 05:10 05/18/24 05:10 Micro: Microbiology 05/15/24 15:12 Urine Culture - Final Urine,Clean Catch A&P Assessment and plan (1) Gram-negative bacteremia: (2) Biliary stricture: (3) Bacteriuria: Plan 73 year old lady with PMH per HPI admitted with recurrent E. coli bacteremia. Overall concern for source of recurrent bacteremia to be from the biliary tree. Since november and then in January, patient had had normalized LFTs but currently again with uptrending AST/ALT. ALP persistent elevation, mildly elevated over previous at 199. s/p ERCP in November 2023 for cholangitis with removal of stones; MRCP 01/2024 with IHBD and EHBD without gross obstruction, non specific. symptomatically each episode presenting with epigastric pain, fever and chills. Urine cx revealing E. coli , however no urinary symptoms during episodes. Only one episode post discharge corelating with + UA. CT abd/ pelvis without renal stones, hydronephrosis or other anatomic abnormalities. Less likely for urinary tract to the source of recurrent bacteremia with normal anatomy, no obstruction, lack of symptoms. Patient likely has asymptomatic bacteriuria vs colonization. staphylococcus epidermidis 1/4 cx likely contaminant Plan: Can narrow abx coverage from Zosyn to Ceftriaxone 1gm iv every 24 hrs given susceptible isolate may be discharged on po ciprofloxacin 500mg bid to complete 14 days from clearance of bacteremia recommend Mrcp to evaluate for serial change, highly suspect persistent/ residual biliary obstruction based on clinical presentation depending on mrcp findings, may need follow up ERCP check hepatitis B, C and HIV serologies 05/17/24 Continue ceftriaxone 1 g danny every 24 hrs while inpatient. Blood cx currently clear. MRCP completed today- possible 3mm CBD obstruction - etiology ? Patient will need ERCP for further diagnostics. With clinical picture, highly suspect obstruction along the biliary tree. LFT not available today- added on to am labs. Hep BsAg, hep B core AB negative, Hep C ab: negative, HIv 1/2 Ag/Ab: negative. Recommend GI opinion for ERCP. May 18, 2024. Continue ceftriaxone 1 g IV every 24 hours while inpatient. Duration of treatment to be 2 weeks (05/15-05/29). May be transition to oral ciprofloxacin 500 mg twice daily at the time of discharge to complete course. Patient is planned to be transferred to [facility] for ERCP to further evaluate CBD obstruction as seen on MRCP. Follow-up with infectious disease in case of recurrent bacteremia. Office information has been placed in her chart. Attestations Medical Necessity Statement*: Per admitting Coding Level of Care Code Acute Code for Chg Fwd Moderate MDM includes number and complexity of problems actively addressed during encounter, amount and/or complexity of data reviewed/ordered and described risk of complication, morbidity or mortality of management as documented Diagnoses Gram-negative bacteremia R78.81 Biliary stricture K83.1 Bacteriuria R82.71
== END 2024-05-18 18:23 | disposition short-term general hospital (02) | DRG 445 ==
LOC: ER 20:42 → MEDSURG 21:09
PROVIDERS: Emergency Medicine; Student in an Organized Health Care Education/Training Program; Admitting Provider Internal Medicine; Emergency Provider Emergency Medicine; PCP Family Medicine; Visit Provider Internal Medicine
DX: K83.1 Obstruction of bile duct (principal); N39.0 Urinary tract infection, site not specified; R78.81 Bacteremia; K52.9 Noninfective gastroenteritis and colitis, unspecified; B96.20 Unspecified Escherichia coli [E. coli] as the cause of diseases classified elsewhere; R09.02 Hypoxemia; J44.9 Chronic obstructive pulmonary disease, unspecified; M06.9 Rheumatoid arthritis, unspecified; I11.0 Hypertensive heart disease with heart failure; I50.9 Heart failure, unspecified; G25.81 Restless legs syndrome; Z86.718 Personal history of other venous thrombosis and embolism; Z79.01 Long term (current) use of anticoagulants; Z99.81 Dependence on supplemental oxygen; Z87.440 Personal history of urinary (tract) infections; Z90.49 Acquired absence of other specified parts of digestive tract; Z87.891 Personal history of nicotine dependence
CPT/HCPCS: 0241U; 36415; 71045; 74177; 74181; 80048; 80053; 80076; 81001; 83605; 83690; 83735; 84145; 85025; 85610; 86140; 86705; 86706; 86709; 86803; 87040; 87070; 87077; 87086; 87150; 87186; 87205; 87340; 87806; 96365; 96374; 96375; 96376; 99285; J0696; J1885; J2270; J2405; J2543

== ENCOUNTER 2024-08-02 11:39 | Outpatient (CLI) | payer MEDICARE, OTHER, SELFPAY ==
--- NOTE | 2024-08-02 11:58 | USCV_ITS ---
Mary Fitch Age: 73 Gender: F : 1950 Exam Date: 08/02/2024 12:12 Ordering Phys: Ekaterina Peterson DO Technologist: [place] [facility] [place]ication: hx of thrombus in wrist PROCEDURES: Venous duplex imaging was performed in only the right upper extremity. The following venous structures were evaluated: internal jugular vein, subclavian vein, axillary vein, and brachial veins. In addition, the basilic vein, cephalic vein, radial vein, and ulnar vein. FINDINGS: No evidence of deep vein thrombosis or superficial thrombophlebitis in the right upper extremity. CONCLUSIONS No evidence of thrombus of the right upper extremity veins. Partially visualized cystic thyroid lesions. Recommend thyroid US on an elective basis Manuel Martin MD (Electronically Signed) Final Date: 02 August 2024 16:41 S
== END 2024-08-02 11:40 | disposition home or self-care (01) ==
LOC: RAD 11:42
PROVIDERS: PCP Family Medicine; Visit Provider Family Medicine
DX: I82.721 Chronic embolism and thrombosis of deep veins of right upper extremity (principal); R93.89 Abnormal findings on diagnostic imaging of other specified body structures
CPT/HCPCS: 93971

== ENCOUNTER 2024-08-23 14:28 | Outpatient (CLI) | payer MEDICARE, OTHER, SELFPAY ==
--- NOTE | 2024-08-23 14:54 | USR_ITS ---
PROCEDURE INFORMATION: Exam: US Soft Tissue Head and Neck, Thyroid Exam date and time: 08/23/2024 2:57 PM Age: 73 years old Clinical indication: Condition or disease; Thyroid disorder; Cyst; Additional info: Thyroid cyst TECHNIQUE: Imaging protocol: Real-time ultrasound scan of the neck with image documentation. Exam focused on the thyroid. Total images: 61 COMPARISON: PT PET skull to thigh [id number] 09/20/2023 9:22 AM FINDINGS: Right thyroid lobe: The right lobe measures 1.9 x 1.7 x 4.2 cm. Left thyroid lobe: The left lobe measures 1.5 x 1.5 x 4.1 cm Isthmus: The isthmus measures 0.4 cm AP. Background thyroid echotecture is homogeneous but with a focal lesions present. . Nodule # 1 right Image: Series 1, image 140 Location: Right lobe Size: 0.9 cm AP x 1.0 cmTransverse x 1.0 cm Craniocaudal Features: A predominantly solid solid, heterogeneous but predominantly hypoechoic , wider than tall no demonstrated calcification, sharp or ill-defined margins. ACR TI-RADS Level: TR 4, follow-up recommended in this size range . Nodule # left one Image: Series 1, image 430 Location: Left upper pole Size: 0.5 cm AP x 0.7 cmTransverse x 0.9 cm Craniocaudal Features: Cyst ACR TI-RADS Level: TR 1, no FNA Additional subcentimeter cysts/nodules are present. Lymph nodes: No cervical adenopathy demonstrated. US/US thyroid [id number] IMPRESSION: Multiple small thyroid nodules/cysts. Nodule 1 on the right, for which follow-up ultrasound in one year is recommended.
== END 2024-08-23 14:29 | disposition home or self-care (01) ==
PROVIDERS: PCP Family Medicine; Visit Provider Family Medicine
DX: E04.2 Nontoxic multinodular goiter (principal); I50.20 Unspecified systolic (congestive) heart failure; R06.09 Other forms of dyspnea
CPT/HCPCS: 76536; 99214

== ENCOUNTER → 2025-02-28 14:36 | Outpatient (BNVA) | payer MEDICARE, OTHER, SELFPAY | PROVIDERS: PCP Family Medicine; Visit Provider Internal Medicine | DX: I50.9 Heart failure, unspecified (principal); Z87.891 Personal history of nicotine dependence; R06.09 Other forms of dyspnea | CPT/HCPCS: 99214 ==

== ENCOUNTER 2025-03-19 08:00 | Outpatient (CLI) | payer MEDICARE, OTHER, SELFPAY ==
--- NOTE | 2025-03-25 15:30 | CT_ITS ---
WS: [id number] LDCT LUNG CANCER SCREENING TECHNIQUE: Noncontrast CT of the chest with coronal and sagittal reformatted images. CLINICAL INFORMATION: lung screen COMPARISON: None. DLP: 75.30 mGy.cm DIvol: Mean CTDIvol: 1.70 (mGy) All CT scans at [facility] use at least one of these dose optimization techniques: automated exposure control; mA and/or kV adjustment per patient size (includes targeted exams where dose is matched to clinical indication); or iterative reconstruction. FINDINGS: Moderate chronic emphysematous changes. Cluster of small subcentimeter nodules in the RIGHT upper lobe along the fissure. Fibrosis in the lung apices. Tiny noncalcified nodule LEFT lung apex. Aortic calcification. Coronary calcification. No mediastinal or hilar lymphadenopathy. Cholecystectomy clips. Adrenal glands are normal. CT/CT lung screening [id number] IMPRESSION: LUNG-RADS: 2-Benign Appearance or Behavior FOLLOW UP: 12 Month: Continue annual screening with LDCT
== END 2025-03-19 23:00 | disposition home or self-care (01) ==
LOC: RAD 04-30 12:38
PROVIDERS: PCP Family Medicine; Visit Provider Internal Medicine
DX: J44.9 Chronic obstructive pulmonary disease, unspecified (principal)
CPT/HCPCS: 36415; 71271; 85025

== ENCOUNTER → 2025-03-19 10:40 | Outpatient (BNVA) | payer MEDICARE, OTHER, SELFPAY | PROVIDERS: PCP Family Medicine; Visit Provider Internal Medicine | DX: J44.9 Chronic obstructive pulmonary disease, unspecified (principal); G47.33 Obstructive sleep apnea (adult) (pediatric); Z87.891 Personal history of nicotine dependence | CPT/HCPCS: 99204; Q3014 ==

== ENCOUNTER 2025-04-08 10:42 | Outpatient (CLI) | payer MEDICARE, OTHER, SELFPAY ==
--- NOTE | 2025-04-08 10:47 | XR_ITS ---
WS: [id number] Chest 2 views, 04/08/2025 Clinical Data: COPD Comparison: Portable chest, 05/13/2024 Findings: No nodules, masses or effusions are seen. The heart is normal. The pulmonary vascularity is not increased. No pneumonia or pneumothorax is seen. The aortic arch shows minimal calcification. There are right upper quadrant cholecystectomy clips. XR/XR chest 2V* [id number] Impression: Atherosclerosis.
== END 2025-04-08 10:43 | disposition home or self-care (01) ==
LOC: RAD 10:43
PROVIDERS: PCP Family Medicine; Visit Provider Nurse Practitioner Family
DX: J44.9 Chronic obstructive pulmonary disease, unspecified (principal); Z96.89 Presence of other specified functional implants; I70.0 Atherosclerosis of aorta
CPT/HCPCS: 71046

== ENCOUNTER → 2025-04-26 09:41 | Outpatient (BNVA) | payer MEDICARE, OTHER, SELFPAY | PROVIDERS: PCP Family Medicine; Visit Provider Internal Medicine | DX: J44.9 Chronic obstructive pulmonary disease, unspecified (principal); G47.33 Obstructive sleep apnea (adult) (pediatric); R91.8 Other nonspecific abnormal finding of lung field; R42 Dizziness and giddiness; I50.9 Heart failure, unspecified; J96.90 Respiratory failure, unspecified, unspecified whether with hypoxia or hypercapnia; Z99.81 Dependence on supplemental oxygen; Z87.891 Personal history of nicotine dependence | CPT/HCPCS: 99214; Q3014 ==

== ENCOUNTER 2025-05-19 09:38 | Emergency (ER) | payer MEDICARE, OTHER, SELFPAY ==
--- OUTSIDE RECORDS SUMMARY | 2024-03-31 03:00 | XMS_ITS ---
Author Organization [facility] Address [address] [place] [address] Care Team Providers Care Cleaning Supervisor Name Role Phone Ekaterina Peterson DO Primary Care Provider Unavailab Poornima Gonzales Unavailable [phone] Migration, Provider Unavailable Unavailable REASON FOR VISIT EMR-Ricki Encounters Encounter Location Date Provider Diagnosis Migrated_Facility 0 0 03/31/2024 Provider Migration Plan Of Treatment Medication Medication Name Sig Start Date Stop Date Notes oxyCODONE-Acetaminophe n 10-325 MG Oral Tablet 1 Tablet every 6 hours PRN do not exceed 4 tabs per day 12/21/2023 01/20/2024 *Reorder from [facility] for eRx and Interaction Alerts* Next Appt Details Provider Name:Poornima perla, 06/27/2025 10:00:00 AM, [address] [place], [address], Progress Notes * MURRAY CORMIER FDOB:[birth year] (74 yo F)Acc No.[id number]:03/31/2024 Patient: MURRAY HEALY :1950 A ge:73 Y S ex:Female Address:[address] [place], [address] * Refills Stop oxyCODONE-Acetaminophen 10-325 MG Oral Tablet, 1 Tablet every 6 hours PRN do not exceed 4 tabs per day Subjective: * Chief Complaints: * E MR-Ricki * * Date:
--- OUTSIDE RECORDS SUMMARY | 2024-04-01 03:00 | XMS_ITS ---
Author Organization [facility] Address [address] [place] [address] Care Team Providers Care [employer] Name Role Phone Ekaterina Peterson DO Primary Care Provider Unavailab Poornima Gonzales Unavailable [phone] Migration, Provider Unavailable Unavailable Allergies Allergen (clinical drug ingredient) Drug/Non Drug Allergy documented on EMR Reaction Allergy Type Onset Date Status Dust Mites Unknown Allergy Active REASON FOR VISIT EMR-Ricki Medications Medication SIG (Take, Route, Frequency, Duration) Notes Start Date End Date Status Albuterol Sulfate *Pick strength-form from Medispan for eRX* Active Ibuprofen *Pick strength-form from Medispan for eRX* Active oxyCODONE-Acetaminop hen *Pick strength-form from Medispan for eRX* Active Trelegy Ellipta *Pick strength-form from Medispan for eRX* Active Lisinopril *Pick strength-form from Medispan for eRX* Active Magnesium Oxide *Pick strength-form from Medispan for eRX* Active Social History Social History Additional Details Category Social Info Options Details Migrated Social History Migrated Social History Alcoholic beverages? - No, Currently on disability? - Yes, Marital Status - , Nonprescription drug use? - No, Participation in detoxification or rehabilitation - No, Smoking - No, Working currently? - No Encounters Encounter Location Date Provider Diagnosis Migrated_Facility 0 0 04/01/2024 Provider Migration Plan Of Treatment Next Appt Details Provider Name:Poornima perla, 06/27/2025 10:00:00 AM, [address] [place], [address], Progress Notes * MURRAY CORMIER FDOB:[birth year] (74 yo F)Acc No.[id number]:04/01/2025 Patient: MURRAY HEALY :1950 A ge:73 Y S ex:Female Address:[address] [place], [place] [address], [address] Subjective: * Chief Complaints: * E MR-Ricki * Surgical History: Back surgery Cervical Cancer Surgery * Family History: M igrated Family History: : Cancer, D iabetes, f ibromyalgia, H eart disease, l upus, R heumatoid arthritis. * Social History: M igrated Social History: M igrated Social History: Alcoholic beverages? - No, C urrently on disability? - Yes, M arital Status - , N onprescription drug use? - No, P articipation in detoxification or rehabilitation - No, S moking - No, W orking currently? - No. * Medications: T akingTrelegy Ellipta , Notes to Pharmacist: *Pick strength-form from Medispan for eRX*oxyCODONE-Acetaminophen , Notes to Pharmacist: *Pick strength-form from Medispan for eRX*Albuterol Sulfate , Notes to Pharmacist: *Pick strength-form from Medispan for eRX*Magnesium Oxide , Notes to Pharmacist: *Pick strength-form from Medispan for eRX*Ibuprofen , Notes to Pharmacist: *Pick strength-form from Medispan for eRX*Lisinopril , Notes to Pharmacist: *Pick strength-form from Medispan for eRX*Taking Trelegy Ellipta , Notes to Pharmacist: *Pick strength-form from Medispan for eRX*Taking oxyCODONE-Acetaminophen , Notes to Pharmacist: *Pick strength- form from Medispan for eRX*Taking Albuterol Sulfate , Notes to Pharmacist: *Pick strength-form from Medispan for eRX*Taking Magnesium Oxide , Notes to Pharmacist: *Pick strength-form from Medispan for eRX*Taking Ibuprofen , Notes to Pharmacist: *Pick strength-form from Medispan for eRX*Taking Lisinopril , Notes to Pharmacist: *Pick strength-form from Medispan for eRX* * Allergies: D ust Mites: Allergy * * Date:
--- NOTE | 2025-05-19 09:40 | XRR_ITS ---
PROCEDURE INFORMATION: Exam: XR Right Ankle Exam date and time: 05/19/2025 10:07 AM Age: 74 years old Clinical indication: Pain; Ankle; Right; Additional info: RT ankle pain/swelling post fall today. No history of surgery is provided. TECHNIQUE: Imaging protocol: Radiologic exam of the right ankle. 3image(s) are provided. Views: 3 or more views. COMPARISON: No relevant prior studies are currently available. FINDINGS: Bones/joints: There is some tiny plantar calcaneal spurring present. Ankle mortise alignment appears overall grossly maintained. There appear to be some mild degenerative changes of the midfoot. There is a transverse fracture demonstrated of the distal fibula tip margin. No other displaced fracture or dislocation is currently appreciated. Soft tissues: No radiopaque foreign body or subcutaneous emphysema is appreciated. There is soft tissue swelling overall demonstrated including with some lateral predominance of the frontal view. There are some soft tissue calcifications present. Atherosclerotic vascular changes are demonstrated. XR/XR ankle RT min 3V* [id number] IMPRESSION: There is a transverse fracture of the distal fibular tip demonstrated with the adjacent soft tissue swelling and overall maintained ankle mortise alignment.
--- OUTSIDE RECORDS SUMMARY | 2025-05-19 09:40 | XMS_ITS | Data Portability ---
Author Organization [facility] Address [address] [place] [address] Assessment No assessment recorded. Plan of Treatment Reminders Order Date Submit Date Provider Last Modified By Organization Details Last Modified Time Details Appointments None record ed. Lab None record ed. Referral None record ed. Procedures None record ed. Surgeries None record ed. Imaging None record ed. Medication Orders None record ed. Patient TargetsNo targets recorded. Patient InstructionsNo instructions recorded. Reason for Referral None Reported. Procedures Surgical History Date Name Laterality Status Provider Name and Address Organization Details Recorded Time Cerumen Removal-Inst rumentation completed DANIEL WARREN [address] [place] [address], [id number], [facility]15/[facility]24 07:36:03 Imaging Results None recorded. Procedure Notes None recorded. Medical Equipment None Reported. Allergies No known drug allergies Medications Name Sig Start Date Stop Date Status Note LastModified by Organization Details LastModified Time cetirizine 10 mg tablet TAKE 1 TABLET BY MOUTH ONCE A DAY NEEDED FOR ITCHING active Not Available Not Available No t Available cefpodoxime 200 mg tablet TAKE 1 TABLET BY MOUTH TWICE A DAY WITH FOOD/MEAL active Not Available Not Available No t Available azithromyci n 250 mg tablet TAKE 1 TABLET DAILY ON MONDAYS, Tuesday, AND FRIDAYS active Not Available Not Available No t Available lisinopril 20 mg tablet TAKE 1 TABLET BY MOUTH EVERY DAY active Not Available Not Available No t Available amlodipine 2.5 mg tablet TAKE 1 TABLET BY MOUTH EVERY DAY 10/12 completed Not Available Not Available Not Available ciprofloxac in 500 mg tablet TAKE 1 TABLET BY MOUTH EVERY 12 HOURS FOR 7 DAYS 10/12 completed Not Available Not Available Not Available famotidine 20 mg tablet TAKE 2 TABLETS BY MOUTH TWICE A DAY active Not Available Not Available No t Available oxycodone-a cetaminophe n 10 mg-325 mg tablet 1 TABLET NEEDED ORALLY EVERY 6 HRS NEEDED DO NOT EXCEED 4 PER DAY 30 DAYS active Not Available Not Available No t Available ferrous sulfate 325 mg (65 mg iron) tablet TAKE 1 TABLET BY MOUTH ONCE A DAY TAKE WITH BREAKFAST active Not Available Not Available No t Available lisinopril 10 mg tablet TAKE 1 TABLET BY MOUTH EVERY DAY 10/12 completed Not Available Not Available Not Available docusate sodium 100 mg capsule TAKE 1 CAPSULE BY MOUTH TWICE A DAY active Not Available Not Available No t Available furosemide 20 mg tablet TAKE 1 TABLET BY MOUTH EVERY DAY active Not Available Not Available No t Available ondansetron 4 mg disintegrat ing tablet TAKE 1 TABLET BY MOUTH EVERY 6 HOURS NEEDED FOR NAUSEA AND VOMITING active Not Available Not Available No t Available nitrofurant oin monohydrate /macrocryst als 100 mg capsule TAKE 1 CAPSULE BY MOUTH TWICE A DAY FOR 7 DAYS 10/12 completed Not Available Not Available Not Available lactulose 10 gram/15 mL oral solution TAKE 15ML BY MOUTH DAILY NEEDED FOR CONSTIPAT ION active Not Available Not Available No t Available pramipexole 0.75 mg tablet TAKE 1 TABLET EVERY MORNING AND 2 TABLETS EVERY EVENING active Not Available Not Available No t Available Senexon-S 8.6 mg-50 mg tablet TAKE 1 TABLET BY MOUTH EVERY DAY NEEDED FOR CONSTIPAT ION active Not Available Not Available No t Available Eliquis 5 mg tablet TAKE 1 TABLET BY MOUTH TWICE A DAY active Not Available Not Available No t Available Trelegy Ellipta 100 mcg-62.5 mcg-25 mcg powder for inhalation INHALE 1 PUFF BY MOUTH DAILY active Not Available Not Available No t Available Vitals Date Recorded Body weight Body mass index (BMI) Body height Body temperature Respiratory rate Heart rate Oxygen saturation Inhaled oxygen flow rate Systolic And Diastolic Provider Name and Address Organization Details Last Updated DateTime 52973.5 1 g 31.5 kg/m2 167.64 cm 98.2 [degF] 18 /min 122 /min 100 % 3 L/min 130/76 mm[Hg] [facility] 15:22:54 Social History None recorded. Functional Status None recorded. Mental Status None recorded. Family History Nothing Reported. Medical History No medical history recorded. Gynecological HistoryNo gynecological history recorded. Obstetrics History GPAL:G 0 P 0 0 0 0 Past Encounters Encounter ID Performer Location Encounter Start Date Encounter Closed Date Diagnosis/Indication Diagnosis SNOMED-CT Code Diagnosis ICD10 Code Diagnosis IMO Codes Diagnosis Note [id number] DANIEL WARREN [facility] ([facility]) [address] [place] [address] 10/12/2024 15:09:42 10/17/2024 11:41:39 Impacted cerumen of bilateral ears [id number] H61.23 [id number] Cerumen removed today.Rehana ent may continue using otc Debrox to keep ear wax soft and prevent further build up.If you develop ear pain or concerns return for re-eval. Health Concerns Section Related Observation LastModified by Organization Detai ls LastModified Time None Recorded Concern Status LastModified by Organization Details LastModified Time None Recorded Advance Directives Directive None Recorded Payers Insurance Date Sequence Insurance Name Policy Number Policy Taylor Covered Member ID Taylor Member ID Guarantor Name 10/17/2024 [place] - MEDICARE-[place] - PART A - [facility] (MEDICARE) Mary Fitch [id number] Mary Fitch 10/12/2024 2 [employer] (MEDICARE SUPPLEMENT) Mary Fitch [id number] Mary Fitch 10/12/2024 1 [place] [employer] Mary Fitch [id number] Mary Fitch Notes Date Note Type Note Provider Name and Address Organization Details Recorded Time 10/12/2024 text/html ROS as noted in the HPI Patient states that she is having trouble out of both her ears. Left is worse than right. She's using debrox at home and not having much wax come out. Denies ear pain, sinus congestion, or fever. DANIEL WARREN [address] [place], [address], [facility], [place] 10/15/2024 07:36:41 OBGyn Episode No OBEpisode recorded.
--- OUTSIDE RECORDS SUMMARY | 2025-05-19 09:41 | XMS_ITS | Patient Health Record ---
Author Organization [facility] Address [address] [place] [address] Care Team Providers Care Director Blood Bank Name Role Phone Nicholas MANRIQUEZ Ekaterina Primary Care Provider Unavailab Poornima Gonzales Unavailable [phone] Noel Tidwell Unavailable [phone] Allergies Allergen (clinical drug ingredient) Drug/Non Drug Allergy documented on EMR Reaction Allergy Type Onset Date Status Dust Mites Unknown Allergy Active Results Component Value Reference Range Flag Notes Tox Results Reviewed date:03/05/2025 01:13:31 PM Interpretation: Performing Lab: Notes/Report: ERCP Biliary Reviewed date:05/23/2024 05:13:02 PM Interpretation: Performing Lab: Notes/Report: See Below For Report ERCP Biliary Read See Below For Report ERCP Biliary Reviewed date:05/23/2024 05:13:02 PM Interpretation: Performing Lab: Notes/Report: See Below For Report ERCP Biliary Read See Below For Report Urine Drug Screen (cup read) - [id number] Reviewed date:01/03/2025 04:19:01 PM Interpretation: Performing Lab: Notes/Report: OPI + OXY + Tox Results Reviewed date:11/14/2024 02:59:35 PM Interpretation: Performing Lab: Notes/Report: Tox Results Reviewed date:07/27/2024 08:01:56 AM Interpretation: Performing Lab: Notes/Report: Urine Confirmation Panel (in strument) - [id number] Reviewed date:07/27/2024 08:01:56 AM Interpretation: Performing Lab: Notes/Report: 6-Acetylmorphine 0 <6 ng/mL N This siva t was developed and its performance characteristics determined by [facility]. It has not been cleared or approved by the U.S. Food and Drug Administration. 7-Aminoclonazepam 0 <60 ng/mL N This te st was developed and its performance characteristics determined by [facility]. It has not been cleared or approved by the U.S. Food and Drug Administration. Alprazolam 0 <60 ng/mL N This test was developed and its performance characteristics determined by [facility]. It has not been cleared or approved by the U.S. Food and Drug Administration. Amphetamine 0 <75 ng/mL N This test was developed and its performance characteristics determined by [facility]. It has not been cleared or approved by the U.S. Food and Drug Administration. aOH-Alprazolam 0 <60 ng/mL N This test was developed and its performance characteristics determined by [facility]. It has not been cleared or approved by the U.S. Food and Drug Administration. Buprenorphine 0.0 <7.5 ng/mL N This test w as developed and its performance characteristics determined by [facility]. It has not been cleared or approved by the U.S. Food and Drug Administration. Norbuprenorphine 0.0 <37.5 ng/mL N This te st was developed and its performance characteristics determined by [facility]. It has not been cleared or approved by the U.S. Food and Drug Administration. Carisoprodol 0 <75 ng/mL N This test wa s developed and its performance characteristics determined by [facility]. It has not been cleared or approved by the U.S. Food and Drug Administration. Codeine 0 <75 ng/mL N This test was developed and its performance characteristics determined by [facility]. It has not been cleared or approved by the U.S. Food and Drug Administration. EDDP 0 <75 ng/mL N This test was developed and its performance characteristics determined by [facility]. It has not been cleared or approved by the U.S. Food and Drug Administration. Fentanyl 0 <6 ng/mL N This test was developed and its performance characteristics determined by [facility]. It has not been cleared or approved by the U.S. Food and Drug Administration. Hydrocodone 0 <75 ng/mL N This test was developed and its performance characteristics determined by [facility]. It has not been cleared or approved by the U.S. Food and Drug Administration. Hydromorphone 0 <75 ng/mL N This test w as developed and its performance characteristics determined by [facility]. It has not been cleared or approved by the U.S. Food and Drug Administration. Lorazepam 0 <60 ng/mL N This test was developed and its performance characteristics determined by [facility]. It has not been cleared or approved by the U.S. Food and Drug Administration. MDMA 0 <75 ng/mL N This test was developed and its performance characteristics determined by [facility]. It has not been cleared or approved by the U.S. Food and Drug Administration. Meperidine 0.0 <37.5 ng/mL N This test was developed and its performance characteristics determined by [facility]. It has not been cleared or approved by the U.S. Food and Drug Administration. Meprobamate 0 <75 ng/mL N This test was developed and its performance characteristics determined by [facility]. It has not been cleared or approved by the U.S. Food and Drug Administration. Methamphetamine 0 <75 ng/mL N This test was developed and its performance characteristics determined by [facility]. It has not been cleared or approved by the U.S. Food and Drug Administration. Methadone 0 <75 ng/mL N This test was developed and its performance characteristics determined by [facility]. It has not been cleared or approved by the U.S. Food and Drug Administration. Morphine 0 <75 ng/mL N This test was developed and its performance characteristics determined by [facility]. It has not been cleared or approved by the U.S. Food and Drug Administration. Nordiazepam 0 <60 ng/mL N This test was developed and its performance characteristics determined by [facility]. It has not been cleared or approved by the U.S. Food and Drug Administration. Norfentanyl 0 <6 ng/mL N This test was developed and its performance characteristics determined by [facility]. It has not been cleared or approved by the U.S. Food and Drug Administration. Normeperidine 0.0 <37.5 ng/mL N This test was developed and its performance characteristics determined by [facility]. It has not been cleared or approved by the U.S. Food and Drug Administration. O-desmethyltramadol 0 <75 ng/mL N This test was developed and its performance characteristics determined by [facility]. It has not been cleared or approved by the U.S. Food and Drug Administration. Oxazepam 0 <60 ng/mL N This test was developed and its performance characteristics determined by [facility]. It has not been cleared or approved by the U.S. Food and Drug Administration. Oxycodone 805.0 <37.5 ng/mL H This test was developed and its performance characteristics determined by [facility]. It has not been cleared or approved by the U.S. Food and Drug Administration. Oxymorphone 622 <75 ng/mL H This test was developed and its performance characteristics determined by [facility]. It has not been cleared or approved by the U.S. Food and Drug Administration. Phencyclidine 0.0 <7.5 ng/mL N This test w as developed and its performance characteristics determined by [facility]. It has not been cleared or approved by the U.S. Food and Drug Administration. Tapentadol 2.9 <37.5 ng/mL N This test was developed and its performance characteristics determined by [facility]. It has not been cleared or approved by the U.S. Food and Drug Administration. Temazepam 0 <60 ng/mL N This test was developed and its performance characteristics determined by [facility]. It has not been cleared or approved by the U.S. Food and Drug Administration. Tramadol 0 <75 ng/mL N This test was developed and its performance characteristics determined by [facility]. It has not been cleared or approved by the U.S. Food and Drug Administration. Norhydrocodone 0 <75 ng/mL N This test was developed and its performance characteristics determined by [facility]. It has not been cleared or approved by the U.S. Food and Drug Administration. Noroxycodone 788 <38 ng/mL H This test wa s developed and its performance characteristics determined by [facility]. It has not been cleared or approved by the U.S. Food and Drug Administration. Pregabalin 0 <225 ng/mL N This test was developed and its performance characteristics determined by [facility]. It has not been cleared or approved by the U.S. Food and Drug Administration. Gabapentin 0 <225 ng/mL N This test was developed and its performance characteristics determined by [facility]. It has not been cleared or approved by the U.S. Food and Drug Administration. Benzoylecgonine 0.0 <37.5 ng/mL N This siva t was developed and its performance characteristics determined by [facility]. It has not been cleared or approved by the U.S. Food and Drug Administration. 4-Hydroxy Xylazine 0 <25 ng/mL N This t est was developed and its performance characteristics determined by [facility]. It has not been cleared or approved by the U.S. Food and Drug Administration. Urine Confirmation Panel (in strument) - [id number] Reviewed date:03/05/2025 12:35:56 PM Interpretation: Performing Lab: Notes/Report: 6-Acetylmorphine 0 <6 ng/mL N This siva t was developed and its performance characteristics determined by [facility]. It has not been cleared or approved by the U.S. Food and Drug Administration. 7-Aminoclonazepam 0 <60 ng/mL N This te st was developed and its performance characteristics determined by [facility]. It has not been cleared or approved by the U.S. Food and Drug Administration. Alprazolam 0 <60 ng/mL N This test was developed and its performance characteristics determined by [facility]. It has not been cleared or approved by the U.S. Food and Drug Administration. Amphetamine 0 <75 ng/mL N This test was developed and its performance characteristics determined by [facility]. It has not been cleared or approved by the U.S. Food and Drug Administration. aOH-Alprazolam 0 <60 ng/mL N This test was developed and its performance characteristics determined by [facility]. It has not been cleared or approved by the U.S. Food and Drug Administration. Buprenorphine 0.0 <7.5 ng/mL N This test w as developed and its performance characteristics determined by [facility]. It has not been cleared or approved by the U.S. Food and Drug Administration. Norbuprenorphine 0.0 <37.5 ng/mL N This te st was developed and its performance characteristics determined by [facility]. It has not been cleared or approved by the U.S. Food and Drug Administration. Carisoprodol 0 <75 ng/mL N This test wa s developed and its performance characteristics determined by [facility]. It has not been cleared or approved by the U.S. Food and Drug Administration. Codeine 0 <75 ng/mL N This test was developed and its performance characteristics determined by [facility]. It has not been cleared or approved by the U.S. Food and Drug Administration. EDDP 0 <75 ng/mL N This test was developed and its performance characteristics determined by [facility]. It has not been cleared or approved by the U.S. Food and Drug Administration. Fentanyl 0 <6 ng/mL N This test was developed and its performance characteristics determined by [facility]. It has not been cleared or approved by the U.S. Food and Drug Administration. Hydrocodone 0 <75 ng/mL N This test was developed and its performance characteristics determined by [facility]. It has not been cleared or approved by the U.S. Food and Drug Administration. Hydromorphone 0 <75 ng/mL N This test w as developed and its performance characteristics determined by [facility]. It has not been cleared or approved by the U.S. Food and Drug Administration. Lorazepam 0 <60 ng/mL N This test was developed and its performance characteristics determined by [facility]. It has not been cleared or approved by the U.S. Food and Drug Administration. MDMA 0 <75 ng/mL N This test was developed and its performance characteristics determined by [facility]. It has not been cleared or approved by the U.S. Food and Drug Administration. Meperidine 0.0 <37.5 ng/mL N This test was developed and its performance characteristics determined by [facility]. It has not been cleared or approved by the U.S. Food and Drug Administration. Meprobamate 0 <75 ng/mL N This test was developed and its performance characteristics determined by [facility]. It has not been cleared or approved by the U.S. Food and Drug Administration. Methamphetamine 0 <75 ng/mL N This test was developed and its performance characteristics determined by [facility]. It has not been cleared or approved by the U.S. Food and Drug Administration. Methadone 0 <75 ng/mL N This test was developed and its performance characteristics determined by [facility]. It has not been cleared or approved by the U.S. Food and Drug Administration. Morphine 0 <75 ng/mL N This test was developed and its performance characteristics determined by [facility]. It has not been cleared or approved by the U.S. Food and Drug Administration. Nordiazepam 0 <60 ng/mL N This test was developed and its performance characteristics determined by [facility]. It has not been cleared or approved by the U.S. Food and Drug Administration. Norfentanyl 0 <6 ng/mL N This test was developed and its performance characteristics determined by [facility]. It has not been cleared or approved by the U.S. Food and Drug Administration. Normeperidine 0.0 <37.5 ng/mL N This test was developed and its performance characteristics determined by [facility]. It has not been cleared or approved by the U.S. Food and Drug Administration. O-desmethyltramadol 0 <75 ng/mL N This test was developed and its performance characteristics determined by [facility]. It has not been cleared or approved by the U.S. Food and Drug Administration. Oxazepam 0 <60 ng/mL N This test was developed and its performance characteristics determined by [facility]. It has not been cleared or approved by the U.S. Food and Drug Administration. Oxycodone 320.6 <37.5 ng/mL H This test was developed and its performance characteristics determined by [facility]. It has not been cleared or approved by the U.S. Food and Drug Administration. Oxymorphone 283 <75 ng/mL H This test was developed and its performance characteristics determined by [facility]. It has not been cleared or approved by the U.S. Food and Drug Administration. Phencyclidine 0.0 <7.5 ng/mL N This test w as developed and its performance characteristics determined by [facility]. It has not been cleared or approved by the U.S. Food and Drug Administration. Tapentadol 0.0 <37.5 ng/mL N This test was developed and its performance characteristics determined by [facility]. It has not been cleared or approved by the U.S. Food and Drug Administration. Temazepam 0 <60 ng/mL N This test was developed and its performance characteristics determined by [facility]. It has not been cleared or approved by the U.S. Food and Drug Administration. Tramadol 0 <75 ng/mL N This test was developed and its performance characteristics determined by [facility]. It has not been cleared or approved by the U.S. Food and Drug Administration. Norhydrocodone 0 <75 ng/mL N This test was developed and its performance characteristics determined by [facility]. It has not been cleared or approved by the U.S. Food and Drug Administration. Noroxycodone 1912 <38 ng/mL H This test wa s developed and its performance characteristics determined by [facility]. It has not been cleared or approved by the U.S. Food and Drug Administration. Pregabalin 0 <225 ng/mL N This test was developed and its performance characteristics determined by [facility]. It has not been cleared or approved by the U.S. Food and Drug Administration. Gabapentin 0 <225 ng/mL N This test was developed and its performance characteristics determined by [facility]. It has not been cleared or approved by the U.S. Food and Drug Administration. Benzoylecgonine 0.0 <37.5 ng/mL N This siva t was developed and its performance characteristics determined by [facility]. It has not been cleared or approved by the U.S. Food and Drug Administration. 4-Hydroxy Xylazine 0 <25 ng/mL N This t est was developed and its performance characteristics determined by [facility]. It has not been cleared or approved by the U.S. Food and Drug Administration. Urine Drug Screen (cup read) - [id number] Reviewed date:02/27/2025 03:33:34 PM Interpretation: Performing Lab: Notes/Report: OXY + Abdomen Acute Series-[id number] Reviewed date:05/23/2024 01:33:53 PM Interpretation: Performing Lab: Notes/Report: nat=[id number]&org=[facility] Abdomen Acute Series-[id number] Reviewed date:05/23/2024 01:33:48 PM Interpretation: Performing Lab: Notes/Report: See Below For Report Abdomen Acute Series Read See Below For Report Hepatic Function Panel [id number] Reviewed date:05/24/2024 02:07:23 PM Interpretation: Performing Lab: Notes/Report: Total Protein 5.8 5.8-8.0 G/DL Albumin 3.6 3.2-4.8 G/DL Bili Total .3 .3-1.2 MG/DL Use of this assay is not recommended for patients undergoing treatment with eltrombopag due to the potential for falsely elevated results. Bili Direct .20 .05-.40 MG/DL Alk Phos 205 46-116 HI AST/SGOT 32 15-37 UNIT/L ALT/SGPT 41 12-78 UNIT/L ERCP Biliary Reviewed date:05/21/2024 04:18:39 PM Interpretation: Performing Lab: Notes/Report: [id number]&org=[facility] Urine Confirmation Panel (in strument) - [id number] Reviewed date:11/14/2024 02:55:10 PM Interpretation: Performing Lab: Notes/Report: 6-Acetylmorphine 0 <6 ng/mL N This siva t was developed and its performance characteristics determined by [facility]. It has not been cleared or approved by the U.S. Food and Drug Administration. 7-Aminoclonazepam 0 <60 ng/mL N This te st was developed and its performance characteristics determined by [facility]. It has not been cleared or approved by the U.S. Food and Drug Administration. Alprazolam 0 <60 ng/mL N This test was developed and its performance characteristics determined by [facility]. It has not been cleared or approved by the U.S. Food and Drug Administration. Amphetamine 0 <75 ng/mL N This test was developed and its performance characteristics determined by [facility]. It has not been cleared or approved by the U.S. Food and Drug Administration. aOH-Alprazolam 0 <60 ng/mL N This test was developed and its performance characteristics determined by [facility]. It has not been cleared or approved by the U.S. Food and Drug Administration. Buprenorphine 0.0 <7.5 ng/mL N This test w as developed and its performance characteristics determined by [facility]. It has not been cleared or approved by the U.S. Food and Drug Administration. Norbuprenorphine 0.0 <37.5 ng/mL N This te st was developed and its performance characteristics determined by [facility]. It has not been cleared or approved by the U.S. Food and Drug Administration. Carisoprodol 0 <75 ng/mL N This test wa s developed and its performance characteristics determined by [facility]. It has not been cleared or approved by the U.S. Food and Drug Administration. Codeine 0 <75 ng/mL N This test was developed and its performance characteristics determined by [facility]. It has not been cleared or approved by the U.S. Food and Drug Administration. EDDP 0 <75 ng/mL N This test was developed and its performance characteristics determined by [facility]. It has not been cleared or approved by the U.S. Food and Drug Administration. Fentanyl 0 <6 ng/mL N This test was developed and its performance characteristics determined by [facility]. It has not been cleared or approved by the U.S. Food and Drug Administration. Hydrocodone 0 <75 ng/mL N This test was developed and its performance characteristics determined by [facility]. It has not been cleared or approved by the U.S. Food and Drug Administration. Hydromorphone 0 <75 ng/mL N This test w as developed and its performance characteristics determined by [facility]. It has not been cleared or approved by the U.S. Food and Drug Administration. Lorazepam 0 <60 ng/mL N This test was developed and its performance characteristics determined by [facility]. It has not been cleared or approved by the U.S. Food and Drug Administration. MDMA 0 <75 ng/mL N This test was developed and its performance characteristics determined by [facility]. It has not been cleared or approved by the U.S. Food and Drug Administration. Meperidine 0.0 <37.5 ng/mL N This test was developed and its performance characteristics determined by [facility]. It has not been cleared or approved by the U.S. Food and Drug Administration. Meprobamate 0 <75 ng/mL N This test was developed and its performance characteristics determined by [facility]. It has not been cleared or approved by the U.S. Food and Drug Administration. Methamphetamine 34 <75 ng/mL N This test was developed and its performance characteristics determined by [facility]. It has not been cleared or approved by the U.S. Food and Drug Administration. Methadone 0 <75 ng/mL N This test was developed and its performance characteristics determined by [facility]. It has not been cleared or approved by the U.S. Food and Drug Administration. Morphine 0 <75 ng/mL N This test was developed and its performance characteristics determined by [facility]. It has not been cleared or approved by the U.S. Food and Drug Administration. Nordiazepam 0 <60 ng/mL N This test was developed and its performance characteristics determined by [facility]. It has not been cleared or approved by the U.S. Food and Drug Administration. Norfentanyl 0 <6 ng/mL N This test was developed and its performance characteristics determined by [facility]. It has not been cleared or approved by the U.S. Food and Drug Administration. Normeperidine 0.0 <37.5 ng/mL N This test was developed and its performance characteristics determined by [facility]. It has not been cleared or approved by the U.S. Food and Drug Administration. O-desmethyltramadol 0 <75 ng/mL N This test was developed and its performance characteristics determined by [facility]. It has not been cleared or approved by the U.S. Food and Drug Administration. Oxazepam 0 <60 ng/mL N This test was developed and its performance characteristics determined by [facility]. It has not been cleared or approved by the U.S. Food and Drug Administration. Oxycodone 538.1 <37.5 ng/mL H This test was developed and its performance characteristics determined by [facility]. It has not been cleared or approved by the U.S. Food and Drug Administration. Oxymorphone 1279 <75 ng/mL H This test was developed and its performance characteristics determined by [facility]. It has not been cleared or approved by the U.S. Food and Drug Administration. Phencyclidine 0.0 <7.5 ng/mL N This test w as developed and its performance characteristics determined by [facility]. It has not been cleared or approved by the U.S. Food and Drug Administration. Tapentadol 9.6 <37.5 ng/mL N This test was developed and its performance characteristics determined by [facility]. It has not been cleared or approved by the U.S. Food and Drug Administration. Temazepam 0 <60 ng/mL N This test was developed and its performance characteristics determined by [facility]. It has not been cleared or approved by the U.S. Food and Drug Administration. Tramadol 0 <75 ng/mL N This test was developed and its performance characteristics determined by [facility]. It has not been cleared or approved by the U.S. Food and Drug Administration. Norhydrocodone 0 <75 ng/mL N This test was developed and its performance characteristics determined by [facility]. It has not been cleared or approved by the U.S. Food and Drug Administration. Noroxycodone 2437 <38 ng/mL H This test wa s developed and its performance characteristics determined by [facility]. It has not been cleared or approved by the U.S. Food and Drug Administration. Pregabalin 0 <225 ng/mL N This test was developed and its performance characteristics determined by [facility]. It has not been cleared or approved by the U.S. Food and Drug Administration. Gabapentin 0 <225 ng/mL N This test was developed and its performance characteristics determined by [facility]. It has not been cleared or approved by the U.S. Food and Drug Administration. Benzoylecgonine 0.0 <37.5 ng/mL N This siva t was developed and its performance characteristics determined by [facility]. It has not been cleared or approved by the U.S. Food and Drug Administration. 4-Hydroxy Xylazine 0 <25 ng/mL N This t est was developed and its performance characteristics determined by [facility]. It has not been cleared or approved by the U.S. Food and Drug Administration. Urine Drug Screen (cup read) - [id number] Reviewed date:11/08/2024 03:07:43 PM Interpretation: Performing Lab: Notes/Report: OXY Pos Urine Drug Screen (cup read) - [id number] Reviewed date:04/12/2025 10:46:01 AM Interpretation: Performing Lab: Notes/Report: OPI + OXY + zzzUrine Drug Screen (confir mation by instrument) - [id number] Reviewed date:07/26/2024 03:32:46 PM Interpretation: Performing Lab: Notes/Report: Reason For Referral No Information Medications Medication SIG (Take, Route, Frequency, Duration) Notes Start Date End Date Status Lisinopril 20 MG Tablet 1 tablet Orally Once a day Active Lisinopril *Pick strength-form from [employer] for eRX* Active Furosemide 20 MG Tablet 1 tablet Orally Once a day Active Albuterol Sulfate *Pick strength-form from [employer] for eRX* Active Pramipexole Dihydrochloride 0.75 MG Tablet 1 tablet Orally 1 am and 2 pm Active Azithromycin 250 MG Tablet as directed Orally Juf-Nbyr-Ebz Active Senexon 50/8.6mg once a day Active oxyCODONE-Acetaminophen *Pick strength-form from [employer] for eRX* Active oxyCODONE-Acetaminophen 10-325 MG Tablet 1 tablet as needed Orally every 6 hrs; Duration: 30 days As needed Do not exceed 4 per day Fill on 11-13-24 Active oxyCODONE-Acetaminophen 10-325 MG Tablet 1 tablet Orally every 6 hrs; Duration: 30 days As needed Do not exceed 4 per day Fill on 05/03/2025 04/16/2025 06/02/2025 Active oxyCODONE-Acetaminophen 10-325 MG Tablet 1 tablet Orally every 6 hrs; Duration: 30 days As needed Do not exceed 4 per day Fill on 06/02/2025 04/16/2025 07/02/2025 Active Famotidine 20 MG Tablet 1 tablet at bedtime as needed Orally Twice a day Active Ferrous Sulfate 325 (65 Fe) MG Tablet 1 tablet Orally Once a day Active Diclofenac Sodium 1 % Gel as directed Externally as needed; Duration: 30 days Active Trelegy Ellipta 100-62.5-25 MCG/ACT Aerosol Powder Breath Activated 1 puff Inhalation Once a day Active Eliquis 5 MG Tablet as directed Orally Twice a day Active Trelegy Ellipta *Pick strength-form from [employer] for eRX* Active Social History Tobacco Use: Social History Observation Description Date Details (start date - stop date) Never Smoker NA - NA Social History Drug/Alcohol: Social Info Question Answer Notes AUDIT-C (Standard) Did you have a drink containing alcohol in the past year? No Points 0 Interpretation Negative Tobacco Use: Social Info Question Answer Notes Tobacco Control (Standard) Tobacco use: Nonsmoker Additional Details Category Social Info Options Details Drugs/Alcohol: Do you smoke marijuana? De nies Do you drink alcohol? No Migrated Social History Migrated Social History Alcoholic beverages? - No, Currently on disability? - Yes, Marital Status - , Nonprescription drug use? - No, Participation in detoxification or rehabilitation - No, Smoking - No, Working currently? - No Section Notes: Does not smoke Mainly drinking water Does not smoke Mainly drinking water Does not smoke Mainly drinking water Does not smoke Mainly drinking water Does not smoke Mainly drinking water Does not smoke Mainly drinking water Does not smoke Mainly drinking water Does not smoke Mainly drinking water Problems Problem Type SNOMED Code ICD Code Onset Dates Problem Status W/U Status Risk Notes Problem Obesity (255141624) Obesity, unspecified (E66.9) 11/17/19 Active confirmed Problem Chronic pain syndrome (977141544) Chronic pain syndrome (G89.4) 11/17/19 Active confirmed Problem Essential hypertension (53300392) Essential (primary) hypertension (I10) Active confirmed Problem Chronic obstructive pulmonary disease (17141323) Chronic obstructive pulmonary disease, unspecified (J44.9) 11/17/19 Active confirmed Problem Diverticulosis of small intestine (8041772) Diverticulosis of small intestine without perforation or abscess without bleeding (K57.10) Active confirmed Problem Calculus of bile duct with cholangitis (059847117) Calculus of bile duct with cholangitis, unspecified, without obstruction (K80.30) Active confirmed Problem Disorder of biliary tract (793504428) Other specified diseases of biliary tract (K83.8) Active confirmed Problem Degeneration of lumbar intervertebral disc (38015449) Other intervertebral disc degeneration, lumbar region (M51.36) 11/17/19 Active confirmed Problem Lumbosacral radiculopathy (4903307) Radiculopathy, lumbosacral region (M54.17) 11/17/19 Active confirmed Problem Post-laminectomy syndrome (12906837) Postlaminectomy syndrome, not elsewhere classified (M96.1) 11/17/19 Active confirmed Problem History of cholecystectomy (894383633) History of cholecystectomy (Z90.49) Active confirmed Problem Leukocytosis (869037574) Leukocytosis, unspecified (D72.829) Active confirmed Problem Dependence on supplemental oxygen (423649968692) O2 dependent (Z99.81) Active confirmed Problem Obesity (237546809) Obesity (E66.9) Active confirmed Problem Chronic pain (01716180) Chronic pain (G89.29) Active confirmed Problem History of cholecystectomy (835537014) Status post laparoscopic cholecystectomy (Z90.49) Active confirmed Problem Long-term current use of anticoagulant (124578881) Anticoagulated (Z79.01) Active confirmed Problem Dilatation of bile duct (153697394) Common bile duct dilation (K83.8) Active confirmed Problem Cholangitis (52178797) Cholangitis (K83.09) Active confirmed Problem Biliary sludge (24158366) Biliary sludge (K83.8) Active confirmed Problem Gastritis (disorder) (2469190) Other gastritis without hemorrhage, unspecified chronicity (K29.60) Active confirmed Problem Degeneration of intervertebral disc of lumbar region with discogenic back pain (M51.360) Active confirmed Vital Signs Height-cm 167.64 cm 04/12/2025 Weight-kg 88.45 kg 04/12/2025 Height 66 in 04/12/2025 Weight 195 lbs 04/12/2025 BMI 31.47 kg/m2 04/12/2025 Encounters Encounter Location Date Provider Diagnosis [facility] [address] [address] 02/27/2025 Noel Tidwell Chronic pain syndrom e G89.4 ; Degeneration of intervertebral disc of lumbar region with discogenic back pain M51.360 ; Radiculopathy, lumbosacral region M54.17 ; Postlaminectomy syndrome, not elsewhere classified M96.1 ; Chronic obstructive pulmonary disease, unspecified J44.9 ; predatory animal exterminator (current) use of opiate analgesic Z79.891 and Obesity E66.9 [facility] [address] [address] 01/03/2025 Poornima Medina Chronic pain syndrom e G89.4 ; Degeneration of intervertebral disc of lumbar region with discogenic back pain M51.360 ; Radiculopathy, lumbosacral region M54.17 ; Postlaminectomy syndrome, not elsewhere classified M96.1 ; Chronic obstructive pulmonary disease, unspecified J44.9 and predatory animal exterminator (current) use of opiate analgesic Z79.891 [facility] [address] [address] 11/08/2024 Poornima Medina Chronic pain syndrom e G89.4 ; Degeneration of intervertebral disc of lumbar region with discogenic back pain M51.360 ; Radiculopathy, lumbosacral region M54.17 ; Postlaminectomy syndrome, not elsewhere classified M96.1 ; Chronic obstructive pulmonary disease, unspecified J44.9 and nursing home (current) use of opiate analgesic Z79.891 [facility] [place] [address] [place] [id number] 09/26/2024 Noel Tidwell Chronic pain syndrom e G89.4 ; Degeneration of intervertebral disc of lumbar region with discogenic back pain M51.360 ; Radiculopathy, lumbosacral region M54.17 ; Postlaminectomy syndrome, not elsewhere classified M96.1 ; Chronic obstructive pulmonary disease, unspecified J44.9 and nursing home (current) use of opiate analgesic Z79.891 [facility] [place] [address] [place] [address] 07/19/2024 Poornima Medina Chronic pain syndrom e G89.4 ; Degeneration of intervertebral disc of lumbar region with discogenic back pain M51.360 ; Radiculopathy, lumbosacral region M54.17 ; Postlaminectomy syndrome, not elsewhere classified M96.1 ; Chronic obstructive pulmonary disease, unspecified J44.9 and nursing home (current) use of opiate analgesic Z79.891 [facility] [place] [address] [place] [address] 05/24/2024 Poornima Medina Chronic pain syndrom e G89.4 ; Degeneration of intervertebral disc of lumbar region with discogenic back pain M51.360 ; Radiculopathy, lumbosacral region M54.17 ; Postlaminectomy syndrome, not elsewhere classified M96.1 ; Chronic obstructive pulmonary disease, unspecified J44.9 and nursing home (current) use of opiate analgesic Z79.891 [facility] [place] [address] [place] [address] 04/12/2025 Poornima Medina Chronic pain syndrom e G89.4 ; Degeneration of intervertebral disc of lumbar region with discogenic back pain M51.360 ; Radiculopathy, lumbosacral region M54.17 ; Postlaminectomy syndrome, not elsewhere classified M96.1 ; nursing home (current) use of opiate analgesic Z79.891 ; Chronic obstructive pulmonary disease, unspecified J44.9 and Obesity E66.9 [facility] [place] [address] [place] [address] 04/12/2025 Noel Tidwell Radiculopathy, lumbosacral region M54.17 [facility] [place] [address] [place] [address] 01/03/2025 Noel Tidwell Radiculopathy, lumbosacral region M54.17 [facility] [place] [address] [place] [facility] [place] [address] 11/08/2024 Noel Yaw Radiculopathy, lumbosacral region M54.17 [facility] [place] [address] [facility] [place] [address] 07/19/2024 Noel Tidwell [facility] [address] [place] [address] 05/24/2024 Noel Tidwell [facility] [place] [address] [place] [place] [address] 05/21/2024 Noel Tidwell Assessments Encounter Date Diagnosis (ICD Code) Assessment Notes Treatment Notes Treatment Clinical Notes Section Notes 05/24/2024 Chronic pain syndrome (ICD-10 - G89.4) I had a nice discussion with the patient today regarding her chronic pain complaints. She states that she somehow got another gallstone and also had E. coli. She states that she ended up in the hospital again and had to have another surgery. She has really been struggling lately with her health. She is very sore today but is trying to get around the best she can. She denies any other changes since we last seen her any untoward side effects of the medication. Her medication typically does work well for her. She continues to have lower back pain but her abdominal issues after her surgery are taking precedence at the moment. She will return to clinic in 2 months to monitor for treatment effectiveness and compliance. 01/03/2025 Radiculopathy, lumbosacral region (ICD-10 - M54.17) 04/12/2025 Radiculopathy, lumbosacral region (ICD-10 - M54.17) 04/12/2025 Chronic pain syndrome (ICD-10 - G89.4) I had a nice discussion with the patient today regarding her chronic pain complaints. She continues with lower back pain as well as radicular symptoms. She continues to defer any interventional procedures. She states that she has been sick for couple of weeks with upper respiratory infection as well as vomiting and diarrhea and fever. She states she is following with her PCP and has been on some steroids and antibiotics now which seems to be improving her symptoms. She does have COPD and is on oxygen so I am sure her viral symptoms have exacerbated her COPD. She denies any other changes since we last seen her any untoward side effects of the medication. I did discuss lifestyle modifications as well as a bowel regimen. She will continue her medication at present level and return to clinic in 2 months to monitor for treatment effectiveness and compliance. The patient continues with chronic pain requiring treatment to help restore function and improve quality of life. Risks of opioid therapy as well as interaction of opioids with alcohol, illicit drugs, muscle relaxers, and other sedative medications are reviewed briefly with patient again today. The patient has trialed all other reasonable treatment options and uses the medication to alleviate pain in order to remain active and rest with less pain. No clinically relevant medication side effects are noted. Last UDS and [employer] PREVENTIVE MAINTENANCE COORDINATOR reviewed today. Patient is advised that best long-term goals include increased activity, core strengthening, proper weight management, coping strategies, avoidance of painful triggers, and targeted interventional therapy. We will see the patient for routine follow up in accordance with all clinic policies. We did remind patient today of current guidelines to decrease opioid when possible. We will continue to stress nonopioid treatment. URINE TESTING TODAY; POINT OF SERVICE Urine drug screening will be performed today to monitor compliance with opioid therapy or to serve as a baseline screen for a patient who may be a candidate for opioid therapy in the future, pending UDS results. We will monitor with in-office testing (rapid testing) today and review the results prior to dispensing prescription, as well. Patient has been made aware of this policy. 04/12/2025 Degeneration of intervertebral disc of lumbar region with discogenic back pain (ICD-10 - M51.360) 02/27/2025 Chronic pain syndrome (ICD-10 - G89.4) I had a nice discussion with the patient regarding her chronic pain issues. She says that he is fairly miserable with the pain despite the pain medication, although she feels like it does help to some degree. We discussed interventions. She says that she is not interested in any injections because she has tried them in [place], and they made the back pain worse. This was certainly a long time ago, and I'm unsure what procedure was completed then. She is very resistant to that idea. We will continue her medications unchanged. We will follow up with her in a couple of months and proceed accordingly. I informed her to let us know if she would like us to help her, and we can get her scheduled for a LESI. 02/27/2025 Degeneration of intervertebral disc of lumbar region with discogenic back pain (ICD-10 - M51.360) 01/03/2025 Chronic pain syndrome (ICD-10 - G89.4) I had a nice discussion with the patient today regarding her chronic pain complaints. She continues with lower back pain as well as radicular symptoms. She continues to feel she is doing reasonably well on her current medication regimen. She continues to defer any physical therapy, update advanced imaging, interventional procedures. She denies any changes in her health since we last seen her any untoward side effects of medication. I did discuss lifestyle modification as well as a bowel regimen. She will continue her medication at present level and return to clinic in 2 months to monitor for treatment effectiveness and compliance. The patient continues with chronic pain requiring treatment to help restore function and improve quality of life. Risks of opioid therapy as well as interaction of opioids with alcohol, illicit drugs, muscle relaxers, and other sedative medications are reviewed briefly with patient again today. The patient has trialed all other reasonable treatment options and uses the medication to alleviate pain in order to remain active and rest with less pain. No clinically relevant medication side effects are noted. Last UDS and [employer] PREVENTIVE MAINTENANCE COORDINATOR reviewed today. Patient is advised that best long-term goals include increased activity, core strengthening, proper weight management, coping strategies, avoidance of painful triggers, and targeted interventional therapy. We will see the patient for routine follow up in accordance with all clinic policies. We did remind patient today of current guidelines to decrease opioid when possible. We will continue to stress nonopioid treatment. 11/08/2024 Chronic pain syndrome (ICD-10 - G89.4) I had a nice discussion with the patient today regarding her chronic pain complaints. She states that she was very sick with the flu for couple of weeks and is finally feeling better. She does report that she trialed the diclofenac gel for her hands. She states that she felt like it helped a little bit, but did not feel it did enough to continue using it. Therefore, she has not been using it. She states they have not been hurting as bad lately. She continues to do well on her current medication regimen. She also continues to follow with her PCP regarding multiple comorbidities. She defers any interventional procedures or physical therapy. She will continue her medication at present level and return to clinic in 2 months to monitor for treatment effectiveness and compliance. The patient continues with chronic pain requiring treatment to help restore function and improve quality of life. Risks of opioid therapy as well as interaction of opioids with alcohol, illicit drugs, muscle relaxers, and other sedative medications are reviewed briefly with patient again today. The patient has trialed all other reasonable treatment options and uses the medication to alleviate pain in order to remain active and rest with less pain. No clinically relevant medication side effects are noted. Last UDS and [employer] PREVENTIVE MAINTENANCE COORDINATOR reviewed today. Patient is advised that best long-term goals include increased activity, core strengthening, proper weight management, coping strategies, avoidance of painful triggers, and targeted interventional therapy. We will see the patient for routine follow up in accordance with all clinic policies. We did remind patient today of current guidelines to decrease opioid when possible. We will continue to stress nonopioid treatment. 11/08/2024 Radiculopathy, lumbosacral region (ICD-10 - M54.17) 09/26/2024 Chronic pain syndrome (ICD-10 - G89.4) I had a nice visit with the patient today regarding her chronic pain issues. She says her hands are bothering her more, especially her second MCP on the right side. We discussed treatments and she has never tried topical anti-inflammatori es that she can think of, so she is open to that. We will get her a prescription for that and continue her medications unchanged and plan to see her back in a couple of months. 07/19/2024 Chronic pain syndrome (ICD-10 - G89.4) I had a nice discussion with the patient today regarding her chronic pain complaints. Last visit she stated that she somehow got another gallstone and also had E. coli. She states that she ended up in the hospital again and had to have another surgery. Today she states she continues to follow with her PCP regarding a multitude of health problems. She does report she recently had the fingers on her hand turned white and then one of them turned blue. She went and seen her PCP and states by this time it was back to normal but she had taken a picture of it. She states originally her PCP did not order anything but then did blood work. She states something came back and her blood work and the PCP decided she wanted to order an MRI of her right upper extremity. She will keep us updated on this. She denies any other changes since we last seen her any untoward side effects of the medication. Her medication typically does work well for her. She continues to have lower back pain but her other health issues are taking precedence right now. She will return to clinic in 2 months to monitor for treatment effectiveness and compliance. RECOMMEND URINE TESTING TODAY Urine drug screening will be performed today to monitor compliance with opioid therapy or to serve as a baseline screen for a patient who may be a candidate for opioid therapy in the future, pending UDS results. We will monitor with in-office testing (rapid testing) today and review the results prior to dispensing prescription. All positive results will be sent for quantitative analysis to ensure accuracy and quantify amounts. Any expected positive results that return negative will also be sent for quantitative analysis. Any questionable read or any medication we cannot test for in the office confidently will be sent for quantitative analysis, as well. Patient has been made aware of this policy and agrees to abide by our urine testing policy. RECOMMEND URINE TESTING TODAY Urine drug screening will be performed today to monitor compliance with opioid therapy or to serve as a baseline screen for a patient who may be a candidate for opioid therapy in the future, pending UDS results. We will monitor with in-office testing (rapid testing) today and review the results prior to dispensing prescription. All positive results will be sent for quantitative analysis to ensure accuracy and quantify amounts. Any expected positive results that return negative will also be sent for quantitative analysis. Any questionable read or any medication we cannot test for in the office confidently will be sent for quantitative analysis, as well. Patient has been made aware of this policy and agrees to abide by our urine testing policy. The patient continues with chronic pain requiring treatment to help restore function and improve quality of life. Risks of opioid therapy as well as interaction of opioids with alcohol, illicit drugs, muscle relaxers, and other sedative medications are reviewed briefly with patient again today. The patient has trialed all other reasonable treatment options and uses the medication to alleviate pain in order to remain active and rest with less pain. No clinically relevant medication side effects are noted. Last UDS and [employer] PREVENTIVE MAINTENANCE COORDINATOR reviewed today. Patient is advised that best long-term goals include increased activity, core strengthening, proper weight management, coping strategies, avoidance of painful triggers, and targeted interventional therapy. We will see the patient for routine follow up in accordance with all clinic policies. We did remind patient today of current guidelines to decrease opioid when possible. We will continue to stress nonopioid treatment. 05/24/2024 Degeneration of intervertebral disc of lumbar region with discogenic back pain (ICD-10 - M51.360) 09/26/2024 Degeneration of intervertebral disc of lumbar region with discogenic back pain (ICD-10 - M51.360) 01/03/2025 Degeneration of intervertebral disc of lumbar region with discogenic back pain (ICD-10 - M51.360) 11/08/2024 Degeneration of intervertebral disc of lumbar region with discogenic back pain (ICD-10 - M51.360) 04/12/2025 Radiculopathy, lumbosacral region (ICD-10 - M54.17) 02/27/2025 Radiculopathy, lumbosacral region (ICD-10 - M54.17) 05/24/2024 Radiculopathy, lumbosacral region (ICD-10 - M54.17) 07/19/2024 Degeneration of intervertebral disc of lumbar region with discogenic back pain (ICD-10 - M51.360) 05/24/2024 Postlaminectomy syndrome, not elsewhere classified (ICD-10 - M96.1) 02/27/2025 Postlaminectomy syndrome, not elsewhere classified (ICD-10 - M96.1) 04/12/2025 Postlaminectomy syndrome, not elsewhere classified (ICD-10 - M96.1) 11/08/2024 Radiculopathy, lumbosacral region (ICD-10 - M54.17) 01/03/2025 Radiculopathy, lumbosacral region (ICD-10 - M54.17) 09/26/2024 Radiculopathy, lumbosacral region (ICD-10 - M54.17) 07/19/2024 Radiculopathy, lumbosacral region (ICD-10 - M54.17) 07/19/2024 Postlaminectomy syndrome, not elsewhere classified (ICD-10 - M96.1) 09/26/2024 Postlaminectomy syndrome, not elsewhere classified (ICD-10 - M96.1) 01/03/2025 Postlaminectomy syndrome, not elsewhere classified (ICD-10 - M96.1) 02/27/2025 Chronic obstructive pulmonary disease, unspecified (ICD-10 - J44.9) 11/08/2024 Postlaminectomy syndrome, not elsewhere classified (ICD-10 - M96.1) 04/12/2025 predatory animal exterminator (current) use of opiate analgesic (ICD-10 - Z79.891) 05/24/2024 Chronic obstructive pulmonary disease, unspecified (ICD-10 - J44.9) 02/27/2025 nursing home (current) use of opiate analgesic (ICD-10 - Z79.891) 04/12/2025 Chronic obstructive pulmonary disease, unspecified (ICD-10 - J44.9) 01/03/2025 Chronic obstructive pulmonary disease, unspecified (ICD-10 - J44.9) 11/08/2024 Chronic obstructive pulmonary disease, unspecified (ICD-10 - J44.9) 07/19/2024 Chronic obstructive pulmonary disease, unspecified (ICD-10 - J44.9) 09/26/2024 Chronic obstructive pulmonary disease, unspecified (ICD-10 - J44.9) 05/24/2024 predatory animal exterminator (current) use of opiate analgesic (ICD-10 - Z79.891) 07/19/2024 nursing home (current) use of opiate analgesic (ICD-10 - Z79.891) 09/26/2024 nursing home (current) use of opiate analgesic (ICD-10 - Z79.891) 01/03/2025 predatory animal exterminator (current) use of opiate analgesic (ICD-10 - Z79.891) URINE TESTING TODAY; POINT OF SERVICE Urine drug screening will be performed today to monitor compliance with opioid therapy or to serve as a baseline screen for a patient who may be a candidate for opioid therapy in the future, pending UDS results. We will monitor with in-office testing (rapid testing) today and review the results prior to dispensing prescription, as well. Patient has been made aware of this policy. 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 We will monitor with in-office testing (rapid testing) today and review the results prior to dispensing prescription. All positive results will be sent for quantitative analysis to ensure accuracy and quantify amounts. Any expected positive results that return negative will also be sent for quantitative analysis. Any questionable read or any medication we cannot test for in the office confidently will be sent for quantitative analysis, as well. Patient has been made aware of this policy and agrees to abide by our urine testing policy. 02/27/2025 Obesity (ICD-10 - E66.9) 04/12/2025 Obesity (ICD-10 - E66.9) 09/26/2024 Other Ebenezer Lea am scribing for Dr. Noel Tidwell. I, Dr. Noel Tidwell, personally performed the services described in this documentation, as scribed by Ebenezer Reddy, and it is both accurate and complete. 02/27/2025 Other Danielle Lea am scribing for Dr. Noel Tidwell. I, Dr. Noel Tidwell, personally performed the services described in this documentation, as scribed by Danielle Oliva, and it is both accurate and complete. Plan Of Treatment Next Appt Details Provider Name:Poornima perla, 06/27/2025 10:00:00 AM, [address] [place], [address], Insurance Providers Payer Name Payer Address Payer Phone Subscriber Number Group Number Insured Name Patient Relationship to Insured Coverage Start Date Coverage End Date [place] [address] [address] [place] [address] [phone] [id number] MURRAY CORMIER Self - patient is the insured [employer] [address] [address] [place] [address] [phone] [id number] MURRAY CORMIER Self - patient is the insured Medical (General) History Medical History History ICD Code measles Chicken Pox Pneumonia Heart Disease Arthritis bladder infections migraine headaches hernia Back Trouble High Blood Pressure Low Blood Pressure asthma cataracts congestive heart failure COPD deep vein thrombosis emphysema chronic pancreatitis primary biliary cirrhosis sleep apnea Surgical History Surgery Date(Month/Year) gall bladder removal 01/24/2024 ERCP 11/22/2023 Back Surgery 11/01/2012 Back surgery Cervical Cancer Surgery Hospitalization History Reason Date(Month/Year) Cancer 1978 Influenza 06/29/2016 Malnutrition DUT See history
--- OUTSIDE RECORDS SUMMARY | 2025-05-19 09:42 | XMS_ITS | Patient Health Record ---
Author Organization [facility] Address [address] [place] [address] Support Name Relationship Address Phone Mary Fitch Guarantor Unknown [phone] Reason For Referral No Information Plan Of Treatment No Information Insurance Providers Payer Name Payer Address Payer Phone Subscriber Number Group Number Insured Name Patient Relationship to Insured Coverage Start Date Coverage End Date Medicare [address] [address] [place] [address] [id number] Mary Fitch Self - patient is the insured
[2025-05-19 09:43] VITALS: BP 138/65; PULSE 73; RESP 18; TEMP 36.5; O2SAT 100; BMI 30.7
--- NOTE | 2025-05-19 09:46 | W.ED.LOWEXIN ---
HPI - Extremity Injury (Lower) General: Chief Complaint: Extremity Injury, Lower Stated Complaint: R ankle pain, fall Time Seen by Provider: 05/19/25 09:40 Source: patient Mode of arrival: ambulatory Limitations: no limitations History of Present Illness: 74-year-old female states that when she got's bed this morning she had slipped fell twisted her right ankle. She states she had heard a pop and has had pain and swelling that right ankle since then. She denies any other injuries denies hitting her head denies any knee or hip pain. Related Data Home Medications ?Medication ?Instructions ?Recorded ?Confirmed oxycodone-acetaminophen 10 mg-325 1 tab PO Q6H PRN Pain 01/14/22 04/26/25 mg tablet (Percocet) pramipexole 0.75 mg tablet See Rx Instructions PO DAILY 01/14/22 04/26/25 cetirizine 10 mg tablet 10 mg PO DAILY PRN Itching 11/21/23 04/26/25 apixaban 5 mg tablet (Eliquis) 5 mg PO BID 01/21/24 04/26/25 famotidine 20 mg tablet 40 mg PO BID 01/21/24 04/26/25 ferrous sulfate 325 mg (65 mg 325 mg PO DIRECTED 08/23/24 04/26/25 iron) tablet fluticasone fur. 100 mcg-umeclid 1 inh inhalation DAILY PRN 08/23/24 04/26/25 62.5 mcg-vilant 25 mcg inhalat.powder (Trelegy Ellipta) Previous Rx's ?Medication ?Instructions ?Recorded ondansetron 4 mg disintegrating 4 mg PO Q6H PRN nausea and 05/13/24 tablet vomiting #14 tabs furosemide 20 mg tablet See Rx Instructions .Route 01/28/25 .COMPLEX #90 tabs lisinopril 10 mg tablet 10 mg PO DAILY #90 tabs 02/28/25 azithromycin 250 mg tablet 250 mg PO DAILY 30 days #30 tabs 03/19/25 mucus clearing device #1 ea 03/19/25 hydrocodone 5 mg-acetaminophen 325 1 tab PO Q8H PRN pain #14 tabs 05/19/25 mg tablet Allergies Allergy/AdvReac Type Severity Reaction Status Date / Time dust mites Allergy Unknown Unknown Uncoded 05/19/25 09:52 Review of Systems Musc: Reports: extremity pain PFSH ED PFSH: Medical History Biliary stricture Bacteremia Cholecystitis Chest pain Septic shock COPD (chronic obstructive pulmonary disease) Ileus Shock Sludge in gallbladder Hypotension Abdominal pain Asthma-COPD overlap syndrome Exertional dyspnea Encounter for screening for lung cancer CHF (congestive heart failure) Family History Mother Cancer lung Heart disease Father Heart disease Hypertension Sister Diabetes Daughter Diabetes Hypertension High cholesterol Social History Smoking and tobacco/nicotine status: former use of tobacco/nicotine (1 ppd X 50 years, Quit in 2012) Physical Exam Const: COMMON NORMALS: no acute distress, patient oriented x3 and healthy appearing HENMT: COMMON NORMALS: normocephalic and atraumatic HEAD & SCALP: normocephalic and atraumatic Neck/C-Spine: COMMON NORMALS: full ROM and supple Chest: COMMONS NORMALS: normal inspection of the chest Resp: COMMON NORMALS: normal respiratory effort Cardio: COMMON NORMALS: regular rate RATE: regular rate Extremity: COMMON NORMALS: full ROM NARRATIVE EXTREMITY EXAM: Tenderness swelling to right lateral ankle distal pulse sensation intact Neuro: COMMON NORMALS: patient oriented x3, moves all extremities and no focal motor deficits Psych: COMMON NORMALS: mental status grossly normal, Normal thought process present and cooperative THOUGHT PROCESS: Normal thought process present Skin: COMMON NORMALS: no rashes or lesions noted and no wounds GENERAL SKIN EXAM: no rashes or lesions noted Course Vital Signs: Vital signs: Vital Signs Temperature 97.7 F 05/19/25 09:43 Pulse Rate 73 05/19/25 09:43 Respiratory Rate 18 05/19/25 09:43 Blood Pressure 138/65 05/19/25 09:43 Pulse Oximetry 100 05/19/25 09:43 Oxygen Delivery Me thod Nasal Cannula 05/19/25 09:43 Oxygen Flow Rate 3 05/19/25 09:43 MDM - Extremity Injury (Lower) Medical Decision Making Patient presents here with fall with right ankle injury. Differential includes fracture, dislocation, sprain. Did interpret the x-ray myself shows a distal fibula fracture. Will place patient in a posterior stirrup splint she is to be nonweightbearing we will discharge her with crutches along with hydrocodone did put a referral into podiatry she is return if worsening she understands agrees to plan Medical Records I reviewed the patient's medical records. XR interpretation done by ED provider, pending radiology final review ED provider radiology interpretation(s): X-ray right ankle distal fibula fracture Discharge Plan Discharge Patient Disposition: Home Clinical Impression: Closed fracture of distal end of right fibula Qualifiers: Encounter type: initial encounter Condition: Stable Prescriptions: New hydrocodone-acetaminophen 5-325 mg tablet 1 tab PO Q8H PRN (Reason: pain) Qty: 14 0RF No Action oxycodone-acetaminophen [Percocet] 10-325 mg tablet 1 tab PO Q6H PRN (Reason: Pain) pramipexole 0.75 mg tablet See Rx Instructions PO DAILY Rx Instructions: 1 tablet by mouth in AM, 2 tablets by mouth in PM Trelegy Ellipta 100-62.5-25 mcg blister with device 1 inh inhalation DAILY PRN lisinopril 10 mg tablet 10 mg PO DAILY Qty: 90 3RF azithromycin 250 mg tablet 250 mg PO DAILY 30 Days Qty: 30 12RF Rx Instructions: start on day 2 of therapy (DME) mucus clearing device Device See Rx Instructions .MEDSUPPLY Qty: 1 0RF Rx Instructions: As directed furosemide 20 mg tablet See Rx Instructions .ROUTE .COMPLEX Qty: 90 3RF Dose Instruction: TAKE 1 TABLET BY MOUTH EVERY DAY Rx Instructions: TAKE 1 TABLET BY MOUTH EVERY DAY Eliquis 5 mg tablet 5 mg PO BID famotidine 20 mg tablet 40 mg PO BID ferrous sulfate 325 mg (65 mg iron) tablet 325 mg PO DIRECTED Rx Instructions: Take on table Tue. Thur. and Sat. ondansetron 4 mg tablet,disintegrating 4 mg PO Q6H PRN (Reason: nausea and vomiting) Qty: 14 0RF cetirizine 10 mg tablet 10 mg PO DAILY PRN (Reason: Itching) Discharge Orders: Discharge ED (Routine); Ordered 05/19/25 Ordered By: Zeina Burleson Referrals: Ekaterina Peterson DO [Primary Care Provider, [employer]IC] Lance Flores DPM [Physician, Podiatry] - 4-7 days Discharge Diet: Advance as tolerated Discharge Activity: Limit activity as instructed and Use walker/crutches as instructed Patient Instructions: Ankle Fracture (ED), Opioid Safety Print Language: [place]ese Coding Level of Care Code ED Build And Release Manager for Arnulfo Christopher
[2025-05-19] MEDS: HYDROcodone-acetaminophen 5-325 mg Tablet 1 TAB PO (10:03)
[2025-05-19 11:34] VITALS: BP 121/74; PULSE 79; O2SAT 99
== END 2025-05-19 11:36 | disposition home or self-care (01) ==
PROVIDERS: Emergency Provider Emergency Medicine; PCP Family Medicine
DX: S82.831A Other fracture of upper and lower end of right fibula, initial encounter for closed fracture (principal); W01.0XXA Fall on same level from slipping, tripping and stumbling without subsequent striking against object, initial encounter
CPT/HCPCS: 29515; 73610; 99283; J9999

== ENCOUNTER → 2025-05-21 12:16 | Outpatient (BNVA) | payer MEDICARE, OTHER, SELFPAY | PROVIDERS: PCP Family Medicine; Visit Provider Podiatrist Foot & Ankle Surgery | DX: S82.831A Other fracture of upper and lower end of right fibula, initial encounter for closed fracture (principal); W18.39XA Other fall on same level, initial encounter | CPT/HCPCS: 99204 ==

== ENCOUNTER → 2025-06-04 09:53 | Outpatient (BNVA) | payer MEDICARE, OTHER, SELFPAY | PROVIDERS: PCP Family Medicine; Visit Provider Podiatrist Foot & Ankle Surgery | DX: S82.831A Other fracture of upper and lower end of right fibula, initial encounter for closed fracture (principal); M25.571 Pain in right ankle and joints of right foot; X58.XXXA Exposure to other specified factors, initial encounter; Z46.89 Encounter for fitting and adjustment of other specified devices; S82.401D Unspecified fracture of shaft of right fibula, subsequent encounter for closed fracture with routine healing; X58.XXXD Exposure to other specified factors, subsequent encounter | CPT/HCPCS: 73610 ==

== ENCOUNTER 2025-06-04 11:20 | Outpatient (CLI) | payer MEDICARE, OTHER, SELFPAY | END 2025-06-04 11:21 | disposition home or self-care (01) | LOC: SPT 11:21 | PROVIDERS: PCP Family Medicine; Visit Provider Podiatrist Foot & Ankle Surgery | DX: Z46.89 Encounter for fitting and adjustment of other specified devices (principal); S82.401D Unspecified fracture of shaft of right fibula, subsequent encounter for closed fracture with routine healing; X58.XXXD Exposure to other specified factors, subsequent encounter | CPT/HCPCS: L4361 ==